=== PATIENT | female | born 1980 | race Two or more races ===

== ENCOUNTER → 2020-06-01 | Outpatient (CLI) | payer OTHER | END | disposition home or self-care (01) | LOC: LAB 14:12 | PROVIDERS: ATTEND Preventive Medicine Preventive Medicine/Occupational Environmental Medicine | DX: Z02.1 Encounter for pre-employment examination (principal) | CPT/HCPCS: 36415; 86706; 86735; 86762; 86765; 86787 ==

== ENCOUNTER 2021-02-14 09:16 | Emergency (ER) | payer MEDICAID, OTHER ==
[~2021-02-14] VITALS: Ht 157.5 cm; Wt 80.7 kg
[2021-02-14 10:06] LABS: Urine Bacteria NONE SEEN /hpf (None Seen); Urine Blood TRACE /uL (Negative); Urine Specific Gravity 1.013 (1.001-1.035); Urine WBC 12 /hpf (0 - 5)
[2021-02-14 11:22] LABS: Basophils # (auto) 0 10 ^3/uL (0-0.2); Basophils % (auto) 0.3 % (0.0-2.0); Eosinophils # (auto) 0.1 10 ^3/uL (0-0.8); Eosinophils % (auto) 1.5 % (0.0-7.0); Hematocrit 38.2 % (36.0-46.0); Lymphocytes # (auto) 1.8 10 ^3/uL (0.4-5.4); Lymphocytes % (auto) 25.1 % (10.0-50.0); Mean Corpuscular Hemoglobin 30.8 pg (28.0-32.0); Mean Corpuscular Hgb Conc. 34.1 g/dL (32.0-36.0); Mean Corpuscular Volume 90.3 fL (80.0-100.0); Monocytes # (auto) 0.3 10 ^3/uL (0-1.3); Monocytes % (auto) 4.9 % (0.0-12.0); Neutrophils # (auto) 4.8 10 ^3/uL (1.6-8.6); Neutrophils % (auto) 68.2 % (37.0-80.0); Nucleated Red Blood Cells % 0.1 %; Platelet Count (auto) 284 10^3/uL (140-450); Red Blood Cells 4.23 10^6/uL (4.0-5.20); Red Cell Distribution Width 13.6 % (11.8-14.3); White Blood Cell 7.1 10^3/uL (4.4-10.8)
[2021-02-14 11:39] LABS: Albumin 3.8 g/dL (3.4-5.0); Calcium 9.3 mg/dL (8.5-10.1)
[2021-02-14 11:44] LABS: BUN/Creatinine Ratio 15.4; Bilirubin, Total 0.6 mg/dL (0.2-1.0)
[2021-02-14 12:06] VITALS: BP 100/70
== END 2021-02-14 12:58 | disposition home or self-care (01) ==
LOC: ER 09:16
DX: N39.0 Urinary tract infection, site not specified (principal)
CPT/HCPCS: 36415; 74176; 80053; 81001; 85025

== ENCOUNTER 2021-08-29 13:58 | Emergency (ER) | payer MEDICAID ==
[~2021-08-29] VITALS: Ht 157.5 cm; Wt 81.6 kg
[2021-08-29 16:13] LABS: Basophils # (auto) 0 10 ^3/uL (0-0.2); Basophils % (auto) 0.3 % (0.0-2.0); Eosinophils # (auto) 0.1 10 ^3/uL (0-0.8); Eosinophils % (auto) 1.3 % (0.0-7.0); Hematocrit 35.1 % (36.0-46.0); Hemoglobin 11.9 g/dL (12.2-16.2); Lymphocytes # (auto) 2.4 10 ^3/uL (0.4-5.4); Lymphocytes % (auto) 25.5 % (10.0-50.0); Mean Corpuscular Hemoglobin 30.4 pg (28.0-32.0); Mean Corpuscular Volume 89.4 fL (80.0-100.0); Monocytes # (auto) 0.4 10 ^3/uL (0-1.3); Monocytes % (auto) 4.5 % (0.0-12.0); Neutrophils # (auto) 6.4 10 ^3/uL (1.6-8.6); Neutrophils % (auto) 68.4 % (37.0-80.0); Red Blood Cells 3.93 10^6/uL (4.0-5.20); Red Cell Distribution Width 13.2 % (11.8-14.3); White Blood Cell 9.4 10^3/uL (4.4-10.8)
[2021-08-29 16:24] LABS: Albumin 3.8 g/dL (3.4-5.0); Potassium 3.7 mmol/L (3.5-5.1)
[2021-08-29 16:27] LABS: Bilirubin, Total 0.3 mg/dL (0.2-1.0); Total Protein 7.7 g/dL (6.4-8.2)
[2021-08-29 17:23] VITALS: BP 113/75
== END 2021-08-29 17:27 | disposition home or self-care (01) ==
LOC: ER 13:58
DX: R51.9 Headache, unspecified (principal); R42 Dizziness and giddiness; R20.2 Paresthesia of skin
CPT/HCPCS: 36415; 70450; 80053; 85025

== ENCOUNTER → 2021-10-05 | Outpatient (CLI) | payer MEDICAID | END | disposition home or self-care (01) | LOC: Rad HDHVI 13:49 | PROVIDERS: ATTEND Internal Medicine Cardiovascular Disease | DX: R00.2 Palpitations (principal); I10 Essential (primary) hypertension | CPT/HCPCS: 93306 ==

== ENCOUNTER → 2021-10-25 | Outpatient (CLI) | payer MEDICAID ==
[~2021-10-25] VITALS: Ht 157.5 cm; Wt 77.1 kg
== END | disposition home or self-care (01) ==
LOC: Rad HDHVI 08:04
PROVIDERS: ATTEND Internal Medicine Cardiovascular Disease
DX: Z13.0 Encounter for screening for diseases of the blood and blood-forming organs and certain disorders involving the immune mechanism (principal); I10 Essential (primary) hypertension; R07.9 Chest pain, unspecified; R00.0 Tachycardia, unspecified; I49.9 Cardiac arrhythmia, unspecified; R00.2 Palpitations; R06.02 Shortness of breath
CPT/HCPCS: 78452; 93017; 96374; A9500

== ENCOUNTER 2023-09-27 15:43 | Inpatient (IN) | payer MEDICAID ==
[~2023-09-27] VITALS: Ht 157.5 cm; Wt 76.9 kg
[2023-09-27] MEDS ORDERED: LIDOCAINE VISCOUS 2% 15ML UD PO ONE (16:15)
[2023-09-27] MEDS ORDERED: fentaNYL CITRATE 100 MCG/2 ML VL IV ONE (16:15)
[2023-09-27] MEDS ORDERED: SODIUM CHLORIDE 0.9% 1,000 ML IV ONE (16:15)
[2023-09-27 17:57] LABS: Basophils # (auto) 0 10 ^3/uL (0-0.2); Basophils % (auto) 0.1 % (0.0-2.0); Eosinophils # (auto) 0.1 10 ^3/uL (0-0.8); Eosinophils % (auto) 0.5 % (0.0-7.0); Hematocrit 35.7 % (36.0-46.0); Hemoglobin 11.5 g/dL (12.2-16.2); Lymphocytes # (auto) 1.1 10 ^3/uL (0.4-5.4); Lymphocytes % (auto) 8.3 % (10.0-50.0); Mean Corpuscular Hemoglobin 28.4 pg (28.0-32.0); Mean Corpuscular Hgb Conc. 32.3 g/dL (32.0-36.0); Mean Corpuscular Volume 87.9 fL (80.0-100.0); Monocytes # (auto) 0.5 10 ^3/uL (0-1.3); Monocytes % (auto) 3.8 % (0.0-12.0); Neutrophils # (auto) 12.1 10 ^3/uL (1.6-8.6); Neutrophils % (auto) 87.3 % (37.0-80.0); Red Blood Cells 4.06 10^6/uL (4.0-5.20); Red Cell Distribution Width 14.3 % (11.8-14.3); White Blood Cell 13.9 10^3/uL (4.4-10.8)
[2023-09-27 17:58] LABS: Alanine Aminotransferase 34 U/L (7-40); Albumin 4.4 g/dL (3.2-4.8); Alkaline Phosphatase 125 U/L (46-116); Anion Gap 6 (5-15); Aspartate Aminotransferase 67 U/L (13-40); BUN/Creatinine Ratio 16.4 (10.0-20.0); Blood Urea Nitrogen 9 mg/dL (9-23); Calcium 9.4 mg/dL (8.5-10.1); Carbon Dioxide 28 mmol/L (20-30); Chloride 105 mmol/L (98-107); Glucose 115 mg/dL (74-106); Potassium 3.8 mmol/L (3.5-5.1); Sodium 139 mmol/L (136-145)
[2023-09-27 17:59] LABS: Bilirubin, Total 0.5 mg/dL (0.2-1.0); Total Protein 7.5 g/dL (5.7-8.2)
[2023-09-27 18:28] LABS: Lipase 3485 U/L (12-53)
[2023-09-27] MEDS ORDERED: KETOROLAC TROMETH 30 MG/ML 1ML VIAL IV ONE (18:45)
[2023-09-27 18:55] LABS: Urine Bacteria NONE SEEN /hpf (None Seen); Urine Blood 2+ /uL (Negative); Urine Clarity Clear (Clear); Urine Color Yellow (Yellow); Urine Epithelial Cast None Seen /hpf (<5); Urine Mucus FEW (None Seen); Urine Protein, UAD Negative (Negative); Urine Specific Gravity 1.014 (1.001-1.035); Urine Urobilinogen Normal (Negative); Urine WBC 2 /hpf (0 - 5)
[2023-09-27] MEDS ORDERED: cefTRIAXone 1GM/50ML D5W 50 ML IV SCH (22:00)
[2023-09-27] MEDS ORDERED: ONDANSETRON HCL 4 MG/2 ML VIAL IV PRN (22:00)
[2023-09-27] MEDS ORDERED: SODIUM CHLOR 0.9% PF (SALINE LOCK) 10ML VIAL/SYR IV SCH (22:00)
[2023-09-27] MEDS ORDERED: HYDROcodone-ACET 5/325MG TAB PO PRN (22:00)
[2023-09-27] MEDS ORDERED: MORPHINE SULFATE INJ 2 MG/ml SYRG IV PRN (22:00)
[2023-09-27] MEDS ORDERED: MAGNESIUM SULFATE 1GM/100ML 100 ML IV SCH (22:00)
[2023-09-27] MEDS ORDERED: ACETAMINOPHEN 325 MG TAB PO PRN (22:00)
[2023-09-27] MEDS ORDERED: metroNIDAZOLE 500MG/100ML 100 ML IV SCH (22:00)
[2023-09-27] MEDS ORDERED: DOCUSATE SOD 100 MG CAP PO PRN (22:00)
[2023-09-27] MEDS ORDERED: LACTATED RINGER'S 1,000 ML IV ONE (22:00)
[2023-09-27] MEDS ORDERED: hydrALAZINE HCL 20 MG/ML VL IV PRN (22:15)
[2023-09-28 05:26] VITALS: PULSE 88; RESP 18; O2SAT 98
[2023-09-28] MEDS ORDERED: ENOXAPARIN SOD 40 MG/0.4 ML SYRINGE SC SCH (10:00)
[2023-09-28] MEDS: METOPROLOL TARTRATE 25 MG TAB PO SCH ×2 (10:30→21:37)
[2023-09-28] MEDS ORDERED: MORPHINE SULFATE INJ 2 MG/ml SYRG IV PRN (14:00)
[2023-09-28] MEDS ORDERED: PANTOPRAZOLE 40 MG/10 ML VIAL INJ IV ONE (14:00)
[2023-09-28] MEDS ORDERED: cefTRIAXone 1GM/50ML D5W 50 ML IV ONE (14:00)
[2023-09-28] MEDS: D5W/SOD CHLO 0.9% 1,000 ML IV SCH (15:16)
[2023-09-28] MEDS: metroNIDAZOLE 500MG/100ML 100 ML IV SCH ×2 (16:25→21:13)
[2023-09-28 18:20] VITALS: BP 110/60; PULSE 78; RESP 16; TEMP 98.8; O2SAT 96
[2023-09-28] MEDS ORDERED: MET50T PO (18:28)
[2023-09-28 20:00] VITALS: RESP 18
[2023-09-28 22:00] VITALS: BP 101/79; PULSE 77; RESP 18; TEMP 98.4; O2SAT 95
[2023-09-29 05:00] VITALS: BP 95/60; PULSE 68; RESP 17; TEMP 98.5; O2SAT 97
[2023-09-29] MEDS: metroNIDAZOLE 500MG/100ML 100 ML IV SCH ×3 (05:28→21:31)
[2023-09-29] MEDS: D5W/SOD CHLO 0.9% 1,000 ML IV SCH ×2 (05:28→16:43)
[2023-09-29 05:34] LABS: Basophils # (auto) 0 10 ^3/uL (0-0.2); Basophils % (auto) 0.3 % (0.0-2.0); Eosinophils # (auto) 0.1 10 ^3/uL (0-0.8); Hematocrit 32.4 % (36.0-46.0); Hemoglobin 10.6 g/dL (12.2-16.2); Lymphocytes # (auto) 1.6 10 ^3/uL (0.4-5.4); Lymphocytes % (auto) 25.9 % (10.0-50.0); Mean Corpuscular Hgb Conc. 32.7 g/dL (32.0-36.0); Mean Corpuscular Volume 88.9 fL (80.0-100.0); Monocytes # (auto) 0.5 10 ^3/uL (0-1.3); Monocytes % (auto) 8.4 % (0.0-12.0); Neutrophils # (auto) 3.9 10 ^3/uL (1.6-8.6); Neutrophils % (auto) 63.4 % (37.0-80.0); Red Blood Cells 3.65 10^6/uL (4.0-5.20); Red Cell Distribution Width 14.3 % (11.8-14.3); White Blood Cell 6.1 10^3/uL (4.4-10.8)
[2023-09-29] MEDS: ACETAMINOPHEN 325 MG TAB PO PRN ×2 (05:43→16:33)
[2023-09-29 05:52] LABS: INR 1.04 (0.9-1.15); Partial Thromboplastin Time 28.5 SEC (24.5-34.5); Prothrombin Time 10.9 sec (9.3-11.8)
[2023-09-29 05:53] LABS: Alanine Aminotransferase 36 U/L (7-40); Albumin 3.8 g/dL (3.2-4.8); Alkaline Phosphatase 104 U/L (46-116); Anion Gap 6 (5-15); Aspartate Aminotransferase 28 U/L (13-40); BUN/Creatinine Ratio 11.1 (10.0-20.0); Blood Urea Nitrogen 6 mg/dL (9-23); Calcium 8.9 mg/dL (8.5-10.1); Carbon Dioxide 27 mmol/L (20-30); Chloride 108 mmol/L (98-107); Cholesterol 107 mg/dL (< 200); Glucose 96 mg/dL (74-106); HDL Cholesterol 37 mg/dL (40-59); LDL Cholesterol 58 mg/dL (< 100); Potassium 3.8 mmol/L (3.5-5.1); Sodium 141 mmol/L (136-145); Triglycerides 88 mg/dL (< 150)
[2023-09-29 05:54] LABS: Bilirubin, Total 0.9 mg/dL (0.2-1.0); Total Protein 6.5 g/dL (5.7-8.2)
[2023-09-29 07:09] LABS: Lipase 38 U/L (12-53)
[2023-09-29 08:39] VITALS: BP 86/64; PULSE 97; RESP 14; TEMP 98; O2SAT 98
[2023-09-29] MEDS: PANTOPRAZOLE 40 MG/10 ML VIAL INJ IV SCH (09:46)
[2023-09-29] MEDS: cefTRIAXone 1GM/50ML D5W 50 ML IV SCH (09:46)
[2023-09-29] MEDS: METOPROLOL TARTRATE 25 MG TAB PO SCH ×2 (09:50→21:31)
[2023-09-29 12:43] VITALS: BP 102/65; PULSE 83; RESP 14; TEMP 97.9; O2SAT 100
[2023-09-29 16:37] VITALS: BP 107/66; PULSE 64; RESP 14; TEMP 97.9; O2SAT 97
[2023-09-29 22:00] VITALS: BP 103/68; PULSE 58; RESP 19; TEMP 98.7; O2SAT 96
[2023-09-30] VITALS (7 sets, daily range): BP systolic 97–128; BP diastolic 55–76; PULSE 63–91; RESP 15–18; TEMP 97.8–98.3; O2SAT 96–100
[2023-09-30] MEDS: D5W/SOD CHL 0.45%/KCL 20MEQ 1,000 ML IV SCH ×3 (00:38→23:46)
[2023-09-30] MEDS: metroNIDAZOLE 500MG/100ML 100 ML IV SCH ×3 (05:36→21:32)
[2023-09-30 06:32] LABS: Basophils # (auto) 0 10 ^3/uL (0-0.2); Basophils % (auto) 0.5 % (0.0-2.0); Eosinophils # (auto) 0.1 10 ^3/uL (0-0.8); Eosinophils % (auto) 2.8 % (0.0-7.0); Hematocrit 35.2 % (36.0-46.0); Hemoglobin 11.2 g/dL (12.2-16.2); Lymphocytes # (auto) 1.4 10 ^3/uL (0.4-5.4); Lymphocytes % (auto) 29.5 % (10.0-50.0); Mean Corpuscular Hemoglobin 28.5 pg (28.0-32.0); Mean Corpuscular Hgb Conc. 31.8 g/dL (32.0-36.0); Mean Corpuscular Volume 89.5 fL (80.0-100.0); Monocytes # (auto) 0.4 10 ^3/uL (0-1.3); Monocytes % (auto) 8.4 % (0.0-12.0); Neutrophils # (auto) 2.9 10 ^3/uL (1.6-8.6); Neutrophils % (auto) 58.8 % (37.0-80.0); Red Blood Cells 3.93 10^6/uL (4.0-5.20); Red Cell Distribution Width 14.3 % (11.8-14.3); White Blood Cell 4.9 10^3/uL (4.4-10.8)
[2023-09-30 06:57] LABS: Alanine Aminotransferase 27 U/L (7-40); Albumin 3.9 g/dL (3.2-4.8); Alkaline Phosphatase 96 U/L (46-116); Anion Gap 7 (5-15); Aspartate Aminotransferase 17 U/L (13-40); Calcium 8.6 mg/dL (8.7-10.4); Carbon Dioxide 25 mmol/L (20-30); Chloride 108 mmol/L (98-107); Glucose 92 mg/dL (74-106); Potassium 3.4 mmol/L (3.5-5.1); Sodium 140 mmol/L (136-145)
[2023-09-30 06:58] LABS: BUN/Creatinine Ratio 10.2 (10.0-20.0); Bilirubin, Total 0.6 mg/dL (0.2-1.0); Blood Urea Nitrogen < 5 mg/dL (9-23); Total Protein 6.9 g/dL (5.7-8.2)
[2023-09-30] MEDS ORDERED: LIDOCAINE W/ EPINEPHRINE 2% INJ 20ML VIAL ONE (07:54)
[2023-09-30] MEDS ORDERED: MEPERIDINE HCL (25 MG/ML) 1ML VIAL ONE ×2 (08:24→08:25)
[2023-09-30] MEDS ORDERED: PROPOFOL 10 MG/ML 20 ML IV ONE (08:24)
[2023-09-30] MEDS ORDERED: MIDAZOLAM HCL 2MG/2ML 2ml VIAL (1mg/ml) ONE (08:24)
[2023-09-30] MEDS ORDERED: DexAMETHasone SOD PHOS 10MG/1ML VIAL INJ ONE (08:24)
[2023-09-30] MEDS ORDERED: fentaNYL CITRATE 100 MCG/2 ML VL ONE (08:30)
[2023-09-30] MEDS ORDERED: LIDOCAINE 2% JELLY 11ml (GLYDO) ONE (08:32)
[2023-09-30] MEDS ORDERED: ROCURONIUM 10MG/ML 10ML VIAL IV ONE (08:41)
[2023-09-30] MEDS ORDERED: SUGAMMADEX 200mg/2ml Vial (100MG/ML) IV ONE (09:21)
[2023-09-30] MEDS ORDERED: MORPHINE SULFATE INJ 2 MG/ml SYRG IV PRN (09:30)
[2023-09-30] MEDS ORDERED: MORPHINE SULFATE 4 MG/ML SYR/VIAL IV PRN (09:30)
[2023-09-30] MEDS ORDERED: KETOROLAC TROMETH 30 MG/ML 1ML VIAL IV ONE (09:30)
[2023-09-30] MEDS ORDERED: ONDANSETRON HCL 4 MG/2 ML VIAL IV PRN (09:30)
[2023-09-30] MEDS ORDERED: ePHEDrine SULFATE 50 MG/ML AMP IV PRN (09:30)
[2023-09-30] MEDS ORDERED: MIDAZOLAM HCL 2MG/2ML 2ml VIAL (1mg/ml) IV PRN (09:30)
[2023-09-30] MEDS ORDERED: LABETALOL HCL 5 MG/ML 4ML SYRINGE IV PRN (09:30)
[2023-09-30] MEDS: HYDROmorphone HCL 2 MG/ML VL/or syr IV PRN ×7 (09:43→21:33)
[2023-09-30] MEDS: METOPROLOL TARTRATE 25 MG TAB PO SCH ×2 (10:00→21:32)
[2023-09-30] MEDS: HYDROcodone-ACET 5/325MG TAB PO PRN ×2 (10:08→19:51)
[2023-09-30] MEDS: cefTRIAXone 1GM/50ML D5W 50 ML IV SCH (11:12)
[2023-09-30] MEDS: PANTOPRAZOLE 40 MG/10 ML VIAL INJ IV SCH (12:10)
[2023-09-30] MEDS: ONDANSETRON HCL 4 MG/2 ML VIAL IV PRN ×2 (12:11→21:07)
[2023-09-30] MEDS ORDERED: HYDROcodone-ACET 5/325MG TAB PO ONE (21:30)
[2023-10-01] VITALS (8 sets, daily range): BP systolic 92–118; BP diastolic 50–95; PULSE 67–103; RESP 16–19; TEMP 98.3–99.2; O2SAT 90–100
[2023-10-01] MEDS: HYDROmorphone HCL 2 MG/ML VL/or syr IV PRN ×3 (02:05→13:18)
[2023-10-01] MEDS: HYDROcodone-ACET 5/325MG TAB PO PRN ×2 (03:03→10:01)
[2023-10-01] MEDS: metroNIDAZOLE 500MG/100ML 100 ML IV SCH ×3 (06:22→21:32)
[2023-10-01 06:33] LABS: Basophils # (auto) 0 10 ^3/uL (0-0.2); Basophils % (auto) 0.1 % (0.0-2.0); Eosinophils # (auto) 0 10 ^3/uL (0-0.8); Hematocrit 32.1 % (36.0-46.0); Hemoglobin 10.5 g/dL (12.2-16.2); Lymphocytes # (auto) 1.2 10 ^3/uL (0.4-5.4); Lymphocytes % (auto) 10.6 % (10.0-50.0); Mean Corpuscular Hemoglobin 29.1 pg (28.0-32.0); Mean Corpuscular Hgb Conc. 32.8 g/dL (32.0-36.0); Mean Corpuscular Volume 88.8 fL (80.0-100.0); Monocytes # (auto) 0.9 10 ^3/uL (0-1.3); Monocytes % (auto) 7.9 % (0.0-12.0); Neutrophils # (auto) 8.9 10 ^3/uL (1.6-8.6); Neutrophils % (auto) 81.4 % (37.0-80.0); Red Blood Cells 3.62 10^6/uL (4.0-5.20); Red Cell Distribution Width 14.3 % (11.8-14.3); White Blood Cell 10.9 10^3/uL (4.4-10.8)
[2023-10-01 06:42] LABS: Alanine Aminotransferase 28 U/L (7-40); Alkaline Phosphatase 89 U/L (46-116); Anion Gap 6 (5-15); Calcium 8.9 mg/dL (8.5-10.1); Carbon Dioxide 25 mmol/L (20-30); Chloride 106 mmol/L (98-107); Glucose 112 mg/dL (74-106); Potassium 3.5 mmol/L (3.5-5.1); Sodium 137 mmol/L (136-145)
[2023-10-01 06:44] LABS: Albumin 3.8 g/dL (3.2-4.8); Aspartate Aminotransferase 28 U/L (13-40); BUN/Creatinine Ratio 10.9 (10.0-20.0); Bilirubin, Total 0.6 mg/dL (0.2-1.0); Blood Urea Nitrogen < 5 mg/dL (9-23)
[2023-10-01 06:45] LABS: Total Protein 6.6 g/dL (5.7-8.2)
[2023-10-01 09:06] LABS: Hepatitis B Surface Antigen Negative (Negative)
[2023-10-01 09:28] LABS: Hepatitis C Antibody Negative (Negative)
[2023-10-01] MEDS: METOPROLOL TARTRATE 25 MG TAB PO SCH ×2 (10:00→20:58)
[2023-10-01] MEDS: PANTOPRAZOLE 40 MG/10 ML VIAL INJ IV SCH (10:02)
[2023-10-01] MEDS: cefTRIAXone 1GM/50ML D5W 50 ML IV SCH (10:02)
[2023-10-01] MEDS ORDERED: KETOROLAC TROMETH 30 MG/ML 1ML VIAL IV ONE (11:00)
[2023-10-01] MEDS ORDERED: BACLOFEN 10 MG TAB PO PRN (15:00)
[2023-10-01] MEDS: KETOROLAC TROMETH 30 MG/ML 1ML VIAL IV PRN (15:42)
[2023-10-01] MEDS: D5W/SOD CHL 0.45%/KCL 20MEQ 1,000 ML IV SCH (15:45)
[2023-10-01] MEDS ORDERED: HYDROmorphone HCL 2 MG/ML VL/or syr IV ONE (18:30)
[2023-10-01] MEDS ORDERED: DICYCLOMINE HCL (10MG/ML) 2 ML AMPULE IM ONE (18:30)
[2023-10-02] VITALS (8 sets, daily range): BP systolic 94–110; BP diastolic 47–68; PULSE 72–89; RESP 17–21; TEMP 97.4–99.1; O2SAT 93–99
[2023-10-02] MEDS: KETOROLAC TROMETH 30 MG/ML 1ML VIAL IV PRN ×3 (01:38→21:51)
[2023-10-02] MEDS: D5W/SOD CHL 0.45%/KCL 20MEQ 1,000 ML IV SCH ×2 (05:20→09:31)
[2023-10-02] MEDS: metroNIDAZOLE 500MG/100ML 100 ML IV SCH ×3 (05:58→21:50)
[2023-10-02 06:46] LABS: Basophils # (auto) 0 10 ^3/uL (0-0.2); Basophils % (auto) 0.3 % (0.0-2.0); Eosinophils # (auto) 0 10 ^3/uL (0-0.8); Eosinophils % (auto) 0.3 % (0.0-7.0); Hematocrit 30.6 % (36.0-46.0); Lymphocytes # (auto) 1.1 10 ^3/uL (0.4-5.4); Lymphocytes % (auto) 12.7 % (10.0-50.0); Mean Corpuscular Hemoglobin 28.9 pg (28.0-32.0); Mean Corpuscular Hgb Conc. 32.6 g/dL (32.0-36.0); Mean Corpuscular Volume 88.9 fL (80.0-100.0); Monocytes # (auto) 0.7 10 ^3/uL (0-1.3); Monocytes % (auto) 7.6 % (0.0-12.0); Neutrophils # (auto) 6.8 10 ^3/uL (1.6-8.6); Neutrophils % (auto) 79.1 % (37.0-80.0); Red Blood Cells 3.44 10^6/uL (4.0-5.20); Red Cell Distribution Width 14.5 % (11.8-14.3); White Blood Cell 8.6 10^3/uL (4.4-10.8)
[2023-10-02 07:35] LABS: Alanine Aminotransferase 30 U/L (7-40); Albumin 3.4 g/dL (3.2-4.8); Alkaline Phosphatase 88 U/L (46-116); Anion Gap 4 (5-15); Aspartate Aminotransferase 33 U/L (13-40); BUN/Creatinine Ratio 12.2 (10.0-20.0); Bilirubin, Total 0.9 mg/dL (0.2-1.0); Blood Urea Nitrogen 5 mg/dL (9-23); Calcium 8.1 mg/dL (8.7-10.4); Carbon Dioxide 26 mmol/L (20-30); Chloride 108 mmol/L (98-107); Glucose 101 mg/dL (74-106); Lipase 37 U/L (12-53); Potassium 3.3 mmol/L (3.5-5.1); Sodium 138 mmol/L (136-145); Total Protein 6.1 g/dL (5.7-8.2)
[2023-10-02] MEDS: cefTRIAXone 1GM/50ML D5W 50 ML IV SCH (09:30)
[2023-10-02] MEDS: PANTOPRAZOLE 40 MG/10 ML VIAL INJ IV SCH (09:30)
[2023-10-02] MEDS: METOPROLOL TARTRATE 25 MG TAB PO SCH (09:30)
[2023-10-02] MEDS ORDERED: POTASSIUM CHLORIDE 20 MEQ, LIDOCAINE 1% (LOCAL ANESTH.) 2 ML in SODIUM CHL 0.9% 100 ML IV ONE (10:30)
[2023-10-02] MEDS ORDERED: PIPERACILLIN-TAZOB 3.375GM 100 ML IV ONE (10:30)
[2023-10-02] MEDS: LACTATED RINGER'S 1,000 ML IV SCH (10:30)
[2023-10-02] MEDS: ACETAMINOPHEN 325 MG TAB PO PRN (10:41)
[2023-10-02] MEDS ORDERED: MEPERIDINE HCL (25 MG/ML) 1ML VIAL IV ONE (10:45)
[2023-10-02] MEDS ORDERED: LORazepam 2MG/ML-1ML VIAL IV ONE (10:45)
[2023-10-02] MEDS: ONDANSETRON HCL 4 MG/2 ML VIAL IV PRN (11:08)
[2023-10-02] MEDS: PIPERACILLIN-TAZOB 3.375GM 100 ML IV SCH (19:58)
[2023-10-03] VITALS (7 sets, daily range): BP systolic 96–112; BP diastolic 58–67; PULSE 63–83; RESP 18–20; TEMP 98–98.2; O2SAT 96–98
[2023-10-03] MEDS: PIPERACILLIN-TAZOB 3.375GM 100 ML IV SCH ×3 (02:39→18:38)
[2023-10-03] MEDS: LACTATED RINGER'S 1,000 ML IV SCH ×2 (02:40→09:54)
[2023-10-03 05:48] LABS: Basophils # (auto) 0 10 ^3/uL (0-0.2); Basophils % (auto) 0.4 % (0.0-2.0); Eosinophils # (auto) 0.1 10 ^3/uL (0-0.8); Eosinophils % (auto) 2.9 % (0.0-7.0); Hematocrit 28.7 % (36.0-46.0); Hemoglobin 9.3 g/dL (12.2-16.2); Lymphocytes # (auto) 0.8 10 ^3/uL (0.4-5.4); Lymphocytes % (auto) 15.5 % (10.0-50.0); Mean Corpuscular Hemoglobin 28.5 pg (28.0-32.0); Mean Corpuscular Hgb Conc. 32.4 g/dL (32.0-36.0); Mean Corpuscular Volume 88.1 fL (80.0-100.0); Monocytes # (auto) 0.5 10 ^3/uL (0-1.3); Monocytes % (auto) 9.1 % (0.0-12.0); Neutrophils # (auto) 3.7 10 ^3/uL (1.6-8.6); Neutrophils % (auto) 72.1 % (37.0-80.0); Red Blood Cells 3.26 10^6/uL (4.0-5.20); Red Cell Distribution Width 14.8 % (11.8-14.3); White Blood Cell 5.2 10^3/uL (4.4-10.8)
[2023-10-03 05:57] LABS: Alanine Aminotransferase 25 U/L (7-40); Albumin 3.1 g/dL (3.2-4.8); Alkaline Phosphatase 84 U/L (46-116); Anion Gap 6 (5-15); Aspartate Aminotransferase 28 U/L (13-40); BUN/Creatinine Ratio 18.6 (10.0-20.0); Blood Urea Nitrogen 8 mg/dL (9-23); Carbon Dioxide 24 mmol/L (20-30); Chloride 109 mmol/L (98-107); Glucose 79 mg/dL (74-106); Potassium 3.5 mmol/L (3.5-5.1); Sodium 139 mmol/L (136-145)
[2023-10-03 05:58] LABS: Bilirubin, Total 0.8 mg/dL (0.2-1.0); Total Protein 5.7 g/dL (5.7-8.2)
[2023-10-03] MEDS: metroNIDAZOLE 500MG/100ML 100 ML IV SCH (06:08)
[2023-10-03] MEDS: PANTOPRAZOLE 40 MG/10 ML VIAL INJ IV SCH (09:57)
[2023-10-03] MEDS: KETOROLAC TROMETH 30 MG/ML 1ML VIAL IV PRN ×2 (13:50→21:34)
[2023-10-04] VITALS (7 sets, daily range): BP systolic 99–115; BP diastolic 59–73; PULSE 65–76; RESP 16–19; TEMP 97.9–99.2; O2SAT 94–99
[2023-10-04] MEDS: PIPERACILLIN-TAZOB 3.375GM 100 ML IV SCH ×3 (03:58→19:10)
[2023-10-04] MEDS: LACTATED RINGER'S 1,000 ML IV SCH ×3 (04:06→21:57)
[2023-10-04 06:04] LABS: Basophils # (auto) 0 10 ^3/uL (0-0.2); Basophils % (auto) 0.3 % (0.0-2.0); Eosinophils # (auto) 0.2 10 ^3/uL (0-0.8); Eosinophils % (auto) 3.5 % (0.0-7.0); Lymphocytes # (auto) 1.3 10 ^3/uL (0.4-5.4); Lymphocytes % (auto) 24.2 % (10.0-50.0); Mean Corpuscular Hemoglobin 29.7 pg (28.0-32.0); Mean Corpuscular Hgb Conc. 33.3 g/dL (32.0-36.0); Mean Corpuscular Volume 89.1 fL (80.0-100.0); Monocytes # (auto) 0.5 10 ^3/uL (0-1.3); Monocytes % (auto) 9.2 % (0.0-12.0); Neutrophils # (auto) 3.3 10 ^3/uL (1.6-8.6); Neutrophils % (auto) 62.8 % (37.0-80.0); Red Blood Cells 3.03 10^6/uL (4.0-5.20); Red Cell Distribution Width 14.5 % (11.8-14.3); White Blood Cell 5.3 10^3/uL (4.4-10.8)
[2023-10-04 06:24] LABS: Alanine Aminotransferase 19 U/L (7-40); Albumin 3.1 g/dL (3.2-4.8); Alkaline Phosphatase 76 U/L (46-116); Anion Gap 6 (5-15); Aspartate Aminotransferase 17 U/L (13-40); Carbon Dioxide 24 mmol/L (20-30); Chloride 110 mmol/L (98-107); Glucose 82 mg/dL (74-106); Potassium 3.4 mmol/L (3.5-5.1); Sodium 140 mmol/L (136-145)
[2023-10-04 06:25] LABS: Bilirubin, Total 0.6 mg/dL (0.2-1.0); Total Protein 5.6 g/dL (5.7-8.2)
[2023-10-04 06:29] LABS: BUN/Creatinine Ratio 13.5 (10.0-20.0); Blood Urea Nitrogen < 5 mg/dL (9-23)
[2023-10-04] MEDS: PANTOPRAZOLE 40 MG/10 ML VIAL INJ IV SCH (09:30)
[2023-10-04] MEDS ORDERED: POTASSIUM EFFERVESENT TAB 25 MEQ PO ONE (10:45)
[2023-10-04] MEDS: FLORASTOR (S. BOULARDII) 250 MG CAP PO SCH (13:05)
[2023-10-04] MEDS: METOPROLOL TARTRATE 25 MG TAB PO SCH (21:57)
[2023-10-04] MEDS ORDERED: HEPARIN SODIUM (PORCINE) 5000 UNITS/ML 1ML VIAL SC ONE (22:15)
[2023-10-05] MEDS: PIPERACILLIN-TAZOB 3.375GM 100 ML IV SCH (03:47)
[2023-10-05 06:58] LABS: Basophils # (auto) 0 10 ^3/uL (0-0.2); Basophils % (auto) 0.6 % (0.0-2.0); Eosinophils # (auto) 0.2 10 ^3/uL (0-0.8); Eosinophils % (auto) 3.7 % (0.0-7.0); Hematocrit 29.9 % (36.0-46.0); Hemoglobin 9.7 g/dL (12.2-16.2); Lymphocytes # (auto) 1.7 10 ^3/uL (0.4-5.4); Lymphocytes % (auto) 31.8 % (10.0-50.0); Mean Corpuscular Hemoglobin 28.3 pg (28.0-32.0); Mean Corpuscular Hgb Conc. 32.5 g/dL (32.0-36.0); Mean Corpuscular Volume 87.3 fL (80.0-100.0); Monocytes # (auto) 0.5 10 ^3/uL (0-1.3); Neutrophils # (auto) 2.8 10 ^3/uL (1.6-8.6); Neutrophils % (auto) 53.9 % (37.0-80.0); Nucleated Red Blood Cells % 0.1 %; Red Blood Cells 3.43 10^6/uL (4.0-5.20); Red Cell Distribution Width 14.5 % (11.8-14.3); White Blood Cell 5.2 10^3/uL (4.4-10.8)
[2023-10-05 07:09] LABS: Calcium 8.8 mg/dL (8.5-10.1); Chloride 107 mmol/L (98-107); Potassium 3.3 mmol/L (3.5-5.1); Sodium 139 mmol/L (136-145)
[2023-10-05 07:10] LABS: Anion Gap 7 (5-15); Carbon Dioxide 25 mmol/L (20-30)
[2023-10-05 07:15] LABS: Glucose 81 mg/dL (74-106)
[2023-10-05 07:21] LABS: BUN/Creatinine Ratio 11.9 (10.0-20.0); Blood Urea Nitrogen < 5 mg/dL (9-23)
[2023-10-05] MEDS ORDERED: POTASSIUM EFFERVESENT TAB 25 MEQ PO ONE (08:00)
[2023-10-05 08:15] VITALS: PULSE 74
[2023-10-05 09:00] VITALS: BP 125/72; PULSE 65; RESP 17; TEMP 98.2; O2SAT 98
[2023-10-05] MEDS: METOPROLOL TARTRATE 25 MG TAB PO SCH ×2 (09:45→22:37)
[2023-10-05] MEDS: FLORASTOR (S. BOULARDII) 250 MG CAP PO SCH (09:45)
[2023-10-05] MEDS: PANTOPRAZOLE 40 MG/10 ML VIAL INJ IV SCH (09:46)
[2023-10-05] MEDS ORDERED: HEPARIN SODIUM (PORCINE) 5000 UNITS/ML 1ML VIAL SC SCH (10:00)
[2023-10-05 13:00] VITALS: BP 130/72; PULSE 72; RESP 16; TEMP 98; O2SAT 98
[2023-10-05] MEDS: APIXABAN 5 MG TAB PO SCH ×2 (13:05→22:37)
[2023-10-05 17:00] VITALS: BP 135/69; PULSE 74; RESP 17; TEMP 98.8; O2SAT 99
[2023-10-05 20:00] VITALS: PULSE 80
[2023-10-05 22:00] VITALS: BP 108/65; PULSE 80; RESP 20; TEMP 98.6; O2SAT 97
[2023-10-06 05:00] VITALS: BP 100/67; PULSE 90; RESP 20; TEMP 79.9; O2SAT 94
[2023-10-06 08:00] VITALS: PULSE 88
[2023-10-06] MEDS: APIXABAN 5 MG TAB PO SCH (09:17)
[2023-10-06] MEDS: FLORASTOR (S. BOULARDII) 250 MG CAP PO SCH (09:17)
[2023-10-06 09:18] VITALS: BP 106/59; PULSE 63; RESP 14; TEMP 98.4; O2SAT 95
[2023-10-06] MEDS: METOPROLOL TARTRATE 25 MG TAB PO SCH (09:20)
[2023-10-06] MEDS ORDERED: PANTOPRAZOLE 40 MG TAB PO SCH (10:00)
[2023-10-06] MEDS ORDERED: APIX5TAB PO (13:05)
[2023-10-06 13:09] VITALS: BP 111/62; PULSE 85
[2023-10-06 13:20] VITALS: BP 106/66; PULSE 69; RESP 16; TEMP 98.1; O2SAT 96
[2023-10-12] MEDS ORDERED: APIXABAN 5 MG TAB PO SCH (10:00)
== END 2023-10-06 14:04 | disposition home or self-care (01) | DRG 263 ==
LOC: EDBD 15:43 → EDUNIT# 15:43 → ER 15:43 → OVERFLOW 22:00 → UNDODISIN 23:15 → EAST 09-28 18:23 → TELE-EAST 10-02 20:51
PROVIDERS: ADMIT Internal Medicine; ATTEND Nurse Practitioner Acute Care
PROC: 0FT44ZZ Resection of Gallbladder, Percutaneous Endoscopic Approach (ICD-10-PCS; principal; 2023-09-30 08:23)
DX: K80.12 Calculus of gallbladder with acute and chronic cholecystitis without obstruction (principal); K85.90 Acute pancreatitis without necrosis or infection, unspecified; K76.0 Fatty (change of) liver, not elsewhere classified; I47.10 Supraventricular tachycardia, unspecified; Z86.73 Personal history of transient ischemic attack (TIA), and cerebral infarction without residual deficits; Z83.3 Family history of diabetes mellitus; Z82.49 Family history of ischemic heart disease and other diseases of the circulatory system; E66.9 Obesity, unspecified; Z68.31 Body mass index [BMI] 31.0-31.9, adult
CPT/HCPCS: 36415; 71045; 74176; 74181; 76700; 76705; 78226; 80048; 80053; 80061; 81001; 82962; 83605; 83690; 83735; 84484; 84702; 85025; 85610; 85730; 86803; 86850; 86900; 86901; 87040; 87340; 87493; 93005; 93306; 93971; 97110; 97116; 97163; 99291; C9113; G0378; J1100; J1885; J2001; J2250; J2405; J2543; J2704; J3490

== ENCOUNTER 2023-10-25 12:38 | Emergency (ER) | payer MEDICAID ==
[~2023-10-25] VITALS: Ht 157.5 cm; Wt 78.3 kg
[~2023-10-25 12:38] MED LIST: APIX5TAB PO; MET50T PO
[2023-10-25] MEDS ORDERED: HYDROmorphone HCL 2 MG/ML VL/or syr IV ONE (14:30)
[2023-10-25] MEDS ORDERED: ACE3T PO (16:11)
[2023-10-25 17:40] VITALS: BP 110/68; PULSE 67; RESP 17; TEMP 98.7; O2SAT 100
== END 2023-10-25 17:42 | disposition home or self-care (01) ==
LOC: ER 12:38
DX: I82.612 Acute embolism and thrombosis of superficial veins of left upper extremity (principal); Z90.49 Acquired absence of other specified parts of digestive tract; Z79.899 Other long term (current) drug therapy
CPT/HCPCS: 72040; 76881; 93886

== ENCOUNTER 2023-11-03 11:22 | Emergency (ER) | payer MEDICAID ==
[~2023-11-03] VITALS: Ht 157.5 cm; Wt 77.1 kg
[~2023-11-03 11:22] MED LIST changes: +ACE3T PO
[2023-11-03 12:23] LABS: Urine Bacteria FEW /hpf (None Seen); Urine Blood TRACE /uL (Negative); Urine Clarity Clear (Clear); Urine Color Colorless (Yellow); Urine Mucus FEW (None Seen); Urine Protein, UAD Negative (Negative); Urine Specific Gravity 1.006 (1.001-1.035); Urine Urobilinogen Normal (Negative); Urine WBC 3 /hpf (0 - 5); Urine pH 6.5 (5.0-8.0)
[2023-11-03 15:37] VITALS: BP 100/63; PULSE 66; RESP 19; TEMP 98.2; O2SAT 100
== END 2023-11-03 15:39 | disposition home or self-care (01) ==
LOC: ER 11:22
DX: M79.605 Pain in left leg (principal); Z90.49 Acquired absence of other specified parts of digestive tract; Z79.899 Other long term (current) drug therapy
CPT/HCPCS: 81001; 93005; 93971

== ENCOUNTER 2023-11-10 14:11 | Emergency (ER) | payer MEDICAID ==
[~2023-11-10] VITALS: Ht 157.5 cm; Wt 77.0 kg
[2023-11-10 14:56] LABS: Basophils # (auto) 0 10 ^3/uL (0-0.2); Basophils % (auto) 0.4 % (0.0-2.0); Eosinophils # (auto) 0.1 10 ^3/uL (0-0.8); Eosinophils % (auto) 1.1 % (0.0-7.0); Hematocrit 36.7 % (36.0-46.0); Hemoglobin 11.9 g/dL (12.2-16.2); Lymphocytes # (auto) 1.8 10 ^3/uL (0.4-5.4); Lymphocytes % (auto) 21.4 % (10.0-50.0); Mean Corpuscular Hemoglobin 28.7 pg (28.0-32.0); Mean Corpuscular Hgb Conc. 32.3 g/dL (32.0-36.0); Mean Corpuscular Volume 88.8 fL (80.0-100.0); Monocytes # (auto) 0.4 10 ^3/uL (0-1.3); Neutrophils % (auto) 72.1 % (37.0-80.0); Red Blood Cells 4.13 10^6/uL (4.0-5.20); Red Cell Distribution Width 14.9 % (11.8-14.3); White Blood Cell 8.4 10^3/uL (4.4-10.8)
[2023-11-10 15:06] LABS: Chloride 104 mmol/L (98-107); Potassium 3.7 mmol/L (3.5-5.1); Sodium 138 mmol/L (136-145)
[2023-11-10 15:07] LABS: Anion Gap 5 (5-15); Calcium 9.7 mg/dL (8.5-10.1); Carbon Dioxide 29 mmol/L (20-30)
[2023-11-10 15:12] LABS: BUN/Creatinine Ratio 10.9 (10.0-20.0); Blood Urea Nitrogen 6 mg/dL (9-23); Glucose 105 mg/dL (74-106)
[2023-11-10 17:24] VITALS: BP 118/61; PULSE 72; RESP 16; TEMP 98.8; O2SAT 98
== END 2023-11-10 17:25 | disposition home or self-care (01) ==
LOC: ER 14:11
DX: R06.02 Shortness of breath (principal); R07.9 Chest pain, unspecified; Z90.49 Acquired absence of other specified parts of digestive tract
CPT/HCPCS: 36415; 71046; 80048; 84484; 85025; 85379

== ENCOUNTER 2023-11-15 16:36 | Emergency (ER) | payer MEDICAID ==
[~2023-11-15] VITALS: Ht 157.5 cm; Wt 75.8 kg
[2023-11-15] MEDS ORDERED: ACE3T PO (18:27)
[2023-11-15] MEDS: KETOROLAC TROMETH 60MG/2ML VIAL IM ONE (20:40)
[2023-11-15 20:46] VITALS: BP 107/61; PULSE 68; RESP 18; TEMP 98.1; O2SAT 100
== END 2023-11-15 20:48 | disposition home or self-care (01) ==
LOC: ER 16:36
DX: R51.9 Headache, unspecified (principal); Z90.49 Acquired absence of other specified parts of digestive tract
CPT/HCPCS: 70450; 93005; 96372; 99285; J1885

== ENCOUNTER 2023-12-17 23:49 | Emergency (ER) | payer MEDICAID ==
[~2023-12-17] VITALS: Ht 157.5 cm; Wt 77.2 kg
[2023-12-18 04:29] VITALS: BP 101/61; PULSE 72; RESP 16; O2SAT 100
== END 2023-12-18 04:28 | disposition home or self-care (01) ==
LOC: ER 23:49
DX: S76.811A Strain of other specified muscles, fascia and tendons at thigh level, right thigh, initial encounter (principal); R06.02 Shortness of breath; F41.9 Anxiety disorder, unspecified; Z98.890 Other specified postprocedural states; Z79.899 Other long term (current) drug therapy; X58.XXXA Exposure to other specified factors, initial encounter; Y93.89 Activity, other specified; Y92.89 Other specified places as the place of occurrence of the external cause; Y99.8 Other external cause status
CPT/HCPCS: 71045; 93005; 93971

== ENCOUNTER 2023-12-24 19:44 | Emergency (ER) | payer MEDICAID ==
[~2023-12-24] VITALS: Ht 157.5 cm; Wt 76.3 kg
[2023-12-24 22:25] VITALS: BP 104/77; PULSE 72; RESP 18; TEMP 98.3; O2SAT 100
[2023-12-24] MEDS ORDERED: CLIN1CAP70 PO (23:54)
== END 2023-12-25 00:27 | disposition home or self-care (01) ==
LOC: ER 19:44
DX: M54.2 Cervicalgia (principal); R59.1 Generalized enlarged lymph nodes; I82.622 Acute embolism and thrombosis of deep veins of left upper extremity; R00.2 Palpitations; Z90.49 Acquired absence of other specified parts of digestive tract
CPT/HCPCS: 70490

== ENCOUNTER 2024-01-09 20:58 | Emergency (ER) | payer MEDICAID ==
[~2024-01-09] VITALS: Ht 157.5 cm; Wt 79.1 kg
[~2024-01-09 20:58] MED LIST changes: +CLIN1CAP70 PO
[2024-01-10] MEDS ORDERED: ACET500T58 PO (02:29)
[2024-01-10 03:00] VITALS: BP 106/41; PULSE 62; RESP 17; TEMP 98.1; O2SAT 99
== END 2024-01-10 03:06 | disposition home or self-care (01) ==
LOC: ER 20:58
DX: S09.8XXA Other specified injuries of head, initial encounter (principal); M79.622 Pain in left upper arm; Z90.49 Acquired absence of other specified parts of digestive tract; W01.0XXA Fall on same level from slipping, tripping and stumbling without subsequent striking against object, initial encounter; Y93.89 Activity, other specified; Y92.89 Other specified places as the place of occurrence of the external cause; Y99.8 Other external cause status
CPT/HCPCS: 70450; 93971

== ENCOUNTER 2024-01-18 18:37 | Emergency (ER) | payer MEDICAID ==
[~2024-01-18] VITALS: Ht 157.5 cm; Wt 66.3 kg
[~2024-01-18 18:37] MED LIST changes: +ACET500T58 PO
[2024-01-18 19:18] LABS: Basophils # (auto) 0 10 ^3/uL (0-0.2); Basophils % (auto) 0.4 % (0.0-2.0); Eosinophils # (auto) 0 10 ^3/uL (0-0.8); Eosinophils % (auto) 0.5 % (0.0-7.0); Hematocrit 31.6 % (36.0-46.0); Hemoglobin 10.2 g/dL (12.2-16.2); Lymphocytes # (auto) 1.8 10 ^3/uL (0.4-5.4); Lymphocytes % (auto) 17.7 % (10.0-50.0); Mean Corpuscular Hemoglobin 27.4 pg (28.0-32.0); Mean Corpuscular Hgb Conc. 32.2 g/dL (32.0-36.0); Monocytes # (auto) 0.5 10 ^3/uL (0-1.3); Monocytes % (auto) 4.9 % (0.0-12.0); Neutrophils # (auto) 7.9 10 ^3/uL (1.6-8.6); Neutrophils % (auto) 76.5 % (37.0-80.0); Red Blood Cells 3.72 10^6/uL (4.0-5.20); White Blood Cell 10.4 10^3/uL (4.4-10.8)
[2024-01-18 19:30] LABS: Alanine Aminotransferase 15 U/L (7-40); Albumin 4.3 g/dL (3.2-4.8); Alkaline Phosphatase 92 U/L (46-116); Anion Gap 8 (5-15); Aspartate Aminotransferase 14 U/L (13-40); BUN/Creatinine Ratio 18.5 (10.0-20.0); Bilirubin, Total 0.4 mg/dL (0.2-1.0); Blood Urea Nitrogen 10 mg/dL (9-23); Calcium 9.4 mg/dL (8.7-10.4); Carbon Dioxide 27 mmol/L (20-30); Chloride 105 mmol/L (98-107); Glucose 105 mg/dL (74-106); Magnesium 1.8 mg/dL (1.6-2.6); Potassium 3.4 mmol/L (3.5-5.1); Sodium 140 mmol/L (136-145); Total Protein 7.4 g/dL (5.7-8.2)
[2024-01-18 19:33] LABS: INR 0.99 (0.9-1.15); Partial Thromboplastin Time 27.9 SEC (24.5-34.5); Prothrombin Time 10.5 sec (9.3-11.8)
[2024-01-18 19:39] LABS: Urine Bacteria FEW /hpf (None Seen); Urine Blood Negative /uL (Negative); Urine Clarity Clear (Clear); Urine Color Colorless (Yellow); Urine Protein, UAD Negative (Negative); Urine Specific Gravity 1.004 (1.001-1.035); Urine Urobilinogen Normal (Negative); Urine WBC <1 /hpf (0 - 5); Urine pH 6.5 (5.0-9.0)
[2024-01-18] MEDS: POTASSIUM EFFERVESENT TAB 25 MEQ PO ONE (20:23)
[2024-01-18 20:26] VITALS: BP 107/59; PULSE 67; RESP 18; O2SAT 97
[2024-01-18] MEDS ORDERED: POTA-228 PO (20:36)
== END 2024-01-18 21:12 | disposition home or self-care (01) ==
LOC: ER 18:37
DX: R00.2 Palpitations (principal); F45.8 Other somatoform disorders; E87.6 Hypokalemia; Z90.49 Acquired absence of other specified parts of digestive tract; Z79.2 Long term (current) use of antibiotics; Z79.899 Other long term (current) drug therapy
CPT/HCPCS: 36415; 71045; 80053; 81001; 81025; 83690; 83735; 83880; 84484; 85025; 85379; 85610; 85730; 93005; 93970

== ENCOUNTER 2024-02-05 18:37 | Emergency (ER) | payer MEDICAID ==
[~2024-02-05] VITALS: Ht 157.5 cm; Wt 79.6 kg
[~2024-02-05 18:37] MED LIST changes: +POTA-228 PO
[2024-02-05 18:38] VITALS: BP 107/49; PULSE 84; RESP 16; O2SAT 100
== END 2024-02-05 23:07 | disposition home or self-care (01) ==
LOC: ER 18:37
DX: M79.605 Pain in left leg (principal); F41.9 Anxiety disorder, unspecified; Z98.890 Other specified postprocedural states; Z79.899 Other long term (current) drug therapy
CPT/HCPCS: 93971

== ENCOUNTER 2024-03-26 19:12 | Emergency (ER) | payer MEDICAID ==
[~2024-03-26] VITALS: Ht 157.5 cm; Wt 79.5 kg
[2024-03-26 20:17] LABS: Basophils # (auto) 0 10 ^3/uL (0-0.2); Basophils % (auto) 0.4 % (0.0-2.0); Eosinophils # (auto) 0.2 10 ^3/uL (0-0.8); Monocytes # (auto) 0.5 10 ^3/uL (0-1.3); Monocytes % (auto) 6.4 % (0.0-12.0)
[2024-03-26 20:18] LABS: Hemoglobin 9.9 g/dL (12.2-16.2); Lymphocytes # (auto) 2.2 10 ^3/uL (0.4-5.4); Lymphocytes % (auto) 25.5 % (10.0-50.0); Mean Corpuscular Hemoglobin 26.4 pg (28.0-32.0); Mean Corpuscular Hgb Conc. 31.8 g/dL (32.0-36.0); Mean Corpuscular Volume 83.1 fL (80.0-100.0); Neutrophils # (auto) 5.6 10 ^3/uL (1.6-8.6); Neutrophils % (auto) 65.7 % (37.0-80.0); Red Blood Cells 3.73 10^6/uL (4.0-5.20); Red Cell Distribution Width 15.9 % (11.8-14.3); White Blood Cell 8.5 10^3/uL (4.4-10.8)
[2024-03-26 20:33] LABS: INR 0.97 (0.9-1.15); Partial Thromboplastin Time 27.4 SEC (24.5-34.5); Prothrombin Time 10.3 sec (9.3-11.8)
[2024-03-26 20:37] LABS: Alanine Aminotransferase 21 U/L (7-40); Albumin 4.2 g/dL (3.2-4.8); Alkaline Phosphatase 103 U/L (46-116); Anion Gap 3 (5-15); Aspartate Aminotransferase 14 U/L (13-40); Bilirubin, Total 0.3 mg/dL (0.2-1.0); Blood Urea Nitrogen 9 mg/dL (9-23); Calcium 9.1 mg/dL (8.7-10.4); Carbon Dioxide 28 mmol/L (20-30); Chloride 106 mmol/L (98-107); Glucose 114 mg/dL (74-106); Potassium 3.8 mmol/L (3.5-5.1); Sodium 137 mmol/L (136-145); Total Protein 7.3 g/dL (5.7-8.2)
[2024-03-27] MEDS ORDERED: HYDR-4902 PO (00:55)
[2024-03-27 01:00] VITALS: BP 110/50; PULSE 76; RESP 16; TEMP 98.5; O2SAT 98
[2024-03-27] MEDS ORDERED: IOHEXOL 350 MG/ML 100ML IJ ONE (05:13)
== END 2024-03-27 01:12 | disposition home or self-care (01) ==
LOC: ER 19:12
DX: R07.89 Other chest pain (principal); M79.662 Pain in left lower leg; F41.9 Anxiety disorder, unspecified; Z00.8 Encounter for other general examination; Z98.890 Other specified postprocedural states; Z79.899 Other long term (current) drug therapy
CPT/HCPCS: 36415; 71045; 71275; 80053; 83880; 84484; 85025; 85379; 85610; 85730; 93005; 93971; 99285; Q9967

== ENCOUNTER 2024-04-10 07:47 | Emergency (ER) | payer MEDICAID ==
[~2024-04-10] VITALS: Ht 157.5 cm; Wt 82.2 kg
[~2024-04-10 07:47] MED LIST changes: +HYDR-4902 PO
[2024-04-10 09:16] VITALS: BP 101/58; PULSE 69; RESP 18; TEMP 98.6; O2SAT 100
== END 2024-04-10 09:22 | disposition home or self-care (01) ==
LOC: ER 07:47
DX: S86.812A Strain of other muscle(s) and tendon(s) at lower leg level, left leg, initial encounter (principal); F41.9 Anxiety disorder, unspecified; Z98.890 Other specified postprocedural states; Z79.899 Other long term (current) drug therapy; X58.XXXA Exposure to other specified factors, initial encounter; Y93.89 Activity, other specified; Y92.89 Other specified places as the place of occurrence of the external cause; Y99.8 Other external cause status
CPT/HCPCS: 93971

== ENCOUNTER 2024-04-25 18:54 | Emergency (ER) | payer MEDICAID ==
[~2024-04-25] VITALS: Ht 157.5 cm; Wt 83.3 kg
[2024-04-25 20:12] LABS: Basophils # (auto) 0 10 ^3/uL (0-0.2); Eosinophils # (auto) 0.1 10 ^3/uL (0-0.8); Eosinophils % (auto) 1.8 % (0.0-7.0); Hematocrit 31.1 % (36.0-46.0); Lymphocytes # (auto) 2.1 10 ^3/uL (0.4-5.4); Monocytes # (auto) 0.5 10 ^3/uL (0-1.3)
[2024-04-25 20:13] LABS: Basophils % (auto) 0.4 % (0.0-2.0); Hemoglobin 10.1 g/dL (12.2-16.2); Lymphocytes % (auto) 26.6 % (10.0-50.0); Mean Corpuscular Hemoglobin 26.5 pg (28.0-32.0); Mean Corpuscular Hgb Conc. 32.3 g/dL (32.0-36.0); Monocytes % (auto) 6.3 % (0.0-12.0); Neutrophils % (auto) 64.9 % (37.0-80.0); Nucleated Red Blood Cells % 0.1 %; Platelet Count (auto) 345 10^3/uL (140-450); Red Cell Distribution Width 15.8 % (11.8-14.3); White Blood Cell 7.7 10^3/uL (4.4-10.8)
[2024-04-25 20:27] LABS: Alanine Aminotransferase 10 U/L (7-40); Albumin 4.4 g/dL (3.2-4.8); Alkaline Phosphatase 109 U/L (46-116); Anion Gap 0 (5-15); Aspartate Aminotransferase 11 U/L (13-40); BUN/Creatinine Ratio 17.5 (10.0-20.0); Bilirubin, Total 0.3 mg/dL (0.2-1.0); Blood Urea Nitrogen 11 mg/dL (9-23); Calcium 9.7 mg/dL (8.7-10.4); Carbon Dioxide 32 mmol/L (20-30); Chloride 105 mmol/L (98-107); Glucose 104 mg/dL (74-106); INR 1.01 (0.9-1.15); Partial Thromboplastin Time 26.5 SEC (24.5-34.5); Potassium 3.5 mmol/L (3.5-5.1); Prothrombin Time 10.7 sec (9.3-11.8); Sodium 137 mmol/L (136-145); Total Protein 7.6 g/dL (5.7-8.2)
[2024-04-25] MEDS ORDERED: MECL12.586 PO (20:58)
[2024-04-25 21:28] LABS: Urine Bacteria None Seen /hpf (None Seen)
[2024-04-25] MEDS: SODIUM CHLORIDE 0.9% 1,000 ML IV ONE (21:38)
[2024-04-25 21:46] LABS: Urine Blood 3+ /uL (Negative); Urine Clarity Clear (Clear); Urine Color Yellow (Yellow); Urine Mucus FEW (None Seen); Urine Protein, UAD TRACE (Negative); Urine Urobilinogen Normal (Negative); Urine WBC 4 /hpf (0 - 5)
[2024-04-25 22:24] VITALS: BP 112/70; PULSE 67; RESP 16; TEMP 97.8; O2SAT 99
== END 2024-04-25 22:25 | disposition home or self-care (01) ==
LOC: ER 18:54
DX: R42 Dizziness and giddiness (principal); F41.9 Anxiety disorder, unspecified; R55 Syncope and collapse; Z90.49 Acquired absence of other specified parts of digestive tract
CPT/HCPCS: 36415; 70450; 71045; 74176; 80053; 81001; 84484; 85025; 85610; 85730; 93005; 96360; 99285; J7030

== ENCOUNTER 2024-04-27 16:31 | Emergency (ER) | payer MEDICAID ==
[~2024-04-27] VITALS: Ht 157.5 cm; Wt 81.2 kg
[2024-04-27 16:31] VITALS: BP 112/66; PULSE 77; RESP 18; O2SAT 96
[~2024-04-27 16:31] MED LIST changes: +MECL12.586 PO
[2024-04-27] MEDS: ACETAMINOPHEN 500 MG TAB PO ONE (19:25)
== END 2024-04-27 19:31 | disposition home or self-care (01) ==
LOC: ER 16:31
DX: M54.2 Cervicalgia (principal); R42 Dizziness and giddiness; F41.9 Anxiety disorder, unspecified; E66.01 Morbid (severe) obesity due to excess calories; Z68.32 Body mass index [BMI] 32.0-32.9, adult; Z86.2 Personal history of diseases of the blood and blood-forming organs and certain disorders involving the immune mechanism; Z98.890 Other specified postprocedural states; Z79.899 Other long term (current) drug therapy
CPT/HCPCS: 82962; 93886

== ENCOUNTER 2024-05-06 18:39 | Emergency (ER) | payer MEDICAID ==
[~2024-05-06] VITALS: Ht 157.5 cm; Wt 81.0 kg
[2024-05-06 19:31] LABS: Basophils # (auto) 0 10 ^3/uL (0-0.2); Eosinophils # (auto) 0.2 10 ^3/uL (0-0.8)
[2024-05-06 19:32] LABS: Basophils % (auto) 0.4 % (0.0-2.0); Eosinophils % (auto) 3.4 % (0.0-7.0); Hematocrit 30.1 % (36.0-46.0); Hemoglobin 9.9 g/dL (12.2-16.2); Lymphocytes # (auto) 2.1 10 ^3/uL (0.4-5.4); Lymphocytes % (auto) 30.1 % (10.0-50.0); Mean Corpuscular Hgb Conc. 32.7 g/dL (32.0-36.0); Mean Corpuscular Volume 82.3 fL (80.0-100.0); Monocytes # (auto) 0.5 10 ^3/uL (0-1.3); Monocytes % (auto) 6.9 % (0.0-12.0); Neutrophils # (auto) 4.1 10 ^3/uL (1.6-8.6); Neutrophils % (auto) 59.2 % (37.0-80.0); Nucleated Red Blood Cells % 0.1 %; Platelet Count (auto) 372 10^3/uL (140-450); Red Blood Cells 3.66 10^6/uL (4.0-5.20); Red Cell Distribution Width 15.9 % (11.8-14.3)
[2024-05-06 20:09] LABS: Alanine Aminotransferase 12 U/L (7-40); Albumin 4.2 g/dL (3.2-4.8); Alkaline Phosphatase 86 U/L (46-116); Anion Gap 5 (5-15); Aspartate Aminotransferase 15 U/L (13-40); BUN/Creatinine Ratio 11.9 (10.0-20.0); Bilirubin, Total 0.3 mg/dL (0.2-1.0); Blood Urea Nitrogen 8 mg/dL (9-23); Calcium 9.5 mg/dL (8.7-10.4); Carbon Dioxide 27 mmol/L (20-30); Chloride 105 mmol/L (98-107); Glucose 94 mg/dL (74-106); Magnesium 1.9 mg/dL (1.6-2.6); Potassium 3.6 mmol/L (3.5-5.1); Sodium 137 mmol/L (136-145); Total Protein 7.4 g/dL (5.7-8.2)
[2024-05-06 21:41] LABS: Amphetamine Screen, Urine Neg (NEGATIVE); Barbiturate Scree,Urine Neg (NEGATIVE); Benzodiazephine Screen, Urine Neg (NEGATIVE); Cannabinoid Screen, Urine Neg (NEGATIVE); Cocaine Screen, Urine Neg (NEGATIVE); Opiate Scree,Urine Neg (NEGATIVE); Phencyclidine Screen, Urine Neg (NEGATIVE)
[2024-05-06 23:44] VITALS: BP 109/68; PULSE 71; RESP 18; TEMP 98.3; O2SAT 97
[2024-05-06] MEDS: NITROGLYCERIN 0.4 MG SL TAB SL ONE (23:45)
== END 2024-05-06 23:44 | disposition home or self-care (01) ==
LOC: ER 18:39
DX: R07.9 Chest pain, unspecified (principal); R06.02 Shortness of breath; R10.2 Pelvic and perineal pain; R00.2 Palpitations; F41.9 Anxiety disorder, unspecified; Z90.49 Acquired absence of other specified parts of digestive tract; Z98.890 Other specified postprocedural states; Z79.899 Other long term (current) drug therapy
CPT/HCPCS: 36415; 71045; 80053; 80307; 83735; 83880; 84484; 84702; 85025; 85379; 93005

== ENCOUNTER 2024-05-16 17:56 | Emergency (ER) | payer MEDICAID ==
[~2024-05-16] VITALS: Ht 157.5 cm; Wt 86.3 kg
[2024-05-16 18:10] VITALS: BP 108/75; PULSE 75; RESP 18; TEMP 99.3; O2SAT 100
[2024-05-16] MEDS: ACETAMINOPHEN 500 MG TAB PO ONE (21:28)
== END 2024-05-16 21:35 | disposition home or self-care (01) ==
LOC: ER 17:56
DX: G43.909 Migraine, unspecified, not intractable, without status migrainosus (principal); Z90.49 Acquired absence of other specified parts of digestive tract; Z98.890 Other specified postprocedural states
CPT/HCPCS: 70450

== ENCOUNTER 2024-05-22 17:36 | Emergency (ER) | payer MEDICAID ==
[~2024-05-22] VITALS: Ht 157.5 cm; Wt 82.6 kg
[2024-05-22 17:45] VITALS: BP 127/46; PULSE 70; RESP 16; O2SAT 100
== END 2024-05-22 20:11 | disposition home or self-care (01) ==
LOC: ER 17:36
DX: M79.605 Pain in left leg (principal); F41.9 Anxiety disorder, unspecified; Z86.2 Personal history of diseases of the blood and blood-forming organs and certain disorders involving the immune mechanism; Z98.890 Other specified postprocedural states; Z79.899 Other long term (current) drug therapy
CPT/HCPCS: 93971

== ENCOUNTER 2024-06-08 11:31 | Emergency (ER) | payer MEDICAID ==
[~2024-06-08] VITALS: Ht 157.5 cm; Wt 87.3 kg
[2024-06-08 14:37] LABS: Basophils # (auto) 0 10 ^3/uL (0-0.2); Basophils % (auto) 0.5 % (0.0-2.0); Eosinophils # (auto) 0.3 10 ^3/uL (0-0.8); Eosinophils % (auto) 3.6 % (0.0-7.0); Hematocrit 33.6 % (36.0-46.0); Hemoglobin 10.9 g/dL (12.2-16.2); Lymphocytes # (auto) 2.1 10 ^3/uL (0.4-5.4); Lymphocytes % (auto) 23.1 % (10.0-50.0); Mean Corpuscular Hemoglobin 26.3 pg (28.0-32.0); Mean Corpuscular Hgb Conc. 32.5 g/dL (32.0-36.0); Mean Corpuscular Volume 80.9 fL (80.0-100.0); Monocytes # (auto) 0.6 10 ^3/uL (0-1.3); Monocytes % (auto) 6.5 % (0.0-12.0); Neutrophils % (auto) 66.3 % (37.0-80.0); Platelet Count (auto) 363 10^3/uL (140-450); Red Blood Cells 4.15 10^6/uL (4.0-5.20); Red Cell Distribution Width 16.1 % (11.8-14.3)
[2024-06-08 14:44] LABS: Anion Gap 7 (5-15); Carbon Dioxide 26 mmol/L (20-31); Chloride 104 mmol/L (98-107); Potassium 3.7 mmol/L (3.5-5.1); Sodium 137 mmol/L (136-145)
[2024-06-08 14:45] LABS: Calcium 9.4 mg/dL (8.7-10.4)
[2024-06-08 14:50] LABS: BUN/Creatinine Ratio 13.6 (10.0-20.0); Blood Urea Nitrogen 8 mg/dL (9-23); Glucose 93 mg/dL (74-106)
[2024-06-08] MEDS ORDERED: NITR-87 PO (15:32)
[2024-06-08 16:05] VITALS: BP 101/65; PULSE 68; RESP 16; TEMP 99.1; O2SAT 100
[2024-06-08] MEDS: ASPirin 325 MG TAB PO ONE (16:07)
== END 2024-06-08 16:07 | disposition home or self-care (01) ==
LOC: ER 11:31
DX: S86.912A Strain of unspecified muscle(s) and tendon(s) at lower leg level, left leg, initial encounter (principal); N39.0 Urinary tract infection, site not specified; Z79.01 Long term (current) use of anticoagulants; Z79.899 Other long term (current) drug therapy; Z86.718 Personal history of other venous thrombosis and embolism; Z90.49 Acquired absence of other specified parts of digestive tract; X58.XXXA Exposure to other specified factors, initial encounter; Y93.89 Activity, other specified; Y92.89 Other specified places as the place of occurrence of the external cause; Y99.8 Other external cause status
CPT/HCPCS: 36415; 80048; 83880; 85025; 93971

== ENCOUNTER 2024-06-11 18:27 | Emergency (ER) | payer MEDICAID ==
[~2024-06-11] VITALS: Ht 157.5 cm; Wt 81.9 kg
[~2024-06-11 18:27] MED LIST changes: +NITR-87 PO
[2024-06-11 19:55] LABS: Basophils # (auto) 0 10 ^3/uL (0-0.2); Basophils % (auto) 0.4 % (0.0-2.0); Eosinophils # (auto) 0.2 10 ^3/uL (0-0.8); Eosinophils % (auto) 2.6 % (0.0-7.0); Hematocrit 32.4 % (36.0-46.0); Hemoglobin 10.7 g/dL (12.2-16.2); Lymphocytes # (auto) 2.3 10 ^3/uL (0.4-5.4); Lymphocytes % (auto) 24.4 % (10.0-50.0); Mean Corpuscular Hemoglobin 26.8 pg (28.0-32.0); Mean Corpuscular Hgb Conc. 33.1 g/dL (32.0-36.0); Monocytes # (auto) 0.6 10 ^3/uL (0-1.3); Monocytes % (auto) 6.6 % (0.0-12.0); Neutrophils # (auto) 6.3 10 ^3/uL (1.6-8.6); Nucleated Red Blood Cells % 0.1 %; Platelet Count (auto) 349 10^3/uL (140-450); Red Cell Distribution Width 16.2 % (11.8-14.3); White Blood Cell 9.6 10^3/uL (4.4-10.8)
[2024-06-11 20:07] LABS: Alanine Aminotransferase 19 U/L (7-40); Albumin 4.5 g/dL (3.2-4.8); Alkaline Phosphatase 111 U/L (46-116); Anion Gap 8 (5-15); Aspartate Aminotransferase 11 U/L (13-40); BUN/Creatinine Ratio 16.9 (10.0-20.0); Bilirubin, Total 0.4 mg/dL (0.2-1.0); Blood Urea Nitrogen 11 mg/dL (9-23); Calcium 9.7 mg/dL (8.7-10.4); Carbon Dioxide 26 mmol/L (20-31); Chloride 103 mmol/L (98-107); Glucose 104 mg/dL (74-106); Potassium 3.8 mmol/L (3.5-5.1); Sodium 137 mmol/L (136-145)
[2024-06-11 20:08] LABS: Total Protein 7.6 g/dL (5.7-8.2)
[2024-06-11 21:15] LABS: Urine Bacteria FEW /hpf (None Seen); Urine Blood TRACE /uL (Negative); Urine Clarity Clear (Clear); Urine Color Colorless (Yellow); Urine Protein, UAD Negative (Negative); Urine Specific Gravity 1.008 (1.001-1.035); Urine Urobilinogen Normal (Negative); Urine WBC <1 /hpf (0 - 5); Urine pH 5.5 (5.0-9.0)
[2024-06-12] MEDS ORDERED: NAP500T GT (00:49)
[2024-06-12] MEDS ORDERED: ZOFR4T PO (00:49)
[2024-06-12] MEDS: ONDANSETRON ODT 4 MG TAB PO ONE (01:12)
[2024-06-12] MEDS: KETOROLAC TROMETH 60MG/2ML VIAL IM ONE (01:12)
[2024-06-12 01:13] VITALS: BP 97/62; PULSE 72; RESP 16; TEMP 97.9; O2SAT 100
== END 2024-06-12 01:18 | disposition home or self-care (01) ==
LOC: ER 18:34
DX: R51.9 Headache, unspecified (principal); F41.9 Anxiety disorder, unspecified; I10 Essential (primary) hypertension; E66.9 Obesity, unspecified; Z68.33 Body mass index [BMI] 33.0-33.9, adult; Z86.2 Personal history of diseases of the blood and blood-forming organs and certain disorders involving the immune mechanism; Z79.899 Other long term (current) drug therapy; Z98.890 Other specified postprocedural states
CPT/HCPCS: 36415; 70450; 80053; 81001; 84484; 85025; 96372; 99285; J1885; 93005

== ENCOUNTER 2024-07-10 19:20 | Emergency (ER) | payer MEDICAID ==
[~2024-07-10] VITALS: Ht 160 cm; Wt 87.5 kg
[~2024-07-10 19:20] MED LIST changes: +NAP500T GT; +ZOFR4T PO
[2024-07-10] MEDS: SODIUM CHLORIDE 0.9% 1,000 ML IV ONE (21:21)
[2024-07-10] MEDS: ACETAMINOPHEN 325 MG TAB PO ONE (21:27)
[2024-07-10] MEDS: KETOROLAC TROMETH 30 MG/ML 1ML VIAL IV ONE (22:12)
[2024-07-10] MEDS: DexAMETHasone SOD PHOS 10MG/1ML VIAL INJ IV ONE (22:12)
[2024-07-10] MEDS: MAGNESIUM SULFATE 1GM/100ML 100 ML IV SCH (22:12)
[2024-07-10 23:09] VITALS: BP 112/65; PULSE 74; RESP 19; TEMP 98.2; O2SAT 100
== END 2024-07-10 23:10 | disposition home or self-care (01) ==
LOC: ER 19:20
DX: G43.119 Migraine with aura, intractable, without status migrainosus (principal); F41.9 Anxiety disorder, unspecified; Z86.718 Personal history of other venous thrombosis and embolism; Z90.49 Acquired absence of other specified parts of digestive tract
CPT/HCPCS: 96361; 96374; 96375; 99284; J1100; J1885; J3475; J7030

== ENCOUNTER 2024-07-12 07:54 | Emergency (ER) | payer MEDICAID ==
[~2024-07-12] VITALS: Ht 167.6 cm; Wt 87.1 kg
--- NOTE | 2024-07-12 08:50 | ED.PDOC ---
HPI (NEURO) HPI Comments 43y F who presents to the ED for chief complaint of headache. Pt states she has been having frontal headache for the past 5 days. Pt states the pain is 5/10, constant, dull in nature, constant, non-radiating with no noted exacerbating or relieving factors. Pt has associated blurred vision, but otherwise denies any other symptoms. Pt states she has history of occipital migraines and is currently on medications from neurologist 3 weeks prior. Pt states this AM, after waking up this AM, pt had blurred vision and states she had memory lapses and came to the ED for further evaluation. Pt in the ED is BEFAST- and is alert and oriented x 4 and albe to answer all questions. Pt has no noted changes in vision, speech or gait are noted. Pt in the ED, denies nausea, vomiting, blurred vision, dizziness, chest pain or shortness of breath. Pt otherwise has stable vitals in the ED. Pt denies any other symptoms at this time. Chief Complaint: Headache Time Seen by MD: 08:47 Primary Care Provider: SHELBY Mary Notes: Allergies Information Source: Patient Mode of Arrival: Ambulatory Brought in by: self Past Medical History PAST MEDICAL HISTORY: Anemia, Anxiety, TIA Surgical History: Cholecystectomy, REHABILITATION LIAISON History: No Pertinent REHABILITATION LIAISON History Family History Family History: Reviewed,noncontributory to illness, Family hx of DM, Family hx of HTN Social History Smoker: Non-Smoker Alcohol: Denies ETOH Use Drugs: Denies Drug Use Lives In: Home Constitutional: denies: chills, diaphoresis, fatigue, fever, malaise, sweats, weakness, others EENTM: denies: blurred vision, double vision, ear bleeding, ear discharge, ear drainage, ear pain, ear ringing, eye pain, eye redness, hearing loss, mouth pa in, mouth swelling, nasal discharge, nose bleeding, nose congestion, nose pain, photophobia, tearing, throat pain, throat swelling, voice changes, others Respiratory: denies: cough, hemoptysis, orthopnea, SOB at rest, shortness of breath, SOB with excertion, stridor, wheezing, others Cardiovascular: denies: chest pain, dizzy spells, diaphoresis, Dyspnea on exertion, edema, irregular heart beat, left arm pain, lightheadedness, palpitations, PND, syncope, others Gastrointestinal: denies: abdomen distended, abdominal pain, blood streaked bowels, constipated, diarrhea, dysphagia, difficulty swallowing, hematemesis, melena, nausea, poor appetite, poor fluid intake, rectal bleeding, rectal pain, vomiting, others Genitourinary: denies: abnormal vagina bleeding, burning, dyspareunia, dysuria, flank pain, frequency, hematuria, incontinence, pain, , vagina discharge, urgency, others Neurological: reports: headache; denies: dizziness, fainting, left sided numbness, left sided weakness, numbness, paresthesia, pre-existing deficit, right sided numbness, right sided weakness, seizure, speech problems, tingling, tremors, weakness, others Musculoskeletal: denies: back pain, gout, joint pain, joint swelling, muscle pain, muscle stiffness, neck pain, others Integumetry: denies: bruises, change in color, change in hair/nails, dryness, laceration, lesions, lumps, rash, wounds, others Allergic/Immunocompromised: denies: Difficulty Healing, Frequent Infections, Hives, Itching, others Hematologic/Lymphatic: denies: anemia, blood clots, easy bleeding, easy bruisi ng, swollen glands, others Endocrine: denies: excessive hunger, excessive sweating, excessive thirst, exce ssive urination, flushing, intolerance to cold, intolerance to heat, unexplained weight gain, unexplained weight loss, others Psychiatric: denies: anxiety, bipolar disorder, depression, hopeless, panic disorder, schizophrenia, sleepless, suicidal, others All Other Systems: Reviewed and Negative Physical Exam General Appearance: No Apparent Distress, Normal HEENT: Head, Normal ENT Inspection, PERRL/EOMI, Other (Right-sided occipital parietal frontal and orbital headache) Neck: Full Range of Motion, Non-Tender Respiratory: Chest Non-Tender, Lungs Clear, No Accessory Muscle Use, No Respiratory Distress, Normal Breath Sounds Cardiovascular: No Edema, No JVD, No Murmur, No Gallop, Normal Peripheral Pulses, Regular Rate/Rhythm Breast Exam: Deferred Gastrointestinal: No Organomegaly, Non Tender, No Pulsatile Mass, Normal Bowel Sounds, Soft Genitalia: Deferred Pelvic: Deferred Rectal: Deferred Extremities: No calf tenderness, Normal capillary refill, Normal inspection, Normal range of motion, Non-tender, No pedal edema Neurologic: Alert, answerer II-XII nml as Tested, No Motor Deficits, Normal Affect, Normal Mood, No Sensory Deficits Cerebellar Function: Normal Reflexes: Normal Skin: Bruises Peripheral Pulses: 1+ carotid (R), 1+ carotid (L) Lymphatic: No Adenopathy Was a procedure done? Was a procedure done?: No Differential Diagnosis (SZ) Headache: Cluster, Migraine, Closed Head Injury, Sinusitis, Trigeminal N euralgia X-Ray, Labs, Meds, VS Vital Signs Date Time Temp Pulse Resp B/P (MAP) Pulse Ox O2 Delivery O2 Flow Rate FiO2 07/12/24 09:24 84 16 96 Room Air* 0 21 07/12/24 08:12 98.7 80 18 115/59 (77) 97 Lab Test 07/12/24 09:11 07/12/24 09:00 Range/Units White Blood Count 9.0 4.4-10.8 10^3/uL Red Blood Count 3.90 L 4.0-5.20 10^6/uL Hemoglobin 10.1 L 12.2-16.2 g/dL Hematocrit 31.8 L 36.0-46.0 % Mean Corpuscular Volume 81.5 80.0-100.0 fL Mean Corpuscular Hemoglobin 25.9 L 28.0-32.0 pg Mean Corpuscular Hemoglobin Concent 31.8 L 32.0-36.0 g/dL Red Cell Distribution Width 16.6 H 11.8-14.3 % Platelet Count 383 140-450 10^3/uL Mean Platelet Volume 7.0 6.9-10.8 fL Neutrophils (%) (Auto) 64.6 37.0-80.0 % Lymphocytes (%) (Auto) 28.1 10.0-50.0 % Monocytes (%) (Auto) 6.6 0.0-12.0 % Eosinophils (%) (Auto) 0.3 0.0-7.0 % Basophils (%) (Auto) 0.4 0.0-2.0 % Neutrophils # (Auto) 5.8 1.6-8.6 10 ^3/uL Lymphocytes # (Auto) 2.5 0.4-5.4 10 ^3/uL Monocytes # (Auto) 0.6 0-1.3 10 ^3/uL Eosinophils # (Auto) 0 0-0.8 10 ^3/uL Basophils # (Auto) 0 0-0.2 10 ^3/uL Nucleated Red Blood Cells 0.1 % Sodium Level 142 136-145 mmol/L Potassium Level 3.7 3.5-5.1 mmol/L Chloride Level 112 H 98-107 mmol/L Carbon Dioxide Level 23 20-31 mmol/L Anion Gap 7 5-15 Blood Urea Nitrogen 14 9-23 mg/dL Creatinine 0.60 0.550-1.02 mg/dL Glomerular Filtration Rate Calc 116 >90 mL/min BUN/Creatinine Ratio 23.3 H 10.0-20.0 Serum Glucose 107 H 74-106 mg/dL Calcium Level 8.8 8.7-10.4 mg/dL Magnesium Level 1.9 1.6-2.6 mg/dL Total Bilirubin 0.3 0.2-1.0 mg/dL Aspartate Amino Transferase (AST) 8 L 13-40 U/L Alanine Aminotransferase (ALT) 13 7-40 U/L Alkaline Phosphatase 93 46-116 U/L Total Protein 7.2 5.7-8.2 g/dL Albumin 3.9 3.2-4.8 g/dL Beta HCG, Quantitative 0.0 L 1.5-4.2 mIU/mL Urine Color Light-orange Yellow Urine Clarity Turbid H Clear Urine pH 6.0 5.0-9.0 Urine Specific [place] 1.033 1.001-1.035 Urine Protein 1+ H Negative Urine Ketones Negative Negative Urine Blood 3+ H Negative /uL Urine Nitrite Negative Negative Urine Bilirubin Negative Negative Urine Urobilinogen Normal Negative mg/dL Urine Leukocyte Esterase 2+ Negative /uL Urine RBC 686 0 - 4 /hpf Urine WBC 19 0 - 5 /hpf Urine Squamous Epithelial Cells Mod <5 /hpf Urine Bacteria Few H None Seen /hpf Urine Mucus Few None Seen Urine Glucose Normal Normal mg/dL Current Medications Medications (Trade) Dose Ordered Sig/Ryanne Route Start Time Stop Time Status Last Admin Ketorolac Tromethamine (Toradol Injection) 30 mg ONCE ONCE IM 07/12/24 09:00 07/12/24 09:13 DC 07/12/24 09:[address] [address] Ph: [phone] DIAGNOSTIC IMAGING Diagnostic Imaging Report : [id number] Signed PATIENT: TIMA SPENCER ACCT: [id number] UNIT: [id number] : 1980 LOC: ER ROOM / BED: / AGE / SEX: 43 / F ADM STATUS: REG ER SERVICE ORDERING PHYSICIAN: GAYE ALVAREZ MD PROCEDURE(s): CXR2 - CHEST TWO VIEWS ROUTINE REASON: Persistent headache ORDER NUMBER(s): [id number], ACCESSION NUMBER(s): [id number] Procedure: XY CHEST TWO VIEWS ROUTINE 07/12/2024 09:48 AM Indication: Persistent headache. Comparison: XY CHEST TWO VIEWS ROUTINE on DOS: 11/10/23 TECHNIQUE: XY CHEST TWO VIEWS ROUTINE FINDINGS: Medical devices: None. Cardiomediastinal: The heart is normal in size. Pulmonary vasculature is within normal limits. Lungs: No focal pulmonary opacity is seen. The costophrenic angles are clear. No pneumothorax. Bones/soft tissues: No acute abnormality is noted. IMPRESSION: 1. No acute cardiopulmonary disease. ATED BY: CHE WRIGHT MD DICTATED DATE/TIME: 07/12/24 1010 SIGNED BY: CHE WRIGHT MD SIGNED DATE/TIME: 07/12/24 1010 CC: [place] [id number] Ph: [phone] DIAGNOSTIC IMAGING Diagnostic Imaging Report : [id number] Signed PATIENT: TIMA SPENCER ACCT: [id number] UNIT: [id number] : 1980 LOC: ER ROOM / BED: / AGE / SEX: 43 / F ADM STATUS: REG ER SERVICE 7 ORDERING PHYSICIAN: GAYE ALVAREZ MD PROCEDURE(s): HWOCT - HEAD WITHOUT CONTRAST REASON: Persistent right temporal parietal headache and periorbital ORDER NUMBER(s): [id number], ACCESSION NUMBER(s): [id number] EXAM: CT HEAD WITHOUT CONTRAST INDICATION: Persistent right temporal parietal headache and periorbital TECHNIQUE: CT of the head without intravenous contrast. Radiation Dose : 1. Head: CT Dose: CTDI volume is 57.75 mGy. Dose-length product is 1041.24 mGy*cm The dose indicators for CT are the volume Computed Tomography (CT) Dose Index (CTDIvol) and the Dose Length Product (DLP), and are measured in units of mGy and mGy-cm, respectively. These indicators are not patient dose, but values generated from the CT scanner acquisition factors. The report includes radiation exposure data for exposures received during this examination. COMPARISON: CT HEAD WITHOUT CONTRAST on DOS: 06/11/24, CT HEAD WITHOUT CONTRAST on DOS: 05/16/24, CT HEAD WITHOUT CONTRAST on DOS: 04/25/24 FINDINGS: There is no evidence of acute intracranial hemorrhage, extra-axial collection, mass effect, midline shift, herniation or hydrocephalus. The ventricles, sulci and cisterns are age appropriate. The garcia-white differentiation is intact. The visualized paranasal sinuses and mastoid air cells are clear. The surrounding soft tissues and osseous structures are unremarkable. IMPRESSION: No acute intracranial abnormality. Radiation optimization: All CT scans at this facility use at least one of these dose optimization techniques: automated exposure control mA and/or kV adjustment per patient size (includes targeted exams where dose is matched to clinical indication) or iterative reconstruction. ATED BY: DAVID CASAS MD DICTATED DATE/TIME: 07/12/24 1016 SIGNED BY: DAVID CASAS MD SIGNED DATE/TIME: 07/12/24 1016 CC: X-Ray, Labs, Meds, VS Comment Course in the emergency department eventful patient came in complaining of headache persistent patient has chronic pain hypertension DVT in left upper extremities CBC 9000 with 64.6% neutrophils H&H 10 and 32 with microcytosis Urine shows 1+ protein 3+ blood 2+ leukocyte esterase and bacteria anemia negative Magnesium 0.9 Chest x-ray is normal CT head is normal Patient will be discharged home to follow up with PCP Time of 1ST Reevaluation: 09:20 Reevaluation 1ST: Unchanged Patient Education/Counseling: Diagnosis, Treatment Family Education/Counseling: No Family Present Departure 1 Departure Time of Disposition: 11:07 Impression: Primary Impression: Ophthalmic migraine Additional Impressions: Superficial venous thrombosis of left upper extremity Urinary tract infection Qualified Codes: N30.01 - Acute cystitis with hematuria Microcytic anemia Disposition: 01 HOME / SELF CARE / HOMELESS Condition: Fair Additional Instructions: Need to follow up with your PCP continue Eliquis Take your medication as directed e-Prescriptions Ascorbic Acid (VITAMIN C TABLET) 500 Mg Tb 1 TAB PO BID for 30 Days, #60 TAB 3 Refills Prov: GAYE ALVAREZ MD 07/12/24 Ferrous Sulfate (Iron Supplement) 220 Mg/5 Ml Elx 220 MG PO BID for 30 Days, #60 ELX Prov: GAYE ALVAREZ MD 07/12/24 Hydrocodone-Acetaminophen (Hydrocodone Bitartrate/AC 5-325 mg) 1 Tab Tab 1 TAB PO BID for 5 Days, #10 TAB Prov: GAYE ALVAREZ MD 07/12/24 Cyclobenzaprine Hcl (Cyclobenzaprine Hcl) 10 Mg Tab 10 MG PO TIDBM for 5 Days, #15 TAB Prov: GAYE ALVAREZ MD 07/12/24 Diclofenac Potassium (Diclofenac Potassium) 50 Mg Tab 1 TAB PO TIDP for 5 Days, #15 TAB Prov: GYAE ALVAREZ MD 07/12/24 Nitrofurantoin Monohydrate Mac (Macrobid) 100 Mg Cap 100 MG PO BID for 10 Days, #20 CAP Prov: GAYE ALVAREZ MD 07/12/24 Discharged With: Self Critical Care Note Critical Care Time?: No Stability Stability form required: No Heart Score Heart Score: Heart Score Response (Comments) Value History N/A 0 EKG N/A 0 Age <45 0 Risk Factors No known risk factors 0 Troponin N/A 0 Total 0 I personally scribed for GAYE ALVAREZ MD ([email or web address]) on 07/12/24 at 08:50. Electronically submitted by Joshua Bedoya ([email or web address]). I personally scribed for GAYE ALVAREZ MD ([email or web address]) on 07/12/24 at 10:28. Electronically submitted by Joshua Bedoya ([email or web address]). GAYE ALVAREZ MD Jul 12, 2024 08:50
[2024-07-12] MEDS: ONDANSETRON HCL 4 MG/2 ML VIAL IV ONE (08:54)
[2024-07-12] MEDS: MORPHINE SULFATE INJ 2 MG/ml SYRG IV ONE (08:54)
[2024-07-12 09:09] LABS: Urine Bacteria FEW /hpf (None Seen); Urine Blood 3+ /uL (Negative); Urine Clarity Turbid (Clear); Urine Color Light-Orange (Yellow); Urine Mucus FEW (None Seen); Urine Protein, UAD 1+ (Negative); Urine Specific Gravity 1.033 (1.001-1.035); Urine Urobilinogen Normal (Negative); Urine WBC 19 /hpf (0 - 5)
[2024-07-12 09:20] LABS: Basophils # (auto) 0 10 ^3/uL (0-0.2); Eosinophils # (auto) 0 10 ^3/uL (0-0.8); Hematocrit 31.8 % (36.0-46.0); Hemoglobin 10.1 g/dL (12.2-16.2); Mean Corpuscular Hgb Conc. 31.8 g/dL (32.0-36.0); Neutrophils % (auto) 64.6 % (37.0-80.0)
[2024-07-12 09:21] LABS: Basophils % (auto) 0.4 % (0.0-2.0); Eosinophils % (auto) 0.3 % (0.0-7.0); Lymphocytes # (auto) 2.5 10 ^3/uL (0.4-5.4); Lymphocytes % (auto) 28.1 % (10.0-50.0); Mean Corpuscular Hemoglobin 25.9 pg (28.0-32.0); Mean Corpuscular Volume 81.5 fL (80.0-100.0); Monocytes # (auto) 0.6 10 ^3/uL (0-1.3); Monocytes % (auto) 6.6 % (0.0-12.0); Neutrophils # (auto) 5.8 10 ^3/uL (1.6-8.6); Nucleated Red Blood Cells % 0.1 %; Platelet Count (auto) 383 10^3/uL (140-450); Red Cell Distribution Width 16.6 % (11.8-14.3)
[2024-07-12] MEDS: SODIUM CHLORIDE 0.9% 1,000 ML IV ONE (09:23)
[2024-07-12] MEDS: KETOROLAC TROMETH 30 MG/ML 1ML VIAL IM ONE (09:23)
[2024-07-12 09:24] VITALS: PULSE 84; RESP 16; O2SAT 96
[2024-07-12 09:39] LABS: Alanine Aminotransferase 13 U/L (7-40); Albumin 3.9 g/dL (3.2-4.8); Alkaline Phosphatase 93 U/L (46-116); Anion Gap 7 (5-15); Aspartate Aminotransferase 8 U/L (13-40); BUN/Creatinine Ratio 23.3 (10.0-20.0); Bilirubin, Total 0.3 mg/dL (0.2-1.0); Blood Urea Nitrogen 14 mg/dL (9-23); Calcium 8.8 mg/dL (8.7-10.4); Carbon Dioxide 23 mmol/L (20-31); Chloride 112 mmol/L (98-107); Glucose 107 mg/dL (74-106); Magnesium 1.9 mg/dL (1.6-2.6); Potassium 3.7 mmol/L (3.5-5.1); Sodium 142 mmol/L (136-145); Total Protein 7.2 g/dL (5.7-8.2)
--- NOTE | 2024-07-12 10:12 | DVH ---
Procedure: XY CHEST TWO VIEWS ROUTINE 07/12/2024 09:48 AM Indication: Persistent headache. Comparison: XY CHEST TWO VIEWS ROUTINE on DOS: 11/10/23 TECHNIQUE: XY CHEST TWO VIEWS ROUTINE FINDINGS: Medical devices: None. Cardiomediastinal: The heart is normal in size. Pulmonary vasculature is within normal limits. Lungs: No focal pulmonary opacity is seen. The costophrenic angles are clear. No pneumothorax. Bones/soft tissues: No acute abnormality is noted. IMPRESSION: 1. No acute cardiopulmonary disease.
--- NOTE | 2024-07-12 10:20 | DVH ---
EXAM: CT HEAD WITHOUT CONTRAST INDICATION: Persistent right temporal parietal headache and periorbital TECHNIQUE: CT of the head without intravenous contrast. Radiation Dose : 1. Head: CT Dose: CTDI volume is 57.75 mGy. Dose-length product is 1041.24 mGy*cm The dose indicators for CT are the volume Computed Tomography (CT) Dose Index (CTDIvol) and the Dose Length Product (DLP), and are measured in units of mGy and mGy-cm, respectively. These indicators are not patient dose, but values generated from the CT scanner acquisition factors. The report includes radiation exposure data for exposures received during this examination. COMPARISON: CT HEAD WITHOUT CONTRAST on DOS: 06/11/24, CT HEAD WITHOUT CONTRAST on DOS: 05/16/24, CT HEA D WITHOUT CONTRAST on DOS: 04/25/24 FINDINGS: There is no evidence of acute intracranial hemorrhage, extra-axial collection, mass effect, midline s hift, herniation or hydrocephalus. The ventricles, sulci and cisterns are age appropriate. The garcia-white differentiation is intact. The visualized paranasal sinuses and mastoid air cells are clear. The surrounding soft tissues and osseous structures are unremarkable. IMPRESSION: No acute intracranial abnormality. Radiation optimization: All CT scans at this facility use at least one of these dose optimization hayden hniques: automated exposure control mA and/or kV adjustment per patient size (includes targeted exam s where dose is matched to clinical indication) or iterative reconstruction.
[2024-07-12] MEDS ORDERED: DICL50TA2 PO (11:14)
[2024-07-12] MEDS ORDERED: CYCL-839 PO (11:14)
[2024-07-12] MEDS ORDERED: HYDR-4902 PO (11:14)
[2024-07-12] MEDS ORDERED: NITR-87 PO (11:14)
[2024-07-12] MEDS ORDERED: [UNRECOGNIZED DRUG - CODE] PO (11:21)
[2024-07-12] MEDS ORDERED: ASCO500T11 PO (11:21)
[2024-07-12 11:43] VITALS: BP 132/63; PULSE 74; RESP 19; O2SAT 99
== END 2024-07-12 11:49 | disposition home or self-care (01) ==
LOC: ER 07:54
DX: G43.109 Migraine with aura, not intractable, without status migrainosus (principal); R10.2 Pelvic and perineal pain; I82.612 Acute embolism and thrombosis of superficial veins of left upper extremity; N39.0 Urinary tract infection, site not specified; D50.9 Iron deficiency anemia, unspecified; I10 Essential (primary) hypertension; Z86.73 Personal history of transient ischemic attack (TIA), and cerebral infarction without residual deficits; Z90.49 Acquired absence of other specified parts of digestive tract
CPT/HCPCS: 36415; 70450; 71046; 80053; 81001; 83735; 84702; 85025; 96372; 99285; J1885

== ENCOUNTER 2024-07-15 19:53 | Emergency (ER) | payer MEDICAID ==
[~2024-07-15] VITALS: Ht 157.5 cm; Wt 86.8 kg
[~2024-07-15 19:53] MED LIST changes: +ASCO500T11 PO; +CYCL-839 PO; +DICL50TA2 PO; +[UNRECOGNIZED DRUG - CODE] PO
[2024-07-15 20:20] VITALS: BP 115/75; PULSE 86; RESP 18; TEMP 98.5; O2SAT 99
[2024-07-15] MEDS ORDERED: IBUP-1456 PO (21:36)
--- NOTE | 2024-07-15 21:36 | ED.PDOC ---
Musculoskeletal HPI Comments 43 year old female presents to ER with complaints of bilateral leg pain x6 days. Patient reports she has been experiencing cramping/tender 5/10 pain to bilateral calves x6 days. Denies any trauma/injury. Reports he has been taking Tylenol and ibuprofen for her pain with slight relief. Patient brought labs results with her of cbc/cmp that she had done yesterday that showed no significant abnormalities and presents to ER ambulatory, with steady gait, in no distress. Denies fever, shortness of breath, chest pain, numbness/tingling or any further symptoms/complaints Chief Complaint: Lower Extremity Time Seen by MD: 20:44 Primary Care Provider: Cem Reviewed Notes: Nurses Notes, Medications, Allergies Allergies: Coded Allergies: Morphine (Verified Allergy, Severe, 07/12/24) Ondansetron (Verified Allergy, Severe, 07/12/24) Metoclopramide (Verified Allergy, Unknown, 07/10/24) Home Meds Active Scripts Ibuprofen (Ibuprofen) 800 Mg Tab, 1 TAB PO TID PRN, #30 TAB 0 Refills Prov:JOHN CANCHOLA 07/15/24 Ascorbic Acid (VITAMIN C TABLET) 500 Mg Tb, 1 TAB PO BID for 30 Days, #60 TAB 3 Refills Prov:GAYE ALVAREZ MD 07/12/24 Ferrous Sulfate (Iron Supplement) 220 Mg/5 Ml Elx, 220 MG PO BID for 30 Days, #60 ELX Prov:GAYE ALVAREZ MD 07/12/24 Hydrocodone-Acetaminophen (Hydrocodone Bitartrate/AC 5-325 mg) 1 Tab Tab, 1 TAB PO BID for 5 Days, #10 TAB Prov:GAYE ALVAREZ MD 07/12/24 Cyclobenzaprine Hcl (Cyclobenzaprine Hcl) 10 Mg Tab, 10 MG PO TIDBM for 5 Days, #15 TAB Prov:GAYE ALVAREZ MD 07/12/24 Diclofenac Potassium (Diclofenac Potassium) 50 Mg Tab, 1 TAB PO TIDP for 5 Days, #15 TAB Prov:GAYE ALVAREZ MD 07/12/24 Nitrofurantoin Monohydrate Mac (Macrobid) 100 Mg Cap, 100 MG PO BID for 10 Days, #20 CAP Prov:GAYE ALVAREZ MD 07/12/24 Naproxen (NAPROSYN TABLET) 500 Mg Tb, 500 MG GT BID for 10 Days, #20 TAB Prov:MAYNOR HOYT MD 06/12/24 Ondansetron Odt 4MG Tab (ZOFRAN PO) 4 Mg Tb, 4 MG PO TID for 10 Days, #30 TAB ODT TAB-DISSOLVE IN MOUTH, THEN SWALLOW Prov:MAYNOR HOYT MD 06/12/24 Nitrofurantoin Monohydrate Mac (Macrobid) 100 Mg Cap, 100 MG PO BID for 7 Days, #14 CAP Prov:RUTHIE TROTTER MD 06/08/24 Meclizine Hcl (Meclizine Hcl) 12.5 Mg Tab, 25 MG PO TID for 7 Days, #42 TAB Prov:MAYNOR HOYT MD 04/25/24 Hydrocodone-Acetaminophen (Hydrocodone Bitartrate/AC 5-325 mg) 1 Tab Tab, 1 TAB PO QIDPRN, #20 TAB Prov:MARKO BARBER MD 03/27/24 Potassium Chloride (Potassium Chloride ER) 10 Meq Tab, 10 MEQ PO DAILY for 7 Days, #7 TAB Prov:ANDREY BLOCK MD 01/18/24 Acetaminophen (Acetaminophen) 500 Mg Tab, 500 MG PO QIDPRN for 10 Days, #40 TAB Prov:JOSE VANEGAS DO 01/10/24 Clindamycin Hcl (Clindamycin Hcl) 300 Mg Cap, 1 CAP PO QID for 10 Days, #40 CAP Prov:LUPE GIL Q GLASS TUBE BENDER 12/24/23 Acetaminophen W/ Codeine (Tylenol W/Cod #3) 1 Tab Tb, 1 TAB PO Q6HP PRN, #10 TAB Prov:HARSHA OSHEA PAC 11/15/23 Acetaminophen W/ Codeine (Tylenol W/Cod #3) 1 Tab Tb, 1 TAB PO Q8HP PRN, #15 TAB Prov:HARSHA OSHEA PAC 10/25/23 Apixaban Base (ELIQUIS) 5 Mg Tab, 5 MG PO BID for 30 Days, #60 TAB 2 Refills Prov:TANIYA LUNA DO 10/06/23 Apixaban Base (ELIQUIS) 5 Mg Tab, 10 MG PO BID for 10 Days, #40 TAB 0 Refills Prov:TANIYA LUNA DO 10/06/23 Reported Medications Metoprolol Tartrate (LOPRESSOR TABLET) 50 Mg Tb, 0.5 TAB PO BID 09/28/23 Mode of Arrival: Ambulatory Past Medical History PAST MEDICAL HISTORY: Anemia, Anxiety, TIA Past Medical History (Other): DVT left arm Surgical History: Cholecystectomy, CERTIFIED DIABETES EDUCATOR History: No Pertinent CERTIFIED DIABETES EDUCATOR History Family History Family History: Family hx of HTN Social History Smoker: Non-Smoker Alcohol: Denies ETOH Use Drugs: Denies Drug Use Lives In: Home Constitutional: denies: chills, diaphoresis, fatigue, fever, malaise, sweats, weakness, others EENTM: denies: blurred vision, double vision, ear bleeding, ear discharge, ear drainage, ear pain, ear ringing, eye pain, eye redness, hearing loss, mouth pain, mouth swelling, nasal discharge, nose bleeding, nose congestion, nose pain, photophobia, tearing, throat pain, throat swelling, voice changes, others Respiratory: denies: cough, hemoptysis, orthopnea, SOB at rest, shortness of breath, SOB with excertion, stridor, wheezing, others Cardiovascular: denies: chest pain, dizzy spells, diaphoresis, Dyspnea on exert ion, edema, irregular heart beat, left arm pain, lightheadedness, palpitations, PND, syncope, others Gastrointestinal: denies: abdomen distended, abdominal pain, blood streaked bowels, constipated, diarrhea, dysphagia, difficulty swallowing, hematemesis, melena, nausea, poor appetite, poor fluid intake, rectal bleeding, rectal pain, vomiting, others Genitourinary: denies: abnormal vagina bleeding, burning, dyspareunia, dysuria, flank pain, frequency, hematuria, incontinence, pain, , vagina discharge, urgency, others Neurological: denies: dizziness, fainting, headache, left sided numbness, left sided weakness, numbness, paresthesia, pre-existing deficit, right sided numbness, right sided weakness, seizure, speech problems, tingling, tremors, weakness, others Musculoskeletal: reports: others (As stated in HPI) Integumetry: denies: bruises, change in color, change in hair/nails, dryness, laceration, lesions, lumps, rash, wounds, others Allergic/Immunocompromised: denies: Difficulty Healing, Frequent Infections, Hives, Itching, others Hematologic/Lymphatic: denies: anemia, blood clots, easy bleeding, easy bruising, swollen glands, others Endocrine: denies: excessive hunger, excessive sweating, excessive thirst, excessive urination, flushing, intolerance to cold, intolerance to heat, unexplained weight gain, unexplained weight loss, others Psychiatric: denies: anxiety, bipolar disorder, depression, hopeless, panic disorder, schizophrenia, sleepless, suicidal, others Physical Exam General Appearance: No Apparent Distress, Obese HEENT: PERRL/EOMI Neck: Full Range of Motion, Non-Tender, Normal Respiratory: Chest Non-Tender, Lungs Clear, No Accessory Muscle Use, No Respiratory Distress, Normal Breath Sounds Cardiovascular: No Murmur, No Gallop, Regular Rate/Rhythm Breast Exam: Deferred Gastrointestinal: NOT DONE Genitalia: Deferred Pelvic: Deferred Rectal: Deferred Extremities: Calf tenderness (Slight TTP centralized to bilateral posterior calves noted. Mild varicose veins also noted bilateral lower legs. No erythema/further skin changes noted. Pulses intact. Gait intact without abnormality), Normal capillary refill, Normal range of motion, No pedal edema Neurologic: Alert, No Motor Deficits, Normal Affect, Normal Mood, No Sensory Deficits Cerebellar Function: Normal Reflexes: Normal Skin: Dry, Warm Peripheral Pulses: 2+ dorsalis pedis (R), 2+ dorsalis pedis (L) Lymphatic: No Adenopathy Was a procedure done? Was a procedure done?: No Sedation Sedation?: No Differential Diagnosis EXT Differential Diagnosis: Deep Vein Thrombosis, Fracture, Dislocation, Neurovascular injury X-Ray, Labs, Meds, VS Vital Signs Date Time Temp Pulse Resp B/P (MAP) Pulse Ox O2 Delivery O2 Flow Rate FiO2 07/15/24 20:20 98.5 86 18 115/75 (88) 99 PATIENT: BETTE SPENCERCT: [id number]: [id number] : 1980 LOC: ER ROOM / BED: / AGE / SEX: 43 / F ADM STATUS: REG ER SERVICE 20 ORDERING PHYSICIAN: JOHN CANCHOLA PROCEDURE(s): BLDVT - BiLat Lower DVT REASON: Bilateral calf pain ORDER NUMBER(s): [id number], ACCESSION NUMBER(s): [id number] BILATERAL LOWER EXTREMITY VENOUS DOPPLER ULTRASOUND CLINICAL HISTORY: Bilateral calf pain TECHNIQUE: Grayscale ultrasound with compression, color Doppler flow imaging with pulsed duplex sonography of the bilateral lower extremity deep venous system from the common femoral veins through the popliteal veins is performed. COMPARISON: US BILAT LOWER DVT on DOS: 01/18/24 FINDINGS: Right common femoral vein: Negative. Right greater saphenous vein: Negative. Right deep femoral vein: Negative. Right femoral vein: Negative. Right popliteal vein: Negative. Left common femoral vein: Negative. Left greater saphenous vein: Negative. Left deep femoral vein: Negative. Left femoral vein: Negative. Left popliteal vein: Negative. Other: Bilateral popliteal trifurcation and posterior tibial veins demonstrate color flow. IMPRESSION: No sonographic evidence of deep venous thrombosis in either lower extremity at this time. ATED BY: DIMITRI NICOLE MD DICTATED DATE/TIME: 07/15/242204 SIGNED BY: DIMITRI NICOLE MD SIGNED DATE/TIME: 07/15/242204 CC: Bilateral lower extremity DVT ultrasound reviewed Patient neurovascularly intact Compression stockings discussed and advised Advised to drink plenty of fluids Advised to follow up with PCP and vascular surgeon in 1-2 days Patient verbalized understanding and agreeable with current plan of care Advised to return to ER immediately if symptoms worsen Images Reviewed?: Images reviewed and evaluated by me Time of 1ST Reevaluation: 21:12 Reevaluation 1ST: N/A Patient Education/Counseling: Diagnosis, Treatment, Prognosis, Need For Follow Up Family Education/Counseling: No Family Present Departure 1 Departure Time of Disposition: 21:32 Impression: Primary Impression: Varicose veins of bilateral lower extremities with pain Disposition: 01 HOME / SELF CARE / HOMELESS Condition: Stable e-Prescriptions Ibuprofen (Ibuprofen) 800 Mg Tab 1 TAB PO TID PRN, #30 TAB 0 Refills Prov: JOHN CANCHOLA 07/15/24 Discharged With: Self Critical Care Note Critical Care Time?: No Stability Stability form required: No Heart Score Heart Score: Heart Score Response (Comments) Value History N/A 0 EKG N/A 0 Age N/A 0 Risk Factors N/A 0 Troponin N/A 0 Total 0 JOHN CANCHOLA Jul 15, 2024 21:36
--- NOTE | 2024-07-15 22:08 | DVH ---
BILATERAL LOWER EXTREMITY VENOUS DOPPLER ULTRASOUND CLINICAL HISTORY: Bilateral calf pain TECHNIQUE: Grayscale ultrasound with compression, color Doppler flow imaging with pulsed duplex sonog froy of the bilateral lower extremity deep venous system from the common femoral veins through the p opliteal veins is performed. COMPARISON: US BILAT LOWER DVT on DOS: 01/18/24 FINDINGS: Right common femoral vein: Negative. Right greater saphenous vein: Negative. Right deep femoral vein: Negative. Right femoral vein: Negative. Right popliteal vein: Negative. Left common femoral vein: Negative. Left greater saphenous vein: Negative. Left deep femoral vein: Negative. Left femoral vein: Negative. Left popliteal vein: Negative. Other: Bilateral popliteal trifurcation and posterior tibial veins demonstrate color flow. IMPRESSION: No sonographic evidence of deep venous thrombosis in either lower extremity at this time.
== END 2024-07-15 22:41 | disposition home or self-care (01) ==
LOC: ER 19:53
DX: I86.8 Varicose veins of other specified sites (principal); F41.9 Anxiety disorder, unspecified; Z88.8 Allergy status to other drugs, medicaments and biological substances; Z88.6 Allergy status to analgesic agent; Z79.899 Other long term (current) drug therapy; Z86.73 Personal history of transient ischemic attack (TIA), and cerebral infarction without residual deficits; Z90.49 Acquired absence of other specified parts of digestive tract; Z98.890 Other specified postprocedural states
CPT/HCPCS: 93970

== ENCOUNTER 2024-08-18 16:36 | Inpatient (IN) | payer MEDICAID ==
[~2024-08-18] VITALS: Ht 157.5 cm; Wt 86.8 kg
[~2024-08-18 16:36] MED LIST changes: +IBUP-1456 PO
--- NOTE | 2024-08-18 16:43 | ECG ---
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
--- NOTE | 2024-08-18 17:08 | ED.PDOC ---
HPI Comments HPI: Poor Historian. 43-year-old female presents to the emergency department for evaluation of four day history of midsternal chest pain pressure-like sensation that is intermittent in nature nonradiating. Associated sometimes with some shortness of breath. Patient said having a cardiac stress test five years ago that was normal. Patient denies any family history of coronary artery disease that she is aware of. Past Medcial History: Remote tobacco abuse quit five years ago. POTS, ASTHMA Past Surgical History: Cholecystectomy, REVIEW OF SYSTEMS: CONSTITUTIONAL: Denies acute: fever, diaphoresis, chills, generalized weakness. HEAD: Denies acute: headache, photophobia Eyes: Denies acute: Double vision, vision loss, eye pain, eye discharge. EARS: Denies acute: tinnitus, hearing loss, ear discharge, ear pain, THROAT: Denies acute: sore throat, swelling, difficulty swallowing , pain with swallowing, change in voice. NECK: Denies acute: neck pain, neck swelling, stiff neck. HEART: Denies acute : palpitations, LUNGS: Denies acute: SOB, wheezing, cough, hemoptysis ABDOMEN: Denies acute: abdominal pain, Nausea, Vomiting, diarrhea, melena , hematemesis, hematochezia SKIN: Denies acute: rash, redness, lesions, itchiness. EXTREMITIES: Denies acute: calf pain, numbness, tingling, weakness, denies pain in extremity. Denies acute: Low back pain. Neuro: Denies acute: focal neurological deficit, motor or sensory focal neurological deficit, tremors, seizure like activity, confusion, dizziness, change in mental status, loss of bowel or bladder function, cauda equina like symptoms. : Denies acute: dysuria, hematuria, flank pain, increase in urinary frequency. PSYCH: Denies acute: hallucination, suicidal ideation, homicidal ideation. FEMALE: Denies acute: abnormal vaginal bleeding, foul odor, unusual discharge. PHYSICAL EXAM: General: no acute distress, awake and alert. Head: normocephalic, atraumatic. Neck: supple, trachea is midline, no swelling. Throat: Normal phonation. Eyes:, no erythema, no purulent discharge, no proptosis, no icterus. Heart: regular rate, regular rhythm, no significant murmur appreciated. Lungs: no apparent respiratory distress, Able to speak in full sentences. No wheezing, no rhonchi, no crackles. No stridors Clear to auscultation bilaterally. Abdomen: non tender to palpation, non distended, soft, no guarding, no rebound, + bowel sounds. Neuro: Awake, Alert, oriented to name, self, situation, follows commands GCS=15. Speech is normal. Skin: no petechia, no purpura, no cyanosis, non-pale, not jaundice. Lower extremities: --no - Pitting edema no deformity, no focal swelling, no calf TTP. Makes eye contact. moves all four extremities. Face: no apparent facial droop. Ambulating in the ED independently. Chief Complaint: Chest Pain Time Seen by MD: 16:44 Primary Care Provider: Cem Reviewed Notes: Nurses Notes, Medications, Allergies Allergies: Coded Allergies: Morphine (Verified Allergy, Severe, 07/12/24) Ondansetron (Verified Allergy, Severe, 07/12/24) Metoclopramide (Verified Allergy, Unknown, 07/10/24) Home Meds Active Scripts Ibuprofen (Ibuprofen) 800 Mg Tab, 1 TAB PO TID PRN, #30 TAB 0 Refills Prov:JOHN CANCHOLA 07/15/24 Ascorbic Acid (VITAMIN C TABLET) 500 Mg Tb, 1 TAB PO BID for 30 Days, #60 TAB 3 Refills Prov:GAYE ALVAREZ MD 07/12/24 Ferrous Sulfate (Iron Supplement) 220 Mg/5 Ml Elx, 220 MG PO BID for 30 Days, #60 ELX Prov:GAYE ALVAREZ MD 07/12/24 Hydrocodone-Acetaminophen (Hydrocodone Bitartrate/AC 5-325 mg) 1 Tab Tab, 1 TAB PO BID for 5 Days, #10 TAB Prov:GAYE ALVAREZ MD 07/12/24 Cyclobenzaprine Hcl (Cyclobenzaprine Hcl) 10 Mg Tab, 10 MG PO TIDBM for 5 Days, #15 TAB Prov:GAYE ALVAREZ MD 07/12/24 Diclofenac Potassium (Diclofenac Potassium) 50 Mg Tab, 1 TAB PO TIDP for 5 Days, #15 TAB Prov:GAYE ALVAREZ MD 07/12/24 Nitrofurantoin Monohydrate Mac (Macrobid) 100 Mg Cap, 100 MG PO BID for 10 Days, #20 CAP Prov:GAYE ALVAREZ MD 07/12/24 Naproxen (NAPROSYN TABLET) 500 Mg Tb, 500 MG GT BID for 10 Days, #20 TAB Prov:MAYNOR HOYT MD 06/12/24 Ondansetron Odt 4MG Tab (ZOFRAN PO) 4 Mg Tb, 4 MG PO TID for 10 Days, #30 TAB ODT TAB-DISSOLVE IN MOUTH, THEN SWALLOW Prov:MAYNOR HOYT MD 06/12/24 Nitrofurantoin Monohydrate Mac (Macrobid) 100 Mg Cap, 100 MG PO BID for 7 Days, #14 CAP Prov:RUTHIE TROTTER MD 06/08/24 Meclizine Hcl (Meclizine Hcl) 12.5 Mg Tab, 25 MG PO TID for 7 Days, #42 TAB Prov:MAYNOR HOYT MD 04/25/24 Hydrocodone-Acetaminophen (Hydrocodone Bitartrate/AC 5-325 mg) 1 Tab Tab, 1 TAB PO QIDPRN, #20 TAB Prov:MARKO BARBER MD 03/27/24 Potassium Chloride (Potassium Chloride ER) 10 Meq Tab, 10 MEQ PO DAILY for 7 Days, #7 TAB Prov:ANDREY BLOCK MD 01/18/24 Acetaminophen (Acetaminophen) 500 Mg Tab, 500 MG PO QIDPRN for 10 Days, #40 TAB Prov:JOSE VANEGAS DO 01/10/24 Clindamycin Hcl (Clindamycin Hcl) 300 Mg Cap, 1 CAP PO QID for 10 Days, #40 CAP Prov:LUPE GIL E D TECH 12/24/23 Acetaminophen W/ Codeine (Tylenol W/Cod #3) 1 Tab Tb, 1 TAB PO Q6HP PRN, #10 TAB Prov:HARSHA OSHEA PAC 11/15/23 Acetaminophen W/ Codeine (Tylenol W/Cod #3) 1 Tab Tb, 1 TAB PO Q8HP PRN, #15 TAB Prov:HARSHA OSHEA PAC 10/25/23 Apixaban Base (ELIQUIS) 5 Mg Tab, 5 MG PO BID for 30 Days, #60 TAB 2 Refills Prov:TANIYA LUNA DO 10/06/23 Apixaban Base (ELIQUIS) 5 Mg Tab, 10 MG PO BID for 10 Days, #40 TAB 0 Refills Prov:TANIYA LUNA DO 10/06/23 Reported Medications Metoprolol Tartrate (LOPRESSOR TABLET) 50 Mg Tb, 0.5 TAB PO BID 09/28/23 Past Medical History PAST MEDICAL HISTORY: Anemia, Anxiety, TIA Surgical History: Cholecystectomy, PANTOGRAPH SETTER History: No Pertinent PANTOGRAPH SETTER History Family History Family History: Family hx of HTN Social History Smoker: Non-Smoker Alcohol: Denies ETOH Use Drugs: Denies Drug Use Lives In: Home X-Ray, Labs, Meds, VS Vital Signs Date Time Temp Pulse Resp B/P (MAP) Pulse Ox O2 Delivery O2 Flow Rate FiO2 08/18/24 17:01 98.8 78 17 102/66 (78) 98 Lab Test 08/18/24 16:45 Range/Units White Blood Count Pending Red Blood Count Pending Hemoglobin Pending Hematocrit Pending Mean Corpuscular Volume Pending Mean Corpuscular Hemoglobin Pending Mean Corpuscular Hemoglobin Concent Pending Red Cell Distribution Width Pending Platelet Count Pending Mean Platelet Volume Pending Neutrophils (%) (Auto) Pending Lymphocytes (%) (Auto) Pending Monocytes (%) (Auto) Pending Basophils (%) (Auto) Pending Neutrophils # (Auto) Pending Lymphocytes # (Auto) Pending Monocytes # (Auto) Pending Prothrombin Time Pending Prothrombin Time INR Pending Activated Partial Thromboplast Time Pending Sodium Level Pending Potassium Level Pending Chloride Level Pending Carbon Dioxide Level Pending Anion Gap Pending Blood Urea Nitrogen Pending Creatinine Pending Glomerular Filtration Rate Calc Pending BUN/Creatinine Ratio Pending Serum Glucose Pending Calcium Level Pending Magnesium Level Pending Total Bilirubin Pending Aspartate Amino Transferase (AST) Pending Alanine Aminotransferase (ALT) Pending Alkaline Phosphatase Pending Troponin I High Sensitivity Pending B-Type Natriuretic Peptide Pending Total Protein Pending Albumin Pending Departure Time of Disposition: 17:10 Disposition: 09 ADMITTED INPATIENT Diagnosis: CHEST PAIN, ABNORMAL EKG, T-WAVE INVERSION. Condition: Guarded MITA MCGILL Aug 18, 2024 17:08
[2024-08-18 17:20] LABS: Basophils # (auto) 0 10 ^3/uL (0-0.2); Basophils % (auto) 0.4 % (0.0-2.0); Eosinophils # (auto) 0.4 10 ^3/uL (0-0.8); Lymphocytes # (auto) 2.3 10 ^3/uL (0.4-5.4); Monocytes # (auto) 0.5 10 ^3/uL (0-1.3); Neutrophils # (auto) 5.3 10 ^3/uL (1.6-8.6); Neutrophils % (auto) 62.3 % (37.0-80.0)
[2024-08-18 17:22] LABS: Eosinophils % (auto) 4.6 % (0.0-7.0); Hematocrit 34.1 % (36.0-46.0); Lymphocytes % (auto) 27.1 % (10.0-50.0); Mean Corpuscular Hemoglobin 26.3 pg (28.0-32.0); Mean Corpuscular Hgb Conc. 32.4 g/dL (32.0-36.0); Mean Corpuscular Volume 81.1 fL (80.0-100.0); Monocytes % (auto) 5.6 % (0.0-12.0); Nucleated Red Blood Cells % 0.2 %; Platelet Count (auto) 406 10^3/uL (140-450); Red Cell Distribution Width 16.8 % (11.8-14.3); White Blood Cell 8.5 10^3/uL (4.4-10.8)
--- NOTE | 2024-08-18 17:30 | DVH ---
CHEST RADIOGRAPH Indication: CP Technique: Single frontal view of the chest was obtained Comparison: XY CHEST PORTABLE on DOS: 05/06/24, XY CHEST PORTABLE on DOS: 04/25/24, XY CHEST PORTABLE o n DOS: 03/26/24 FINDINGS: Lines and Tubes: None Lungs: Clear Pleura: No effusion. No pneumothorax. Cardiomediastinal contours: Unremarkable Bones: Unremarkable IMPRESSION: 1. Clear lungs.
[2024-08-18 17:36] LABS: Partial Thromboplastin Time 26.2 SEC (24.5-34.5); Prothrombin Time 10.6 sec (9.3-11.8)
[2024-08-18 17:48] LABS: Alanine Aminotransferase 12 U/L (7-40); Albumin 4.5 g/dL (3.2-4.8); Alkaline Phosphatase 113 U/L (46-116); Anion Gap 5 (5-15); Aspartate Aminotransferase 14 U/L (13-40); BUN/Creatinine Ratio 16.2 (10.0-20.0); Blood Urea Nitrogen 11 mg/dL (9-23); Calcium 10.1 mg/dL (8.7-10.4); Carbon Dioxide 30 mmol/L (20-31); Chloride 102 mmol/L (98-107); Magnesium 1.8 mg/dL (1.6-2.6); Sodium 137 mmol/L (136-145)
[2024-08-18 17:49] LABS: Bilirubin, Total 0.5 mg/dL (0.2-1.0); Glucose 107 mg/dL (74-106); Potassium 3.4 mmol/L (3.5-5.1); Total Protein 8.1 g/dL (5.7-8.2)
[2024-08-18] MEDS ORDERED: ACETAMINOPHEN 325 MG TAB PO PRN (19:30)
[2024-08-18] MEDS ORDERED: ONDANSETRON HCL 4 MG/2 ML VIAL IV PRN (19:30)
[2024-08-18] MEDS ORDERED: HYDROcodone-ACET 5/325MG TAB PO PRN (19:30)
[2024-08-18] MEDS ORDERED: DOCUSATE SOD 100 MG CAP PO PRN (19:30)
[2024-08-18] MEDS ORDERED: NITROGLYCERIN 0.4 MG SL TAB SL PRN (20:00)
--- NOTE | 2024-08-18 20:00 | DVHHP2 ---
History of Present Illness Reason for Visit: Acute chest pain History of Present Illness The patient is a 43-year-old female with past medical history of pots, asthma, anemia, anxiety, and TIA who presented to [facility] ED with complaint of acute chest pain for the past 4 days. Patient reports symptoms progressively get worse with midsternal chest pain, pressure-like sensation, intermittent nonradiating rating 7/10 numeric scale, getting worse today that prompted this visit. Patient was seen and evaluated in the ED, laboratory data shows WBC 8.5, hemoglobin 11.0, hematocrit 34.1, platelets 406, sodium 137, potassium 3.4, BUN 11, creatinine 0.68, glucose 107, troponin 3, BNP 4.50, blood pressure 102/66, heart rate 78, temperature 98.8 F, O2 saturation 98% on room air. Chest x-ray show no evidence of acute cardiopulmonary disease. Please see medication orders section in the computer. On my assessment, patient denies chest pain at this moment, no headache, no dizziness, no diaphoresis, no palpitations, no shortness a breath, no nausea, no vomiting, no fever, no chills. Patient was admitted for further evaluation and medical management. Past Medical History POTS, ASTHMA, Anemia, Anxiety, TIA Past Surgical History Cholecystectomy, Family History Reviewed, noncontributory to the management of this case. Past Social History Patient lives at home, remote tobacco abuse quit five years ago, denies alcohol or illicit drugs abuse. Review of Systems Constitutional: No: Fever, Chills, Sweats, Weakness, Malaise, Other Eyes: No: Pain, Vision change, Conjunctivae inflammation, Eyelid inflammation, Other, Redness ENT: No: Ear pain, Ear discharge, Nose pain, Nose discharge, Nose congestion, Mouth pain, Mouth swelling, Throat pain, Throat swelling, Other Respiratory: No: Cough, Dry, Shortness of breath, SOB with excertion, Wheezing, Hemoptysis, Pleuritic Pain, Sputum, Wheezing, Other Cardiovascular: Chest Pain; No: Palpitations, Orthopnea, Paroxysmal Noc. Dy spnea, Edema, Lt Headedness, Other Gastrointestinal: No: Nausea, Vomiting, Abdominal Pain, Diarrhea, Constipation, Melena, Hematochezia, Other Genitourinary: No Dysuria, No Frequency, No Incontinence, No Hematuria, No Retention, No Other Musculoskeletal: No: other, neck pain, shoulder pain, arm pain, back pain, hand pain, leg pain, foot pain Skin: No: Rash, Lesions, Jaundice, Bruising, Other Neurological: No: Weakness, Numbness, Incoordination, Change in speech, Confusion, Seizures, Other Allergies: Coded Allergies: Morphine (Verified Allergy, Severe, 07/12/24) Ondansetron (Verified Allergy, Severe, 07/12/24) Metoclopramide (Verified Allergy, Unknown, 07/10/24) Medications Current Medications Medications Dose Ordered Sig/Ryanne Route Start Time Stop Time Status Last Admin Dose Admin Aspirin 81 mg DAILY PO 08/19/24 10:00 UNV Apixaban 5 mg BID PO 08/18/24 22:00 UNV Sodium Chloride 1,000 ml @ 60 mls/hr [id number] IV 08/18/24 19:30 UNV Acetaminophen/ Hydrocodone Bitart 1 tab Q4HP PRN PO 08/18/24 19:30 UNV Ondansetron HCl 4 mg Q4HP PRN IV 08/18/24 19:30 UNV Docusate Sodium 100 mg BIDPRN PRN PO 08/18/24 19:30 UNV Acetaminophen 650 mg Q6HP PRN PO 08/18/24 19:30 UNV Exam Vital Signs Vital Signs Date Time Temp Pulse Resp B/P (MAP) Pulse Ox O2 Delivery O2 Flow Rate FiO2 08/18/24 17:43 69 08/18/24 17:01 98.8 17 102/66 (78) 98 General Appearance: Alert, Oriented X3, Cooperative, No acute distress HEENT: Atraumatic, PERRLA, EOMI, Mucous membr. moist/pink Respiratory: Clear to auscultation, Normal air movement Cardiovascular: Regular rate, Normal S1, Normal S2, No murmurs Abdominal: Normal bowel sounds, Soft, No tenderness, No hepatospenomegaly, No masses Extremities: No clubbing, No cyanosis, No edema, Normal pulses, No tenderness/swelling Skin: No rashes, No breakdown, No significant lesion Neuro: Normal gait, Normal speech, Strength at 5/5 X4 ext, Normal tone, Sensat ion intact, Cranial nerves 3-12 NL, Reflexes 2+ Psych/Mental Status: Mental status NL, Mood NL Labs/Xrays Labs Test 08/18/24 19:53 12/9/24 18:00 08/18/24 16:45 Range/Units White Blood Count 8.5 4.4-10.8 10^3/uL Red Blood Count 4.20 4.0-5.20 10^6/uL Hemoglobin 11.0 L 12.2-16.2 g/dL Hematocrit 34.1 L 36.0-46.0 % Mean Corpuscular Volume 81.1 80.0-100.0 fL Mean Corpuscular Hemoglobin 26.3 L 28.0-32.0 pg Mean Corpuscular Hemoglobin Concent 32.4 32.0-36.0 g/dL Red Cell Distribution Width 16.8 H 11.8-14.3 % Platelet Count 406 140-450 10^3/uL Mean Platelet Volume 7.2 6.9-10.8 fL Neutrophils (%) (Auto) 62.3 37.0-80.0 % Lymphocytes (%) (Auto) 27.1 10.0-50.0 % Monocytes (%) (Auto) 5.6 0.0-12.0 % Eosinophils (%) (Auto) 4.6 0.0-7.0 % Basophils (%) (Auto) 0.4 0.0-2.0 % Neutrophils # (Auto) 5.3 1.6-8.6 10 ^3/uL Lymphocytes # (Auto) 2.3 0.4-5.4 10 ^3/uL Monocytes # (Auto) 0.5 0-1.3 10 ^3/uL Eosinophils # (Auto) 0.4 0-0.8 10 ^3/uL Basophils # (Auto) 0 0-0.2 10 ^3/uL Nucleated Red Blood Cells 0.2 % Prothrombin Time 10.6 9.3-11.8 sec Prothrombin Time INR 1.00 0.9-1.15 Activated Partial Thromboplast Time 26.2 24.5-34.5 SEC D-Dimer, Quantitative 0.47 0.0-0.49 mg/L FEU Sodium Level 137 136-145 mmol/L Potassium Level 3.4 L 3.5-5.1 mmol/L Chloride Level 102 98-107 mmol/L Carbon Dioxide Level 30 20-31 mmol/L Anion Gap 5 5-15 Blood Urea Nitrogen 11 9-23 mg/dL Creatinine 0.68 0.550-1.02 mg/dL Glomerular Filtration Rate Calc 112 >90 mL/min BUN/Creatinine Ratio 16.2 10.0-20.0 Serum Glucose 107 H 74-106 mg/dL Calcium Level 10.1 8.7-10.4 mg/dL Magnesium Level 1.8 1.6-2.6 mg/dL Total Bilirubin 0.5 0.2-1.0 mg/dL Aspartate Amino Transferase (AST) 14 13-40 U/L Alanine Aminotransferase (ALT) 12 7-40 U/L Alkaline Phosphatase 113 46-116 U/L B-Type Natriuretic Peptide 4.50 0-100 pg/mL Total Protein 8.1 5.7-8.2 g/dL Albumin 4.5 3.2-4.8 g/dL PATIENT: TIMA SPENCER ACCT: [id number] UNIT: [id number] : 1980 LOC: ER ROOM / BED: / AGE / SEX: 43 / F ADM STATUS: REG ER SERVICE 38 ORDERING PHYSICIAN: MITA MCGILL DO PROCEDURE(s): CXRP - CHEST PORTABLE REASON: CP ORDER NUMBER(s): [id number], ACCESSION NUMBER(s): [id number] CHEST RADIOGRAPH Indication: CP Technique: Single frontal view of the chest was obtained Comparison: XY CHEST PORTABLE on DOS: 05/06/24, XY CHEST PORTABLE on DOS: , XY CHEST PORTABLE on DOS: 03/26/24 FINDINGS: Lines and Tubes: None Lungs: Clear Pleura: No effusion. No pneumothorax. Cardiomediastinal contours: Unremarkable Bones: Unremarkable IMPRESSION: 1. Clear lungs. Assessment/Plan Assessment/Plan Acute chest pain Hypokalemia Plan 1. Admit to telemetry unit 2. Breathing treatment 3. Pain control management 4. Management of fluids and electrolytes 5. Consultation for hospitalist 6. Diagnostic tests chest x-ray 7. DVT prophylaxis-on aspirin 8. Repeat labs CBC, CMP in a.m. 9. Continue with current medical management 10. Treatment plan discussed with patient and RN. Patient verbalized understanding. Plan discussed with: Patient, Other (RN) My Orders Orders - ANGELIQUE BLAND DNP Procedure Category Date Status Time Potassium Er Tablet PHA 08/18/24 Logged (Klor-Con Tablet) 19:30 Aspirin Tablet PHA 08/19/24 Logged 10:00 Apixaban (Eliquis) PHA 08/18/24 Logged 22:00 Allergies [facility] 08/18/24 In Process 19:28 Code Status CODE 08/18/24 Transmitted 19:28 Sodium Chloride 0.9% PHA 08/18/24 Logged 19:30 Oxygen Per Hour RT 08/18/24 Transmitted 19:28 Hydrocodone-Acet PHA 08/18/24 Logged 5/325mg Tab ([place] 19:30 Ondansetron Hcl PHA 08/18/24 Logged (Zofran) 19:30 Docusate Sodium PHA 08/18/24 Logged Capsule (Colace 19:30 Complete Blood Count LAB 08/19/24 Verified 04:00 Comprehensive LAB 08/19/24 Verified Metabolic Panel 04:00 Cardiac DIET 08/19/24 Transmitted Diet-2gna,Lofat,Lochol Breakfast Condition: Serious YOLI 08/18/24 In Process 19:28 Acetaminophen Tablet [facility] 08/18/24 Logged (Tylenol Tablet) 19:30 Bedrest With Bathroom YOLI 08/18/24 In Process Privileg 19:28 Sequential YOLI 08/18/24 In Process Compression Device Problem List: (1) Acute chest pain (2) Hypokalemia Date of Service: Aug 18, 2024 Billing Provider: ANGELIQUE BLAND DNP Common Visit Codes: 12271-[id number] INP/OBS CARE (HIGH) ANGELIQUE BLAND DNP Aug 18, 2024 20:00
[2024-08-18 20:11] LABS: Urine Bacteria FEW /hpf (None Seen); Urine Blood 1+ /uL (Negative); Urine Clarity Turbid (Clear); Urine Color Yellow (Yellow); Urine Mucus FEW (None Seen); Urine Protein, UAD TRACE (Negative); Urine Specific Gravity 1.032 (1.001-1.035); Urine Urobilinogen Normal (Negative); Urine WBC 1 /hpf (0 - 5); Urine pH 5.5 (5.0-9.0)
[2024-08-18 22:11] VITALS: BP 106/61; TEMP 98.1
[2024-08-18] MEDS: ASPirin 325 MG TAB PO ONE (22:32)
[2024-08-18] MEDS: NITROGLYCERIN 0.4 MG SL TAB SL ONE (22:32)
[2024-08-18] MEDS: APIXABAN 5 MG TAB PO SCH (22:34)
[2024-08-18] MEDS: SODIUM CHLORIDE 0.9% 1,000 ML IV SCH (22:34)
[2024-08-18] MEDS: POTASSIUM CHL 20 Meq TABLET PO ONE (22:37)
[2024-08-18 22:39] VITALS: PULSE 77; RESP 18; O2SAT 98
[2024-08-19 05:46] LABS: Basophils # (auto) 0 10 ^3/uL (0-0.2); Basophils % (auto) 0.5 % (0.0-2.0); Eosinophils # (auto) 0.3 10 ^3/uL (0-0.8); Eosinophils % (auto) 4.1 % (0.0-7.0); Hematocrit 33.7 % (36.0-46.0); Lymphocytes # (auto) 2.4 10 ^3/uL (0.4-5.4); Lymphocytes % (auto) 30.5 % (10.0-50.0); Mean Corpuscular Hemoglobin 26.5 pg (28.0-32.0); Mean Corpuscular Hgb Conc. 32.6 g/dL (32.0-36.0); Mean Corpuscular Volume 81.2 fL (80.0-100.0); Monocytes # (auto) 0.4 10 ^3/uL (0-1.3); Monocytes % (auto) 5.6 % (0.0-12.0); Neutrophils # (auto) 4.7 10 ^3/uL (1.6-8.6); Neutrophils % (auto) 59.3 % (37.0-80.0); Nucleated Red Blood Cells % 0.1 %; Platelet Count (auto) 365 10^3/uL (140-450); Red Blood Cells 4.15 10^6/uL (4.0-5.20); Red Cell Distribution Width 16.8 % (11.8-14.3)
[2024-08-19 06:08] LABS: Alanine Aminotransferase 16 U/L (7-40); Albumin 4.5 g/dL (3.2-4.8); Alkaline Phosphatase 111 U/L (46-116); Anion Gap 9 (5-15); Aspartate Aminotransferase 15 U/L (13-40); BUN/Creatinine Ratio 13.8 (10.0-20.0); Bilirubin, Total 0.6 mg/dL (0.2-1.0); Calcium 10.1 mg/dL (8.7-10.4); Carbon Dioxide 27 mmol/L (20-31); Chloride 102 mmol/L (98-107); Glucose 91 mg/dL (74-106); Potassium 3.9 mmol/L (3.5-5.1); Sodium 138 mmol/L (136-145); Total Protein 7.9 g/dL (5.7-8.2)
[2024-08-19 06:17] LABS: Blood Urea Nitrogen 8 mg/dL (9-23)
--- NOTE | 2024-08-19 07:00 | ECG ---
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
--- NOTE | 2024-08-19 08:46 | ECG ---
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
[2024-08-19] MEDS ORDERED: ASPirin 81 mg TAB PO SCH (10:00)
== END 2024-08-19 06:18 | disposition left against medical advice (07) | DRG 203 ==
LOC: ER 16:36 → OVERFLOW 19:58
PROVIDERS: ADMIT Nurse Practitioner Family; ATTEND Nurse Practitioner Acute Care
DX: M94.0 Chondrocostal junction syndrome [Tietze] (principal); G90.A Postural orthostatic tachycardia syndrome [POTS]; E87.6 Hypokalemia; J45.909 Unspecified asthma, uncomplicated; F41.9 Anxiety disorder, unspecified; Z53.29 Procedure and treatment not carried out because of patient's decision for other reasons; Z90.49 Acquired absence of other specified parts of digestive tract; Z87.891 Personal history of nicotine dependence; Z88.5 Allergy status to narcotic agent; Z86.73 Personal history of transient ischemic attack (TIA), and cerebral infarction without residual deficits; Z82.49 Family history of ischemic heart disease and other diseases of the circulatory system
CPT/HCPCS: 36415; 71045; 80053; 81001; 83735; 83880; 84484; 85025; 85379; 85610; 85730; 93005; G0378

== ENCOUNTER 2024-08-26 19:21 | Emergency (ER) | payer MEDICAID ==
[~2024-08-26] VITALS: Ht 157.5 cm; Wt 84.0 kg
[2024-08-26 20:24] VITALS: BP 103/66; PULSE 81; RESP 16; O2SAT 97
--- NOTE | 2024-08-26 20:32 | ED.PDOC ---
History of Present Illness HPI Comments 43-year-old female presents with a chief complaint of bilateral calf pain x 3 days. Patient reports that she has a history of DVT's and took Eliquis in the past. Patient is now reporting that the calves on both her legs are painful and also have had some edema. Patient is ambulatory with steady gait and able to apply pressure to her legs, but states that it is painful to do so. No other symptoms or modifying factors present at this time. Chief Complaint: Lower Extremity Time Seen by MD: 20:21 Primary Care Provider: Cem Reviewed Notes: Medications, Allergies Allergies: Coded Allergies: Morphine (Verified Allergy, Severe, 07/12/24) Ondansetron (Verified Allergy, Severe, 07/12/24) Metoclopramide (Verified Allergy, Unknown, 07/10/24) Home Meds Active Scripts Ibuprofen (Ibuprofen) 800 Mg Tab, 1 TAB PO TID PRN, #30 TAB 0 Refills Prov:JOHN CANCHOLA 07/15/24 Ascorbic Acid (VITAMIN C TABLET) 500 Mg Tb, 1 TAB PO BID for 30 Days, #60 TAB 3 Refills Prov:GAYE ALVAREZ MD 07/12/24 Ferrous Sulfate (Iron Supplement) 220 Mg/5 Ml Elx, 220 MG PO BID for 30 Days, #60 ELX Prov:GAYE ALVAREZ MD 07/12/24 Hydrocodone-Acetaminophen (Hydrocodone Bitartrate/AC 5-325 mg) 1 Tab Tab, 1 TAB PO BID for 5 Days, #10 TAB Prov:GAYE ALVAREZ MD 07/12/24 Cyclobenzaprine Hcl (Cyclobenzaprine Hcl) 10 Mg Tab, 10 MG PO TIDBM for 5 Days, #15 TAB Prov:GAYE ALVAREZ MD 07/12/24 Diclofenac Potassium (Diclofenac Potassium) 50 Mg Tab, 1 TAB PO TIDP for 5 Days, #15 TAB Prov:GAYE ALVAREZ MD 07/12/24 Nitrofurantoin Monohydrate Mac (Macrobid) 100 Mg Cap, 100 MG PO BID for 10 Days, #20 CAP Prov:GAYE ALVAREZ MD 07/12/24 Naproxen (NAPROSYN TABLET) 500 Mg Tb, 500 MG GT BID for 10 Days, #20 TAB Prov:MAYNOR HOYT MD 06/12/24 Ondansetron Odt 4MG Tab (ZOFRAN PO) 4 Mg Tb, 4 MG PO TID for 10 Days, #30 TAB ODT TAB-DISSOLVE IN MOUTH, THEN SWALLOW Prov:MAYNOR HOYT MD 06/12/24 Nitrofurantoin Monohydrate Mac (Macrobid) 100 Mg Cap, 100 MG PO BID for 7 Days, #14 CAP Prov:RUTHIE TROTTER MD 06/08/24 Meclizine Hcl (Meclizine Hcl) 12.5 Mg Tab, 25 MG PO TID for 7 Days, #42 TAB Prov:MAYNOR HOYT MD 04/25/24 Hydrocodone-Acetaminophen (Hydrocodone Bitartrate/AC 5-325 mg) 1 Tab Tab, 1 TAB PO QIDPRN, #20 TAB Prov:MARKO BARBER MD 03/27/24 Potassium Chloride (Potassium Chloride ER) 10 Meq Tab, 10 MEQ PO DAILY for 7 Day s, #7 TAB Prov:ANDREY BLOCK MD 01/18/24 Acetaminophen (Acetaminophen) 500 Mg Tab, 500 MG PO QIDPRN for 10 Days, #40 TAB Prov:JOSE VANEGAS DO 01/10/24 Clindamycin Hcl (Clindamycin Hcl) 300 Mg Cap, 1 CAP PO QID for 10 Days, #40 CAP Prov:LUPE GIL ORAL AND MAXILLOFACIAL PATHOLOGIST 12/24/23 Acetaminophen W/ Codeine (Tylenol W/Cod #3) 1 Tab Tb, 1 TAB PO Q6HP PRN, #10 TAB Prov:HARSHA OSHEA PAC 11/15/23 Acetaminophen W/ Codeine (Tylenol W/Cod #3) 1 Tab Tb, 1 TAB PO Q8HP PRN, #15 TAB Prov:HARSHA OSHEA PAC 10/25/23 Apixaban Base (ELIQUIS) 5 Mg Tab, 5 MG PO BID for 30 Days, #60 TAB 2 Refills Prov:TANIYA LUNA DO 10/06/23 Apixaban Base (ELIQUIS) 5 Mg Tab, 10 MG PO BID for 10 Days, #40 TAB 0 Refills Prov:TANIYA LUNA DO 10/06/23 Reported Medications Metoprolol Tartrate (LOPRESSOR TABLET) 50 Mg Tb, 0.5 TAB PO BID 09/28/23 Information Source: Patient Mode of Arrival: Ambulatory Severity: Moderate Timing: Days Duration: Since onset Prehospital treatment: None Past Medical History PAST MEDICAL HISTORY: Anemia, Anxiety, TIA Surgical History: Cholecystectomy, 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: No Pertinent 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 Family History Family History: Family hx of HTN Social History Smoker: Non-Smoker Alcohol: Denies ETOH Use Drugs: Denies Drug Use Lives In: Home Constitutional: denies: chills, diaphoresis, fatigue, fever, malaise, sweats, weakness, others EENTM: denies: blurred vision, double vision, ear bleeding, ear discharge, ear drainage, ear pain, ear ringing, eye pain, eye redness, hearing loss, mouth pain, mouth swelling, nasal discharge, nose bleeding, nose congestion, nose pain, photophobia, tearing, throat pain, throat swelling, voice changes, others Respiratory: denies: cough, hemoptysis, orthopnea, SOB at rest, shortness of breath, SOB with excertion, stridor, wheezing, others Cardiovascular: denies: chest pain, dizzy spells, diaphoresis, Dyspnea on exertion, edema, irregular heart beat, left arm pain, lightheadedness, palpitations, PND, syncope, others Gastrointestinal: denies: abdomen distended, abdominal pain, blood streaked bowels, constipated, diarrhea, dysphagia, difficulty swallowing, hematemesis, melena, nausea, poor appetite, poor fluid intake, rectal bleeding, rectal pain, vomiting, others Genitourinary: denies: abnormal vagina bleeding, burning, dyspareunia, dysuria, flank pain, frequency, hematuria, incontinence, pain, , vagina discharge, urgency, others Neurological: denies: dizziness, fainting, headache, left sided numbness, left sided weakness, numbness, paresthesia, pre-existing deficit, right sided numbness, right sided weakness, seizure, speech problems, tingling, tremors, weakness, others Musculoskeletal: reports: muscle pain (BILATERAL CALVES); denies: back pain, gout, joint pain, joint swelling, muscle stiffness, neck pain, others Integumetry: denies: bruises, change in color, change in hair/nails, dryness, laceration, lesions, lumps, rash, wounds, others Allergic/Immunocompromised: denies: Difficulty Healing, Frequent Infections, Hives, Itching, others Hematologic/Lymphatic: denies: anemia, blood clots, easy bleeding, easy br uising, swollen glands, others Endocrine: denies: excessive hunger, excessive sweating, excessive thirst, excessive urination, flushing, intolerance to cold, intolerance to heat, unexplained weight gain, unexplained weight loss, others Psychiatric: denies: anxiety, bipolar disorder, depression, hopeless, panic disorder, schizophrenia, sleepless, suicidal, others All Other Systems: Reviewed and Negative Physical Exam General Appearance: No Apparent Distress, Normal HEENT: Normal ENT Inspection, Pharynx Normal, TMs Normal Neck: Full Range of Motion, Non-Tender, Normal, Normal Inspection Respiratory: Chest Non-Tender, Lungs Clear, No Accessory Muscle Use, No Respiratory Distress, Normal Breath Sounds Cardiovascular: No Edema, No JVD, No Murmur, No Gallop, Normal Peripheral Pulses, Regular Rate/Rhythm Breast Exam: Deferred Gastrointestinal: No Organomegaly, Non Tender, No Pulsatile Mass, Normal Bowel Sounds, Soft Genitalia: Deferred Pelvic: Deferred Rectal: Deferred Extremities: No calf tenderness, Normal capillary refill, Normal inspection, Normal range of motion, Non-tender, No pedal edema Musculoskeletal : Apperance: Normal Neurologic: Alert, student outreach coordinator II-XII nml as Tested, No Motor Deficits, Normal Affect, Normal Mood, No Sensory Deficits Cerebellar Function: Normal Reflexes: Normal Skin: Dry, Normal Color, Warm Lymphatic: No Adenopathy Was a procedure done? Was a procedure done?: No Differential Dx Considerations may include: Electrolyte imbalance DVT cellulitis X-Ray, Labs, Meds, VS Vital Signs Date Time Temp Pulse Resp B/P (MAP) Pulse Ox O2 Delivery O2 Flow Rate FiO2 08/26/24 20:24 99.0 81 16 103/66 (78) 97 Lab Test 08/26/24 21:07 Range/Units White Blood Count 9.4 4.4-10.8 10^3/uL Red Blood Count 4.13 4.0-5.20 10^6/uL Hemoglobin 11.0 L 12.2-16.2 g/dL Hematocrit 33.6 L 36.0-46.0 % Mean Corpuscular Volume 81.3 80.0-100.0 fL Mean Corpuscular Hemoglobin 26.6 L 28.0-32.0 pg Mean Corpuscular Hemoglobin Concent 32.7 32.0-36.0 g/dL Red Cell Distribution Width 17.4 H 11.8-14.3 % Platelet Count 366 140-450 10^3/uL Mean Platelet Volume 7.1 6.9-10.8 fL Neutrophils (%) (Auto) 66.5 37.0-80.0 % Lymphocytes (%) (Auto) 24.6 10.0-50.0 % Monocytes (%) (Auto) 6.3 0.0-12.0 % Eosinophils (%) (Auto) 2.3 0.0-7.0 % Basophils (%) (Auto) 0.3 0.0-2.0 % Neutrophils # (Auto) 6.2 1.6-8.6 10 ^3/uL Lymphocytes # (Auto) 2.3 0.4-5.4 10 ^3/uL Monocytes # (Auto) 0.6 0-1.3 10 ^3/uL Eosinophils # (Auto) 0.2 0-0.8 10 ^3/uL Basophils # (Auto) 0 0-0.2 10 ^3/uL Nucleated Red Blood Cells 0.0 % Prothrombin Time 10.4 9.3-11.8 sec Prothrombin Time INR 0.98 0.9-1.15 Activated Partial Thromboplast Time 26.7 24.5-34.5 SEC D-Dimer, Quantitative 0.90 H 0.0-0.49 mg/L FEU Sodium Level 138 136-145 mmol/L Potassium Level 3.7 3.5-5.1 mmol/L Chloride Level 104 98-107 mmol/L Carbon Dioxide Level 29 20-31 mmol/L Anion Gap 5 5-15 Blood Urea Nitrogen 13 9-23 mg/dL Creatinine 0.65 0.550-1.02 mg/dL Glomerular Filtration Rate Calc 113 >90 mL/min BUN/Creatinine Ratio 20.0 10.0-20.0 Serum Glucose 84 74-106 mg/dL Calcium Level 10.0 8.7-10.4 mg/dL Total Bilirubin 0.3 0.2-1.0 mg/dL Aspartate Amino Transferase (AST) 11 L 13-40 U/L Alanine Aminotransferase (ALT) < 9 7-40 U/L Alkaline Phosphatase 98 46-116 U/L Troponin I High Sensitivity < 3 L </=34 ng/L Total Protein 7.6 5.7-8.2 g/dL Albumin 4.5 3.2-4.8 g/dL Beta HCG, Quantitative 1.4 L 1.5-4.2 mIU/mL PATIENT: BETTE SPENCERCT: [id number]: [id number] : 1980 LOC: ER ROOM / BED: / AGE / SEX: 43 / F ADM STATUS: REG ER SERVICE 25 ORDERING PHYSICIAN: MARKO BARBER MD PROCEDURE(s): BLDVT - BiLat Lower DVT REASON: calf pain ORDER NUMBER(s): [id number], ACCESSION NUMBER(s): [id number] Bilateral lower extremity venous duplex Clinical History: calf pain Comparison: US BILAT LOWER DVT on DOS: 07/15/24, US LT LOWER DVT on DOS: 06/08/24, US LT LOWER DVT on DOS: 05/22/24 Technique: Duplex Doppler evaluation of the deep venous systems of both lower extremities from the common femoral veins to the popliteal veins including color Doppler and spectral/pulsed waveform analysis was performed. Findings: RIGHT SIDE: The common femoral vein demonstrates appropriate compressibility and waveform variability. There is compressibility/patency of the great saphenous vein at the proximal thigh. The femoral vein demonstrates appropriate compressibility and waveform variability. The deep femoral vein demonstrates appropriate compressibility and waveform variability. The popliteal vein demonstrates appropriate compressibility and waveform variability. There is color flow at the tibioperoneal trunk and in the posterior tibial vein. LEFT SIDE: The common femoral vein demonstrates appropriate compressibility and waveform variability. There is compressibility/patency of the great saphenous vein at the proximal thigh. The femoral vein demonstrates appropriate compressibility and waveform variability. The deep femoral vein demonstrates appropriate compressibility and waveform variability. The popliteal vein demonstrates appropriate compressibility and waveform variability. There is color flow at the tibioperoneal trunk and in the posterior tibial vein. Impression: 1. No right or left femoropopliteal venous thrombosis. ATED BY: CHE WRIGHT MD DICTATED DATE/TIME: 08/26/242125 SIGNED BY: CHE WRIGHT MD SIGNED DATE/TIME: 08/26/242125 Hemoglobin 11. D-dimer is 0.9. CMP is normal. Ultrasound demonstrated no venous thrombosis which was reviewed by me and interpreted by me. Time of 1ST Reevaluation: 20:51 Reevaluation 1ST: Unchanged Patient Education/Counseling: Diagnosis, Treatment, Prognosis Family Education/Counseling: No Family Present Departure 1 Departure Time of Disposition: 00:30 Impression: Primary Impression: Left leg pain Disposition: 07 LEFT AWOL/ELOPED Condition: Guarded Comments The patient wants to sign out against medical advice. Patient was screened with an assessment of cognitive status and the testing revealed no signs of cognitive impairment. The patient is alert and oriented to person, place, and time. Patient gives appropriate answers and speaks coherently. The Glascow Coma Score is 15. A repeat gross neurologic exam shows no abnormalities. The patient was not in pain or distracted during our discussion. The patient exhibited no signs of depression, psychosis or tangential / delusional thinking. Normal thought process. Patient has no auditory or visual hallucinations. Patient has no suicidal or homicidal ideations. Patient is competent to make own decisions. Had in-depth discussion with patient about possible diagnosis. All clinical information and issues discussed with patient. The patient understands the medical condition. We discussed our proposed treatment, alternatives, and risks and benefits of both. Patient aware of recommendations. Had extensive discussion with patient regarding the risks of refusing our recommended treatment and disposition plans which includes but not exclusive to , brain damage, neurologic dysfunction, permanent mental impairment, worsening of symptoms, loss of limb, loss of ability to function, loss of sexual function and loss of current lifestyle and worsening of condition. Despite repeating my recommendations and patient expressing understanding of these risks, patient still wanted to leave. Patient signed out AMA and accepted all risks. Patient offered appropriate clinic follow-ups and prescriptions. Patient instructed to return to our ED or the closest ED if ANY exacerbation of symptoms. Critical Care Note Critical Care Time?: No Stability Stability form required: No I personally scribed for MARKO BARBER MD ([email or web address]) on 08/26/24 at 20:32. Electronically submitted by Ty Anaya ([email or web address]). I personally scribed for MARKO BARBER MD ([email or web address]) on 08/26/24 at 22:15. Electronically submitted by Ty Anaya ([email or web address]). MARKO BARBER MD Aug 26, 2024 20:32
[2024-08-26 21:26] LABS: Basophils # (auto) 0 10 ^3/uL (0-0.2); Mean Corpuscular Hemoglobin 26.6 pg (28.0-32.0); Monocytes # (auto) 0.6 10 ^3/uL (0-1.3); Red Blood Cells 4.13 10^6/uL (4.0-5.20); Red Cell Distribution Width 17.4 % (11.8-14.3)
[2024-08-26 21:27] LABS: Basophils % (auto) 0.3 % (0.0-2.0); Eosinophils # (auto) 0.2 10 ^3/uL (0-0.8); Eosinophils % (auto) 2.3 % (0.0-7.0); Hematocrit 33.6 % (36.0-46.0); Lymphocytes # (auto) 2.3 10 ^3/uL (0.4-5.4); Lymphocytes % (auto) 24.6 % (10.0-50.0); Mean Corpuscular Hgb Conc. 32.7 g/dL (32.0-36.0); Mean Corpuscular Volume 81.3 fL (80.0-100.0); Monocytes % (auto) 6.3 % (0.0-12.0); Neutrophils # (auto) 6.2 10 ^3/uL (1.6-8.6); Neutrophils % (auto) 66.5 % (37.0-80.0); Platelet Count (auto) 366 10^3/uL (140-450); White Blood Cell 9.4 10^3/uL (4.4-10.8)
--- NOTE | 2024-08-26 21:29 | DVH ---
Bilateral lower extremity venous duplex Clinical History: calf pain Comparison: US BILAT LOWER DVT on DOS: 07/15/24, US LT LOWER DVT on DOS: 06/08/24, US LT LOWER DVT on D OS: 05/22/24 Technique: Duplex Doppler evaluation of the deep venous systems of both lower extremities from the common femora l veins to the popliteal veins including color Doppler and spectral/pulsed waveform analysis was perf ormed. Findings: RIGHT SIDE: The common femoral vein demonstrates appropriate compressibility and waveform variability. There is compressibility/patency of the great saphenous vein at the proximal thigh. The femoral vein demonstrates appropriate compressibility and waveform variability. The deep femoral vein demonstrates appropriate compressibility and waveform variability. The popliteal vein demonstrates appropriate compressibility and waveform variability. There is color flow at the tibioperoneal trunk and in the posterior tibial vein. LEFT SIDE: The common femoral vein demonstrates appropriate compressibility and waveform variability. There is compressibility/patency of the great saphenous vein at the proximal thigh. The femoral vein demonstrates appropriate compressibility and waveform variability. The deep femoral vein demonstrates appropriate compressibility and waveform variability. The popliteal vein demonstrates appropriate compressibility and waveform variability. There is color flow at the tibioperoneal trunk and in the posterior tibial vein. Impression: 1. No right or left femoropopliteal venous thrombosis.
[2024-08-26 21:37] LABS: Albumin 4.5 g/dL (3.2-4.8); Alkaline Phosphatase 98 U/L (46-116); Anion Gap 5 (5-15); Bilirubin, Total 0.3 mg/dL (0.2-1.0); Blood Urea Nitrogen 13 mg/dL (9-23); Carbon Dioxide 29 mmol/L (20-31); Chloride 104 mmol/L (98-107); Glucose 84 mg/dL (74-106); Potassium 3.7 mmol/L (3.5-5.1); Sodium 138 mmol/L (136-145); Total Protein 7.6 g/dL (5.7-8.2)
[2024-08-26 21:42] LABS: Alanine Aminotransferase < 9 U/L (7-40); Aspartate Aminotransferase 11 U/L (13-40)
[2024-08-26 21:44] LABS: INR 0.98 (0.9-1.15); Partial Thromboplastin Time 26.7 SEC (24.5-34.5); Prothrombin Time 10.4 sec (9.3-11.8)
== END 2024-08-27 00:01 | disposition left against medical advice (07) ==
LOC: ER 19:21
DX: M79.661 Pain in right lower leg (principal); M79.662 Pain in left lower leg; F41.9 Anxiety disorder, unspecified; D64.9 Anemia, unspecified; Z79.899 Other long term (current) drug therapy; Z86.73 Personal history of transient ischemic attack (TIA), and cerebral infarction without residual deficits; Z90.49 Acquired absence of other specified parts of digestive tract; Z98.890 Other specified postprocedural states; Z88.5 Allergy status to narcotic agent; Z88.8 Allergy status to other drugs, medicaments and biological substances
CPT/HCPCS: 36415; 80053; 84484; 84702; 85025; 85379; 85610; 85730; 93970

== ENCOUNTER 2024-10-03 16:09 | Emergency (ER) | payer MEDICAID ==
[~2024-10-03] VITALS: Ht 157.5 cm; Wt 87.4 kg
--- NOTE | 2024-10-03 16:22 | ECG ---
[facility] Test Date: 2024-10-03 Test Time: 16:18:33 Pat Name: TIMA SPENCER Department: ER Room: Gender: F Cardiothoracic Anesthesia Technician: JUNI : 1980 Requested By: ABRAHAN LUU Order Number: [id number] Reading MD: Sherwin Patterson Measurements Intervals [place] Rate: 77 P: 33 DC: 173 QRS: -14 QRSD: 92 T: -5 QT: 368 QTc: 417 Interpretive Statements Sinus rhythm Probable anterior infarct, age indeterminate Electronically Signed On 10-03-2024 17:26:49 PST by Sherwin Patterson Please click the below link to view image of tracing.
--- NOTE | 2024-10-03 16:35 | ED.PDOC ---
History of Present Illness HPI Comments 44F presents to the ER w/ prior Hx of DVT on the right arm for 2 weeks, which may be associated to the c/c of CP. Pt reports that he has been having CP and SOB for the past 4 days w/ the CP being pressure like and whenever there is chest pressure the pt feels very N/. Pt states on feeling "pins and needles" on her chest and radiate to the back. Pt notes on her HR increasing as well. PMHx of Occipital Neuralgia, POTS Jose and Pre-DM. SHx of x3 and Cholecystectomy. Family Hx of HTN. Denies chills, fever, /V/D or other associated symptom's, modifiers, or recent injuries or sick contact at this time. Chief Complaint: Shortness of Breath Time Seen by MD: 16:20 Primary Care Provider: Cem Reviewed Notes: Nurses Notes, Medications, Allergies (No allergies to medications) Allergies: Coded Allergies: Morphine (Verified Allergy, Severe, 07/12/24) Ondansetron (Verified Allergy, Severe, 07/12/24) Metoclopramide (Verified Allergy, Unknown, 07/10/24) Home Meds Active Scripts Ibuprofen (Ibuprofen) 800 Mg Tab, 1 TAB PO TID PRN, #30 TAB 0 Refills Prov:JOHN CANCHOLA 07/15/24 Ascorbic Acid (VITAMIN C TABLET) 500 Mg Tb, 1 TAB PO BID for 30 Days, #60 TAB 3 Refills Prov:GAYE ALVAREZ MD 07/12/24 Ferrous Sulfate (Iron Supplement) 220 Mg/5 Ml Elx, 220 MG PO BID for 30 Days, #60 ELX Prov:GAYE ALVAREZ MD 07/12/24 Hydrocodone-Acetaminophen (Hydrocodone Bitartrate/AC 5-325 mg) 1 Tab Tab, 1 TAB PO BID for 5 Days, #10 TAB Prov:GAYE ALVAREZ MD 07/12/24 Cyclobenzaprine Hcl (Cyclobenzaprine Hcl) 10 Mg Tab, 10 MG PO TIDBM for 5 Days, #15 TAB Prov:GAYE ALVAREZ MD 07/12/24 Diclofenac Potassium (Diclofenac Potassium) 50 Mg Tab, 1 TAB PO TIDP for 5 Days, #15 TAB Prov:GAYE ALVAREZ MD 07/12/24 Nitrofurantoin Monohydrate Mac (Macrobid) 100 Mg Cap, 100 MG PO BID for 10 Days, #20 CAP Prov:GAYE ALVAREZ MD 07/12/24 Naproxen (NAPROSYN TABLET) 500 Mg Tb, 500 MG GT BID for 10 Days, #20 TAB Prov:MAYNOR HOYT MD 06/12/24 Ondansetron Odt 4MG Tab (ZOFRAN PO) 4 Mg Tb, 4 MG PO TID for 10 Days, #30 TAB ODT TAB-DISSOLVE IN MOUTH, THEN SWALLOW Prov:MAYNOR HOYT MD 06/12/24 Nitrofurantoin Monohydrate Mac (Macrobid) 100 Mg Cap, 100 MG PO BID for 7 Days, #14 CAP Prov:RUTHIE TROTTER MD 06/08/24 Meclizine Hcl (Meclizine Hcl) 12.5 Mg Tab, 25 MG PO TID for 7 Days, #42 TAB Prov:MAYNOR HOYT MD 04/25/24 Hydrocodone-Acetaminophen (Hydrocodone Bitartrate/AC 5-325 mg) 1 Tab Tab, 1 TAB PO QIDPRN, #20 TAB Prov:MARKO BARBER MD 03/27/24 Potassium Chloride (Potassium Chloride ER) 10 Meq Tab, 10 MEQ PO DAILY for 7 Days, #7 TAB Prov:ANDREY BLOCK MD 01/18/24 Acetaminophen (Acetaminophen) 500 Mg Tab, 500 MG PO QIDPRN for 10 Days, #40 TAB Prov:JOSE VANEGAS DO 01/10/24 Clindamycin Hcl (Clindamycin Hcl) 300 Mg Cap, 1 CAP PO QID for 10 Days, #40 CAP Prov:LUPE GIL Q FOOD PORTER 12/24/23 Acetaminophen W/ Codeine (Tylenol W/Cod #3) 1 Tab Tb, 1 TAB PO Q6HP PRN, #10 TAB Prov:HARSHA OSHEA PAC 11/15/23 Acetaminophen W/ Codeine (Tylenol W/Cod #3) 1 Tab Tb, 1 TAB PO Q8HP PRN, #15 TAB Prov:HARSHA OSHEA PAC 10/25/23 Apixaban Base (ELIQUIS) 5 Mg Tab, 5 MG PO BID for 30 Days, #60 TAB 2 Refills Prov:TANIYA LUNA DO 10/06/23 Apixaban Base (ELIQUIS) 5 Mg Tab, 10 MG PO BID for 10 Days, #40 TAB 0 Refills Prov:TANIYA LUNA DO 10/06/23 Reported Medications Metoprolol Tartrate (LOPRESSOR TABLET) 50 Mg Tb, 0.5 TAB PO BID 09/28/23 Information Source: Patient Mode of Arrival: Ambulatory Severity: Mild Timing: Days Duration: Since onset, Days Prehospital treatment: None Past Medical History PAST MEDICAL HISTORY: Anemia, Anxiety, TIA Past Medical History (Other): Pots [place], Pre-DM, DVT on right arm for 2 weeks and Occipital Neuralgia Surgical History: Cholecystectomy, GERIATRIC SOCIAL WORKER History: No Pertinent GERIATRIC SOCIAL WORKER History Family History Family History: Reviewed,noncontributory to illness, Family hx of HTN Social History Smoker: Non-Smoker Alcohol: Denies ETOH Use Drugs: Denies Drug Use Lives In: Home Constitutional: denies: chills, diaphoresis, fatigue, fever, malaise, sweats, weakness, others EENTM: denies: blurred vision, double vision, ear bleeding, ear discharge, ear drainage, ear pain, ear ringing, eye pain, eye redness, hearing loss, mouth pain, mouth swelling, nasal discharge, nose bleeding, nose congestion, nose pain, photophobia, tearing, throat pain, throat swelling, voice changes, others Respiratory: reports: shortness of breath; denies: cough, hemoptysis, orthop cm, SOB at rest, SOB with excertion, stridor, wheezing, others Cardiovascular: reports: chest pain; denies: dizzy spells, diaphoresis, Dyspnea on exertion, edema, irregular heart beat, left arm pain, lightheadedness, palpitations, PND, syncope, others Gastrointestinal: reports: nausea; denies: abdomen distended, abdominal pain, blood streaked bowels, constipated, diarrhea, dysphagia, difficulty swallowing, hematemesis, melena, poor appetite, poor fluid intake, rectal bleeding, rectal pain, vomiting, others Genitourinary: denies: abnormal vagina bleeding, burning, dyspareunia, dysuria, flank pain, frequency, hematuria, incontinence, pain, , vagina discharge, urgency, others Neurological: denies: dizziness, fainting, headache, left sided numbness, left sided weakness, numbness, paresthesia, pre-existing deficit, right sided numbness, right sided weakness, seizure, speech problems, tingling, tremors, weakness, others Musculoskeletal: reports: back pain; denies: gout, joint pain, joint swelling, muscle pain, muscle stiffness, neck pain, others Integumetry: denies: bruises, change in color, change in hair/nails, dryness, laceration, lesions, lumps, rash, wounds, others Allergic/Immunocompromised: denies: Difficulty Healing, Frequent Infections, Hives, Itching, others Hematologic/Lymphatic: denies: anemia, blood clots, easy bleeding, easy bruising, swollen glands, others Endocrine: denies: excessive hunger, excessive sweating, excessive thirst, excessive urination, flushing, intolerance to cold, intolerance to heat, unexplained weight gain, unexplained weight loss, others Psychiatric: denies: anxiety, bipolar disorder, depression, hopeless, panic disorder, schizophrenia, sleepless, suicidal, others All Other Systems: Reviewed and Negative Physical Exam General Appearance: No Apparent Distress HEENT: Normal ENT Inspection, Pharynx Normal, TMs Normal Neck: Full Range of Motion, Non-Tender, Normal, Normal Inspection Respiratory: Chest Non-Tender, Lungs Clear, No Accessory Muscle Use, No Respi ratory Distress, Normal Breath Sounds Cardiovascular: No Edema, No JVD, No Murmur, No Gallop, Normal Peripheral Pulses, Regular Rate/Rhythm Breast Exam: Deferred Gastrointestinal: No Organomegaly, Non Tender, No Pulsatile Mass, Normal Bowel Sounds, Soft Genitalia: Deferred Pelvic: Deferred Rectal: Deferred Extremities: No calf tenderness, Normal capillary refill, Normal inspection, Normal range of motion, Non-tender, No pedal edema Musculoskeletal : Apperance: Normal Neurologic: Alert, head banquet waitress II-XII nml as Tested, No Motor Deficits, Normal Affect, Normal Mood, No Sensory Deficits Cerebellar Function: Normal Reflexes: Normal Skin: Dry, Normal Color, Warm Lymphatic: No Adenopathy Was a procedure done? Was a procedure done?: No EKG EKG : Pulse Rate (adult): 77 [place]: Normal Cardiac Rhythm: NSR Block: None Hypertrophy: None ST: Normal Differential Dx Considerations may include: Pneumonia, bronchitis, ACS, SD X-Ray, Labs, Meds, VS Vital Signs Date Time Temp Pulse Resp B/P (MAP) Pulse Ox O2 Delivery O2 Flow Rate FiO2 10/03/24 16:35 77 10/03/24 16:19 98.0 85 20 120/72 (88) 98 10/03/24 16:18 77 Lab Test 10/03/24 17:51 10/03/24 16:58 10/03/24 16:53 Range/Units Troponin I High Sensitivity < 3 L Pending White Blood Count 8.2 4.4-10.8 10^3/uL Red Blood Count 4.10 4.0-5.20 10^6/uL Hemoglobin 10.9 L 12.2-16.2 g/dL Hematocrit 33.5 L 36.0-46.0 % Mean Corpuscular Volume 81.8 80.0-100.0 fL Mean Corpuscular Hemoglobin 26.5 L 28.0-32.0 pg Mean Corpuscular Hemoglobin Concent 32.4 32.0-36.0 g/dL Red Cell Distribution Width 16.7 H 11.8-14.3 % Platelet Count 383 140-450 10^3/uL Mean Platelet Volume 7.1 6.9-10.8 fL Neutrophils (%) (Auto) 66.4 37.0-80.0 % Lymphocytes (%) (Auto) 25.6 10.0-50.0 % Monocytes (%) (Auto) 4.8 0.0-12.0 % Eosinophils (%) (Auto) 2.7 0.0-7.0 % Basophils (%) (Auto) 0.5 0.0-2.0 % Neutrophils # (Auto) 5.4 1.6-8.6 10 ^3/uL Lymphocytes # (Auto) 2.1 0.4-5.4 10 ^3/uL Monocytes # (Auto) 0.4 0-1.3 10 ^3/uL Eosinophils # (Auto) 0.2 0-0.8 10 ^3/uL Basophils # (Auto) 0 0-0.2 10 ^3/uL Nucleated Red Blood Cells 0.1 % D-Dimer, Quantitative 0.46 0.0-0.49 mg/L FEU Sodium Level 137 136-145 mmol/L Potassium Level 3.8 3.5-5.1 mmol/L Chloride Level 104 98-107 mmol/L Carbon Dioxide Level 28 20-31 mmol/L Anion Gap 5 5-15 Blood Urea Nitrogen 7 L 9-23 mg/dL Creatinine 0.67 0.550-1.02 mg/dL Glomerular Filtration Rate Calc 112 >90 mL/min BUN/Creatinine Ratio 10.4 10.0-20.0 Serum Glucose 108 H 74-106 mg/dL Calcium Level 9.9 8.7-10.4 mg/dL The patient's CBC is within normal limits The chemistry panel is within normal limits The D-dimer is negative The troponin level is negative At this time, the patient was discharged The chest x-ray is negative The patient will return to the emergency department's condition worsens Images Reviewed?: Images reviewed and evaluated by me Time of 1ST Reevaluation: 16:50 Reevaluation 1ST: Unchanged Time of 2ND Reevaluation: 18:54 Reevaluation 2ND: Improved Patient Education/Counseling: Diagnosis, Treatment, Prognosis, Need For Follow Up Family Education/Counseling: No Family Present Departure 1 Departure Time of Disposition: 18:55 Impression: Primary Impression: Atypical chest pain Disposition: 01 HOME / SELF CARE / HOMELESS Condition: Fair Discharged With: Self Critical Care Note Critical Care Time?: No Stability Stability form required: No Heart Score Heart Score: Heart Score Response (Comments) Value History N/A 0 EKG N/A 0 Age N/A 0 Risk Factors N/A 0 Troponin N/A 0 Total 0 I personally scribed for ABRAHAN LUU MD ([email or web address]) on 10/03/24 at 16:35. Electronically submitted by Hugo López ([email or web address]). ABRAHAN LUU MD Oct 03, 2024 16:35
--- NOTE | 2024-10-03 16:42 | DVH ---
XY CHEST TWO VIEWS ROUTINE CLINICAL HISTORY: cp COMPARISON: XY CHEST TWO VIEWS ROUTINE on DOS: 07/12/24, XY CHEST TWO VIEWS ROUTINE on DOS: 11/10/23 TECHNIQUE: Frontal and lateral view of the chest was obtained FINDINGS: Lines and Tubes: None Lungs: No focal consolidation. Mild elevation of the right hemidiaphragm. Pleura: No effusion. No pneumothorax. Cardiomediastinal contours: Unremarkable Bones: No acute osseous abnormality. IMPRESSION: No acute cardiopulmonary disease.
[2024-10-03 17:25] LABS: Basophils # (auto) 0 10 ^3/uL (0-0.2); Basophils % (auto) 0.5 % (0.0-2.0); Eosinophils # (auto) 0.2 10 ^3/uL (0-0.8); Eosinophils % (auto) 2.7 % (0.0-7.0); Hematocrit 33.5 % (36.0-46.0); Hemoglobin 10.9 g/dL (12.2-16.2); Lymphocytes # (auto) 2.1 10 ^3/uL (0.4-5.4); Lymphocytes % (auto) 25.6 % (10.0-50.0); Mean Corpuscular Hemoglobin 26.5 pg (28.0-32.0); Mean Corpuscular Hgb Conc. 32.4 g/dL (32.0-36.0); Mean Corpuscular Volume 81.8 fL (80.0-100.0); Monocytes # (auto) 0.4 10 ^3/uL (0-1.3); Monocytes % (auto) 4.8 % (0.0-12.0); Neutrophils # (auto) 5.4 10 ^3/uL (1.6-8.6); Neutrophils % (auto) 66.4 % (37.0-80.0); Nucleated Red Blood Cells % 0.1 %; Platelet Count (auto) 383 10^3/uL (140-450); Red Cell Distribution Width 16.7 % (11.8-14.3); White Blood Cell 8.2 10^3/uL (4.4-10.8)
[2024-10-03 17:30] LABS: Chloride 104 mmol/L (98-107); Potassium 3.8 mmol/L (3.5-5.1); Sodium 137 mmol/L (136-145)
[2024-10-03 17:31] LABS: Anion Gap 5 (5-15); Calcium 9.9 mg/dL (8.7-10.4); Carbon Dioxide 28 mmol/L (20-31)
[2024-10-03 17:36] LABS: BUN/Creatinine Ratio 10.4 (10.0-20.0)
[2024-10-03 18:22] LABS: Blood Urea Nitrogen 7 mg/dL (9-23); Glucose 108 mg/dL (74-106)
[2024-10-03 19:31] VITALS: BP 110/75; PULSE 75; RESP 20; TEMP 97.9; O2SAT 97
== END 2024-10-03 19:30 | disposition home or self-care (01) ==
LOC: ER 16:09
DX: R07.89 Other chest pain (principal); F41.9 Anxiety disorder, unspecified; R06.02 Shortness of breath; Z86.73 Personal history of transient ischemic attack (TIA), and cerebral infarction without residual deficits; Z86.718 Personal history of other venous thrombosis and embolism; Z90.49 Acquired absence of other specified parts of digestive tract; Z98.890 Other specified postprocedural states; Z79.891 Long term (current) use of opiate analgesic; Z88.8 Allergy status to other drugs, medicaments and biological substances
CPT/HCPCS: 36415; 71046; 80048; 84484; 85025; 85379; 93005

== ENCOUNTER 2024-10-17 17:02 | Emergency (ER) | payer MEDICAID ==
[~2024-10-17] VITALS: Ht 157.5 cm; Wt 82.8 kg
[2024-10-17 17:20] VITALS: BP 102/73; PULSE 90; RESP 18; O2SAT 98
--- NOTE | 2024-10-17 17:48 | ED.PDOC ---
Musculoskeletal HPI Comments 44-year-old female with PMHx Left Upper Extremity DVT presents with a chief complaint of Right Upper Extremity DVT. Patient states that she is currently on Eliquis for a diagnosed DVT in her left upper arm, and was at [facility] and diagnosed with a right upper arm DVT. Patient mentions that she came to the ER because the symptoms felt stronger today and patient relays that she could not full flex her right arm completely without noting swelling in the biceps which concerned her. Patient mentions that she has followed up with a plywood layup line core feeder and is trying to determine why she is getting blood clots. Patient denies any fever nausea or vomiting. Patient states she is compliant with her Eliquis. Chief Complaint: Upper Extremity Time Seen by MD: 17:40 Primary Care Provider: Cem Reviewed Notes: Nurses Notes, Medications, Allergies Allergies: Coded Allergies: Morphine (Verified Allergy, Severe, 07/12/24) Ondansetron (Verified Allergy, Severe, 07/12/24) Metoclopramide (Verified Allergy, Unknown, 07/10/24) Home Meds Active Scripts Ibuprofen (Ibuprofen) 800 Mg Tab, 1 TAB PO TID PRN, #30 TAB 0 Refills Prov:JOHN CANCHOLA 07/15/24 Ascorbic Acid (VITAMIN C TABLET) 500 Mg Tb, 1 TAB PO BID for 30 Days, #60 TAB 3 Refills Prov:GAYE ALVAREZ MD 07/12/24 Ferrous Sulfate (Iron Supplement) 220 Mg/5 Ml Elx, 220 MG PO BID for 30 Days, #60 ELX Prov:GAYE ALVAREZ MD 07/12/24 Hydrocodone-Acetaminophen (Hydrocodone Bitartrate/AC 5-325 mg) 1 Tab Tab, 1 TAB PO BID for 5 Days, #10 TAB Prov:GAYE ALVAREZ MD 07/12/24 Cyclobenzaprine Hcl (Cyclobenzaprine Hcl) 10 Mg Tab, 10 MG PO TIDBM for 5 Days, #15 TAB Prov:GAYE ALVAREZ MD 07/12/24 Diclofenac Potassium (Diclofenac Potassium) 50 Mg Tab, 1 TAB PO TIDP for 5 Days, #15 TAB Prov:GAYE ALVAREZ MD 07/12/24 Nitrofurantoin Monohydrate Mac (Macrobid) 100 Mg Cap, 100 MG PO BID for 10 Days, #20 CAP Prov:GAYE ALVAREZ MD 07/12/24 Naproxen (NAPROSYN TABLET) 500 Mg Tb, 500 MG GT BID for 10 Days, #20 TAB Prov:MAYNOR HOYT MD 06/12/24 Ondansetron Odt 4MG Tab (ZOFRAN PO) 4 Mg Tb, 4 MG PO TID for 10 Days, #30 TAB ODT TAB-DISSOLVE IN MOUTH, THEN SWALLOW Prov:MAYNOR HOYT MD 06/12/24 Nitrofurantoin Monohydrate Mac (Macrobid) 100 Mg Cap, 100 MG PO BID for 7 Days, #14 CAP Prov:RUTHIE TROTTER MD 06/08/24 Meclizine Hcl (Meclizine Hcl) 12.5 Mg Tab, 25 MG PO TID for 7 Days, #42 TAB Prov:MAYNOR HOYT MD 04/25/24 Hydrocodone-Acetaminophen (Hydrocodone Bitartrate/AC 5-325 mg) 1 Tab Tab, 1 TAB PO QIDPRN, #20 TAB Prov:MARKO BARBER MD 03/27/24 Potassium Chloride (Potassium Chloride ER) 10 Meq Tab, 10 MEQ PO DAILY for 7 Days, #7 TAB Prov:ANDREY BLOCK MD 01/18/24 Acetaminophen (Acetaminophen) 500 Mg Tab, 500 MG PO QIDPRN for 10 Days, #40 TAB Prov:JOSE VANEGAS S DO 01/10/24 Clindamycin Hcl (Clindamycin Hcl) 300 Mg Cap, 1 CAP PO QID for 10 Days, #40 CAP Prov:LUPE GIL AIR/OCEAN EXPORT CLERK 12/24/23 Acetaminophen W/ Codeine (Tylenol W/Cod #3) 1 Tab Tb, 1 TAB PO Q6HP PRN, #10 TAB Prov:HARSHA OSHEA PAC 11/15/23 Acetaminophen W/ Codeine (Tylenol W/Cod #3) 1 Tab Tb, 1 TAB PO Q8HP PRN, #15 TAB Prov:HARSHA OSHEA PAC 10/25/23 Apixaban Base (ELIQUIS) 5 Mg Tab, 5 MG PO BID for 30 Days, #60 TAB 2 Refills Prov:TANIYA LUNA DO 10/06/23 Apixaban Base (ELIQUIS) 5 Mg Tab, 10 MG PO BID for 10 Days, #40 TAB 0 Refills Prov:TANIYA LUNA DO 10/06/23 Reported Medications Metoprolol Tartrate (LOPRESSOR TABLET) 50 Mg Tb, 0.5 TAB PO BID 09/28/23 Information Source: Patient Mode of Arrival: Ambulatory Location: Right Extremity Location: Arm Timing: Days Prehospital treatment: None Severity: Moderate Able to Move Extremity: Yes Bear Weight: Fully Pain: Moderate Hand Dominance: Right Mechanism: Spontaneous Circumstances: Spontaneous Onset of Symptoms: Spontaneous Symptoms: Pain DVT Risk Factors: DVT Past Medical History PAST MEDICAL HISTORY: Anemia, Anxiety, TIA Past Medical History (Other): History of DVTs and currently on Eliquis Surgical History: Cholecystectomy, JUMPBASTING FACING BASTER History: No Pertinent JUMPBASTING FACING BASTER History Family History Family History: Reviewed,noncontributory to illness, Family hx of HTN Social History Smoker: Non-Smoker Alcohol: Denies ETOH Use Drugs: Denies Drug Use Lives In: Home Constitutional: denies: chills, diaphoresis, fatigue, fever, malaise, sweats, weakness, others EENTM: denies: blurred vision, double vision, ear bleeding, ear discharge, ear drainage, ear pain, ear ringing, eye pain, eye redness, hearing loss, mouth pain, mouth swelling, nasal discharge, nose bleeding, nose congestion, nose pain, photophobia, tearing, throat pain, throat swelling, voice changes, others Respiratory: denies: cough, hemoptysis, orthopnea, SOB at rest, shortness of breath, SOB with excertion, stridor, wheezing, others Cardiovascular: denies: chest pain, dizzy spells, diaphoresis, Dyspnea on exertion, edema, irregular heart beat, left arm pain, lightheadedness, palpitations, PND, syncope, others Gastrointestinal: denies: abdomen distended, abdominal pain, blood streaked bowels, constipated, diarrhea, dysphagia, difficulty swallowing, hematemesis, melena, nausea, poor appetite, poor fluid intake, rectal bleeding, rectal pain, vomiting, others Genitourinary: denies: abnormal vagina bleeding, burning, dyspareunia, dysuria, flank pain, frequency, hematuria, incontinence, pain, , vagina discharge, urgency, others Neurological: denies: dizziness, fainting, headache, left sided numbness, left sided weakness, numbness, paresthesia, pre-existing deficit, right sided numbness, right sided weakness, seizure, speech problems, tingling, tremors, weakness, others Musculoskeletal: reports: muscle pain; denies: back pain, gout, joint pain, joint swelling, muscle stiffness, neck pain, others Integumetry: denies: bruises, change in color, change in hair/nails, dryness, laceration, lesions, lumps, rash, wounds, others Allergic/Immunocompromised: denies: Difficulty Healing, Frequent Infections, Hives, Itching, others Hematologic/Lymphatic: denies: anemia, blood clots, easy bleeding, easy bruising, swollen glands, others Endocrine: denies: excessive hunger, excessive sweating, excessive thirst, excessive urination, flushing, intolerance to cold, intolerance to heat, un explained weight gain, unexplained weight loss, others Psychiatric: denies: anxiety, bipolar disorder, depression, hopeless, panic disorder, schizophrenia, sleepless, suicidal, others All Other Systems: Reviewed and Negative Physical Exam General Appearance: Moderate Distress ([id number] distress due to right upper arm concerns. Patient declined any pain medication while at the facility.), Obese HEENT: Normal ENT Inspection, Pharynx Normal, TMs Normal Neck: Full Range of Motion, Non-Tender, Normal, Normal Inspection Respiratory: Chest Non-Tender, Lungs Clear, No Accessory Muscle Use, No Respiratory Distress, Normal Breath Sounds Cardiovascular: No Edema, No JVD, No Murmur, No Gallop, Normal Peripheral Pulses, Regular Rate/Rhythm Breast Exam: Deferred Gastrointestinal: No Organomegaly, Non Tender, No Pulsatile Mass, Normal Bowel Sounds, Soft Genitalia: Deferred Pelvic: Deferred Rectal: Deferred Extremities: Other (Diffuse right biceps tenderness noted. Some mild edema without erythema noted. No significant reduced range of motion. No signs of compartment or infection.) Musculoskeletal : Apperance: Normal Neurologic: Alert, No Motor Deficits, Normal Affect, Normal Mood, No Sensory Deficits Cerebellar Function: Normal Reflexes: Normal Skin: Dry, Normal Color, Warm Lymphatic: No Adenopathy Was a procedure done? Was a procedure done?: No Differential Diagnosis EXT Differential Diagnosis: Other (DVT) X-Ray, Labs, Meds, VS Vital Signs Date Time Temp Pulse Resp B/P (MAP) Pulse Ox O2 Delivery O2 Flow Rate FiO2 10/17/24 17:20 98.9 90 18 102/73 (83) 98 X-Ray, Labs, Meds, VS Comment Spent extensive time discussing the patient's concerns with her. Advised that she is currently on Eliquis which is the treatment of choice for her right arm DVT concerns. Advised her that her complaints were not significant enough to require any additional investigation. Patient does have gabapentin at home and advised attempted to utilize at four pain relief as needed. Advised continue follow up with primary care provider and plywood layup line core feeder as scheduled. Time of 1ST Reevaluation: 18:16 Reevaluation 1ST: Unchanged Consultation: PCP, Other (Hematology) Patient Education/Counseling: Diagnosis, Treatment, Prognosis Family Education/Counseling: Diagnosis, Treatment, Prognosis Departure 1 Departure Time of Disposition: 18:17 Impression: Primary Impression: Right arm pain Additional Impression: History of DVT (deep vein thrombosis) Disposition: 01 HOME / SELF CARE / HOMELESS Condition: Stable Additional Instructions: Advised patient utilize home medications including gabapentin as needed for symptomatic pain relief. Patient should follow up with primary care provider and plywood layup line core feeder as scheduled. Discharged With: Self, Friend Critical Care Note Critical Care Time?: No Stability Stability form required: No I personally scribed for HARSHA OSHEA PAC ([email or web address]) on 10/17/24 at 17:48. Electronically submitted by Ty Anaya ([email or web address]). HARSHA OSHEA PAC Oct 17, 2024 17:48
== END 2024-10-18 00:41 | disposition home or self-care (01) ==
LOC: ER 17:09
DX: M79.601 Pain in right arm (principal); F41.9 Anxiety disorder, unspecified; Z86.718 Personal history of other venous thrombosis and embolism; Z86.2 Personal history of diseases of the blood and blood-forming organs and certain disorders involving the immune mechanism; Z86.73 Personal history of transient ischemic attack (TIA), and cerebral infarction without residual deficits; Z90.49 Acquired absence of other specified parts of digestive tract; Z98.890 Other specified postprocedural states; Z88.5 Allergy status to narcotic agent; Z88.8 Allergy status to other drugs, medicaments and biological substances; Z79.01 Long term (current) use of anticoagulants; Z79.1 Long term (current) use of non-steroidal anti-inflammatories (NSAID); Z79.899 Other long term (current) drug therapy

== ENCOUNTER 2024-10-23 08:41 | Emergency (ER) | payer MEDICAID ==
[~2024-10-23] VITALS: Ht 157.5 cm; Wt 89.3 kg
--- NOTE | 2024-10-23 11:23 | ED.PDOC ---
History of Present Illness HPI Comments 44-year-old female with PMHx Left Upper Extremity DVT presents with a chief complaint of Right Upper Extremity DVT. Patient states that she is currently on Eliquis for a diagnosed DVT in her left upper arm, and was at [facility] and diagnosed with a right upper arm DVT in August 11. Patient mentions that she came to the ER because the symptoms felt stronger today and patient relays that she could not full flex her right arm completely without noting swelling in the biceps which concerned her. Patient mentions that she has followed up with a wallpaper hanger and is trying to determine why she is getting blood clots. Patient denies any fever nausea or vomiting. Patient states she is compliant with her Eliquis. Chief Complaint: Upper Extremity Time Seen by MD: 10:50 Primary Care Provider: AMY Reviewed Notes: Nurses Notes, Medications, Allergies Allergies: Coded Allergies: Morphine (Verified Allergy, Severe, 07/12/24) Ondansetron (Verified Allergy, Severe, 07/12/24) Metoclopramide (Verified Allergy, Unknown, 07/10/24) Home Meds Active Scripts Ibuprofen (Ibuprofen) 800 Mg Tab, 1 TAB PO TID PRN, #30 TAB 0 Refills Prov:JOHN CANCHOLA 07/15/24 Ascorbic Acid (VITAMIN C TABLET) 500 Mg Tb, 1 TAB PO BID for 30 Days, #60 TAB 3 Refills Prov:GAYE ALVAREZ MD 07/12/24 Ferrous Sulfate (Iron Supplement) 220 Mg/5 Ml Elx, 220 MG PO BID for 30 Days, #60 ELX Prov:GAYE ALVAREZ MD 07/12/24 Hydrocodone-Acetaminophen (Hydrocodone Bitartrate/AC 5-325 mg) 1 Tab Tab, 1 TAB PO BID for 5 Days, #10 TAB Prov:GAYE ALVAREZ MD 07/12/24 Cyclobenzaprine Hcl (Cyclobenzaprine Hcl) 10 Mg Tab, 10 MG PO TIDBM for 5 Days, #15 TAB Prov:GAYE ALVAREZ MD 07/12/24 Diclofenac Potassium (Diclofenac Potassium) 50 Mg Tab, 1 TAB PO TIDP for 5 Days, #15 TAB Prov:GAYE ALVAREZ MD 07/12/24 Nitrofurantoin Monohydrate Mac (Macrobid) 100 Mg Cap, 100 MG PO BID for 10 Days, #20 CAP Prov:GAYE ALVAREZ MD 07/12/24 Naproxen (NAPROSYN TABLET) 500 Mg Tb, 500 MG GT BID for 10 Days, #20 TAB Prov:MAYNOR HOYT MD 06/12/24 Ondansetron Odt 4MG Tab (ZOFRAN PO) 4 Mg Tb, 4 MG PO TID for 10 Days, #30 TAB ODT TAB-DISSOLVE IN MOUTH, THEN SWALLOW Prov:MAYNOR HOYT MD 06/12/24 Nitrofurantoin Monohydrate Mac (Macrobid) 100 Mg Cap, 100 MG PO BID for 7 Days, #14 CAP Prov:RUTHIE TROTTER MD 06/08/24 Meclizine Hcl (Meclizine Hcl) 12.5 Mg Tab, 25 MG PO TID for 7 Days, #42 TAB Prov:MAYNOR HOYT MD 04/25/24 Hydrocodone-Acetaminophen (Hydrocodone Bitartrate/AC 5-325 mg) 1 Tab Tab, 1 TAB PO QIDPRN, #20 TAB Prov:MARKO BARBER MD 03/27/24 Potassium Chloride (Potassium Chloride ER) 10 Meq Tab, 10 MEQ PO DAILY for 7 Days, #7 TAB Prov:ANDREY ARELLANO MD 01/18/24 Acetaminophen (Acetaminophen) 500 Mg Tab, 500 MG PO QIDPRN for 10 Days, #40 TAB Prov:JOSE VANEGAS S DO 01/10/24 Clindamycin Hcl (Clindamycin Hcl) 300 Mg Cap, 1 CAP PO QID for 10 Days, #40 CAP Prov:LUPE GIL [employer]ANCE AND [employer]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 12/24/23 Acetaminophen W/ Codeine (Tylenol W/Cod #3) 1 Tab Tb, 1 TAB PO Q6HP PRN, #10 TAB Prov:HARSHA OSHEA PAC 11/15/23 Acetaminophen W/ Codeine (Tylenol W/Cod #3) 1 Tab Tb, 1 TAB PO Q8HP PRN, #15 TAB Prov:HARSHA OSHEA PAC 10/25/23 Apixaban Base (ELIQUIS) 5 Mg Tab, 5 MG PO BID for 30 Days, #60 TAB 2 Refills Prov:TANIYA LUNA DO 10/06/23 Apixaban Base (ELIQUIS) 5 Mg Tab, 10 MG PO BID for 10 Days, #40 TAB 0 Refills Prov:TANIYA LUNA DO 10/06/23 Reported Medications Metoprolol Tartrate (LOPRESSOR TABLET) 50 Mg Tb, 0.5 TAB PO BID 09/28/23 Information Source: Patient Mode of Arrival: Ambulatory Severity: Moderate Timing: Days Duration: Since onset Prehospital treatment: Other (see HPI) Past Medical History PAST MEDICAL HISTORY: Anemia, Anxiety, TIA Past Medical History (Other): History of DVT's, currently on Eliquis Surgical History: Cholecystectomy, 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 History: No Pertinent SMOKE 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 History Family History Family History: Reviewed,noncontributory to illness, Family hx of HTN Social History Smoker: Non-Smoker Alcohol: Denies ETOH Use Drugs: Denies Drug Use Lives In: Home Musculoskeletal: reports: others (right-upper arm pain with swelling ) All Other Systems: Reviewed and Negative (negative unless otherwise stated above or in HPI) Physical Exam General Appearance: No Apparent Distress, Obese HEENT: Normal ENT Inspection, Pharynx Normal, TMs Normal Neck: Full Range of Motion, Non-Tender, Normal, Normal Inspection Respiratory: Chest Non-Tender, Lungs Clear, No Accessory Muscle Use, No Respiratory Distress, Normal Breath Sounds Cardiovascular: No Edema, No JVD, No Murmur, No Gallop, Normal Peripheral Pulses, Regular Rate/Rhythm Breast Exam: Deferred Gastrointestinal: No Organomegaly, Non Tender, No Pulsatile Mass, Normal Bowel Sounds, Soft Genitalia: Deferred Pelvic: Deferred Rectal: Deferred Extremities: No calf tenderness, Normal capillary refill, Normal inspection, Normal range of motion, Non-tender, No pedal edema Musculoskeletal : Apperance: Normal Neurologic: Alert, interchange agent II-XII nml as Tested, No Motor Deficits, Normal Affect, Normal Mood, No Sensory Deficits Cerebellar Function: Normal Reflexes: Normal Skin: Dry, Normal Color, Warm Lymphatic: No Adenopathy Was a procedure done? Was a procedure done?: No Differential Dx Considerations may include: DVT, musculoskeletal pain, muscle strain, ecchymosis, hematoma X-Ray, Labs, Meds, VS Vital Signs Date Time Temp Pulse Resp B/P (MAP) Pulse Ox O2 Delivery O2 Flow Rate FiO2 10/23/24 10:22 98.3 85 16 101/71 (81) 100 98.3 10/23/24 08:50 97.0 89 18 107/55 (72) 97 Lab Test 10/23/24 12:08 Range/Units White Blood Count 6.6 4.4-10.8 10^3/uL Red Blood Count 4.08 4.0-5.20 10^6/uL Hemoglobin 10.5 L 12.2-16.2 g/dL Hematocrit 33.2 L 36.0-46.0 % Mean Corpuscular Volume 81.5 80.0-100.0 fL Mean Corpuscular Hemoglobin 25.8 L 28.0-32.0 pg Mean Corpuscular Hemoglobin Concent 31.7 L 32.0-36.0 g/dL Red Cell Distribution Width 16.5 H 11.8-14.3 % Platelet Count 362 140-450 10^3/uL Mean Platelet Volume 7.3 6.9-10.8 fL Neutrophils (%) (Auto) 61.8 37.0-80.0 % Lymphocytes (%) (Auto) 28.0 10.0-50.0 % Monocytes (%) (Auto) 6.4 0.0-12.0 % Eosinophils (%) (Auto) 3.4 0.0-7.0 % Basophils (%) (Auto) 0.4 0.0-2.0 % Neutrophils # (Auto) 4.1 1.6-8.6 10 ^3/uL Lymphocytes # (Auto) 1.8 0.4-5.4 10 ^3/uL Monocytes # (Auto) 0.4 0-1.3 10 ^3/uL Eosinophils # (Auto) 0.2 0-0.8 10 ^3/uL Basophils # (Auto) 0 0-0.2 10 ^3/uL Nucleated Red Blood Cells 0.0 % Prothrombin Time 10.4 9.3-11.8 sec Prothrombin Time INR 0.98 0.9-1.15 Sodium Level 137 136-145 mmol/L Potassium Level 4.1 3.5-5.1 mmol/L Chloride Level 104 98-107 mmol/L Carbon Dioxide Level 27 20-31 mmol/L Anion Gap 6 5-15 Blood Urea Nitrogen 8 L 9-23 mg/dL Creatinine 0.57 0.550-1.02 mg/dL Glomerular Filtration Rate Calc 116 >90 mL/min BUN/Creatinine Ratio 14.0 10.0-20.0 Serum Glucose 96 74-106 mg/dL Calcium Level 9.8 8.7-10.4 mg/dL Total Bilirubin 0.2 0.2-1.0 mg/dL Aspartate Amino Transferase (AST) 17 13-40 U/L Alanine Aminotransferase (ALT) 17 7-40 U/L Alkaline Phosphatase 114 46-116 U/L Total Protein 7.7 5.7-8.2 g/dL Albumin 4.6 3.2-4.8 g/dL X-Ray, Labs, Meds, VS Comment This 44-year-old female presents to emergency room secondary to right pain. The patient was concern that it may be DVT as she was a previous history of DVT. She has no other complaints with numbness tingling to the extremity. She denies cold climbing straightened. There was no obvious edema physical exam. Ultrasound was negative. Labs were benign. As such, she was discharged home. She was consider rest, ice and elevation of the extremity. She will follow up with the PCP next 1 2 days return to the ER for new/worse/worsening symptoms. Time of 1ST Reevaluation: 11:20 Reevaluation 1ST: Unchanged Patient Education/Counseling: Diagnosis, Treatment Family Education/Counseling: No Family Present Departure 1 Departure Time of Disposition: 13:13 Impression: Primary Impression: Right arm pain Disposition: 01 HOME / SELF CARE / HOMELESS Condition: Good Discharged With: Self Critical Care Note Critical Care Time?: No Stability Stability form required: No Heart Score Heart Score: Heart Score Response (Comments) Value History N/A 0 EKG N/A 0 Age N/A 0 Risk Factors N/A 0 Troponin N/A 0 Total 0 I personally scribed for DEB ESQUIVEL MD ([email or web address]) on 10/23/24 at 11:23. Electronically submitted by Norris Arellano [email or web address]). DEB ESQUIVEL MD Oct 23, 2024 11:23
--- NOTE | 2024-10-23 11:30 | DVH ---
Upper Extremity Venous Duplex Clinical History: RUE edema hx of dvt RUE Comparison: US LT LOWER DVT on DOS: 06/08/24, US LT LOWER DVT on DOS: 05/22/24, US LT LOWER DVT on DOS: 04/10/24, US LT LOWER DVT on DOS: 03/26/24, US LT LOWER DVT on DOS: 02/05/24 Technique: Duplex Doppler evaluation of the venous system of the RIGHT lower neck and upper extremity including color Doppler and spectral/pulsed waveform analysis was performed. Findings: The internal jugular vein demonstrates appropriate compressibility and waveform variability. The subclavian vein is patent on color Doppler evaluation without intraluminal thrombus and demonstra iftikhar waveform variability. The visualized portion of the brachiocephalic vein is patent on color Doppler evaluation without intr aluminal thrombus and demonstrates waveform variability. The axillary vein demonstrates appropriate compressibility and waveform variability. The brachial veins demonstrate appropriate compressibility and patency on Doppler evaluation. The basilic vein demonstrates appropriate compressibility and patency on Doppler evaluation. The cephalic vein demonstrates appropriate compressibility and patency on Doppler evaluation. Impression: No venous thrombus identified in the RIGHT upper extremity vessels evaluated above. If clinical concern/symptoms persist or worsen, short-interval follow-up study is suggested.
[2024-10-23 12:23] LABS: Basophils # (auto) 0 10 ^3/uL (0-0.2); Basophils % (auto) 0.4 % (0.0-2.0); Eosinophils # (auto) 0.2 10 ^3/uL (0-0.8); Eosinophils % (auto) 3.4 % (0.0-7.0); Hematocrit 33.2 % (36.0-46.0); Hemoglobin 10.5 g/dL (12.2-16.2); Lymphocytes # (auto) 1.8 10 ^3/uL (0.4-5.4); Mean Corpuscular Hemoglobin 25.8 pg (28.0-32.0); Mean Corpuscular Hgb Conc. 31.7 g/dL (32.0-36.0); Mean Corpuscular Volume 81.5 fL (80.0-100.0); Monocytes # (auto) 0.4 10 ^3/uL (0-1.3); Monocytes % (auto) 6.4 % (0.0-12.0); Neutrophils # (auto) 4.1 10 ^3/uL (1.6-8.6); Neutrophils % (auto) 61.8 % (37.0-80.0); Platelet Count (auto) 362 10^3/uL (140-450); Red Blood Cells 4.08 10^6/uL (4.0-5.20); Red Cell Distribution Width 16.5 % (11.8-14.3); White Blood Cell 6.6 10^3/uL (4.4-10.8)
[2024-10-23 12:35] LABS: INR 0.98 (0.9-1.15); Prothrombin Time 10.4 sec (9.3-11.8)
[2024-10-23 12:42] LABS: Alanine Aminotransferase 17 U/L (7-40); Albumin 4.6 g/dL (3.2-4.8); Alkaline Phosphatase 114 U/L (46-116); Anion Gap 6 (5-15); Aspartate Aminotransferase 17 U/L (13-40); Calcium 9.8 mg/dL (8.7-10.4); Carbon Dioxide 27 mmol/L (20-31); Chloride 104 mmol/L (98-107); Glucose 96 mg/dL (74-106); Potassium 4.1 mmol/L (3.5-5.1); Sodium 137 mmol/L (136-145)
[2024-10-23 12:43] LABS: Total Protein 7.7 g/dL (5.7-8.2)
[2024-10-23 12:44] LABS: Bilirubin, Total 0.2 mg/dL (0.2-1.0); Blood Urea Nitrogen 8 mg/dL (9-23)
[2024-10-23 14:02] VITALS: BP 105/58; PULSE 82; RESP 16; TEMP 98.2; O2SAT 96
== END 2024-10-23 14:04 | disposition home or self-care (01) ==
LOC: ER 08:41
DX: M79.601 Pain in right arm (principal); Z86.2 Personal history of diseases of the blood and blood-forming organs and certain disorders involving the immune mechanism; Z90.49 Acquired absence of other specified parts of digestive tract; Z86.73 Personal history of transient ischemic attack (TIA), and cerebral infarction without residual deficits; Z86.718 Personal history of other venous thrombosis and embolism; Z79.01 Long term (current) use of anticoagulants; Z79.1 Long term (current) use of non-steroidal anti-inflammatories (NSAID); Z79.899 Other long term (current) drug therapy; Z88.5 Allergy status to narcotic agent; Z88.8 Allergy status to other drugs, medicaments and biological substances
CPT/HCPCS: 36415; 80053; 85025; 85610; 93971

== ENCOUNTER 2024-11-14 18:04 | Emergency (ER) | payer MEDICAID ==
[~2024-11-14] VITALS: Ht 157.5 cm; Wt 88.6 kg
[2024-11-14 18:10] VITALS: O2SAT 97
--- NOTE | 2024-11-14 19:31 | ED.PDOC ---
Musculoskeletal HPI Comments 44-year-old female who came to emergency room due to right arm pain. Patient diagnosed with superficial blood clots, cephalic vein, of the right arm, last August 2024. Patient has been placed Eliquis. Earlier today, patient started experiencing burning right arm pain, radiating to her right forearm and to her neck. Patient also started experiencing right calf pain as well. Denies any recent trauma. Chief Complaint: Upper Extremity Time Seen by MD: 19:29 Primary Care Provider: AMY Reviewed Notes: Nurses Notes Allergies: Coded Allergies: Morphine (Verified Allergy, Severe, 07/12/24) Ondansetron (Verified Allergy, Severe, 07/12/24) Metoclopramide (Verified Allergy, Unknown, 07/10/24) Home Meds Active Scripts Ibuprofen (Ibuprofen) 800 Mg Tab, 1 TAB PO TID PRN, #30 TAB 0 Refills Prov:JOHN CANCHOLA 07/15/24 Ascorbic Acid (VITAMIN C TABLET) 500 Mg Tb, 1 TAB PO BID for 30 Days, #60 TAB 3 Refills Prov:GAYE ALVAREZ MD 07/12/24 Ferrous Sulfate (Iron Supplement) 220 Mg/5 Ml Elx, 220 MG PO BID for 30 Days, #60 ELX Prov:GAYE ALVAREZ MD 07/12/24 Hydrocodone-Acetaminophen (Hydrocodone Bitartrate/AC 5-325 mg) 1 Tab Tab, 1 TAB PO BID for 5 Days, #10 TAB Prov:GAYE ALVAREZ MD 07/12/24 Cyclobenzaprine Hcl (Cyclobenzaprine Hcl) 10 Mg Tab, 10 MG PO TIDBM for 5 Days, #15 TAB Prov:GAYE ALVAREZ MD 07/12/24 Diclofenac Potassium (Diclofenac Potassium) 50 Mg Tab, 1 TAB PO TIDP for 5 Days, #15 TAB Prov:GAYE ALVAREZ MD 07/12/24 Nitrofurantoin Monohydrate Mac (Macrobid) 100 Mg Cap, 100 MG PO BID for 10 Days, #20 CAP Prov:GAYE ALVAREZ MD 07/12/24 Naproxen (NAPROSYN TABLET) 500 Mg Tb, 500 MG GT BID for 10 Days, #20 TAB Prov:MAYNOR HOYT MD 06/12/24 Ondansetron Odt 4MG Tab (ZOFRAN PO) 4 Mg Tb, 4 MG PO TID for 10 Days, #30 TAB ODT TAB-DISSOLVE IN MOUTH, THEN SWALLOW Prov:MAYNOR HOYT MD 06/12/24 Nitrofurantoin Monohydrate Mac (Macrobid) 100 Mg Cap, 100 MG PO BID for 7 Days, #14 CAP Prov:RUTHIE TROTTER MD 06/08/24 Meclizine Hcl (Meclizine Hcl) 12.5 Mg Tab, 25 MG PO TID for 7 Days, #42 TAB Prov:MAYNOR HOYT MD 04/25/24 Hydrocodone-Acetaminophen (Hydrocodone Bitartrate/AC 5-325 mg) 1 Tab Tab, 1 TAB PO QIDPRN, #20 TAB Prov:MARKO BARBER MD 03/27/24 Potassium Chloride (Potassium Chloride ER) 10 Meq Tab, 10 MEQ PO DAILY for 7 Days, #7 TAB Prov:ANDREY BLOCK MD 01/18/24 Acetaminophen (Acetaminophen) 500 Mg Tab, 500 MG PO QIDPRN for 10 Days, #40 TAB Prov:JOSE VANEGAS DO 01/10/24 Clindamycin Hcl (Clindamycin Hcl) 300 Mg Cap, 1 CAP PO QID for 10 Days, #40 CAP Prov:LUPE GIL CLOTHES DRIER REPAIRER 12/24/23 Acetaminophen W/ Codeine (Tylenol W/Cod #3) 1 Tab Tb, 1 TAB PO Q6HP PRN, #10 TAB Prov:HARSHA OSHEA PAC 11/15/23 Acetaminophen W/ Codeine (Tylenol W/Cod #3) 1 Tab Tb, 1 TAB PO Q8HP PRN, #15 TAB Prov:HARSHA OSHEA PAC 10/25/23 Apixaban Base (ELIQUIS) 5 Mg Tab, 5 MG PO BID for 30 Days, #60 TAB 2 Refills Prov:TANIYA LUNA DO 10/06/23 Apixaban Base (ELIQUIS) 5 Mg Tab, 10 MG PO BID for 10 Days, #40 TAB 0 Refills Prov:TANIYA LUNA DO 10/06/23 Reported Medications Metoprolol Tartrate (LOPRESSOR TABLET) 50 Mg Tb, 0.5 TAB PO BID 09/28/23 Information Source: Patient Mode of Arrival: Ambulatory Location: Right Extremity Location: Arm, Calf Timing: Hours Severity: Moderate Able to Move Extremity: Yes Bear Weight: Limited Pain: Moderate Hand Dominance: Right Mechanism: Spontaneous Circumstances: Spontaneous Onset of Symptoms: Spontaneous Symptoms: Pain Associated signs and symptoms: Arm pain (right) Review of Systems REVIEW OF SYSTEMS: No fever, no chills, or fatigue HEENT: No sore throat, no earache, no congestion, no neck pain. Cardiac: No chest pain. No palpitations. Lungs: No shortness of breath, no cough. GI: No nausea, no vomiting, no diarrhea, no constipation, no abdominal pain : No dysuria, frequency, or urgency. No hematuria. Musculoskeletal: No joint pain , no joint swelling, no extremity edema. (+) right arm pain, (+) right calf pain Skin: No rash, no itching. Neuro: No headache, no dizziness, no weakness Vital Signs Vital Signs Date Time Temp Pulse Resp B/P (MAP) Pulse Ox O2 Delivery O2 Flow Rate FiO2 11/14/24 18:10 98.4 88 18 145/64 (91) 97 Physical Exam General: Awake, alert and oriented. No acute distress. Skin: Skin in warm, dry and intact. Appropriate color for ethnicity. Nailbeds pink with no cyanosis. HEENT: The head is normocephalic and atraumatic. Conjunctivae are clear without exudates or hemorrhage. Sclera is non-icteric. EOM are intact. No signs of nystagmus. Eyelids are normal in appearance without swelling or lesions. Oral mucosa is pink and moist Neck: The neck is supple with normal range of motion. No JVD. Cardiac: Heart rate and rhythm are normal. No murmurs, gallops, or rubs are auscultated. Respiratory: No signs of respiratory distress. Lung sounds are clear in all lobes bilaterally without rales, ronchi, or wheezes. Abdominal: Abdomen is soft, non-tender without distention. Bowel sounds are present and normoactive in all four quadrants. Extremities: Upper and lower extremities are atraumatic in appearance without deformity or edema. Normal radial pulse. No tenderness to palpation Neurological: The patient is awake, alert and oriented to person, place, and angelina e with normal speech. Speech is clear. There is no facial asymmetry. Psychiatric: Appropriate mood and affect. Good judgement and insight. No visual or auditory hallucinations. Past Medical History PAST MEDICAL HISTORY: Anemia, Anxiety, TIA Past Medical History (Other): DVT Surgical History: Cholecystectomy, EAR SPECIALIST History: No Pertinent EAR SPECIALIST History Family History Family History: Reviewed,noncontributory to illness, Family hx of HTN Social History Smoker: Non-Smoker Alcohol: Denies ETOH Use Drugs: Denies Drug Use Lives In: Home Was a procedure done? Was a procedure done?: No Differential Diagnosis EXT Differential Diagnosis: Cellulitis, Deep Vein Thrombosis, Sprain, Strain X-Ray, Labs, Meds, VS Vital Signs Date Time Temp Pulse Resp B/P (MAP) Pulse Ox O2 Delivery O2 Flow Rate FiO2 11/14/24 18:10 98.4 88 18 145/64 (91) 97 Lab Test 11/14/24 18:35 Range/Units Urine Color Light-yellow Yellow Urine Clarity Clear Clear Urine pH 6.5 5.0-9.0 Urine Specific Dexter 1.015 1.001-1.035 Urine Protein Negative Negative Urine Ketones Negative Negative Urine Blood Negative Negative /uL Urine Nitrite Negative Negative Urine Bilirubin Negative Negative Urine Urobilinogen Normal Negative mg/dL Urine Leukocyte Esterase Negative Negative /uL Urine RBC 1 0 - 4 /hpf Urine Microscopic WBC 1 0-5 /HPF Urine Squamous Epithelial Cells Few <5 /hpf Urine Bacteria None seen None Seen /hpf Urine Glucose Normal Normal mg/dL RIGHT Upper Extremity Venous Duplex Clinical History: pain, swelling, hx of dvt Comparison: US RT UPPER DVT on DOS: 10/23/24, US LT LOWER DVT on DOS: 06/08/24, US LT LOWER DVT on DOS: 05/22/24 Technique: Duplex Doppler evaluation of the venous system of the RIGHT lower neck and upper extremity including color Doppler and spectral/pulsed waveform analysis was performed. Findings: The internal jugular vein demonstrates appropriate compressibility and waveform variability . The subclavian vein is patent on color Doppler evaluation without intraluminal thrombus and demonstrates waveform variability . The visualized portion of the brachiocephalic vein is patent on color Doppler evaluation without intraluminal thrombus and demonstrates waveform variability . The axillary vein demonstrates appropriate compressibility and waveform variability . The brachial veins demonstrate appropriate compressibility and patency on Doppler evaluation. The basilic vein demonstrates appropriate compressibility and patency on Doppler evaluation. The cephalic vein demonstrates appropriate compressibility and patency on Doppler evaluation. Impression: 1. No venous thrombus identified in the RIGHT upper extremity vessels evaluated above. 2. 3. If clinical concern/symptoms persist or worsen, short-interval follow-up study is suggested. RIGHT lower extremity venous duplex Clinical History: pain, swelling, hx of dvt Comparison: US RT UPPER DVT on DOS: 10/23/24, US BILAT LOWER DVT on DOS: 08/26/24, US BILAT LOWER DVT on DOS: 07/15/24 Technique: Duplex Doppler evaluation of the deep venous systems of right lower extremities from the common femoral veins to the popliteal veins including color Doppler and spectral/pulsed waveform analysis was performed. Findings: RIGHT SIDE: The common femoral vein demonstrates appropriate compressibility and waveform variability. There is compressibility/patency of the great saphenous vein at the proximal thigh. The femoral vein demonstrates appropriate compressibility and waveform variability. The deep femoral vein demonstrates appropriate compressibility and waveform variability. The popliteal vein demonstrates appropriate compressibility and waveform variability. There is normal compressibility at the tibioperoneal trunk. Impression: 1. No right femoropopliteal venous thrombosis. Time of 1ST Reevaluation: 19:25 Reevaluation 1ST: Unchanged Patient Education/Counseling: Diagnosis, Treatment Family Education/Counseling: No Family Present Departure 1 Departure Time of Disposition: 20:49 Impression: Primary Impression: Right upper limb pain Additional Impression: Right leg pain Disposition: 01 HOME / SELF CARE / HOMELESS Condition: Stable Additional Instructions: ED DISCHARGE INSTRUCTIONS Instructions: Please read all instructions provided in this packet carefully. Although you have been discharged from the Emergency Department, this does not mean that you have a "clean bill of health". No definitive diagnosis for your symptoms has been made today. It is possible that you are in the process of developing a serious illness. This is why you must return to the ED without fail if any new or worsening symptoms (especially if your symptoms include chest pain, trouble breathing, abdominal pain, fever, headache, confusion, trouble seeing, or trouble walking) It is also very important that you see a primary care doctor within the next 3-5 days to follow up. If you are unable to get an appointment, return to the ED for re-evaluation. A copy of your ultrasound results are included below please take these see your primary care provider/oncologist for further review: [address] [address] Ph: [phone] DIAGNOSTIC IMAGING Diagnostic Imaging Report : [id number] Signed PATIENT: TIMA SPENCER ACCT: [id number] UNIT: [id number] : 1980 LOC: ER ROOM / BED: / AGE / SEX: 44 / F ADM STATUS: REG ER SERVICE 41 ORDERING PHYSICIAN: PRESTON KAPLAN MD PROCEDURE(s): RLDVT - RT Lower DVT REASON: pain, swelling, hx of dvt ORDER NUMBER(s): [id number], ACCESSION NUMBER(s): [id number] RIGHT lower extremity venous duplex Clinical History: pain, swelling, hx of dvt Comparison: US RT UPPER DVT on DOS: 10/23/24, US BILAT LOWER DVT on DOS: 08/26/24, US BILAT LOWER DVT on DOS: 07/15/24 Technique: Duplex Doppler evaluation of the deep venous systems of right lower extremities from the common femoral veins to the popliteal veins including color Doppler and spectral/pulsed waveform analysis was performed. Findings: RIGHT SIDE: The common femoral vein demonstrates appropriate compressibility and waveform variability. There is compressibility/patency of the great saphenous vein at the proximal thigh. The femoral vein demonstrates appropriate compressibility and waveform variabil ity. The deep femoral vein demonstrates appropriate compressibility and waveform variability. The popliteal vein demonstrates appropriate compressibility and waveform variability. There is normal compressibility at the tibioperoneal trunk. Impression: 1. No right femoropopliteal venous thrombosis. ATED BY: HAILE WANG Jr., DO DICTATED DATE/TIME: 11/14/242015 SIGNED BY: HAILE WANG Jr., SIGNED DATE/TIME: 11/14/242015 CC: [place] [id number] Ph: [phone] DIAGNOSTIC IMAGING Diagnostic Imaging Report : [id number] Signed PATIENT: TIMA SPENCER ACCT: [id number] UNIT: [id number] : 1980 LOC: ER ROOM / BED: / AGE / SEX: 44 / F ADM STATUS: REG ER SERVICE 41 ORDERING PHYSICIAN: PRESTON KAPLAN MD PROCEDURE(s): RUDVT - Rt Upper DVT REASON: pain, swelling, hx of dvt ORDER NUMBER(s): [id number], ACCESSION NUMBER(s): [id number] RIGHT Upper Extremity Venous Duplex Clinical History: pain, swelling, hx of dvt Comparison: US RT UPPER DVT on DOS: 10/23/24, US LT LOWER DVT on DOS: 06/08/24, US LT LOWER DVT on DOS: 05/22/24 Technique: Duplex Doppler evaluation of the venous system of the RIGHT lower neck and upper extremity including color Doppler and spectral/pulsed waveform analysis was performed. Findings: The internal jugular vein demonstrates appropriate compressibility and waveform variability . The subclavian vein is patent on color Doppler evaluation without intraluminal thrombus and demonstrates waveform variability . The visualized portion of the brachiocephalic vein is patent on color Doppler evaluation without intraluminal thrombus and demonstrates waveform variability . The axillary vein demonstrates appropriate compressibility and waveform variability . The brachial veins demonstrate appropriate compressibility and patency on Doppler evaluation. The basilic vein demonstrates appropriate compressibility and patency on Doppler evaluation. The cephalic vein demonstrates appropriate compressibility and patency on Doppler evaluation. Impression: 1. No venous thrombus identified in the RIGHT upper extremity vessels evaluated above. 2. 3. If clinical concern/symptoms persist or worsen, short-interval follow-up study is suggested. ATED BY: HAILE WANG Jr., DO DICTATED DATE/TIME: 11/14/242012 SIGNED BY: HAILE WANG Jr., SIGNED DATE/TIME: 11/14/242012 CC: Comments 44-year-old female who presented with right upper and lower extremity pain with a history of superficial venous thrombosis, on Eliquis, referred to the emergency department by her primary care provider for further evaluation to rule out DVT. Ultrasound of the right upper and lower extremity negative for DVT. Extensive evaluation was performed in attempt to identify or rule out: (See differential diagnosis section) The following tests were ordered, and results were reviewed by me: (See diagnostic results section) The following test were independently interpreted by me: N/A I reviewed and agreed with the following test results read by other providers: N/A I reviewed the following notes from the pt's past medical encounters: (None marta weston at this time) Additional information was gathered from interviewing the following independent historians: N/A Discussion of management or test interpretation with external physician/other qualified health critical care unit nurse: N/A Decision regarding hospitalization or escalation of hospital level of care: Risks and benefits of admission for further treatment of patient's condition was considered however due to patient's stable condition patient will be discharged to follow up closely or return to care for worsening of condition or inability to follow up. Critical Care Note Critical Care Time?: No Stability Stability form required: No Heart Score Heart Score: Heart Score Response (Comments) Value History N/A 0 EKG N/A 0 Age N/A 0 Risk Factors N/A 0 Troponin N/A 0 Total 0 I personally scribed for PRESTON KAPLAN MD ([email or web address]) on 11/14/24 at 19:31. Electronically submitted by Dimas Mccracken ([facility]). I personally scribed for PRESTON KAPLAN MD ([email or web address]) on 11/14/24 at 20:46. Electronically submitted by Dimas Mccracken ([facility]). PRESTON KAPLAN MD Nov 14, 2024 19:31
[2024-11-14 20:11] LABS: Urine Bacteria None Seen /hpf (None Seen)
--- NOTE | 2024-11-14 20:15 | DVH ---
RIGHT Upper Extremity Venous Duplex Clinical History: pain, swelling, hx of dvt Comparison: US RT UPPER DVT on DOS: 10/23/24, US LT LOWER DVT on DOS: 06/08/24, US LT LOWER DVT on DOS: 05/22/24 Technique: Duplex Doppler evaluation of the venous system of the RIGHT lower neck and upper extremity including color Doppler and spectral/pulsed waveform analysis was performed. Findings: The internal jugular vein demonstrates appropriate compressibility and waveform variability . The subclavian vein is patent on color Doppler evaluation without intraluminal thrombus and demonstra iftikhar waveform variability . The visualized portion of the brachiocephalic vein is patent on color Doppler evaluation without intr aluminal thrombus and demonstrates waveform variability . The axillary vein demonstrates appropriate compressibility and waveform variability . The brachial veins demonstrate appropriate compressibility and patency on Doppler evaluation. The basilic vein demonstrates appropriate compressibility and patency on Doppler evaluation. The cephalic vein demonstrates appropriate compressibility and patency on Doppler evaluation. Impression: 1. No venous thrombus identified in the RIGHT upper extremity vessels evaluated above. 2. 3. If clinical concern/symptoms persist or worsen, short-interval follow-up study is suggested.
--- NOTE | 2024-11-14 20:19 | DVH ---
RIGHT lower extremity venous duplex Clinical History: pain, swelling, hx of dvt Comparison: US RT UPPER DVT on DOS: 10/23/24, US BILAT LOWER DVT on DOS: 08/26/24, US BILAT LOWER DVT on DOS: 07/15/24 Technique: Duplex Doppler evaluation of the deep venous systems of right lower extremities from the common femor al veins to the popliteal veins including color Doppler and spectral/pulsed waveform analysis was per formed. Findings: RIGHT SIDE: The common femoral vein demonstrates appropriate compressibility and waveform variability. There is compressibility/patency of the great saphenous vein at the proximal thigh. The femoral vein demonstrates appropriate compressibility and waveform variability. The deep femoral vein demonstrates appropriate compressibility and waveform variability. The popliteal vein demonstrates appropriate compressibility and waveform variability. There is normal compressibility at the tibioperoneal trunk. Impression: 1. No right femoropopliteal venous thrombosis.
[2024-11-14 20:34] LABS: Urine Blood Negative /uL (Negative); Urine Clarity Clear (Clear); Urine Color Light-Yellow (Yellow); Urine Protein, UAD Negative (Negative); Urine Specific Gravity 1.015 (1.001-1.035); Urine Squamous Epithelial Cell FEW /hpf (<5); Urine Urobilinogen Normal (Negative); Urine WBC 1 /HPF (0-5); Urine pH 6.5 (5.0-9.0)
[2024-11-14 21:25] VITALS: BP 114/69; PULSE 94; RESP 20; TEMP 98.3
== END 2024-11-14 21:28 | disposition home or self-care (01) ==
LOC: ER 18:12
DX: M79.601 Pain in right arm (principal); M79.661 Pain in right lower leg; F41.9 Anxiety disorder, unspecified; Z86.2 Personal history of diseases of the blood and blood-forming organs and certain disorders involving the immune mechanism; Z86.73 Personal history of transient ischemic attack (TIA), and cerebral infarction without residual deficits; Z86.718 Personal history of other venous thrombosis and embolism; Z90.49 Acquired absence of other specified parts of digestive tract; Z98.890 Other specified postprocedural states; Z88.5 Allergy status to narcotic agent; Z88.8 Allergy status to other drugs, medicaments and biological substances; Z79.01 Long term (current) use of anticoagulants; Z79.1 Long term (current) use of non-steroidal anti-inflammatories (NSAID); Z79.899 Other long term (current) drug therapy
CPT/HCPCS: 81001; 93971

== ENCOUNTER 2024-11-27 17:53 | Emergency (ER) | payer MEDICAID ==
[~2024-11-27] VITALS: Ht 157.5 cm; Wt 88.1 kg
--- NOTE | 2024-11-27 18:15 | ED.PDOC ---
Musculoskeletal HPI Comments 44 y/o F, with PMHX of DVT presents to the ED for CC of lower extremity swelling. Patient states, that she has been experiencing bilateral leg swelling and pain x5days. Patient comments on, pain being throbbing and dull in sensation. Patient endorses, being relayed to the ED for a further evaluation by vascular surgeon. Patient denies numbness, weakness, injury, abrasions, lacerations, or open wounds. No other symptoms or modifying factors at this time. Chief Complaint: Lower Extremity Time Seen by MD: 18:10 Primary Care Provider: AMY Reviewed Notes: Nurses Notes, Medications, Allergies Allergies: Coded Allergies: Morphine (Verified Allergy, Severe, 07/12/24) Ondansetron (Verified Allergy, Severe, 07/12/24) Metoclopramide (Verified Allergy, Unknown, 07/10/24) Home Meds Active Scripts Ibuprofen (Ibuprofen) 800 Mg Tab, 1 TAB PO TID PRN, #30 TAB 0 Refills Prov:JOHN CANCHOLA 07/15/24 Ascorbic Acid (VITAMIN C TABLET) 500 Mg Tb, 1 TAB PO BID for 30 Days, #60 TAB 3 Refills Prov:GAYE ALVAREZ MD 07/12/24 Ferrous Sulfate (Iron Supplement) 220 Mg/5 Ml Elx, 220 MG PO BID for 30 Days, #60 ELX Prov:GAYE ALVAREZ MD 07/12/24 Hydrocodone-Acetaminophen (Hydrocodone Bitartrate/AC 5-325 mg) 1 Tab Tab, 1 TAB PO BID for 5 Days, #10 TAB Prov:GAYE ALVAREZ MD 07/12/24 Cyclobenzaprine Hcl (Cyclobenzaprine Hcl) 10 Mg Tab, 10 MG PO TIDBM for 5 Days, #15 TAB Prov:GAYE ALVAREZ MD 07/12/24 Diclofenac Potassium (Diclofenac Potassium) 50 Mg Tab, 1 TAB PO TIDP for 5 Days, #15 TAB Prov:GAYE ALVAREZ MD 07/12/24 Nitrofurantoin Monohydrate Mac (Macrobid) 100 Mg Cap, 100 MG PO BID for 10 Days, #20 CAP Prov:GAYE ALVAREZ MD 07/12/24 Naproxen (NAPROSYN TABLET) 500 Mg Tb, 500 MG GT BID for 10 Days, #20 TAB Prov:MAYNOR HOYT MD 06/12/24 Ondansetron Odt 4MG Tab (ZOFRAN PO) 4 Mg Tb, 4 MG PO TID for 10 Days, #30 TAB ODT TAB-DISSOLVE IN MOUTH, THEN SWALLOW Prov:MAYNOR HOYT MD 06/12/24 Nitrofurantoin Monohydrate Mac (Macrobid) 100 Mg Cap, 100 MG PO BID for 7 Days, #14 CAP Prov:RUTHIE TROTTER MD 06/08/24 Meclizine Hcl (Meclizine Hcl) 12.5 Mg Tab, 25 MG PO TID for 7 Days, #42 TAB Prov:MAYNOR HOYT MD 04/25/24 Hydrocodone-Acetaminophen (Hydrocodone Bitartrate/AC 5-325 mg) 1 Tab Tab, 1 TAB PO QIDPRN, #20 TAB Prov:MARKO BARBER MD 03/27/24 Potassium Chloride (Potassium Chloride ER) 10 Meq Tab, 10 MEQ PO DAILY for 7 Days, #7 TAB Prov:ANDREY BLOCK MD 01/18/24 Acetaminophen (Acetaminophen) 500 Mg Tab, 500 MG PO QIDPRN for 10 Days, #40 TAB Prov:JOSE VANEGAS DO 01/10/24 Clindamycin Hcl (Clindamycin Hcl) 300 Mg Cap, 1 CAP PO QID for 10 Days, #40 CAP Prov:LUPE GIL Q SENIOR SHAREPOINT DEVELOPER 12/24/23 Acetaminophen W/ Codeine (Tylenol W/Cod #3) 1 Tab Tb, 1 TAB PO Q6HP PRN, #10 TAB Prov:HARSHA OSHEA PAC 11/15/23 Acetaminophen W/ Codeine (Tylenol W/Cod #3) 1 Tab Tb, 1 TAB PO Q8HP PRN, #15 TAB Prov:HARSHA OSHEA PAC 10/25/23 Apixaban Base (ELIQUIS) 5 Mg Tab, 5 MG PO BID for 30 Days, #60 TAB 2 Refills Prov:TANIYA LUNA DO 10/06/23 Apixaban Base (ELIQUIS) 5 Mg Tab, 10 MG PO BID for 10 Days, #40 TAB 0 Refills Prov:TANIYA LUNA DO 10/06/23 Reported Medications Metoprolol Tartrate (LOPRESSOR TABLET) 50 Mg Tb, 0.5 TAB PO BID 09/28/23 Information Source: Patient Mode of Arrival: Ambulatory Location: Bilateral Extremity Location: Leg Timing: Days Prehospital treatment: None Severity: Moderate Able to Move Extremity: Yes Bear Weight: Fully Pain: Moderate Circumstances: Spontaneous Onset of Symptoms: Spontaneous Symptoms: Swelling, Pain DVT Risk Factors: DVT Associated signs and symptoms: Swelling, Leg pain Past Medical History PAST MEDICAL HISTORY: Anemia, Anxiety, TIA Past Medical History (Other): History of DVT Surgical History: Cholecystectomy, MANAGER VALUATION History: No Pertinent MANAGER VALUATION History Family History Family History: Reviewed,noncontributory to illness, Family hx of HTN Social History Smoker: Non-Smoker Alcohol: Denies ETOH Use Drugs: Denies Drug Use Lives In: Home Constitutional: denies: chills, diaphoresis, fatigue, fever, malaise, sweats, weakness, others EENTM: denies: blurred vision, double vision, ear bleeding, ear discharge, ear drainage, ear pain, ear ringing, eye pain, eye redness, hearing loss, mouth pain, mouth swelling, nasal discharge, nose bleeding, nose congestion, nose pain, photophobia, tearing, throat pain, throat swelling, voice changes, others Respiratory: denies: cough, hemoptysis, orthopnea, SOB at rest, shortness of breath, SOB with excertion, stridor, wheezing, others Cardiovascular: denies: chest pain, dizzy spells, diaphoresis, Dyspnea on exertion, edema, irregular heart beat, left arm pain, lightheadedness, palpitations, PND, syncope, others Gastrointestinal: denies: abdomen distended, abdominal pain, blood streaked bowels, constipated, diarrhea, dysphagia, difficulty swallowing, hematemesis, melena, nausea, poor appetite, poor fluid intake, rectal bleeding, rectal pain, vomiting, others Genitourinary: denies: abnormal vagina bleeding, burning, dyspareunia, dysuria, flank pain, frequency, hematuria, incontinence, pain, , vagina discharge, urgency, others Neurological: denies: dizziness, fainting, headache, left sided numbness, left sided weakness, numbness, paresthesia, pre-existing deficit, right sided numbness, right sided weakness, seizure, speech problems, tingling, tremors, weakness, others Musculoskeletal: reports: others (bilateral leg swelling); denies: back pain, gout, joint pain, joint swelling, muscle pain, muscle stiffness, neck pain Integumetry: denies: bruises, change in color, change in hair/nails, dryness, laceration, lesions, lumps, rash, wounds, others Allergic/Immunocompromised: denies: Difficulty Healing, Frequent Infections, Hives, Itching, others Hematologic/Lymphatic: denies: anemia, blood clots, easy bleeding, easy bruising, swollen glands, others Endocrine: denies: excessive hunger, excessive sweating, excessive thirst, excessive urination, flushing, intolerance to cold, intolerance to heat, unexplained weight gain, unexplained weight loss, others Psychiatric: denies: anxiety, bipolar disorder, depression, hopeless, panic disorder, schizophrenia, sleepless, suicidal, others All Other Systems: Reviewed and Negative Physical Exam General Appearance: Moderate Distress ( [id number] distress due to bilateral leg pain concerns.), Obese HEENT: Normal ENT Inspection, Pharynx Normal, TMs Normal Neck: Full Range of Motion, Non-Tender, Normal, Normal Inspection Respiratory: Chest Non-Tender, Lungs Clear, No Accessory Muscle Use, No Respiratory Distress, Normal Breath Sounds Cardiovascular: No Edema, No JVD, No Murmur, No Gallop, Normal Peripheral Pulses, Regular Rate/Rhythm Breast Exam: Deferred Gastrointestinal: No Organomegaly, Non Tender, No Pulsatile Mass, Normal Bowel Sounds, Soft Genitalia: Deferred Pelvic: Deferred Rectal: Deferred Extremities: Other ( Some 1+ pitting edema noted to bilateral lower extremities. No erythema noted. Distal neurovascularly intact.) Neurologic: Alert, No Motor Deficits, Normal Affect, Normal Mood, No Sensory Deficits Cerebellar Function: Normal Reflexes: Normal Skin: Dry, Normal Color, Warm Lymphatic: No Adenopathy Was a procedure done? Was a procedure done?: No Differential Diagnosis EXT Differential Diagnosis: Deep Vein Thrombosis, Other ( Lower extremity leg pain. Peripheral vascular disease, peripheral edema) X-Ray, Labs, Meds, VS Vital Signs Date Time Temp Pulse Resp B/P (MAP) Pulse Ox O2 Delivery O2 Flow Rate FiO2 11/27/24 18:06 98.4 80 20 112/54 (73) 97 98.4 X-Ray, Labs, Meds, VS Comment All studies performed the ED were evaluated by me personally. Ultrasound of bilateral lower extremities was unremarkable for any DVT formation. Unknown as the definitive cause of the patient's leg pain concerns. Advised patient to continue follow up with her vascular specialist for continued evaluation of her chief complaints. Time of 1ST Reevaluation: 19:55 Reevaluation 1ST: Improved Consultation: PCP, Other ( vascular specialist) Patient Education/Counseling: Diagnosis, Treatment Family Education/Counseling: Diagnosis, Treatment, No Family Present Departure 1 Departure Time of Disposition: 19:55 Impression: Primary Impression: History of DVT (deep vein thrombosis) Additional Impressions: Right leg pain Left leg pain Disposition: HOME / SELF CARE / HOMELESS Condition: Stable Additional Instructions: Advised patient follow up with her vascular specialist for continued evaluation. Advise utilizing pain medication as needed. e-Prescriptions Gabapentin (Gabapentin) 300 Mg Cap 1 CAP PO Q6HP PRN, #30 CAP 0 Refills Prov: HARSHA OSHEA PAC 11/27/24 Discharged With: Self, Friend Critical Care Note Critical Care Time?: No Stability Stability form required: No Heart Score Heart Score: Heart Score Response (Comments) Value History N/A 0 EKG N/A 0 Age N/A 0 Risk Factors N/A 0 Troponin N/A 0 Total 0 I personally scribed for HARSHA OSHEA PAC ([email or web address]) on 11/27/24 at 18:15. Electronically submitted by Pily Dunham [email or web address]). I personally scribed for HARSHA OSHEA PAC ([email or web address]) on 11/27/24 at 18:21. Electronically submitted by Pily Dunham [email or web address]). HARSHA OSHEA PAC Nov 27, 2024 18:15
--- NOTE | 2024-11-27 19:38 | DVH ---
Bilateral lower extremity venous duplex Clinical History: Rule out DVT Comparison: US RT LOWER DVT on DOS: 11/14/24 Technique: Duplex Doppler evaluation of the deep venous systems of both lower extremities from the common femora l veins to the popliteal veins including color Doppler and spectral/pulsed waveform analysis was perf ormed. Findings: RIGHT SIDE: The common femoral vein demonstrates appropriate compressibility and waveform variability. There is compressibility/patency of the great saphenous vein at the proximal thigh. The femoral vein demonstrates appropriate compressibility and waveform variability. The deep femoral vein demonstrates appropriate compressibility and waveform variability. The popliteal vein demonstrates appropriate compressibility and waveform variability. There is normal compressibility at the tibioperoneal trunk. LEFT SIDE: The common femoral vein demonstrates appropriate compressibility and waveform variability. There is compressibility/patency of the great saphenous vein at the proximal thigh. The femoral vein demonstrates appropriate compressibility and waveform variability. The deep femoral vein demonstrates appropriate compressibility and waveform variability. The popliteal vein demonstrates appropriate compressibility and waveform variability. There is normal compressibility at the tibioperoneal trunk. Impression: No right or left femoropopliteal venous thrombosis.
[2024-11-27] MEDS ORDERED: GABA-1250 PO (19:57)
[2024-11-27 20:11] VITALS: BP 104/40; PULSE 75; TEMP 98.6
[2024-11-27 20:12] VITALS: RESP 18; O2SAT 99
== END 2024-11-27 20:34 | disposition home or self-care (01) ==
LOC: ER 17:53
DX: M79.605 Pain in left leg (principal); M79.604 Pain in right leg; Z86.718 Personal history of other venous thrombosis and embolism; Z86.2 Personal history of diseases of the blood and blood-forming organs and certain disorders involving the immune mechanism; Z86.73 Personal history of transient ischemic attack (TIA), and cerebral infarction without residual deficits; Z90.49 Acquired absence of other specified parts of digestive tract; Z79.01 Long term (current) use of anticoagulants; Z79.1 Long term (current) use of non-steroidal anti-inflammatories (NSAID); Z79.899 Other long term (current) drug therapy; Z88.5 Allergy status to narcotic agent
CPT/HCPCS: 93970

== ENCOUNTER 2024-12-04 20:24 | Emergency (ER) | payer MEDICAID ==
[~2024-12-04] VITALS: Ht 157.5 cm; Wt 84.7 kg
[~2024-12-04 20:24] MED LIST changes: +GABA-1250 PO
--- NOTE | 2024-12-04 22:55 | DVH ---
CT BRAIN WITHOUT CONTRAST HISTORY: Right side head pain/injury on Eliquis TECHNIQUE: Axial scans were obtained from the skull base through the vertex without contrast. Sagitta l and coronal reformats were generated. One or more of the following radiation dose reduction techniq ues were used for this examination: automated exposure control, adjustment of the mA and/or kV accord ing to patient size, use of iterative reconstruction technique. COMPARISON: CT HEAD WITHOUT CONTRAST on DOS: 07/12/24 FINDINGS: No acute intracranial hemorrhage or evidence of large vessel territorial infarction identified at thi s time. No midline shift. The basilar cisterns are patent. Garcia-white differentiation appears relat ively preserved. Mucosal thickening in the partially imaged ethmoidal and bilateral maxillary sinuses. The mastoid ai r cells are clear. No grossly displaced calvarial abnormalities identified. IMPRESSION: No acute intracranial findings. Ethmoidal and maxillary sinus mucosal thickening partially imaged. Correlate for sinusitis.
--- NOTE | 2024-12-04 23:06 | ED.PDOC ---
HPI (NEURO) HPI Comments PRESENTS TO ED FOR RIGHT SIDED HEADACHE X 1 WEEK. INTERMITTENT THROBBING AND SHARP TYPE OF PAIN THAT IS WORSE WHEN SHE IS BENDING. DENIES N/V. 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 NOTES CURRENTLY ON ELIQUIS. DENIES NUMBNESS, WEAKNESS, WORST HEADACHE OF HER LIFE, SLURRED SPEECH, OR DIZZINESS Chief Complaint: Headache Time Seen by MD: 20:40 Primary Care Provider: AMY Reviewed Notes: Nurses Notes, Medications, Allergies Mode of Arrival: Ambulatory Past Medical History PAST MEDICAL HISTORY: Anemia, Anxiety, TIA Surgical History: Cholecystectomy, BRASS PICKLER History: No Pertinent BRASS PICKLER History Family History Family History: Reviewed,noncontributory to illness, Family hx of HTN Social History Smoker: Non-Smoker Alcohol: Denies ETOH Use Drugs: Denies Drug Use Lives In: Home Constitutional: denies: chills, diaphoresis, fatigue, fever, malaise, sweats, weakness, others EENTM: denies: blurred vision, double vision, ear bleeding, ear discharge, ear drainage, ear pain, ear ringing, eye pain, eye redness, hearing loss, mouth pain, mouth swelling, nasal discharge, nose bleeding, nose congestion, nose pain, photophobia, tearing, throat pain, throat swelling, voice changes, others Respiratory: denies: cough, hemoptysis, orthopnea, SOB at rest, shortness of breath, SOB with excertion, stridor, wheezing, others Cardiovascular: denies: chest pain, dizzy spells, diaphoresis, Dyspnea on exertion, edema, irregular heart beat, left arm pain, lightheadedness, palpitations, PND, syncope, others Gastrointestinal: denies: abdomen distended, abdominal pain, blood streaked bowels, constipated, diarrhea, dysphagia, difficulty swallowing, hematemesis, melena, nausea, poor appetite, poor fluid intake, rectal bleeding, rectal pain, vomiting, others Genitourinary: denies: abnormal vagina bleeding, burning, dyspareunia, dysuria, flank pain, frequency, hematuria, incontinence, pain, , vagina discharge, urgency, others Neurological: reports: headache; denies: dizziness, fainting, left sided numbness, left sided weakness, numbness, paresthesia, pre-existing deficit, right sided numbness, right sided weakness, seizure, speech problems, tingling, tremors, weakness, others Musculoskeletal: denies: back pain, gout, joint pain, joint swelling, muscle pain, muscle stiffness, neck pain, others Integumetry: denies: bruises, change in color, change in hair/nails, dryness, laceration, lesions, lumps, rash, wounds, others Allergic/Immunocompromised: denies: Difficulty Healing, Frequent Infections, Hives, Itching, others Hematologic/Lymphatic: denies: anemia, blood clots, easy bleeding, easy bruising, swollen glands, others Endocrine: denies: excessive hunger, excessive sweating, excessive thirst, excessive urination, flushing, intolerance to cold, intolerance to heat, unexplained weight gain, unexplained weight loss, others Psychiatric: denies: anxiety, bipolar disorder, depression, hopeless, panic disorder, schizophrenia, sleepless, suicidal, others Physical Exam General Appearance: No Apparent Distress, Normal HEENT: Normal ENT Inspection, Pharynx Normal, TMs Normal Neck: Full Range of Motion, Non-Tender Respiratory: Chest Non-Tender, Lungs Clear, No Accessory Muscle Use, No Respiratory Distress, Normal Breath Sounds Cardiovascular: No Edema, No JVD, No Murmur, No Gallop, Normal Peripheral Pulses, Regular Rate/Rhythm Breast Exam: Deferred Gastrointestinal: No Organomegaly, Non Tender, No Pulsatile Mass, Normal Bowel Sounds, Soft Genitalia: Deferred Pelvic: Deferred Rectal: Deferred Extremities: Normal capillary refill, Normal inspection, Normal range of motion, Non-tender, No pedal edema Musculoskeletal : Apperance: Normal Neurologic: Alert, account assistant II-XII nml as Tested, No Motor Deficits, Normal Affect, Normal Mood, No Sensory Deficits Cerebellar Function: Normal Reflexes: Normal Skin: Dry, Normal Color, Warm Lymphatic: No Adenopathy Was a procedure done? Was a procedure done?: No Differential Diagnosis (SZ) Headache: Cluster, Migraine, Closed Head Injury, CVA, Epidural Hemorrhage, Intracerebral Hemorrhage, Subarachnoid Hemorrhage, Subdural Hemorrhage X-Ray, Labs, Meds, VS Vital Signs Date Time Temp Pulse Resp B/P (MAP) Pulse Ox O2 Delivery O2 Flow Rate FiO2 12/04/24 23:14 98.4 82 18 128/72 (90) 96 98.4 12/04/24 20:41 98.2 92 18 109/58 (75) 96 98.2 X-Ray, Labs, Meds, VS Comment HEAD CT NEGATIVE FOR ACUTE FINDINGS OR CHRONIC CONCERNS. ADVISED PATIENT TO REST INCREASE P.O. FLUIDS WITH ELECTROLYTES. FOLLOW UP WITH HER PCP IN 2-3 DAYS NECESSARY. ER RETURN PRECAUTIONS GIVEN PATIENT INDICATES UNDERSTANDING AND AGREES WITH DISCHARGE PLAN OF CARE. Time of 1ST Reevaluation: 23:05 Reevaluation 1ST: Improved Patient Education/Counseling: Diagnosis, Treatment, Prognosis, Need For Follow Up Family Education/Counseling: No Family Present Departure 1 Departure Time of Disposition: 23:05 Impression: Primary Impression: Headache Qualified Codes: G44.201 - Tension-type headache, unspecified, intractable Disposition: 01 HOME / SELF CARE / HOMELESS Condition: Stable Discharged With: Self Critical Care Note Critical Care Time?: No Stability Stability form required: DAVID Baird Dec 04, 2024 23:05
[2024-12-04 23:14] VITALS: BP 128/72; PULSE 82; RESP 18; TEMP 98.4; O2SAT 96
== END 2024-12-04 23:53 | disposition home or self-care (01) ==
LOC: ER 20:24
DX: R51.9 Headache, unspecified (principal); Z90.49 Acquired absence of other specified parts of digestive tract; Z98.890 Other specified postprocedural states; Z86.73 Personal history of transient ischemic attack (TIA), and cerebral infarction without residual deficits
CPT/HCPCS: 70450

== ENCOUNTER 2024-12-09 19:07 | Emergency (ER) | payer MEDICAID ==
[~2024-12-09] VITALS: Ht 157.5 cm; Wt 85.2 kg
--- NOTE | 2024-12-09 19:40 | ED.PDOC ---
History of Present Illness HPI Comments 44-year-old female came to ER for palpitations. Patient has history of POTS, states recently she has been having episodes of palpitations, associated with shortness of breath, chest pressure, and bilateral arm numbness. Patient been seen here multiple times similar complaints. Patient states she is scheduled to see her community representative tomorrow Chief Complaint: Palpitations Time Seen by MD: 19:40 Primary Care Provider: AMY Reviewed Notes: Nurses Notes Allergies: Coded Allergies: Morphine (Verified Allergy, Severe, 07/12/24) Ondansetron (Verified Allergy, Severe, 07/12/24) Metoclopramide (Verified Allergy, Unknown, 07/10/24) Home Meds Active Scripts Gabapentin (Gabapentin) 300 Mg Cap, 1 CAP PO Q6HP PRN, #30 CAP 0 Refills Prov:HARSHA OSHEA PAC 11/27/24 Ibuprofen (Ibuprofen) 800 Mg Tab, 1 TAB PO TID PRN, #30 TAB 0 Refills Prov:JOHN CANCHOLA 07/15/24 Ascorbic Acid (VITAMIN C TABLET) 500 Mg Tb, 1 TAB PO BID for 30 Days, #60 TAB 3 Refills Prov:GAYE ALVAREZ MD 07/12/24 Ferrous Sulfate (Iron Supplement) 220 Mg/5 Ml Elx, 220 MG PO BID for 30 Days, #60 ELX Prov:GAYE ALVAREZ MD 07/12/24 Hydrocodone-Acetaminophen (Hydrocodone Bitartrate/AC 5-325 mg) 1 Tab Tab, 1 TAB PO BID for 5 Days, #10 TAB Prov:GAYE ALVAREZ MD 07/12/24 Cyclobenzaprine Hcl (Cyclobenzaprine Hcl) 10 Mg Tab, 10 MG PO TIDBM for 5 Days, #15 TAB Prov:GAYE ALVAREZ MD 07/12/24 Diclofenac Potassium (Diclofenac Potassium) 50 Mg Tab, 1 TAB PO TIDP for 5 Days, #15 TAB Prov:GAYE ALVAREZ MD 07/12/24 Nitrofurantoin Monohydrate Mac (Macrobid) 100 Mg Cap, 100 MG PO BID for 10 Days, #20 CAP Prov:GAYE ALVAREZ MD 07/12/24 Naproxen (NAPROSYN TABLET) 500 Mg Tb, 500 MG GT BID for 10 Days, #20 TAB Prov:MAYNOR HOYT MD 06/12/24 Ondansetron Odt 4MG Tab (ZOFRAN PO) 4 Mg Tb, 4 MG PO TID for 10 Days, #30 TAB ODT TAB-DISSOLVE IN MOUTH, THEN SWALLOW Prov:MAYNOR HOYT MD 06/12/24 Nitrofurantoin Monohydrate Mac (Macrobid) 100 Mg Cap, 100 MG PO BID for 7 Days, #14 CAP Prov:RUTHIE TROTTER MD 06/08/24 Meclizine Hcl (Meclizine Hcl) 12.5 Mg Tab, 25 MG PO TID for 7 Days, #42 TAB Prov:MAYNOR HOYT MD 04/25/24 Hydrocodone-Acetaminophen (Hydrocodone Bitartrate/AC 5-325 mg) 1 Tab Tab, 1 TAB PO QIDPRN, #20 TAB Prov:MARKO BARBER MD 03/27/24 Potassium Chloride (Potassium Chloride ER) 10 Meq Tab, 10 MEQ PO DAILY for 7 Days, #7 TAB Prov:ANDREY BLOCK MD 01/18/24 Acetaminophen (Acetaminophen) 500 Mg Tab, 500 MG PO QIDPRN for 10 Days, #40 TAB Prov:JOSE VANEGAS DO 01/10/24 Clindamycin Hcl (Clindamycin Hcl) 300 Mg Cap, 1 CAP PO QID for 10 Days, #40 CAP Prov:LUPE GIL Q PROPOSAL COORDINATOR 12/24/23 Acetaminophen W/ Codeine (Tylenol W/Cod #3) 1 Tab Tb, 1 TAB PO Q6HP PRN, #10 TAB Prov:HARSHA OSHEA PAC 11/15/23 Acetaminophen W/ Codeine (Tylenol W/Cod #3) 1 Tab Tb, 1 TAB PO Q8HP PRN, #15 TAB Prov:HARSHA OSHEA PAC 10/25/23 Apixaban Base (ELIQUIS) 5 Mg Tab, 5 MG PO BID for 30 Days, #60 TAB 2 Refills Prov:TANIYA LUNA DO 10/06/23 Apixaban Base (ELIQUIS) 5 Mg Tab, 10 MG PO BID for 10 Days, #40 TAB 0 Refills Prov:TANIYA LUNA DO 10/06/23 Reported Medications Metoprolol Tartrate (LOPRESSOR TABLET) 50 Mg Tb, 0.5 TAB PO BID 09/28/23 Information Source: Patient Mode of Arrival: Ambulatory Severity: Moderate Timing: Hours Duration: Intermittent Past Medical History PAST MEDICAL HISTORY: Anemia, Anxiety, TIA Past Medical History (Other): POTS, DVTs Surgical History: Cholecystectomy, 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 History Family History Family History: Reviewed,noncontributory to illness, Family hx of HTN Social History Smoker: Non-Smoker Alcohol: Denies ETOH Use Drugs: Denies Drug Use Lives In: Home Constitutional: denies: chills, diaphoresis, fatigue, fever, malaise, sweats, weakness, others EENTM: denies: blurred vision, double vision, ear bleeding, ear discharge, ear drainage, ear pain, ear ringing, eye pain, eye redness, hearing loss, mouth pain, mouth swelling, nasal discharge, nose bleeding, nose congestion, nose pain, photophobia, tearing, throat pain, throat swelling, voice changes, others Respiratory: reports: SOB at rest, shortness of breath; denies: cough, hemoptysis, orthopnea, SOB with excertion, stridor, wheezing, others Cardiovascular: reports: chest pain, palpitations; denies: dizzy spells, diaphoresis, Dyspnea on exertion, edema, irregular heart beat, left arm pain, l ightheadedness, PND, syncope, others Gastrointestinal: denies: abdomen distended, abdominal pain, blood streaked bowels, constipated, diarrhea, dysphagia, difficulty swallowing, hematemesis, melena, nausea, poor appetite, poor fluid intake, rectal bleeding, rectal pain, vomiting, others Genitourinary: denies: abnormal vagina bleeding, burning, dyspareunia, dysuria, flank pain, frequency, hematuria, incontinence, pain, , vagina discharge, urgency, others Neurological: denies: dizziness, fainting, headache, left sided numbness, left sided weakness, numbness, paresthesia, pre-existing deficit, right sided numbness, right sided weakness, seizure, speech problems, tingling, tremors, weakness, others Musculoskeletal: denies: back pain, gout, joint pain, joint swelling, muscle pain, muscle stiffness, neck pain, others Integumetry: denies: bruises, change in color, change in hair/nails, dryness, laceration, lesions, lumps, rash, wounds, others Allergic/Immunocompromised: denies: Difficulty Healing, Frequent Infections, Hives, Itching, others Hematologic/Lymphatic: denies: anemia, blood clots, easy bleeding, easy bruising, swollen glands, others Endocrine: denies: excessive hunger, excessive sweating, excessive thirst, excessive urination, flushing, intolerance to cold, intolerance to heat, unexplained weight gain, unexplained weight loss, others Psychiatric: denies: anxiety, bipolar disorder, depression, hopeless, panic disorder, schizophrenia, sleepless, suicidal, others Physical Exam General Appearance: No Apparent Distress, Normal HEENT: Normal ENT Inspection, Pharynx Normal, TMs Normal Neck: Full Range of Motion, Non-Tender, Normal, Normal Inspection Respiratory: Chest Non-Tender, Lungs Clear, No Accessory Muscle Use, No Respiratory Distress, Normal Breath Sounds Cardiovascular: No Edema, No JVD, No Murmur, No Gallop, Normal Peripheral Pulses, Regular Rate/Rhythm Breast Exam: Deferred Gastrointestinal: No Organomegaly, Non Tender, No Pulsatile Mass, Normal Bowel Sounds, Soft Genitalia: Deferred Pelvic: Deferred Rectal: Deferred Extremities: No calf tenderness, Normal capillary refill, Normal inspection, Normal range of motion, Non-tender, No pedal edema Musculoskeletal : Apperance: Normal 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 Was a procedure done?: No EKG EKG : Pulse Rate (adult): 73 Cardiac Rhythm: NSR Differential Dx Considerations may include: Anemia, electrolyte imbalance, anxiety, postural orthostatic tachycardia syndrome X-Ray, Labs, Meds, VS Vital Signs Date Time Temp Pulse Resp B/P (MAP) Pulse Ox O2 Delivery O2 Flow Rate FiO2 12/09/24 19:51 74 12/09/24 19:40 73 12/09/24 19:18 98.0 77 16 114/54 (74) 98 98.0 12/09/24 19:12 73 Lab Test 12/09/24 20:20 12/09/24 19:28 Range/Units Troponin I High Sensitivity < 3 L < 3 L </=34 ng/L White Blood Count 6.9 4.4-10.8 10^3/uL Red Blood Count 4.20 4.0-5.20 10^6/uL Hemoglobin 10.9 L 12.2-16.2 g/dL Hematocrit 34.1 L 36.0-46.0 % Mean Corpuscular Volume 81.2 80.0-100.0 fL Mean Corpuscular Hemoglobin 26.0 L 28.0-32.0 pg Mean Corpuscular Hemoglobin Concent 32.1 32.0-36.0 g/dL Red Cell Distribution Width 17.6 H 11.8-14.3 % Platelet Count 371 140-450 10^3/uL Mean Platelet Volume 7.2 6.9-10.8 fL Neutrophils (%) (Auto) 62.6 37.0-80.0 % Lymphocytes (%) (Auto) 27.6 10.0-50.0 % Monocytes (%) (Auto) 7.4 0.0-12.0 % Eosinophils (%) (Auto) 1.8 0.0-7.0 % Basophils (%) (Auto) 0.6 0.0-2.0 % Neutrophils # (Auto) 4.3 1.6-8.6 10 ^3/uL Lymphocytes # (Auto) 1.9 0.4-5.4 10 ^3/uL Monocytes # (Auto) 0.5 0-1.3 10 ^3/uL Eosinophils # (Auto) 0.1 0-0.8 10 ^3/uL Basophils # (Auto) 0 0-0.2 10 ^3/uL Nucleated Red Blood Cells 0.0 % Sodium Level 137 136-145 mmol/L Potassium Level 3.6 3.5-5.1 mmol/L Chloride Level 103 98-107 mmol/L Carbon Dioxide Level 26 20-31 mmol/L Anion Gap 8 5-15 Blood Urea Nitrogen 13 9-23 mg/dL Creatinine 0.60 0.550-1.02 mg/dL Glomerular Filtration Rate Calc 115 >90 mL/min BUN/Creatinine Ratio 21.7 H 10.0-20.0 Serum Glucose 91 74-106 mg/dL Calcium Level 10.0 8.7-10.4 mg/dL Magnesium Level 2.0 1.6-2.6 mg/dL Total Bilirubin 0.5 0.2-1.0 mg/dL Aspartate Amino Transferase (AST) 15 13-40 U/L Alanine Aminotransferase (ALT) 15 7-40 U/L Alkaline Phosphatase 100 46-116 U/L Total Protein 8.3 H 5.7-8.2 g/dL Albumin 4.9 H 3.2-4.8 g/dL Time of 1ST Reevaluation: 19:36 Reevaluation 1ST: Unchanged Patient Education/Counseling: Diagnosis, Treatment Family Education/Counseling: No Family Present Departure 1 Departure Time of Disposition: 21:32 Impression: Primary Impression: Postural orthostatic tachycardia syndrome [POTS] Additional Impression: Palpitations Disposition: 01 HOME / SELF CARE / HOMELESS Condition: Stable Discharged With: Self Critical Care Note Critical Care Time?: No Stability Stability form required: No Heart Score Heart Score: Heart Score Response (Comments) Value History Slightly Suspicious 0 EKG Normal 0 Age <45 0 Risk Factors 1 or 2 risk factors 1 Troponin Normal limit 0 Total 1 I personally scribed for SHELDON LIEBERMAN MD ([email or web address]) on 12/09/24 at 19:40. Electronically submitted by Dimas Mccracken ([email or web address]). SHELDON LIEBERMAN MD Dec 09, 2024 19:40
[2024-12-09 19:45] LABS: Basophils # (auto) 0 10 ^3/uL (0-0.2); Basophils % (auto) 0.6 % (0.0-2.0); Eosinophils # (auto) 0.1 10 ^3/uL (0-0.8); Eosinophils % (auto) 1.8 % (0.0-7.0); Hematocrit 34.1 % (36.0-46.0); Hemoglobin 10.9 g/dL (12.2-16.2); Lymphocytes # (auto) 1.9 10 ^3/uL (0.4-5.4); Lymphocytes % (auto) 27.6 % (10.0-50.0); Mean Corpuscular Hgb Conc. 32.1 g/dL (32.0-36.0); Mean Corpuscular Volume 81.2 fL (80.0-100.0); Monocytes # (auto) 0.5 10 ^3/uL (0-1.3); Monocytes % (auto) 7.4 % (0.0-12.0); Neutrophils # (auto) 4.3 10 ^3/uL (1.6-8.6); Neutrophils % (auto) 62.6 % (37.0-80.0); Platelet Count (auto) 371 10^3/uL (140-450); Red Cell Distribution Width 17.6 % (11.8-14.3); White Blood Cell 6.9 10^3/uL (4.4-10.8)
[2024-12-09 20:07] LABS: Alanine Aminotransferase 15 U/L (7-40); Alkaline Phosphatase 100 U/L (46-116); Anion Gap 8 (5-15); Aspartate Aminotransferase 15 U/L (13-40); BUN/Creatinine Ratio 21.7 (10.0-20.0); Bilirubin, Total 0.5 mg/dL (0.2-1.0); Blood Urea Nitrogen 13 mg/dL (9-23); Carbon Dioxide 26 mmol/L (20-31); Chloride 103 mmol/L (98-107); Glucose 91 mg/dL (74-106); Potassium 3.6 mmol/L (3.5-5.1); Sodium 137 mmol/L (136-145)
[2024-12-09 20:09] LABS: Albumin 4.9 g/dL (3.2-4.8); Total Protein 8.3 g/dL (5.7-8.2)
--- NOTE | 2024-12-09 20:55 | ECG ---
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
[2024-12-09 22:16] VITALS: BP 110/77; TEMP 98.6
[2024-12-09 22:22] VITALS: PULSE 79; RESP 20; O2SAT 95
--- NOTE | 2024-12-11 09:25 | ECG ---
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
== END 2024-12-09 22:24 | disposition home or self-care (01) ==
LOC: ER 19:07
DX: G90.A Postural orthostatic tachycardia syndrome [POTS] (principal); R00.2 Palpitations; F41.9 Anxiety disorder, unspecified; Z86.73 Personal history of transient ischemic attack (TIA), and cerebral infarction without residual deficits; Z86.718 Personal history of other venous thrombosis and embolism; Z90.49 Acquired absence of other specified parts of digestive tract; Z79.899 Other long term (current) drug therapy; Z79.01 Long term (current) use of anticoagulants; Z79.1 Long term (current) use of non-steroidal anti-inflammatories (NSAID); Z88.5 Allergy status to narcotic agent; Z88.1 Allergy status to other antibiotic agents
CPT/HCPCS: 36415; 80053; 83735; 84484; 85025; 93005

== ENCOUNTER 2024-12-26 16:58 | Emergency (ER) | payer MEDICAID ==
[~2024-12-26] VITALS: Ht 157.5 cm; Wt 83.2 kg
--- NOTE | 2024-12-26 17:21 | ED.PDOC ---
SOB-HPI HPI Comments 44 year old female presents to the ED with chief complaint of flu-like illness. Patient reports that she has been experiencing a cough with associated SOB and chest congestion since Sunday. Patient relays that she hears crackling in her chest when she breathes laying down. Patient declines albuterol breathing treatment due to having history of POTS and not wanting her HR to be increased too much. Patient denies any chest pain, fever, chills, N/V, dizziness, or headache. Vital signs were stable on arrival. 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 History Family History Family History: Reviewed,noncontributory to illness, Family hx of HTN Social History Smoker: Non-Smoker Alcohol: Denies ETOH Use Drugs: Denies Drug Use Lives In: Home Constitutional: denies: chills, diaphoresis, fatigue, fever, malaise, sweats, weakness, others EENTM: denies: blurred vision, double vision, ear bleeding, ear discharge, ear drainage, ear pain, ear ringing, eye pain, eye redness, hearing loss, mouth pain, mouth swelling, nasal discharge, nose bleeding, nose congestion, nose pain, photophobia, tearing, throat pain, throat swelling, voice changes, others Respiratory: reports: cough, shortness of breath; denies: hemoptysis, orthopnea, SOB at rest, SOB with excertion, stridor, wheezing, others Cardiovascular: denies: chest pain, dizzy spells, diaphoresis, Dyspnea on exertion, edema, irregular heart beat, left arm pain, lightheadedness, palpitations, PND, syncope, others Gastrointestinal: denies: abdomen distended, abdominal pain, blood streaked bowels, constipated, diarrhea, dysphagia, difficulty swallowing, hematemesis, melena, nausea, poor appetite, poor fluid intake, rectal bleeding, rectal pain, vomiting, others Genitourinary: denies: abnormal vagina bleeding, burning, dyspareunia, dysuria, flank pain, frequency, hematuria, incontinence, pain, , vagina discharge, urgency, others Neurological: denies: dizziness, fainting, headache, left sided numbness, left sided weakness, numbness, paresthesia, pre-existing deficit, right sided numbness, right sided weakness, seizure, speech problems, tingling, tremors, weakness, others Musculoskeletal: denies: back pain, gout, joint pain, joint swelling, muscle pain, muscle stiffness, neck pain, others Integumetry: denies: bruises, change in color, change in hair/nails, dryness, laceration, lesions, lumps, rash, wounds, others Allergic/Immunocompromised: denies: Difficulty Healing, Frequent Infections, Hives, Itching, others Hematologic/Lymphatic: denies: anemia, blood clots, easy bleeding, easy bruising, swollen glands, others Endocrine: denies: excessive hunger, excessive sweating, excessive thirst, excessive urination, flushing, intolerance to cold, intolerance to heat, unexplained weight gain, unexplained weight loss, others Psychiatric: denies: anxiety, bipolar disorder, depression, hopeless, panic disorder, schizophrenia, sleepless, suicidal, others All Other Systems: Reviewed and Negative Physical Exam General Appearance: Mild Distress (Mild distress due to mild congestion concerns), Normal HEENT: Normal ENT Inspection, Pharynx Normal, TMs Normal Neck: Full Range of Motion, Non-Tender, Normal, Normal Inspection Respiratory: Chest Non-Tender, No Accessory Muscle Use, Other (Patient displays very mild wheeze and left upper lobe.) Cardiovascular: No Edema, No JVD, No Murmur, No Gallop, Normal Peripheral Pulses, Regular Rate/Rhythm Breast Exam: Deferred Gastrointestinal: No Organomegaly, Non Tender, No Pulsatile Mass, Normal Bowel Sounds, Soft Genitalia: Deferred Pelvic: Deferred Rectal: Deferred Extremities: No calf tenderness, Normal capillary refill, Normal inspection, Normal range of motion, Non-tender, No pedal edema Musculoskeletal : Apperance: Normal Neurologic: Alert, No Motor Deficits, Normal Affect, Normal Mood, No Sensory Deficits Cerebellar Function: Normal Reflexes: Normal Skin: Dry, Normal Color, Warm Lymphatic: No Adenopathy Was a procedure done? Was a procedure done?: No Differential Dx Differential Diagnosis: Bronchitis, Pneumonia, URI X-Ray, Labs, Meds, VS Vital Signs Date Time Temp Pulse Resp B/P (MAP) Pulse Ox O2 Delivery O2 Flow Rate FiO2 12/26/24 17:17 99.0 85 18 120/58 (78) 96 99.0 X-Ray, Labs, Meds, VS Comment All studies performed the ED were evaluated by me personally. Chest x-ray was unremarkable for any consolidation or intrapulmonary concerns. Patient appears to be suffering from viral upper respiratory illness. Advised patient utilize Tylenol and or Motrin as needed for fever reduction and utilize good hydration and healthy nutrition throughout. Patient will not go home with a albuterol inhaler as she states it causes her dizziness and blood pressure concerns due to her POTS diagnosis. Time of 1ST Reevaluation: 18:20 Reevaluation 1ST: Improved Consultation: PCP Patient Education/Counseling: Diagnosis, Treatment Family Education/Counseling: Diagnosis, Treatment, No Family Present Departure 1 Departure Time of Disposition: 18:20 Impression: Primary Impression: Viral upper respiratory illness Disposition: 01 HOME / SELF CARE / HOMELESS Condition: Stable Additional Instructions: Advised Tylenol and or Motrin use as needed for fever reduction. Good hydration and healthy nutrition throughout. Patient may benefit from a humidifier. Discharged With: Self, Friend Critical Care Note Critical Care Time?: No Stability Stability form required: No Heart Score Heart Score: Heart Score Response (Comments) Value History N/A 0 EKG N/A 0 Age N/A 0 Risk Factors N/A 0 Troponin N/A 0 Total 0 I personally scribed for HARSHA OSHEA PAC ([email or web address]) on 12/26/24 at 17:21. Electronically submitted by Alban Babb ([email or web address]). HARSHA OSHEA PAC Dec 26, 2024 17:21
--- NOTE | 2024-12-26 18:14 | DVH ---
EXAM: XY CHEST PORTABLE Indication: Shortness of breath Technique: Single frontal view of the chest was obtained Comparison: XY CHEST PORTABLE on DOS: 08/18/24, XY CHEST PORTABLE on DOS: 05/06/24, XY CHEST PORTABLE o n DOS: 04/25/24, XY CHEST PORTABLE on DOS: 03/26/24, XY CHEST PORTABLE on DOS: 01/18/24 FINDINGS: Lines and Tubes: None Lungs: No focal consolidation. Pleura: No effusion. No pneumothorax. Cardiomediastinal contours: Unremarkable Bones: No acute osseous abnormality. IMPRESSION: No acute cardiopulmonary disease.
[2024-12-26] MEDS: DexAMETHasone SOD PHOS 10MG/1ML VIAL INJ IM ONE (18:19)
[2024-12-26 18:33] VITALS: BP 103/52; PULSE 80; RESP 17; TEMP 98.7; O2SAT 100
== END 2024-12-26 18:39 | disposition home or self-care (01) ==
LOC: ER 17:01
DX: J06.9 Acute upper respiratory infection, unspecified (principal); B97.89 Other viral agents as the cause of diseases classified elsewhere; F41.9 Anxiety disorder, unspecified; Z86.73 Personal history of transient ischemic attack (TIA), and cerebral infarction without residual deficits; Z90.49 Acquired absence of other specified parts of digestive tract
CPT/HCPCS: 71045; 96372; 99283; J1100

== ENCOUNTER 2025-01-05 19:22 | Emergency (ER) | payer MEDICAID ==
[~2025-01-05] VITALS: Ht 157.5 cm; Wt 81.7 kg
[2025-01-05 20:08] VITALS: BP 106/62; PULSE 84; RESP 18; TEMP 98.4; O2SAT 98
--- NOTE | 2025-01-05 20:20 | ED.PDOC ---
Musculoskeletal HPI Comments 44 y.o female with PMHx of right arm DVT, presents to the ED for a chief complaint of right arm tenderness radiating to her axillary and neck region x 2 days alongside left lower leg/calf swelling and tenderness as well x 3 days. Patient reports pain is similar to previous DVT and is concerned. Patient is on Eliquis and is compliant with taking medication. She denies any numbness sensation, erythema, wounds, or recent trauma to pain sites. Chief Complaint: Body Pain Time Seen by MD: 20:00 Primary Care Provider: AMY Reviewed Notes: Nurses Notes, Medications, Allergies Allergies: Coded Allergies: Morphine (Verified Allergy, Severe, 07/12/24) Ondansetron (Verified Allergy, Severe, 07/12/24) Metoclopramide (Verified Allergy, Unknown, 07/10/24) Home Meds Active Scripts Gabapentin (Gabapentin) 300 Mg Cap, 1 CAP PO Q6HP PRN, #30 CAP 0 Refills Prov:HARSHA OSHEA PAC 11/27/24 Ibuprofen (Ibuprofen) 800 Mg Tab, 1 TAB PO TID PRN, #30 TAB 0 Refills Prov:JOHN CANCHOLA 07/15/24 Ascorbic Acid (VITAMIN C TABLET) 500 Mg Tb, 1 TAB PO BID for 30 Days, #60 TAB 3 Refills Prov:GAYE ALVAREZ MD 07/12/24 Ferrous Sulfate (Iron Supplement) 220 Mg/5 Ml Elx, 220 MG PO BID for 30 Days, #60 ELX Prov:GAYE ALVAREZ MD 07/12/24 Hydrocodone-Acetaminophen (Hydrocodone Bitartrate/AC 5-325 mg) 1 Tab Tab, 1 TAB PO BID for 5 Days, #10 TAB Prov:GAYE ALVAREZ MD 07/12/24 Cyclobenzaprine Hcl (Cyclobenzaprine Hcl) 10 Mg Tab, 10 MG PO TIDBM for 5 Days, #15 TAB Prov:GAYE ALVAREZ MD 07/12/24 Diclofenac Potassium (Diclofenac Potassium) 50 Mg Tab, 1 TAB PO TIDP for 5 Days, #15 TAB Prov:GAYE ALVAREZ MD 07/12/24 Nitrofurantoin Monohydrate Mac (Macrobid) 100 Mg Cap, 100 MG PO BID for 10 Days, #20 CAP Prov:GAYE ALVAREZ MD 07/12/24 Naproxen (NAPROSYN TABLET) 500 Mg Tb, 500 MG GT BID for 10 Days, #20 TAB Prov:MAYNOR HOYT MD 06/12/24 Ondansetron Odt 4MG Tab (ZOFRAN PO) 4 Mg Tb, 4 MG PO TID for 10 Days, #30 TAB ODT TAB-DISSOLVE IN MOUTH, THEN SWALLOW Prov:MAYNOR HOYT MD 06/12/24 Nitrofurantoin Monohydrate Mac (Macrobid) 100 Mg Cap, 100 MG PO BID for 7 Days, #14 CAP Prov:RUTHIE TROTTER MD 06/08/24 Meclizine Hcl (Meclizine Hcl) 12.5 Mg Tab, 25 MG PO TID for 7 Days, #42 TAB Prov:MAYNOR HOYT MD 04/25/24 Hydrocodone-Acetaminophen (Hydrocodone Bitartrate/AC 5-325 mg) 1 Tab Tab, 1 TAB PO QIDPRN, #20 TAB Prov:MARKO BARBER MD 03/27/24 Potassium Chloride (Potassium Chloride ER) 10 Meq Tab, 10 MEQ PO DAILY for 7 Days, #7 TAB Prov:ANDREY BLOCK MD 01/18/24 Acetaminophen (Acetaminophen) 500 Mg Tab, 500 MG PO QIDPRN for 10 Days, #40 TAB Prov:JOSE VANEGAS DO 01/10/24 Clindamycin Hcl (Clindamycin Hcl) 300 Mg Cap, 1 CAP PO QID for 10 Days, #40 CAP Prov:LUPE GIL [employer] SCHOOL 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 12/24/23 Acetaminophen W/ Codeine (Tylenol W/Cod #3) 1 Tab Tb, 1 TAB PO Q6HP PRN, #10 TAB Prov:HARSHA OSHEA PAC 11/15/23 Acetaminophen W/ Codeine (Tylenol W/Cod #3) 1 Tab Tb, 1 TAB PO Q8HP PRN, #15 TAB Prov:HARSHA OSHEA PAC 10/25/23 Apixaban Base (ELIQUIS) 5 Mg Tab, 5 MG PO BID for 30 Days, #60 TAB 2 Refills Prov:TANIYA LUNA DO 10/06/23 Apixaban Base (ELIQUIS) 5 Mg Tab, 10 MG PO BID for 10 Days, #40 TAB 0 Refills Prov:TANIYA LUNA DO 10/06/23 Reported Medications Metoprolol Tartrate (LOPRESSOR TABLET) 50 Mg Tb, 0.5 TAB PO BID 09/28/23 Information Source: Patient Mode of Arrival: Ambulatory Location: Left, Right Extremity Location: Arm (right ), Calf (left ), Leg (left ) Timing: Days (2) Severity: Moderate Able to Move Extremity: Yes Bear Weight: Limited Pain: Moderate Mechanism: None Onset of Symptoms: Spontaneous Symptoms: Swelling, Pain DVT Risk Factors: DVT Associated signs and symptoms: Arm pain, Leg pain Past Medical History PAST MEDICAL HISTORY: Anemia, Anxiety, TIA Past Medical History (Other): Right arm DVT Surgical History: Cholecystectomy, MUSIC LEADER History: No Pertinent MUSIC LEADER History Family History Family History: Reviewed,noncontributory to illness, Family hx of HTN Social History Smoker: Non-Smoker Alcohol: Denies ETOH Use Drugs: Denies Drug Use Lives In: Home Constitutional: denies: chills, diaphoresis, fatigue, fever, malaise, sweats, weakness, others EENTM: denies: blurred vision, double vision, ear bleeding, ear discharge, ear drainage, ear pain, ear ringing, eye pain, eye redness, hearing loss, mouth pain, mouth swelling, nasal discharge, nose bleeding, nose congestion, nose pain, photophobia, tearing, throat pain, throat swelling, voice changes, others Respiratory: denies: cough, hemoptysis, orthopnea, SOB at rest, shortness of breath, SOB with excertion, stridor, wheezing, others Cardiovascular: denies: chest pain, dizzy spells, diaphoresis, Dyspnea on exertion, edema, irregular heart beat, left arm pain, lightheadedness, pal pitations, PND, syncope, others Gastrointestinal: denies: abdomen distended, abdominal pain, blood streaked bowels, constipated, diarrhea, dysphagia, difficulty swallowing, hematemesis, melena, nausea, poor appetite, poor fluid intake, rectal bleeding, rectal pain, vomiting, others Genitourinary: denies: abnormal vagina bleeding, burning, dyspareunia, dysuria, flank pain, frequency, hematuria, incontinence, pain, , vagina discharge, urgency, others Neurological: denies: dizziness, fainting, headache, left sided numbness, left sided weakness, numbness, paresthesia, pre-existing deficit, right sided numbness, right sided weakness, seizure, speech problems, tingling, tremors, weakness, others Musculoskeletal: reports: others (right arm and left leg tenderness. LLE swelling ); denies: back pain, gout, joint pain, joint swelling, muscle pain, muscle stiffness, neck pain Integumetry: denies: bruises, change in color, change in hair/nails, dryness, laceration, lesions, lumps, rash, wounds, others Allergic/Immunocompromised: denies: Difficulty Healing, Frequent Infections, Hives, Itching, others Hematologic/Lymphatic: denies: anemia, blood clots, easy bleeding, easy bruising, swollen glands, others Endocrine: denies: excessive hunger, excessive sweating, excessive thirst, excessive urination, flushing, intolerance to cold, intolerance to heat, unexplained weight gain, unexplained weight loss, others Psychiatric: denies: anxiety, bipolar disorder, depression, hopeless, panic disorder, schizophrenia, sleepless, suicidal, others All Other Systems: Reviewed and Negative Physical Exam General Appearance: No Apparent Distress, Normal HEENT: Normal ENT Inspection, Pharynx Normal, TMs Normal Neck: Full Range of Motion, Non-Tender, Normal, Normal Inspection Respiratory: Chest Non-Tender, Lungs Clear, No Accessory Muscle Use, No Respiratory Distress, Normal Breath Sounds Cardiovascular: No Edema, No JVD, No Murmur, No Gallop, Normal Peripheral Pulses, Regular Rate/Rhythm Breast Exam: Deferred Gastrointestinal: No Organomegaly, Non Tender, No Pulsatile Mass, Normal Bowel Sounds, Soft Genitalia: Deferred Pelvic: Deferred Rectal: Deferred Extremities: Swelling (right arm ), Tender (right arm bicep radiating to axillary region. 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 Was a procedure done?: No Differential Diagnosis EXT Differential Diagnosis: Deep Vein Thrombosis, Sprain, Gout, Strain X-Ray, Labs, Meds, VS Vital Signs Date Time Temp Pulse Resp B/P (MAP) Pulse Ox O2 Delivery O2 Flow Rate FiO2 01/05/25 20:08 98.4 84 18 106/62 (36) 98 98.4 X-Ray, Labs, Meds, VS Comment Imaging: X-rays and CT scans were reviewed and interpreted by this provider, imaging shows no fractures and no pathological disease. Pending radiology review. Laboratory: Labs reviewed and interpreted by this provider. No significant abnormalities noted. Patient has prior medical visits reviewed. Med reconciliation performed Vital signs reviewed Time of 1ST Reevaluation: 20:13 Reevaluation 1ST: Unchanged Patient Education/Counseling: Diagnosis, Treatment, Prognosis, Need For Follow Up (Follow up in the emergency department in the next 24-48 hours if symptoms worsen. It was advised to follow up with your primary care doctor in the next 3-4 days for further evaluation.) Family Education/Counseling: No Family Present Departure 1 Departure Time of Disposition: 21:45 Impression: Primary Impression: Musculoskeletal pain of right lower extremity Additional Impression: Musculoskeletal pain of left lower extremity Disposition: 01 HOME / SELF CARE / HOMELESS Condition: Fair Discharged With: Self Critical Care Note Critical Care Time?: No Stability Stability form required: No I personally scribed for SKYL[facility] R[facility]AN [facility] on 01/05/25 at 20:20. Electronically submitted by Maru Montana ([facility]). SKYLER ROWAN Jan 05, 2025 20:20
--- NOTE | 2025-01-05 21:31 | DVH ---
Left lower extremity venous duplex Clinical History: leg pain Comparison: US BILAT LOWER DVT on DOS: 11/27/24, US RT UPPER DVT on DOS: 11/14/24, US RT LOWER DVT on DO S: 11/14/24, US RT UPPER DVT on DOS: 10/23/24, US BILAT LOWER DVT on DOS: 08/26/24 Technique: Duplex Doppler evaluation of the deep venous system of the left lower extremity from the common femor al vein to the popliteal vein including color Doppler and spectral/pulsed waveform analysis was perfo rmed. Findings: The common femoral vein demonstrates appropriate compressibility and waveform variability. There is compressibility/patency of the great saphenous vein at the proximal thigh. The femoral vein demonstrates appropriate compressibility and waveform variability. The deep femoral vein demonstrates appropriate compressibility and waveform variability. The popliteal vein demonstrates appropriate compressibility and waveform variability. There is normal compressibility at the tibioperoneal trunk. Impression: No evidence of left femoropopliteal venous thrombosis.
--- NOTE | 2025-01-05 21:34 | DVH ---
RIGHT Upper Extremity Venous Duplex Clinical History: rt arm pain Comparison: US RT UPPER DVT on DOS: 11/14/24, US RT LOWER DVT on DOS: 11/14/24, US RT UPPER DVT on DOS: Technique: Duplex Doppler evaluation of the venous system of the RIGHT lower neck and upper extremity including color Doppler and spectral/pulsed waveform analysis was performed. Findings: The internal jugular vein demonstrates appropriate compressibility and waveform variability. The subclavian vein is patent on color Doppler evaluation without intraluminal thrombus and demonstra iftikhar waveform variability. The visualized portion of the brachiocephalic vein is patent on color Doppler evaluation without intr aluminal thrombus and demonstrates waveform variability. The axillary vein demonstrates appropriate compressibility and waveform variability. The brachial veins demonstrate appropriate compressibility and patency on Doppler evaluation. The basilic vein demonstrates appropriate compressibility and patency on Doppler evaluation. The cephalic vein demonstrates appropriate compressibility and patency on Doppler evaluation. Impression: 1. No venous thrombus identified in the RIGHT upper extremity vessels evaluated above. 2. If clinical concern/symptoms persist or worsen, short-interval follow-up study is suggested.
== END 2025-01-06 01:22 | disposition home or self-care (01) ==
LOC: ER 19:22
DX: M79.604 Pain in right leg (principal); M79.605 Pain in left leg; M79.18 Myalgia, other site; M54.2 Cervicalgia; F41.9 Anxiety disorder, unspecified; D64.9 Anemia, unspecified; Z79.899 Other long term (current) drug therapy; Z86.718 Personal history of other venous thrombosis and embolism; Z86.73 Personal history of transient ischemic attack (TIA), and cerebral infarction without residual deficits; Z90.49 Acquired absence of other specified parts of digestive tract; Z88.5 Allergy status to narcotic agent
CPT/HCPCS: 93971

== ENCOUNTER 2025-01-19 15:43 | Emergency (ER) | payer MEDICAID ==
[~2025-01-19] VITALS: Ht 157.5 cm; Wt 80.0 kg
[2025-01-19 16:16] VITALS: BP 100/48; RESP 14; TEMP 98; O2SAT 95
[2025-01-19 17:38] VITALS: PULSE 61
--- NOTE | 2025-01-19 17:38 | ED.PDOC ---
HPI Comments 44 y/o F, with PMHx of RIVERO, TIA, anxiety, and anemia presents to the ED for CC of palpitations. Patient states, she has been experiencing palpitations with associated symptoms of shortness of breath onset, today (01/19/25). Patient reports, that she checked her heart rate and it read at 138 bpm. Patient denies fever, chills, or calf swelling or pain. No other symptoms or modifying factors present at this time. Chief Complaint: Palpitations Time Seen by MD: 16:45 Primary Care Provider: AMY Reviewed Notes: Nurses Notes, Medications, Allergies Allergies: Coded Allergies: Morphine (Verified Allergy, Severe, 07/12/24) Ondansetron (Verified Allergy, Severe, 07/12/24) Metoclopramide (Verified Allergy, Unknown, 07/10/24) Home Meds Active Scripts Gabapentin (Gabapentin) 300 Mg Cap, 1 CAP PO Q6HP PRN, #30 CAP 0 Refills Prov:HARSHA OSHEA PAC 11/27/24 Ibuprofen (Ibuprofen) 800 Mg Tab, 1 TAB PO TID PRN, #30 TAB 0 Refills Prov:JOHN CANCHOLA 07/15/24 Ascorbic Acid (VITAMIN C TABLET) 500 Mg Tb, 1 TAB PO BID for 30 Days, #60 TAB 3 Refills Prov:GAYE ALVAREZ MD 07/12/24 Ferrous Sulfate (Iron Supplement) 220 Mg/5 Ml Elx, 220 MG PO BID for 30 Days, #60 ELX Prov:GAYE ALVAREZ MD 07/12/24 Hydrocodone-Acetaminophen (Hydrocodone Bitartrate/AC 5-325 mg) 1 Tab Tab, 1 TAB PO BID for 5 Days, #10 TAB Prov:GAYE ALVAREZ MD 07/12/24 Cyclobenzaprine Hcl (Cyclobenzaprine Hcl) 10 Mg Tab, 10 MG PO TIDBM for 5 Days, #15 TAB Prov:GAYE ALVAREZ MD 07/12/24 Diclofenac Potassium (Diclofenac Potassium) 50 Mg Tab, 1 TAB PO TIDP for 5 Days, #15 TAB Prov:GAYE ALVAREZ MD 07/12/24 Nitrofurantoin Monohydrate Mac (Macrobid) 100 Mg Cap, 100 MG PO BID for 10 Days, #20 CAP Prov:GAYE ALVAREZ MD 07/12/24 Naproxen (NAPROSYN TABLET) 500 Mg Tb, 500 MG GT BID for 10 Days, #20 TAB Prov:MAYNOR HOYT MD 06/12/24 Ondansetron Odt 4MG Tab (ZOFRAN PO) 4 Mg Tb, 4 MG PO TID for 10 Days, #30 TAB ODT TAB-DISSOLVE IN MOUTH, THEN SWALLOW Prov:MAYNOR HOYT MD 06/12/24 Nitrofurantoin Monohydrate Mac (Macrobid) 100 Mg Cap, 100 MG PO BID for 7 Days, #14 CAP Prov:RUTHIE TROTTER MD 06/08/24 Meclizine Hcl (Meclizine Hcl) 12.5 Mg Tab, 25 MG PO TID for 7 Days, #42 TAB Prov:MAYNOR HOYT MD 04/25/24 Hydrocodone-Acetaminophen (Hydrocodone Bitartrate/AC 5-325 mg) 1 Tab Tab, 1 TAB PO QIDPRN, #20 TAB Prov:MARKO BARBER MD 03/27/24 Potassium Chloride (Potassium Chloride ER) 10 Meq Tab, 10 MEQ PO DAILY for 7 Days, #7 TAB Prov:ANDREY BLOCK MD 01/18/24 Acetaminophen (Acetaminophen) 500 Mg Tab, 500 MG PO QIDPRN for 10 Days, #40 TAB Prov:JOSE VANEGAS DO 01/10/24 Clindamycin Hcl (Clindamycin Hcl) 300 Mg Cap, 1 CAP PO QID for 10 Days, #40 CAP Prov:LUPE GIL Q IRRIGATOR OVERHEAD 12/24/23 Acetaminophen W/ Codeine (Tylenol W/Cod #3) 1 Tab Tb, 1 TAB PO Q6HP PRN, #10 TAB Prov:HARSHA OSHEA PAC 11/15/23 Acetaminophen W/ Codeine (Tylenol W/Cod #3) 1 Tab Tb, 1 TAB PO Q8HP PRN, #15 TAB Prov:HARSHA OSHEA PAC 10/25/23 Apixaban Base (ELIQUIS) 5 Mg Tab, 5 MG PO BID for 30 Days, #60 TAB 2 Refills Prov:TANIYA LUNA DO 10/06/23 Apixaban Base (ELIQUIS) 5 Mg Tab, 10 MG PO BID for 10 Days, #40 TAB 0 Refills Prov:TANIYA LUNA DO 10/06/23 Reported Medications Metoprolol Tartrate (LOPRESSOR TABLET) 50 Mg Tb, 0.5 TAB PO BID 09/28/23 Information Source: Patient Mode of Arrival: Ambulatory Severity: Moderate Timing: Hours Duration: Since onset Quality: Pressure Onset: At Rest Cardiac Risk Factors: None PE Risk Factors: None History of: None Modifying Factors: Nothing Associated Signs and Symptoms: SOB, Palpitations Past Medical History PAST MEDICAL HISTORY: Anemia, Anxiety, TIA Past Medical History (Other): RIVERO Surgical History: Cholecystectomy, 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 MARSHMALLOW MAKER History Family History Family History: Reviewed,noncontributory to illness, Family hx of HTN Social History Smoker: Non-Smoker Alcohol: Denies ETOH Use Drugs: Denies Drug Use Lives In: Home Constitutional: denies: chills, diaphoresis, fatigue, fever, malaise, sweats, weakness, others EENTM: denies: blurred vision, double vision, ear bleeding, ear discharge, ear drainage, ear pain, ear ringing, eye pain, eye redness, hearing loss, mouth pain, mouth swelling, nasal discharge, nose bleeding, nose congestion, nose pain, photophobia, tearing, throat pain, throat swelling, voice changes, others Respiratory: reports: shortness of breath; denies: cough, hemoptysis, orthopnea, SOB at rest, SOB with excertion, stridor, wheezing, others Cardiovascular: reports: palpitations Gastrointestinal: denies: abdomen distended, abdominal pain, blood streaked bowels, constipated, diarrhea, dysphagia, difficulty swallowing, hematemesis, melena, nausea, poor appetite, poor fluid intake, rectal bleeding, rectal pain, vomiting, others Genitourinary: denies: abnormal vagina bleeding, burning, dyspareunia, dysuria, flank pain, frequency, hematuria, incontinence, pain, , vagina discharge, urgency, others Neurological: denies: dizziness, fainting, headache, left sided numbness, left sided weakness, numbness, paresthesia, pre-existing deficit, right sided numbness, right sided weakness, seizure, speech problems, tingling, tremors, we akness, others Musculoskeletal: denies: back pain, gout, joint pain, joint swelling, muscle pain, muscle stiffness, neck pain, others Integumetry: denies: bruises, change in color, change in hair/nails, dryness, laceration, lesions, lumps, rash, wounds, others Allergic/Immunocompromised: denies: Difficulty Healing, Frequent Infections, Hives, Itching, others Hematologic/Lymphatic: denies: anemia, blood clots, easy bleeding, easy bruising, swollen glands, others Endocrine: denies: excessive hunger, excessive sweating, excessive thirst, excessive urination, flushing, intolerance to cold, intolerance to heat, unexplained weight gain, unexplained weight loss, others Psychiatric: denies: anxiety, bipolar disorder, depression, hopeless, panic disorder, schizophrenia, sleepless, suicidal, others All Other Systems: Reviewed and Negative Physical Exam General Appearance: No Apparent Distress HEENT: Normal ENT Inspection, Pharynx Normal, TMs Normal Neck: Full Range of Motion, Non-Tender, Normal, Normal Inspection Respiratory: Chest Non-Tender, Lungs Clear, No Accessory Muscle Use, No Respiratory Distress, Normal Breath Sounds Cardiovascular: No Edema, No JVD, No Murmur, No Gallop, Normal Peripheral Pulses, Regular Rate/Rhythm Breast Exam: Deferred Gastrointestinal: No Organomegaly, Non Tender, No Pulsatile Mass, Normal Bowel Sounds, Soft Genitalia: Deferred Pelvic: Deferred Rectal: Deferred Extremities: No calf tenderness, Normal capillary refill, Normal inspection, Normal range of motion, Non-tender, No pedal edema Musculoskeletal : Apperance: Normal Neurologic: Alert, 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 Was a procedure done?: No CP Differential Dx Differential Diagnosis: Anxiety / Panic Attack Differential Diagnosis: Chest Wall Pain, Costochondritis X-Ray, Labs, Meds, VS Vital Signs Date Time Temp Pulse Resp B/P (MAP) Pulse Ox O2 Delivery O2 Flow Rate FiO2 01/19/25 17:38 61 01/19/25 16:16 98.0 60 14 100/48 (65) 95 98.0 01/19/25 16:16 Room Air 0 5/12/25 16:04 61 The patient's seems to have eloped from the department's We did order lab work as well as imaging studies but the patient's seems to have eloped Time of 1ST Reevaluation: 17:15 Reevaluation 1ST: Unchanged Patient Education/Counseling: Diagnosis, Treatment Family Education/Counseling: No Family Present Departure 1 Departure Time of Disposition: 18:58 Impression: Primary Impression: Palpitations Disposition: 07 LEFT AWOL/ELOPED Condition: Fair Critical Care Note Critical Care Time?: No Stability Stability form required: No Heart Score Heart Score: Heart Score Response (Comments) Value History N/A 0 EKG N/A 0 Age N/A 0 Risk Factors N/A 0 Troponin N/A 0 Total 0 I personally scribed for ABRAHAN LUU MD ([email or web address]) on 01/19/25 at 17:38. Electronically submitted by Pily Dunham ([email or web address]). ABRAHAN LUU MD January 19, 2025 17:38
--- NOTE | 2025-01-20 08:58 | ECG ---
[facility] Test Date: 2025-01-19 Test Time: 16:04:51 Pat Name: TIMA SPENCER Department: ER Room: Gender: F [employer] Officer: ERIKA : 1980 Requested By: ABRAHAN LUU Order Number: [id number] Reading MD: Sherwin Patterson Measurements Intervals [place] Rate: 61 P: -29 HI: 187 QRS: 28 QRSD: 100 T: -10 QT: 400 QTc: 403 Interpretive Statements Sinus rhythm Borderline T abnormalities, diffuse leads Electronically Signed On 01-21-2025 12:46:56 PDT by Sherwin Patterson Please click the below link to view image of tracing.
== END 2025-01-19 18:55 | disposition left against medical advice (07) ==
LOC: ER 15:44
DX: R00.2 Palpitations (principal); R06.02 Shortness of breath; F41.9 Anxiety disorder, unspecified; D46.9 Myelodysplastic syndrome, unspecified; Z79.899 Other long term (current) drug therapy; Z86.73 Personal history of transient ischemic attack (TIA), and cerebral infarction without residual deficits; Z90.49 Acquired absence of other specified parts of digestive tract; Z88.5 Allergy status to narcotic agent
CPT/HCPCS: 36415; 85025; 93005

== ENCOUNTER 2025-02-05 16:25 | Emergency (ER) | payer MEDICAID ==
[~2025-02-05] VITALS: Ht 157.5 cm; Wt 80.1 kg
--- NOTE | 2025-02-05 17:43 | ED.PDOC ---
Musculoskeletal HPI Comments Flanagan: 44-year-old male presents to emergency department for evaluation of left lower extremity pain and swelling after returned from a trip to [place]. Patient has a history of DVT in bilateral upper extremity. Recently on Eliquis. She was discontinued because the DVT has resolved. Past medical history POTS, DVT, occipital neuralgia Past surgical history cholecystectomy, three C sections, right lower extremity vein removal. HPI: Poor Historian. REVIEW OF SYSTEMS: CONSTITUTIONAL: Denies acute: fever, diaphoresis, chills, generalized weakness. HEAD: Denies acute: headache, photophobia Eyes: Denies acute: Double vision, vision loss, eye pain, eye discharge. EARS: Denies acute: tinnitus, hearing loss, ear discharge, ear pain, THROAT: Denies acute: sore throat, swelling, difficulty swallowing , pain with s wallowing, change in voice. NECK: Denies acute: neck pain, neck swelling, stiff neck. HEART: Denies acute : chest pain, palpitations, LUNGS: Denies acute: SOB, wheezing, cough, hemoptysis ABDOMEN: Denies acute: abdominal pain, Nausea, Vomiting, diarrhea, melena , hematemesis, hematochezia SKIN: Denies acute: rash, redness, lesions, itchiness. EXTREMITIES: Denies acute: calf pain, numbness, tingling, weakness, Denies acute: Low back pain. Neuro: Denies acute: focal neurological deficit, motor or sensory focal neurological deficit, tremors, seizure like activity, confusion, dizziness, change in mental status, loss of bowel or bladder function, cauda equina like symptoms. : Denies acute: dysuria, hematuria, flank pain, increase in urinary frequency. PSYCH: Denies acute: hallucination, suicidal ideation, homicidal ideation. FEMALE: Denies acute: abnormal vaginal bleeding, foul odor, unusual discharge. PHYSICAL EXAM: General: ----mild----acute distress, awake and alert. Head: normocephalic, atraumatic. Neck: supple, trachea is midline, no swelling. Throat: Normal phonation. Eyes:, no erythema, no purulent discharge, no proptosis, no icterus. Heart: regular rate, regular rhythm, no significant murmur appreciated. Lungs: no apparent respiratory distress, Able to speak in full sentences. No wheezing, no rhonchi, no crackles. No stridors Clear to auscultation bilaterally. Abdomen: non tender to palpation, non distended, soft, no guarding, no rebound, + bowel sounds. Neuro: Awake, Alert, oriented to name, self, situation, follows commands GCS=15. Speech is normal. Skin: no petechia, no purpura, no cyanosis, non-pale, not jaundice. Evaluation of the area of complaint: Left lower extremity [id number] mini mal swelling. No appreciated erythema. Patient is neurovascularly intact except extremity. Sensory and motor are present. Makes eye contact. moves all four extremities. Face: no apparent facial droop. Ambulating in the ED independently. Pedal pulses are palpable. ED COURSE: Chief Complaint: Lower Extremity Time Seen by MD: 16:40 Primary Care Provider: Dr. Randolph Reviewed Notes: Nurses Notes, Allergies Allergies: Coded Allergies: Morphine (Verified Allergy, Severe, 07/12/24) Ondansetron (Verified Allergy, Severe, 07/12/24) Metoclopramide (Verified Allergy, Unknown, 07/10/24) Home Meds Active Scripts Gabapentin (Gabapentin) 300 Mg Cap, 1 CAP PO Q6HP PRN, #30 CAP 0 Refills Prov:HARSHA OSHEA PAC 11/27/24 Ibuprofen (Ibuprofen) 800 Mg Tab, 1 TAB PO TID PRN, #30 TAB 0 Refills Prov:JOHN CANCHOLA 07/15/24 Ascorbic Acid (VITAMIN C TABLET) 500 Mg Tb, 1 TAB PO BID for 30 Days, #60 TAB 3 Refills Prov:GAYE ALVAREZ MD 07/12/24 Ferrous Sulfate (Iron Supplement) 220 Mg/5 Ml Elx, 220 MG PO BID for 30 Days, #60 ELX Prov:GAYE ALVAREZ MD 07/12/24 Hydrocodone-Acetaminophen (Hydrocodone Bitartrate/AC 5-325 mg) 1 Tab Tab, 1 TAB PO BID for 5 Days, #10 TAB Prov:GAYE ALVAREZ MD 07/12/24 Cyclobenzaprine Hcl (Cyclobenzaprine Hcl) 10 Mg Tab, 10 MG PO TIDBM for 5 Days, #15 TAB Prov:GAYE ALVAREZ MD 07/12/24 Diclofenac Potassium (Diclofenac Potassium) 50 Mg Tab, 1 TAB PO TIDP for 5 Days, #15 TAB Prov:GAYE ALVAREZ MD 07/12/24 Nitrofurantoin Monohydrate Mac (Macrobid) 100 Mg Cap, 100 MG PO BID for 10 Days, #20 CAP Prov:GAYE ALVAREZ MD 07/12/24 Naproxen (NAPROSYN TABLET) 500 Mg Tb, 500 MG GT BID for 10 Days, #20 TAB Prov:AMYNOR HOYT MD 06/12/24 Ondansetron Odt 4MG Tab (ZOFRAN PO) 4 Mg Tb, 4 MG PO TID for 10 Days, #30 TAB ODT TAB-DISSOLVE IN MOUTH, THEN SWALLOW Prov:MAYNOR HOYT MD 06/12/24 Nitrofurantoin Monohydrate Mac (Macrobid) 100 Mg Cap, 100 MG PO BID for 7 Days, #14 CAP Prov:RUTHIE TROTTER MD 06/08/24 Meclizine Hcl (Meclizine Hcl) 12.5 Mg Tab, 25 MG PO TID for 7 Days, #42 TAB Prov:MAYNOR HOYT MD 04/25/24 Hydrocodone-Acetaminophen (Hydrocodone Bitartrate/AC 5-325 mg) 1 Tab Tab, 1 TAB PO QIDPRN, #20 TAB Prov:MARKO BARBER MD 03/27/24 Potassium Chloride (Potassium Chloride ER) 10 Meq Tab, 10 MEQ PO DAILY for 7 Days, #7 TAB Prov:ANDREY BLOCK MD 01/18/24 Acetaminophen (Acetaminophen) 500 Mg Tab, 500 MG PO QIDPRN for 10 Days, #40 TAB Prov:JOSE VANEGAS DO 01/10/24 Clindamycin Hcl (Clindamycin Hcl) 300 Mg Cap, 1 CAP PO QID for 10 Days, #40 CAP Prov:LUPE GIL [employer]DER [employer]OR 12/24/23 Acetaminophen W/ Codeine (Tylenol W/Cod #3) 1 Tab Tb, 1 TAB PO Q6HP PRN, #10 TAB Prov:HARSHA OSHEA PAC 11/15/23 Acetaminophen W/ Codeine (Tylenol W/Cod #3) 1 Tab Tb, 1 TAB PO Q8HP PRN, #15 TAB Prov:HARSHA OSHEA PAC 10/25/23 Apixaban Base (ELIQUIS) 5 Mg Tab, 5 MG PO BID for 30 Days, #60 TAB 2 Refills Prov:TANIYA LUNA DO 10/06/23 Apixaban Base (ELIQUIS) 5 Mg Tab, 10 MG PO BID for 10 Days, #40 TAB 0 Refills Prov:TANIYA LUNA DO 10/06/23 Reported Medications Metoprolol Tartrate (LOPRESSOR TABLET) 50 Mg Tb, 0.5 TAB PO BID 09/28/23 Mode of Arrival: Ambulatory Physical Exam General Appearance: Other (a) HEENT: Other (a) Neck: Other (a) Respiratory: Other (a) Cardiovascular: Other (a) Breast Exam: Other (a) Gastrointestinal: Other (a) Genitalia: Other (a) Pelvic: Other (a) Rectal: Other (a) Extremities: Other (a) Neurologic: Other (a) Cerebellar Function: Other (a) Reflexes: Other (a) Skin: Other (a) Lymphatic: Other (a) Differential Diagnosis EXT Differential Diagnosis: Cellulitis, CHF, Deep Vein Thrombosis, Compartment Syndrome, Fracture, Sprain, Dislocation, Laceration, Gout, DJD, Myocardial Infarction, Contusion, Strain, Neurovascular injury, Arthritis, Bursitis X-Ray, Labs, Meds, VS Vital Signs Date Time Temp Pulse Resp B/P (MAP) Pulse Ox O2 Delivery O2 Flow Rate FiO2 02/05/25 21:10 Room Air* 0 21 02/05/25 21:10 98.1 74 19 105/52 (69) 98 98.1 02/05/25 19:07 99.0 75 18 109/66 (80) 98 99.0 02/05/25 19:07 75 18 98 Room Air 02/05/25 16:59 75 02/05/25 16:50 97.6 86 16 109/67 (81) 96 97.6 Lab Test 02/05/25 18:27 02/05/25 17:32 02/05/25 16:50 Range/Units Troponin I High Sensitivity < 3 L < 3 L </=34 ng/L White Blood Count 7.6 4.4-10.8 10^3/uL Red Blood Count 4.24 4.0-5.20 10^6/uL Hemoglobin 10.8 L 12.2-16.2 g/dL Hematocrit 33.8 L 36.0-46.0 % Mean Corpuscular Volume 79.5 L 80.0-100.0 fL Mean Corpuscular Hemoglobin 25.5 L 28.0-32.0 pg Mean Corpuscular Hemoglobin Concent 32.1 32.0-36.0 g/dL Red Cell Distribution Width 17.9 H 11.8-14.3 % Platelet Count 356 140-450 10^3/uL Mean Platelet Volume 7.4 6.9-10.8 fL Neutrophils (%) (Auto) 62.8 37.0-80.0 % Lymphocytes (%) (Auto) 27.1 10.0-50.0 % Monocytes (%) (Auto) 5.9 0.0-12.0 % Eosinophils (%) (Auto) 3.7 0.0-7.0 % Basophils (%) (Auto) 0.5 0.0-2.0 % Neutrophils # (Auto) 4.8 1.6-8.6 10 ^3/uL Lymphocytes # (Auto) 2.1 0.4-5.4 10 ^3/uL Monocytes # (Auto) 0.5 0-1.3 10 ^3/uL Eosinophils # (Auto) 0.3 0-0.8 10 ^3/uL Basophils # (Auto) 0 0-0.2 10 ^3/uL Nucleated Red Blood Cells 0.0 % Erythrocyte Sedimentation Rate 39 H 0-20 mm/hr D-Dimer, Quantitative 1.25 H 0.0-0.49 mg/L FEU Sodium Level 139 136-145 mmol/L Potassium Level 3.7 3.5-5.1 mmol/L Chloride Level 107 98-107 mmol/L Carbon Dioxide Level 25 20-31 mmol/L Anion Gap 7 5-15 Blood Urea Nitrogen 9 9-23 mg/dL Creatinine 0.63 0.550-1.02 mg/dL Glomerular Filtration Rate Calc 114 >90 mL/min BUN/Creatinine Ratio 14.3 10.0-20.0 Serum Glucose 103 74-106 mg/dL Calcium Level 9.9 8.7-10.4 mg/dL C-Reactive Protein High Sensitivity 2.21 H <1.0 mg/dL B-Type Natriuretic Peptide 1.92 0-100 pg/mL Urine Color Yellow Yellow Urine Clarity Clear Clear Urine pH 5.0 5.0-9.0 Urine Specific Mora 1.028 1.001-1.035 Urine Protein Negative Negative Urine Ketones Negative Negative Urine Blood 2+ H Negative /uL Urine Nitrite Negative Negative Urine Bilirubin Negative Negative Urine Urobilinogen Normal Negative mg/dL Urine Leukocyte Esterase Negative Negative /uL Urine RBC 6 0 - 4 /hpf Urine Microscopic WBC 1 0-5 /HPF Urine Squamous Epithelial Cells Few <5 /hpf Urine Bacteria Few H None Seen /hpf Urine Mucus Few None Seen Urine Glucose Normal Normal mg/dL [facility] [id number] [place] [id number] Ph: [phone] DIAGNOSTIC IMAGING Diagnostic Imaging Report : [id number] Signed PATIENT: TIMA FLANAGAN ACCT: [id number] UNIT: [id number] : 1980 LOC: ER ROOM / BED: / AGE / SEX: 44 / F ADM STATUS: REG ER SERVICE 1647 ORDERING PHYSICIAN: MITA MCGILL DO PROCEDURE(s): BLDVT - BiLat Lower DVT REASON: leg pain swelling, h/o DVT ORDER NUMBER(s): [id number], ACCESSION NUMBER(s): [id number] Bilateral lower extremity venous duplex Clinical History: leg pain swelling, h/o DVT Comparison: US LT LOWER DVT on DOS: 01/05/25, US BILAT LOWER DVT on DOS: 11/27/24, US RT LOWER DVT on DOS: 11/14/24 Technique: Duplex Doppler evaluation of the deep venous systems of both lower extremities from the common femoral veins to the popliteal veins including color Doppler and spectral/pulsed waveform analysis was performed. Findings: RIGHT SIDE: The common femoral vein demonstrates appropriate compressibility and waveform variability. There is compressibility/patency of the great saphenous vein at the proximal thigh. The femoral vein demonstrates appropriate compressibility and waveform variability. The deep femoral vein demonstrates appropriate compressibility and waveform variability. The popliteal vein demonstrates appropriate compressibility and waveform variability. There is normal compressibility at the tibioperoneal trunk. LEFT SIDE: The common femoral vein demonstrates appropriate compressibility and waveform variability. There is compressibility/patency of the great saphenous vein at the proximal thigh. The femoral vein demonstrates appropriate compressibility and waveform variability. The deep femoral vein demonstrates appropriate compressibility and waveform variability. The popliteal vein demonstrates appropriate compressibility and waveform variability. There is normal compressibility at the tibioperoneal trunk. Impression: 1. No right or left femoropopliteal venous thrombosis. ATED BY: HAILE WANG Jr., DO DICTATED DATE/TIME: 02/05/251841 SIGNED BY: HAILE WANG Jr., SIGNED DATE/TIME: 02/05/251841 CC: [place] [id number] Ph: [phone] DIAGNOSTIC IMAGING Diagnostic Imaging Report : [id number] Signed PATIENT: TIMA FLANAGAN ACCT: [id number] UNIT: [id number] : 1980 LOC: ER ROOM / BED: / AGE / SEX: 44 / F ADM STATUS: REG ER SERVICE 46 ORDERING PHYSICIAN: MITA MCGILL DO PROCEDURE(s): BLDVT - BiLat Lower DVT REASON: leg pain swelling, h/o DVT ORDER NUMBER(s): [id number], ACCESSION NUMBER(s): [id number] Bilateral lower extremity venous duplex Clinical History: leg pain swelling, h/o DVT Comparison: US LT LOWER DVT on DOS: 01/05/25, US BILAT LOWER DVT on DOS: 11/27/24, US RT LOWER DVT on DOS: 11/14/24 Technique: Duplex Doppler evaluation of the deep venous systems of both lower extremities from the common femoral veins to the popliteal veins including color Doppler and spectral/pulsed waveform analysis was performed. Findings: RIGHT SIDE: The common femoral vein demonstrates appropriate compressibility and waveform variability. There is compressibility/patency of the great saphenous vein at the proximal thigh. The femoral vein demonstrates appropriate compressibility and waveform variability. The deep femoral vein demonstrates appropriate compressibility and waveform variability. The popliteal vein demonstrates appropriate compressibility and waveform variability. There is normal compressibility at the tibioperoneal trunk. LEFT SIDE: The common femoral vein demonstrates appropriate compressibility and waveform variability. There is compressibility/patency of the great saphenous vein at the proximal thigh. The femoral vein demonstrates appropriate compressibility and waveform variability. The deep femoral vein demonstrates appropriate compressibility and waveform variability. The popliteal vein demonstrates appropriate compressibility and waveform variability. There is normal compressibility at the tibioperoneal trunk. Impression: 1. No right or left femoropopliteal venous thrombosis. ATED BY: HAILE WANG Jr., DO DICTATED DATE/TIME: 02/05/251841 SIGNED BY: HAILE WANG Jr., SIGNED DATE/TIME: 02/05/251841 CC: [place] [address] Ph: [phone] DIAGNOSTIC IMAGING Diagnostic Imaging Report : [id number] Signed PATIENT: TIMA FLANAGAN ACCT: [id number] UNIT: [id number] : 1980 LOC: ER ROOM / BED: / AGE / SEX: 44 / F ADM STATUS: REG ER SERVICE 25 ORDERING PHYSICIAN: MITA MCGILL DO PROCEDURE(s): CTACH - CT ANGIO CHEST CONTRAST REASON: h/o dvt ORDER NUMBER(s): [id number], ACCESSION NUMBER(s): [id number] CTA Chest with intravenous contrast INDICATION: h/o dvt COMPARISON: CT CT ANGIO CHEST CONTRAST on DOS: 03/26/24 TECHNIQUE: Multidetector spiral CTA of the chest was performed of the chest with intravenous contrast. PULMONARY ANGIOGRAPHY PROTOCOL was utilized using a bolus- tracking technique centered on the main pulmonary artery. Axial, coronal and sagittal multiplanar and MIP reformats were performed. Radiation Dose : 1. Chest: CTDI volume is mGy. Dose-length product is mGy*cm The dose indicators for CT are the volume Computed Tomography (CT) Dose Index (CTDIvol) and the Dose Length Product (DLP), and are measured in units of mGy and mGy-cm, respectively. These indicators are not patient dose, but values generated from the CT scanner acquisition factors. The report includes radiation exposure data for exposures received during this examination. Findings: Pulmonary artery: No evidence of pulmonary embolism. Lower neck: Unremarkable. Lungs: No focal consolidation. Pleura: No pleural effusion or pneumothorax. Heart/Vascular Structures: Normal heart size. No pericardial effusion. Normal thoracic aorta. Mediastinum / Lymph Nodes: No abnormality demonstrated. No lymphadenopathy. Musculoskeletal: No acute osseous abnormality. Soft tissues: Unremarkable. Visualized Upper abdomen: Unremarkable. IMPRESSION: No pulmonary embolism. No acute thoracic finding. ATED BY: KIRAN RODNEY MD DICTATED DATE/TIME: 02/05/252039 SIGNED BY: KIRAN RODNEY MD SIGNED DATE/TIME: 02/05/252039 CC: Time of 1ST Reevaluation: 20:59 Reevaluation 1ST: Unchanged Patient Education/Counseling: Diagnosis, Treatment Family Education/Counseling: No Family Present Comments Patient presented with the above HPI.--leg pain and swelling----workup was initiated. patient was found with the above mentioned diagnosis. the following medications were ordered: please refer to order lists of meds and tests obtained by myself Dr. Mcgill. Patient ED course and VS have been stabilized. Patient has been reassessed in the ED and remained in a stable condition. Pertinent incidental findings were discussed with the patient and/or family. Patient/family voices understanding and is agreeable with plan. Patient has been observed in the ED adequate length of time to insure improvement/stability. Escalation of care considered: Consideration of escalation to observation or admission DVT was ruled out. CTA angiogram of the chest was performed which was u nremarkable. Patient was DISCHARGED home in a stable condition. All the reports of any imaging studies that were ordered by myself were reviewed by myself. Departure 1 Departure Time of Disposition: 21:00 Impression: Primary Impression: Left leg pain Additional Impression: Anemia Disposition: HOME / SELF CARE / HOMELESS Condition: Stable Additional Instructions: Additional instructions: You MUST follow-up with your primary care/family doctor in 1 to 2 days. If you are unable to see your primary care/family doctor, please return to our emergency room for re-assessment and re-evaluation in 1 to 2 days. Return to the emergency room here in our facility or to the nearest ER [facility] if your symptoms change or worsen. CONSULTATIONS: you MUST Follow-up for consultation as soon as possible with: -hematology and vascular medicine in 1-2 days. Please call for appointment. You MUST call the consultants office yourself to make an appointment. You may need to arrange that through your insurance and/or your primary/family doctor. If you are unable to see the [facility] consultant in 1 to 2 days, you must return to our emergency room (or any other ER of your choice) for re-assessment and re- evaluation. Adequate fluid hydration. At least take a daily aspirin 325 mg Repeat extremity ultrasound in 4-5 days or sooner if symptoms change or worsen. Below is a copy of your radiological report for follow up: [place] [address] Ph: [phone] DIAGNOSTIC IMAGING Diagnostic Imaging Report : [id number] Signed PATIENT: TIMA FLANAGAN ACCT: [id number] UNIT: [id number] : 1980 LOC: ER ROOM / BED: / AGE / SEX: 44 / F ADM STATUS: REG ER SERVICE 1647 ORDERING PHYSICIAN: MITA MCGILL DO PROCEDURE(s): BLDVT - BiLat Lower DVT REASON: leg pain swelling, h/o DVT ORDER NUMBER(s): [id number], ACCESSION NUMBER(s): [id number] Bilateral lower extremity venous duplex Clinical History: leg pain swelling, h/o DVT Comparison: US LT LOWER DVT on DOS: 01/05/25, US BILAT LOWER DVT on DOS: 11/27/24, US RT LOWER DVT on DOS: 11/14/24 Technique: Duplex Doppler evaluation of the deep venous systems of both lower extremities from the common femoral veins to the popliteal veins including color Doppler and spectral/pulsed waveform analysis was performed. Findings: RIGHT SIDE: The common femoral vein demonstrates appropriate compressibility and waveform variability. There is compressibility/patency of the great saphenous vein at the proximal thigh. The femoral vein demonstrates appropriate compressibility and waveform variability. The deep femoral vein demonstrates appropriate compressibility and waveform variability. The popliteal vein demonstrates appropriate compressibility and waveform variability. There is normal compressibility at the tibioperoneal trunk. LEFT SIDE: The common femoral vein demonstrates appropriate compressibility and waveform variability. There is compressibility/patency of the great saphenous vein at the proximal thigh. The femoral vein demonstrates appropriate compressibility and waveform variability. The deep femoral vein demonstrates appropriate compressibility and waveform variability. The popliteal vein demonstrates appropriate compressibility and waveform variability. There is normal compressibility at the tibioperoneal trunk. Impression: 1. No right or left femoropopliteal venous thrombosis. ATED BY: HAILE WANG Jr., DO DICTATED DATE/TIME: 02/05/251841 SIGNED BY: HAILE WANG Jr., SIGNED DATE/TIME: 02/05/251841 CC: [place] [id number] Ph: [phone] DIAGNOSTIC IMAGING Diagnostic Imaging Report : [id number] Signed PATIENT: TIMA FLANAGAN ACCT: [id number] UNIT: [id number] : 1980 LOC: ER ROOM / BED: / AGE / SEX: 44 / F ADM STATUS: REG ER SERVICE 25 ORDERING PHYSICIAN: MITA MCGILL DO PROCEDURE(s): CTACH - CT ANGIO CHEST CONTRAST REASON: h/o dvt ORDER NUMBER(s): [id number], ACCESSION NUMBER(s): [id number] CTA Chest with intravenous contrast INDICATION: h/o dvt COMPARISON: CT CT ANGIO CHEST CONTRAST on DOS: 03/26/24 TECHNIQUE: Multidetector spiral CTA of the chest was performed of the chest with intravenous contrast. PULMONARY ANGIOGRAPHY PROTOCOL was utilized using a bolus- tracking technique centered on the main pulmonary artery. Axial, coronal and sagittal multiplanar and MIP reformats were performed. Radiation Dose : 1. Chest: CTDI volume is mGy. Dose-length product is mGy*cm The dose indicators for CT are the volume Computed Tomography (CT) Dose Index (CTDIvol) and the Dose Length Product (DLP), and are measured in units of mGy and mGy-cm, respectively. These indicators are not patient dose, but values generated from the CT scanner acquisition factors. The report includes radiation exposure data for exposures received during this examination. Findings: Pulmonary artery: No evidence of pulmonary embolism. Lower neck: Unremarkable. Lungs: No focal consolidation. Pleura: No pleural effusion or pneumothorax. Heart/Vascular Structures: Normal heart size. No pericardial effusion. Normal thoracic aorta. Mediastinum / Lymph Nodes: No abnormality demonstrated. No lymphadenopathy. Musculoskeletal: No acute osseous abnormality. Soft tissues: Unremarkable. Visualized Upper abdomen: Unremarkable. IMPRESSION: No pulmonary embolism. No acute thoracic finding. ATED BY: KIRAN RODNEY MD DICTATED DATE/TIME: 02/05/252039 SIGNED BY: KIRAN RODNEY MD SIGNED DATE/TIME: 02/05/252039 CC: Discharged With: Self I personally scribed for MITA MCGILL DO ([email or web address]) on 02/05/25 at 17:43. Electronically submitted by Pily Dunham ([email or web address]). MITA MCGILL DO February 05, 2025 17:43
[2025-02-05 17:52] LABS: Basophils # (auto) 0 10 ^3/uL (0-0.2); Basophils % (auto) 0.5 % (0.0-2.0); Eosinophils # (auto) 0.3 10 ^3/uL (0-0.8); Hematocrit 33.8 % (36.0-46.0); Hemoglobin 10.8 g/dL (12.2-16.2)
[2025-02-05 17:55] LABS: Eosinophils % (auto) 3.7 % (0.0-7.0); Lymphocytes # (auto) 2.1 10 ^3/uL (0.4-5.4); Lymphocytes % (auto) 27.1 % (10.0-50.0); Mean Corpuscular Hemoglobin 25.5 pg (28.0-32.0); Mean Corpuscular Hgb Conc. 32.1 g/dL (32.0-36.0); Mean Corpuscular Volume 79.5 fL (80.0-100.0); Monocytes # (auto) 0.5 10 ^3/uL (0-1.3); Monocytes % (auto) 5.9 % (0.0-12.0); Neutrophils # (auto) 4.8 10 ^3/uL (1.6-8.6); Neutrophils % (auto) 62.8 % (37.0-80.0); Platelet Count (auto) 356 10^3/uL (140-450); Red Blood Cells 4.24 10^6/uL (4.0-5.20); Red Cell Distribution Width 17.9 % (11.8-14.3); White Blood Cell 7.6 10^3/uL (4.4-10.8)
[2025-02-05 17:57] LABS: Potassium 3.7 mmol/L (3.5-5.1); Sodium 139 mmol/L (136-145)
[2025-02-05 17:58] LABS: Anion Gap 7 (5-15); Calcium 9.9 mg/dL (8.7-10.4); Carbon Dioxide 25 mmol/L (20-31)
[2025-02-05 18:03] LABS: BUN/Creatinine Ratio 14.3 (10.0-20.0); Glucose 103 mg/dL (74-106)
[2025-02-05 18:07] LABS: Blood Urea Nitrogen 9 mg/dL (9-23); Chloride 107 mmol/L (98-107)
[2025-02-05 18:15] LABS: CRP High Sensitivity 2.21 mg/dL (<1.0)
--- NOTE | 2025-02-05 18:44 | DVH ---
Bilateral lower extremity venous duplex Clinical History: leg pain swelling, h/o DVT Comparison: US LT LOWER DVT on DOS: 01/05/25, US BILAT LOWER DVT on DOS: 11/27/24, US RT LOWER DVT on D OS: 11/14/24 Technique: Duplex Doppler evaluation of the deep venous systems of both lower extremities from the common femora l veins to the popliteal veins including color Doppler and spectral/pulsed waveform analysis was perf ormed. Findings: RIGHT SIDE: The common femoral vein demonstrates appropriate compressibility and waveform variability. There is compressibility/patency of the great saphenous vein at the proximal thigh. The femoral vein demonstrates appropriate compressibility and waveform variability. The deep femoral vein demonstrates appropriate compressibility and waveform variability. The popliteal vein demonstrates appropriate compressibility and waveform variability. There is normal compressibility at the tibioperoneal trunk. LEFT SIDE: The common femoral vein demonstrates appropriate compressibility and waveform variability. There is compressibility/patency of the great saphenous vein at the proximal thigh. The femoral vein demonstrates appropriate compressibility and waveform variability. The deep femoral vein demonstrates appropriate compressibility and waveform variability. The popliteal vein demonstrates appropriate compressibility and waveform variability. There is normal compressibility at the tibioperoneal trunk. Impression: 1. No right or left femoropopliteal venous thrombosis.
[2025-02-05 18:51] LABS: Erythrocyte Sedimentation Rate 39 mm/hr (0-20)
[2025-02-05 19:03] LABS: Urine Bacteria FEW /hpf (None Seen); Urine Blood 2+ /uL (Negative); Urine Clarity Clear (Clear); Urine Color Yellow (Yellow); Urine Mucus FEW (None Seen); Urine Protein, UAD Negative (Negative); Urine Specific Gravity 1.028 (1.001-1.035); Urine Squamous Epithelial Cell FEW /hpf (<5); Urine Urobilinogen Normal (Negative); Urine WBC 1 /HPF (0-5)
--- NOTE | 2025-02-05 20:42 | DVH ---
CTA Chest with intravenous contrast INDICATION: h/o dvt COMPARISON: CT CT ANGIO CHEST CONTRAST on DOS: 03/26/24 TECHNIQUE: Multidetector spiral CTA of the chest was performed of the chest with intravenous contrast . PULMONARY ANGIOGRAPHY PROTOCOL was utilized using a bolus-tracking technique centered on the main p ulmonary artery. Axial, coronal and sagittal multiplanar and MIP reformats were performed. Radiation Dose : 1. Chest: CTDI volume is mGy. Dose-length product is mGy*cm The dose indicators for CT are the volume Computed Tomography (CT) Dose Index (CTDIvol) and the Dose Length Product (DLP), and are measured in units of mGy and mGy-cm, respectively. These indicators are not patient dose, but values generated from the CT scanner acquisition factors. The report includes radiation exposure data for exposures received during this examination. Findings: Pulmonary artery: No evidence of pulmonary embolism. Lower neck: Unremarkable. Lungs: No focal consolidation. Pleura: No pleural effusion or pneumothorax. Heart/Vascular Structures: Normal heart size. No pericardial effusion. Normal thoracic aorta. Mediastinum / Lymph Nodes: No abnormality demonstrated. No lymphadenopathy. Musculoskeletal: No acute osseous abnormality. Soft tissues: Unremarkable. Visualized Upper abdomen: Unremarkable. IMPRESSION: No pulmonary embolism. No acute thoracic finding.
[2025-02-05 21:10] VITALS: BP 105/52; PULSE 74; RESP 19; TEMP 98.1; O2SAT 98
--- NOTE | 2025-02-06 20:30 | ECG ---
[facility] Test Date: 2025-02-05 Test Time: 16:59:03 Pat Name: TIMA SPENCER Department: ER Room: Gender: F Contact Center Manager: ER : 1980 Requested By: MITA MCGILL Order Number: [id number] Reading MD: Sherwin Patterson Measurements Intervals Gilliam Rate: 75 P: 0 MS: 162 QRS: 28 QRSD: 80 T: 10 QT: 378 QTc: 423 Interpretive Statements Sinus rhythm Borderline T abnormalities, anterior leads Electronically Signed On 02-08-2025 22:13:30 PDT by Sherwin Patterson Please click the below link to view image of tracing.
== END 2025-02-05 21:15 | disposition home or self-care (01) ==
LOC: ER 16:25
DX: M79.605 Pain in left leg (principal); D64.9 Anemia, unspecified; M79.89 Other specified soft tissue disorders; R06.02 Shortness of breath; Z79.899 Other long term (current) drug therapy; Z90.49 Acquired absence of other specified parts of digestive tract; Z86.718 Personal history of other venous thrombosis and embolism; Z88.5 Allergy status to narcotic agent; Z88.8 Allergy status to other drugs, medicaments and biological substances
CPT/HCPCS: 36415; 71275; 80048; 81001; 83880; 84484; 85025; 85379; 85652; 86141; 93005; 93970; 99285; Q9967

== ENCOUNTER 2025-02-13 22:14 | Emergency (ER) | payer MEDICAID ==
[~2025-02-13] VITALS: Ht 157.5 cm; Wt 79.5 kg
[2025-02-13 23:01] VITALS: BP 104/57; PULSE 88; RESP 18; TEMP 98; O2SAT 97
[2025-02-13 23:31] LABS: Lymphocytes # (auto) 2.4 10 ^3/uL (0.4-5.4); Monocytes # (auto) 0.5 10 ^3/uL (0-1.3)
[2025-02-13 23:32] LABS: Basophils # (auto) 0 10 ^3/uL (0-0.2); Basophils % (auto) 0.3 % (0.0-2.0); Eosinophils # (auto) 0.3 10 ^3/uL (0-0.8); Eosinophils % (auto) 2.5 % (0.0-7.0); Hematocrit 34.9 % (36.0-46.0); Hemoglobin 11.3 g/dL (12.2-16.2); Lymphocytes % (auto) 21.1 % (10.0-50.0); Mean Corpuscular Hemoglobin 25.4 pg (28.0-32.0); Mean Corpuscular Hgb Conc. 32.2 g/dL (32.0-36.0); Mean Corpuscular Volume 78.7 fL (80.0-100.0); Monocytes % (auto) 4.8 % (0.0-12.0); Neutrophils # (auto) 8.2 10 ^3/uL (1.6-8.6); Neutrophils % (auto) 71.3 % (37.0-80.0); Platelet Count (auto) 405 10^3/uL (140-450); Red Blood Cells 4.44 10^6/uL (4.0-5.20); Red Cell Distribution Width 17.7 % (11.8-14.3); White Blood Cell 11.5 10^3/uL (4.4-10.8)
[2025-02-13 23:50] LABS: Alanine Aminotransferase 11 U/L (7-40); Albumin 4.8 g/dL (3.2-4.8); Alkaline Phosphatase 111 U/L (46-116); Anion Gap 9 (5-15); Aspartate Aminotransferase 16 U/L (13-40); BUN/Creatinine Ratio 18.5 (10.0-20.0); Bilirubin, Total 0.3 mg/dL (0.2-1.0); Blood Urea Nitrogen 12 mg/dL (9-23); Calcium 9.9 mg/dL (8.7-10.4); Carbon Dioxide 26 mmol/L (20-31); Chloride 103 mmol/L (98-107); Glucose 104 mg/dL (74-106); Potassium 3.6 mmol/L (3.5-5.1); Sodium 138 mmol/L (136-145)
[2025-02-13 23:51] LABS: Total Protein 8.4 g/dL (5.7-8.2)
[2025-02-13 23:55] LABS: INR 0.98 (0.9-1.15); Partial Thromboplastin Time 28.4 SEC (24.5-34.5); Prothrombin Time 10.4 sec (9.3-11.8)
--- NOTE | 2025-02-14 00:42 | DVH ---
RIGHT UPPER EXTREMITY VENOUS ULTRASOUND CLINICAL HISTORY: right upper mid bicep pain and edema COMPARISON: 01/05/2025 TECHNIQUE: Grayscale ultrasound with compression, color Doppler, and spectral Doppler of the deep andrew ous system of the right upper extremity from the base of the neck through the elbow performed. FINDINGS: Right internal jugular vein: Negative Right subclavian vein: Negative Right axillary vein: Negative Right brachial veins:Negative Right basilic vein: Negative Right cephalic vein: Negative IMPRESSION: No sonographic evidence of deep venous thrombosis in the right upper extremity at this time.
--- NOTE | 2025-02-14 02:17 | ED.PDOC ---
Musculoskeletal HPI Comments PT PRESENTED TO ED FOR RIGHT UPPER ARM SHARP PAIN AND SWELLING X1 DAY. PT DENIED TRAUMA/INJURY/FALLS. PT STATED SHE WAS RECENTLY SEEN HERE AND INFORMED ABOUT ELEVATED D-DIMER LEVEL. CAP REFILL <3, [id number], (-) NUMBNESS/TINGLING. 1+ SWELLING NOTED TO RIGHT ARM. GCS-15, ALL VSS. Chief Complaint: Upper Extremity Time Seen by MD: 22:32 Primary Care Provider: Dr. Randolph Reviewed Notes: Nurses Notes, Medications, Allergies Allergies: Coded Allergies: Morphine (Verified Allergy, Severe, 07/12/24) Ondansetron (Verified Allergy, Severe, 07/12/24) Metoclopramide (Verified Allergy, Unknown, 07/10/24) Home Meds Active Scripts Gabapentin (Gabapentin) 300 Mg Cap, 1 CAP PO Q6HP PRN, #30 CAP 0 Refills Prov:HARSHA OSHEA PAC 11/27/24 Ibuprofen (Ibuprofen) 800 Mg Tab, 1 TAB PO TID PRN, #30 TAB 0 Refills Prov:JOHN CANCHOLA 07/15/24 Ascorbic Acid (VITAMIN C TABLET) 500 Mg Tb, 1 TAB PO BID for 30 Days, #60 TAB 3 Refills Prov:GAYE ALVAREZ MD 07/12/24 Ferrous Sulfate (Iron Supplement) 220 Mg/5 Ml Elx, 220 MG PO BID for 30 Days, #60 ELX Prov:GAYE ALVAREZ MD 07/12/24 Hydrocodone-Acetaminophen (Hydrocodone Bitartrate/AC 5-325 mg) 1 Tab Tab, 1 TAB PO BID for 5 Days, #10 TAB Prov:GAYE ALVAREZ MD 07/12/24 Cyclobenzaprine Hcl (Cyclobenzaprine Hcl) 10 Mg Tab, 10 MG PO TIDBM for 5 Days, #15 TAB Prov:GAYE ALVAREZ MD 07/12/24 Diclofenac Potassium (Diclofenac Potassium) 50 Mg Tab, 1 TAB PO TIDP for 5 Days, #15 TAB Prov:GAYE ALVAREZ MD 07/12/24 Nitrofurantoin Monohydrate Mac (Macrobid) 100 Mg Cap, 100 MG PO BID for 10 Days, #20 CAP Prov:GAYE ALVAREZ MD 07/12/24 Naproxen (NAPROSYN TABLET) 500 Mg Tb, 500 MG GT BID for 10 Days, #20 TAB Prov:OBIEKWE,MAYNOR R MD 06/12/24 Ondansetron Odt 4MG Tab (ZOFRAN PO) 4 Mg Tb, 4 MG PO TID for 10 Days, #30 TAB ODT TAB-DISSOLVE IN MOUTH, THEN SWALLOW Prov:MAYNOR HOYT MD 06/12/24 Nitrofurantoin Monohydrate Mac (Macrobid) 100 Mg Cap, 100 MG PO BID for 7 Days, #14 CAP Prov:RUTHIE TROTTER MD 06/08/24 Meclizine Hcl (Meclizine Hcl) 12.5 Mg Tab, 25 MG PO TID for 7 Days, #42 TAB Prov:MAYNOR HOYT MD 04/25/24 Hydrocodone-Acetaminophen (Hydrocodone Bitartrate/AC 5-325 mg) 1 Tab Tab, 1 TAB PO QIDPRN, #20 TAB Prov:MARKO BARBER MD 03/27/24 Potassium Chloride (Potassium Chloride ER) 10 Meq Tab, 10 MEQ PO DAILY for 7 Days, #7 TAB Prov:ANDREY BLOCK MD 01/18/24 Acetaminophen (Acetaminophen) 500 Mg Tab, 500 MG PO QIDPRN for 10 Days, #40 TAB Prov:JOSE VANEGAS DO 01/10/24 Clindamycin Hcl (Clindamycin Hcl) 300 Mg Cap, 1 CAP PO QID for 10 Days, #40 CAP Prov:LUPE GIL Q GRADUATE RN 12/24/23 Acetaminophen W/ Codeine (Tylenol W/Cod #3) 1 Tab Tb, 1 TAB PO Q6HP PRN, #10 TAB Prov:HARSHA OSHEA PAC 11/15/23 Acetaminophen W/ Codeine (Tylenol W/Cod #3) 1 Tab Tb, 1 TAB PO Q8HP PRN, #15 TAB Prov:HARSHA OSHEA PAC 10/25/23 Apixaban Base (ELIQUIS) 5 Mg Tab, 5 MG PO BID for 30 Days, #60 TAB 2 Refills Prov:TANIYA LUNA DO 10/06/23 Apixaban Base (ELIQUIS) 5 Mg Tab, 10 MG PO BID for 10 Days, #40 TAB 0 Refills Prov:TANIYA LUNA DO 10/06/23 Reported Medications Metoprolol Tartrate (LOPRESSOR TABLET) 50 Mg Tb, 0.5 TAB PO BID 09/28/23 Mode of Arrival: Ambulatory Past Medical History PAST MEDICAL HISTORY: Anemia, Anxiety, TIA Surgical History: Cholecystectomy, [employer] History: No Pertinent [employer] History Family History Family History: Reviewed,noncontributory to illness, Family hx of HTN Social History Smoker: Non-Smoker Alcohol: Denies ETOH Use Drugs: Denies Drug Use Lives In: Home Constitutional: denies: chills, diaphoresis, fatigue, fever, malaise, sweats, weakness, others EENTM: denies: blurred vision, double vision, ear bleeding, ear discharge, ear drainage, ear pain, ear ringing, eye pain, eye redness, hearing loss, mouth pain, mouth swelling, nasal discharge, nose bleeding, nose congestion, nose pain, photophobia, tearing, throat pain, throat swelling, voice changes, others Respiratory: denies: cough, hemoptysis, orthopnea, SOB at rest, shortness of breath, SOB with excertion, stridor, wheezing, others Cardiovascular: denies: chest pain, dizzy spells, diaphoresis, Dyspnea on exertion, edema, irregular heart beat, left arm pain, lightheadedness, palpitations, PND, syncope, others Gastrointestinal: denies: abdomen distended, abdominal pain, blood streaked bowels, constipated, diarrhea, dysphagia, difficulty swallowing, hematemesis, melena, nausea, poor appetite, poor fluid intake, rectal bleeding, rectal pain, vomiting, others Genitourinary: denies: abnormal vagina bleeding, burning, dyspareunia, dysuria, flank pain, frequency, hematuria, incontinence, pain, , vagina discharge, urgency, others Neurological: denies: dizziness, fainting, headache, left sided numbness, left sided weakness, numbness, paresthesia, pre-existing deficit, right sided numbness, right sided weakness, seizure, speech problems, tingling, tremors, wea kness, others Musculoskeletal: reports: others (RIGHT UPPER ARM PAIN); denies: back pain, gout, joint pain, joint swelling, muscle pain, muscle stiffness, neck pain Integumetry: denies: bruises, change in color, change in hair/nails, dryness, laceration, lesions, lumps, rash, wounds, others Allergic/Immunocompromised: denies: Difficulty Healing, Frequent Infections, Hives, Itching, others Hematologic/Lymphatic: denies: anemia, blood clots, easy bleeding, easy bruising, swollen glands, others Endocrine: denies: excessive hunger, excessive sweating, excessive thirst, excessive urination, flushing, intolerance to cold, intolerance to heat, unexplained weight gain, unexplained weight loss, others Psychiatric: denies: anxiety, bipolar disorder, depression, hopeless, panic disorder, schizophrenia, sleepless, suicidal, others Physical Exam General Appearance: No Apparent Distress, Normal HEENT: Pharynx Normal Neck: Full Range of Motion, Non-Tender Respiratory: Lungs Clear, No Respiratory Distress, Normal Breath Sounds Cardiovascular: No Edema, No JVD, No Murmur, No Gallop, Normal Peripheral Pulses, Regular Rate/Rhythm Breast Exam: Deferred Gastrointestinal: No Organomegaly, Non Tender, No Pulsatile Mass, Normal Bowel Sounds, Soft Genitalia: Deferred Pelvic: Deferred Rectal: Deferred Extremities: No calf tenderness, Normal capillary refill, Normal inspection, Normal range of motion, Non-tender, No pedal edema Musculoskeletal : Location: Right Extremity Location: Arm (TENDERNESS PALPATED WITH TRACE EDEMA RIGHT DISTAL ANTERIOR BICEPS NO NOTED ERYTHEMA OR STREAKING POSITIVE BRACHIAL PULSE POSITIVE RADIAL PULSE STRENGTH SENSORY MOTION INTACT) Apperance: Normal Neurologic: Alert, No Motor Deficits, Normal Affect, Normal Mood, No Sensory Deficits Cerebellar Function: Normal Reflexes: Normal Skin: Dry, Normal Color, Warm Lymphatic: No Adenopathy Was a procedure done? Was a procedure done?: No Differential Diagnosis EXT Differential Diagnosis: Cellulitis, Deep Vein Thrombosis, Contusion, Strain, Neurovascular injury X-Ray, Labs, Meds, VS Vital Signs Date Time Temp Pulse Resp B/P (MAP) Pulse Ox O2 Delivery O2 Flow Rate FiO2 02/13/25 23:01 98.0 88 18 104/57 (73) 97 98.0 Lab Test 02/13/25 23:16 Range/Units White Blood Count 11.5 H 4.4-10.8 10^3/uL Red Blood Count 4.44 4.0-5.20 10^6/uL Hemoglobin 11.3 L 12.2-16.2 g/dL Hematocrit 34.9 L 36.0-46.0 % Mean Corpuscular Volume 78.7 L 80.0-100.0 fL Mean Corpuscular Hemoglobin 25.4 L 28.0-32.0 pg Mean Corpuscular Hemoglobin Concent 32.2 32.0-36.0 g/dL Red Cell Distribution Width 17.7 H 11.8-14.3 % Platelet Count 405 140-450 10^3/uL Mean Platelet Volume 7.1 6.9-10.8 fL Neutrophils (%) (Auto) 71.3 37.0-80.0 % Lymphocytes (%) (Auto) 21.1 10.0-50.0 % Monocytes (%) (Auto) 4.8 0.0-12.0 % Eosinophils (%) (Auto) 2.5 0.0-7.0 % Basophils (%) (Auto) 0.3 0.0-2.0 % Neutrophils # (Auto) 8.2 1.6-8.6 10 ^3/uL Lymphocytes # (Auto) 2.4 0.4-5.4 10 ^3/uL Monocytes # (Auto) 0.5 0-1.3 10 ^3/uL Eosinophils # (Auto) 0.3 0-0.8 10 ^3/uL Basophils # (Auto) 0 0-0.2 10 ^3/uL Nucleated Red Blood Cells 0.0 % Prothrombin Time 10.4 9.3-11.8 sec Prothrombin Time INR 0.98 0.9-1.15 Activated Partial Thromboplast Time 28.4 24.5-34.5 SEC D-Dimer, Quantitative 0.61 H 0.0-0.49 mg/L FEU Sodium Level 138 136-145 mmol/L Potassium Level 3.6 3.5-5.1 mmol/L Chloride Level 103 98-107 mmol/L Carbon Dioxide Level 26 20-31 mmol/L Anion Gap 9 5-15 Blood Urea Nitrogen 12 9-23 mg/dL Creatinine 0.65 0.550-1.02 mg/dL Glomerular Filtration Rate Calc 113 >90 mL/min BUN/Creatinine Ratio 18.5 10.0-20.0 Serum Glucose 104 74-106 mg/dL Calcium Level 9.9 8.7-10.4 mg/dL Total Bilirubin 0.3 0.2-1.0 mg/dL Aspartate Amino Transferase (AST) 16 13-40 U/L Alanine Aminotransferase (ALT) 11 7-40 U/L Alkaline Phosphatase 111 46-116 U/L Total Protein 8.4 H 5.7-8.2 g/dL Albumin 4.8 3.2-4.8 g/dL X-Ray, Labs, Meds, VS Comment RIGHT UPPER EXTREMITY VENOUS ULTRASOUND CLINICAL HISTORY: right upper mid bicep pain and edema COMPARISON: 01/05/2025 IMPRESSION: No sonographic evidence of deep venous thrombosis in the right upper extremity at this time. CBC, CMP WITHIN NORMAL LIMITS D-DIMER SLIGHT BUMP AT 0.65 TRENDING DOWNWARD COMPARED TO LAST D-DIMER PATIENT WAS SEEN HERE SEVERAL DAYS AGO. ADVISED PATIENT TO CONTINUE HER ELIQUIS PRESCRIBED. ADVISED ON THE IMPORTANCE OF FOLLOWING UP WITH HER PCP IN 2 DAYS. WE ALSO DISCUSSED ER RETURN PRECAUTIONS SUCH CHEST PAIN, DIFFICULTY BREATHING, SHORTNESS OF BREATH, OR ANY CONCERNING SYMPTOMS. PATIENT INDICATES UNDERSTANDING AND AGREES WITH DISCHARGE PLAN OF CARE. Time of 1ST Reevaluation: 00:00 Reevaluation 1ST: Unchanged Time of 2ND Reevaluation: 02:16 Reevaluation 2ND: Improved Patient Education/Counseling: Diagnosis, Treatment, Prognosis, Need For Follow Up Family Education/Counseling: No Family Present Departure 1 Departure Time of Disposition: 02:15 Impression: Primary Impression: Right upper limb pain Disposition: 01 HOME / SELF CARE / HOMELESS Condition: Stable Additional Instructions: You MUST follow-up with your primary care/family doctor in 1 to 2 days. If you are unable to see your primary care/family doctor, please return to our emergency room for re-assessment and re-evaluation in 1 to 2 days. Return to the emergency room here in our facility or to the nearest ER [facility] if your symptoms change or worsen. CONSULTATIONS: you MUST Follow-up for consultation as soon as possible with: -hematology and vascular medicine in 1-2 days. Please call for appointment. You MUST call the consultants office yourself to make an appointment. You may need to arrange that through your insurance and/or your primary/family doctor. If you are unable to see the php consultant in 1 to 2 days, you must return to our emergency room (or any other ER of your choice) for re-assessment and re- evaluation. Adequate fluid hydration. Continue your Eliquis Repeat extremity ultrasound in 4-5 days or sooner if symptoms change or worsen. Discharged With: Self Critical Care Note Critical Care Time?: No Stability Stability form required: No DAVID ALEMAN [employer] SALES CONSULTANT Feb 14, 2025 02:17
== END 2025-02-14 02:14 | disposition home or self-care (01) ==
LOC: ER 22:14
DX: M79.601 Pain in right arm (principal); F41.9 Anxiety disorder, unspecified; Z86.2 Personal history of diseases of the blood and blood-forming organs and certain disorders involving the immune mechanism; Z86.73 Personal history of transient ischemic attack (TIA), and cerebral infarction without residual deficits; Z90.49 Acquired absence of other specified parts of digestive tract; Z88.5 Allergy status to narcotic agent; Z79.1 Long term (current) use of non-steroidal anti-inflammatories (NSAID); Z79.01 Long term (current) use of anticoagulants; Z79.899 Other long term (current) drug therapy
CPT/HCPCS: 36415; 80053; 85025; 85379; 85610; 85730; 93971

== ENCOUNTER 2025-02-15 20:15 | Emergency (ER) | payer MEDICAID ==
[~2025-02-15] VITALS: Ht 5.1 cm; Wt 81.6 kg
[2025-02-15 20:21] VITALS: PULSE 73; RESP 16; O2SAT 98
[2025-02-15 21:02] LABS: Basophils # (auto) 0 10 ^3/uL (0-0.2); Basophils % (auto) 0.4 % (0.0-2.0); Eosinophils # (auto) 0.1 10 ^3/uL (0-0.8); Eosinophils % (auto) 1.9 % (0.0-7.0); Hematocrit 32.1 % (36.0-46.0); Hemoglobin 10.4 g/dL (12.2-16.2); Lymphocytes % (auto) 26.3 % (10.0-50.0); Mean Corpuscular Hemoglobin 25.6 pg (28.0-32.0); Mean Corpuscular Hgb Conc. 32.2 g/dL (32.0-36.0); Mean Corpuscular Volume 79.2 fL (80.0-100.0); Monocytes # (auto) 0.5 10 ^3/uL (0-1.3); Neutrophils # (auto) 4.9 10 ^3/uL (1.6-8.6); Neutrophils % (auto) 65.4 % (37.0-80.0); Platelet Count (auto) 364 10^3/uL (140-450); Red Blood Cells 4.05 10^6/uL (4.0-5.20); Red Cell Distribution Width 17.5 % (11.8-14.3); White Blood Cell 7.5 10^3/uL (4.4-10.8)
--- NOTE | 2025-02-15 21:03 | DVH ---
EXAM: XY CHEST XRAY 1 VIEW TECHNIQUE: Single frontal chest radiograph CLINICAL HISTORY: cp COMPARISON: XY CHEST PORTABLE on DOS: 12/26/24, XY CHEST PORTABLE on DOS: 08/18/24, XY CHEST PORTABLE o n DOS: 05/06/24 Findings/Impression: Frontal chest radiograph demonstrates no acute osseous or superficial soft tissue abnormalities. The trachea is midline. The cardiac silhouette and mediastinum are within normal limits. No pneumothorax, pleural effusions, or consolidations.
[2025-02-15 21:16] LABS: Alanine Aminotransferase 13 U/L (7-40); Albumin 4.5 g/dL (3.2-4.8); Alkaline Phosphatase 107 U/L (46-116); Anion Gap 9 (5-15); Aspartate Aminotransferase 14 U/L (13-40); Blood Urea Nitrogen 13 mg/dL (9-23); Calcium 9.8 mg/dL (8.7-10.4); Carbon Dioxide 27 mmol/L (20-31); Chloride 107 mmol/L (98-107); Magnesium 1.8 mg/dL (1.6-2.6); Potassium 3.8 mmol/L (3.5-5.1); Sodium 143 mmol/L (136-145); Total Protein 7.8 g/dL (5.7-8.2)
--- NOTE | 2025-02-15 21:25 | ED.PDOC ---
History of Present Illness HPI Comments 44 y/o F presents with 3x day history of intermittent, sternal chest pain, with associated shortness of breath and right shoulder pain. Patient reports onset of pain following previous [facility] ED visit on February 13, 2025. She states on pain being absent at the time of assessment but rates it a 5/10 in severity and sharp in quality when present .Patient has a history of frequent ED visits, anemia, anxiety, asthma, left upper extremity DVT on Eliquis, occipital neuralgia, pancreatitis, pots, sinus tachycardia posterior orthostatic tachycardia syndrome, and cholecystectomy. No recent travel, stressors, strenuous activities, or further relevant events endorsed. Patient denies having any associated nausea, vomiting, cough, congestion, fever, or further associated symptoms. Chief Complaint: Chest Pain Time Seen by MD: 20:25 Primary Care Provider: Dr. Randolph Reviewed Notes: Nurses Notes, Medications, Allergies Allergies: Coded Allergies: Morphine (Verified Allergy, Severe, 07/12/24) Ondansetron (Verified Allergy, Severe, 07/12/24) Metoclopramide (Verified Allergy, Unknown, 07/10/24) Home Meds Active Scripts Gabapentin (Gabapentin) 300 Mg Cap, 1 CAP PO Q6HP PRN, #30 CAP 0 Refills Prov:HARSHA OSHEA PAC 11/27/24 Ibuprofen (Ibuprofen) 800 Mg Tab, 1 TAB PO TID PRN, #30 TAB 0 Refills Prov:JOHN CANCHOLA 07/15/24 Ascorbic Acid (VITAMIN C TABLET) 500 Mg Tb, 1 TAB PO BID for 30 Days, #60 TAB 3 Refills Prov:GAYE ALVAREZ MD 07/12/24 Ferrous Sulfate (Iron Supplement) 220 Mg/5 Ml Elx, 220 MG PO BID for 30 Days, #60 ELX Prov:GAYE ALVAREZ MD 07/12/24 Hydrocodone-Acetaminophen (Hydrocodone Bitartrate/AC 5-325 mg) 1 Tab Tab, 1 TAB PO BID for 5 Days, #10 TAB Prov:GAYE ALVAREZ MD 07/12/24 Cyclobenzaprine Hcl (Cyclobenzaprine Hcl) 10 Mg Tab, 10 MG PO TIDBM for 5 Days, #15 TAB Prov:GAYE ALVAREZ MD 07/12/24 Diclofenac Potassium (Diclofenac Potassium) 50 Mg Tab, 1 TAB PO TIDP for 5 Days, #15 TAB Prov:GAYE ALVAREZ MD 07/12/24 Nitrofurantoin Monohydrate Mac (Macrobid) 100 Mg Cap, 100 MG PO BID for 10 Days, #20 CAP Prov:GAYE ALVAREZ MD 07/12/24 Naproxen (NAPROSYN TABLET) 500 Mg Tb, 500 MG GT BID for 10 Days, #20 TAB Prov:MAYNOR HOYT MD 06/12/24 Ondansetron Odt 4MG Tab (ZOFRAN PO) 4 Mg Tb, 4 MG PO TID for 10 Days, #30 TAB ODT TAB-DISSOLVE IN MOUTH, THEN SWALLOW Prov:MAYNOR HOYT MD 06/12/24 Nitrofurantoin Monohydrate Mac (Macrobid) 100 Mg Cap, 100 MG PO BID for 7 Days, #14 CAP Prov:RUTHIE TROTTER MD 06/08/24 Meclizine Hcl (Meclizine Hcl) 12.5 Mg Tab, 25 MG PO TID for 7 Days, #42 TAB Prov:MAYNOR HOYT MD 04/25/24 Hydrocodone-Acetaminophen (Hydrocodone Bitartrate/AC 5-325 mg) 1 Tab Tab, 1 TAB PO QIDPRN, #20 TAB Prov:MARKO BARBER MD 03/27/24 Potassium Chloride (Potassium Chloride ER) 10 Meq Tab, 10 MEQ PO DAILY for 7 Days, #7 TAB Prov:ANDREY ARELLANO MD 01/18/24 Acetaminophen (Acetaminophen) 500 Mg Tab, 500 MG PO QIDPRN for 10 Days, #40 TAB Prov:JOSE VANEGAS DO 01/10/24 Clindamycin Hcl (Clindamycin Hcl) 300 Mg Cap, 1 CAP PO QID for 10 Days, #40 CAP Prov:LUPE GIL Q WEB USER EXPERIENCE STRATEGIST 12/24/23 Acetaminophen W/ Codeine (Tylenol W/Cod #3) 1 Tab Tb, 1 TAB PO Q6HP PRN, #10 TAB Prov:HARSHA OSHEA PAC 11/15/23 Acetaminophen W/ Codeine (Tylenol W/Cod #3) 1 Tab Tb, 1 TAB PO Q8HP PRN, #15 TAB Prov:HARSHA OSHEA PAC 10/25/23 Apixaban Base (ELIQUIS) 5 Mg Tab, 5 MG PO BID for 30 Days, #60 TAB 2 Refills Prov:TANIYA LUNA DO 10/06/23 Apixaban Base (ELIQUIS) 5 Mg Tab, 10 MG PO BID for 10 Days, #40 TAB 0 Refills Prov:TANIYA LUNA DO 10/06/23 Reported Medications Metoprolol Tartrate (LOPRESSOR TABLET) 50 Mg Tb, 0.5 TAB PO BID 09/28/23 Information Source: Patient Mode of Arrival: Ambulatory Severity: Moderate Timing: Days Duration: Intermittent Prehospital treatment: None Review of Systems: REVIEW OF SYSTEMS: No fever, no chills, or fatigue HEENT: No sore throat, no earache, no congestion, no neck pain. Cardiac: Chest pain. No palpitations. Lungs: Shortness of breath, no cough. GI: No nausea, no vomiting, no diarrhea, no constipation, no abdominal pain : No dysuria, frequency, or urgency. No hematuria. Musculoskeletal: Right shoulder pain, no joint swelling, no extremity edema. Skin: No rash, no itching. Neuro: No headache, no dizziness, no weakness Vital Signs Vital Signs Date Time Temp Pulse Resp B/P (MAP) Pulse Ox O2 Delivery O2 Flow Rate FiO2 02/15/25 22:15 98.1 70 15 101/65 (77) 98 98.1 02/15/25 20:21 Room Air* 0 21 Physical Exam General: Awake, alert and oriented. No acute distress. Skin: Skin in warm, dry and intact. Appropriate color for ethnicity. HEENT: The head is normocephalic and atraumatic. Conjunctivae are clear without exudates or hemorrhage. Sclera is non-icteric. EOM are intact. No signs of nystagmus. Eyelids are normal in appearance without swelling or lesions. Oral mucosa is pink and moist Neck: The neck is supple with normal range of motion. No JVD. Cardiac: Heart rate and rhythm are normal. No murmurs, gallops, or rubs are auscultated. Respiratory: No signs of respiratory distress. Lung sounds are clear in all lobes bilaterally without rales, rhonchi, or wheezes. Abdominal: Abdomen is soft, non-tender without distention, guarding or rigidity. Bowel sounds are present and normoactive in all four quadrants. Extremities: Upper and lower extremities are atraumatic in appearance without deformity or edema. Neurological: The patient is awake, alert and oriented to person, place, and time with normal speech. Speech is clear. There is no facial asymmetry. Psychiatric: Appropriate mood and affect. Good judgement and insight. 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 Was a procedure done?: No EKG EKG : Pulse Rate (adult): 77 [place]: Normal Cardiac Rhythm: NSR Block: None Hypertrophy: None ST: Normal Comments No STEMI Differential Dx Considerations may include: Differential diagnoses considered include acute ischemic coronary syndrome, aortic dissection, cardiac tamponade, mediastinitis, pulmonary embolus, pneum othorax, tension pneumothorax, esophageal rupture, coronary artery vasospasm, myocarditis, pericarditis, pneumonia, pulmonary edema, esophageal tear, pancreatitis, aortic stenosis, dilated cardiomyopathy, hypertrophic cardiomyopathy, mitral valve prolapse, malignancy, pleuritis, pneumomediastinum, primary pulmonary hypertension, cholecystitis, esophageal spasm, esophagus, gastritis, GERD, peptic ulcer disease, costochondritis, fibromyalgia, rib fracture, herpes zoster, radicular syndromes, thoracic outlet syndrome, somatization. X-Ray, Labs, Meds, VS Vital Signs Date Time Temp Pulse Resp B/P (MAP) Pulse Ox O2 Delivery O2 Flow Rate FiO2 02/15/25 22:15 98.1 70 15 101/65 (77) 98 98.1 02/15/25 21:25 77 02/15/25 21:18 70 02/15/25 20:21 77 02/15/25 20:21 98.4 73 16 116/74 (88) 98 98.4 02/15/25 20:21 98.4 73 16 116/74 (88) 98 98.4 02/15/25 20:21 73 16 98 Room Air* 0 21 Lab Test 02/15/25 21:46 02/15/25 20:47 Range/Units Troponin I High Sensitivity < 3 L < 3 L </=34 ng/L White Blood Count 7.5 # 4.4-10.8 10^3/uL Red Blood Count 4.05 4.0-5.20 10^6/uL Hemoglobin 10.4 L 12.2-16.2 g/dL Hematocrit 32.1 L 36.0-46.0 % Mean Corpuscular Volume 79.2 L 80.0-100.0 fL Mean Corpuscular Hemoglobin 25.6 L 28.0-32.0 pg Mean Corpuscular Hemoglobin Concent 32.2 32.0-36.0 g/dL Red Cell Distribution Width 17.5 H 11.8-14.3 % Platelet Count 364 140-450 10^3/uL Mean Platelet Volume 7.2 6.9-10.8 fL Neutrophils (%) (Auto) 65.4 37.0-80.0 % Lymphocytes (%) (Auto) 26.3 10.0-50.0 % Monocytes (%) (Auto) 6.0 0.0-12.0 % Eosinophils (%) (Auto) 1.9 0.0-7.0 % Basophils (%) (Auto) 0.4 0.0-2.0 % Neutrophils # (Auto) 4.9 1.6-8.6 10 ^3/uL Lymphocytes # (Auto) 2.0 0.4-5.4 10 ^3/uL Monocytes # (Auto) 0.5 0-1.3 10 ^3/uL Eosinophils # (Auto) 0.1 0-0.8 10 ^3/uL Basophils # (Auto) 0 0-0.2 10 ^3/uL Nucleated Red Blood Cells 0.0 % Sodium Level 143 # 136-145 mmol/L Potassium Level 3.8 3.5-5.1 mmol/L Chloride Level 107 98-107 mmol/L Carbon Dioxide Level 27 20-31 mmol/L Anion Gap 9 5-15 Blood Urea Nitrogen 13 9-23 mg/dL Creatinine 0.62 0.550-1.02 mg/dL Glomerular Filtration Rate Calc 114 >90 mL/min BUN/Creatinine Ratio 21.0 H 10.0-20.0 Serum Glucose 108 H 74-106 mg/dL Calcium Level 9.8 8.7-10.4 mg/dL Magnesium Level 1.8 1.6-2.6 mg/dL Total Bilirubin 0.3 0.2-1.0 mg/dL Aspartate Amino Transferase (AST) 14 13-40 U/L Alanine Aminotransferase (ALT) 13 7-40 U/L Alkaline Phosphatase 107 46-116 U/L B-Type Natriuretic Peptide 4.11 0-100 pg/mL Total Protein 7.8 5.7-8.2 g/dL Albumin 4.5 3.2-4.8 g/dL [place] [address] Ph: [phone] DIAGNOSTIC IMAGING Diagnostic Imaging Report : [id number] Signed PATIENT: TIMA SPENCER ACCT: [id number] UNIT: [id number] : 1980 LOC: ER ROOM / BED: / AGE / SEX: 44 / F ADM STATUS: REG ER SERVICE 28 ORDERING PHYSICIAN: PRESTON KAPLAN MD PROCEDURE(s): CXR1 - CHEST XRAY 1 VIEW REASON: cp ORDER NUMBER(s): [id number], ACCESSION NUMBER(s): [id number] EXAM: XY CHEST XRAY 1 VIEW TECHNIQUE: Single frontal chest radiograph CLINICAL HISTORY: cp COMPARISON: XY CHEST PORTABLE on DOS: 12/26/24, XY CHEST PORTABLE on DOS: 08/18/24, XY CHEST PORTABLE on DOS: 05/06/24 Findings/Impression: Frontal chest radiograph demonstrates no acute osseous or superficial soft tissue abnormalities. The trachea is midline. The cardiac silhouette and mediastinum are within normal limits. No pneumothorax, pleural effusions, or consolidations. ATED BY: YOLIS HOGUE DO DICTATED DATE/TIME: 02/15/252100 SIGNED BY: YOLIS HOGUE DO SIGNED DATE/TIME: 02/15/252100 CC: Time of 1ST Reevaluation: 20:55 Reevaluation 1ST: Unchanged Patient Education/Counseling: Need For Follow Up Family Education/Counseling: No Family Present Departure 1 Departure Time of Disposition: 22:50 Impression: Primary Impression: Chest pain Additional Impression: Anemia Disposition: 01 HOME / SELF CARE / HOMELESS Condition: Stable Additional Instructions: ED DISCHARGE INSTRUCTIONS Instructions: Please read all instructions provided in this packet carefully. Although you have been discharged from the Emergency Department, this does not mean that you have a "clean bill of health". No definitive diagnosis for your symptoms has been made today. It is possible that you are in the process of developing a serious illness. This is why you must return to the ED without fail if any new or worsening symptoms (especially if your symptoms include chest pain, trouble breathing, abdominal pain, fever, headache, confusion, trouble seeing, or trouble walking) It is also very important that you see a primary care doctor within the next 3-5 days to follow up. If you are unable to get an appointment, return to the ED for re-evaluation. Your blood work showed that you were anemic today, follow up with the primary care provider for further evaluation. CHEST PAIN EDUCATION There are many things that can cause chest pain. Some are not serious and will get better on their own in a few days. But some kinds of chest pain need more testing and treatment. Your doctor may have recommended a follow-up visit in the next few days. If you are not getting better, you may need more tests or treatment. Even though your doctor has released you, you still need to watch for any problems. The doctor carefully checked you, but sometimes problems can develop later. If you have new symptoms or if your symptoms do not get better, get medical care right away. If you have worse or different chest pain or pressure that lasts more than 5 minutes or you passed out (lost consciousness), call 911 or seek other emergency help right away. A medical visit is only one step in your treatment. Even if you feel better, you still need to do what your doctor recommends, such as going to all suggested follow-up appointments and taking medicines exactly as directed. This will help you recover and help prevent future problems. How can you care for yourself at home? Rest until you feel better. Take your medicine exactly as prescribed. Call your doctor if you think you are having a problem with your medicine. Do not drive after taking a prescription pain medicine. When should you call for help? Call 911 if: You passed out (lost consciousness). You have severe difficulty breathing. You have symptoms of a heart attack. These may include: Chest pain or pressure, or a strange feeling in your chest. Sweating. Shortness of breath. Nausea or vomiting. Pain, pressure, or a strange feeling in your back, neck, jaw, or upper belly or in one or both shoulders or arms. Lightheadedness or sudden weakness. A fast or irregular heartbeat. After you call 911, the casting room operator may tell you to chew 1 adult-strength or 2 to 4 low-dose aspirin. Wait for an ambulance. Do not try to drive yourself. Call your doctor now or seek immediate medical care if: You have any trouble breathing. You have new or different chest pain. You are dizzy or lightheaded, or you feel like you may faint. Watch closely for changes in your health, and be sure to contact your doctor if you do not get better as expected. Current as of: April 09, 2024 Author: [employer] Staff? Comments 44-year-old female with intermittent chest pain. EKG negative for signs of ischemia. High sensitivity troponin negative. CXR shows no acute process. Patient is already on Eliquis, she is not tachycardic, tachypneic or hypoxic. Presentation not suggestive of acute coronary syndrome, pulmonary embolism or aortic dissection. Patient improved at time of discharge. No hypoxia, respiratory distress or dyspnea at discharge. Patient able to ambulate without difficulty. Patient advised to follow up with the primary care provider promptly for re-evaluation and return to the emergency department with any new, worsening or concerning symptoms. Extensive evaluation was performed in attempt to identify or rule out: (See differential diagnosis section) The following tests were ordered, and results were reviewed by me and discussed with patient: (See diagnostic results section) The following test were independently interpreted by me: EKG I reviewed and agreed with the following test results read by other providers: Chest x-ray I reviewed the following notes from the pt's past medical encounters: January 19, 2025 and February 05, 2025 and February 13, 2025 encounters for shortness of breath, left leg pain, and upper extremity, respectfully Additional information was gathered from interviewing the following independent historians: N/A Discussion of management or test interpretation with external physician/other qualified health critical care nurse practitioner: N/A Decision regarding hospitalization or escalation of hospital level of care: Risks and benefits of admission for further treatment of patient's condition was considered however due to patient's stable condition patient will be discharged to follow up closely or return to care for worsening of condition or inability to follow up. Critical Care Note Critical Care Time?: No Stability Stability form required: No Heart Score Heart Score: Heart Score Response (Comments) Value History Moderate Suspicious 1 EKG Normal 0 Age <45 0 Risk Factors >3 or Hx ASHD 2 Troponin Normal limit 0 Total 3 I personally scribed for PRESTON KAPLAN MD ([email or web address]) on 02/15/25 at 21:25. Electronically submitted by Norris Arellano ([email or web address]). I personally scribed for PRESTON KAPLAN MD ([email or web address]) on 02/15/25 at 21:28. Electronically submitted by Norris Arellano ([email or web address]). PRESTON KAPLAN MD Feb 15, 2025 21:25
[2025-02-15 21:50] LABS: Bilirubin, Total 0.3 mg/dL (0.2-1.0); Glucose 108 mg/dL (74-106)
[2025-02-15 22:15] VITALS: BP 101/65; PULSE 70; RESP 15; TEMP 98.1; O2SAT 98
--- NOTE | 2025-02-16 04:58 | ECG ---
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
--- NOTE | 2025-02-16 06:41 | ECG ---
[facility] Test Date: 2025-02-15 Test Time: 21:18:15 Pat Name: TIMA SPENCER Department: ED Room: Gender: F Hospital Scientist: : 1980 Requested By: PRESTON KAPLAN Order Number: [id number] Reading MD: Sherwin Patterson Measurements Intervals [place] Rate: 70 P: 5 [place]: 162 QRS: 14 QRSD: 93 T: 2 QT: 375 QTc: 405 Interpretive Statements Sinus rhythm Low voltage, precordial leads Borderline T abnormalities, anterior leads Electronically Signed On 02-18-2025 20:56:27 PDT by Sherwin Patterson Please click the below link to view image of tracing.
== END 2025-02-15 23:30 | disposition home or self-care (01) ==
LOC: ER 20:15
DX: R07.2 Precordial pain (principal); D64.9 Anemia, unspecified; F41.9 Anxiety disorder, unspecified; J45.909 Unspecified asthma, uncomplicated; Z86.73 Personal history of transient ischemic attack (TIA), and cerebral infarction without residual deficits; Z79.01 Long term (current) use of anticoagulants; Z79.1 Long term (current) use of non-steroidal anti-inflammatories (NSAID); Z79.899 Other long term (current) drug therapy; Z88.5 Allergy status to narcotic agent; Z86.718 Personal history of other venous thrombosis and embolism; Z90.49 Acquired absence of other specified parts of digestive tract; Z98.890 Other specified postprocedural states; Z87.898 Personal history of other specified conditions; Z88.1 Allergy status to other antibiotic agents
CPT/HCPCS: 36415; 71045; 80053; 83735; 83880; 84484; 85025; 93005

== ENCOUNTER 2025-02-24 18:47 | Emergency (ER) | payer MEDICAID ==
[~2025-02-24] VITALS: Ht 157.5 cm; Wt 81.0 kg
--- NOTE | 2025-02-24 19:51 | ED.PDOC ---
GI ASSESSMENT HPI Comments HPI: 44y F who presents to the ED for chief complaint of abdominal pain. - pt state she had gallbladder removed 1x years prior - pt states she has been having generalized aches and pains by the RUQ since - pt states over the past 2 days, she has been having increasing "burning " pains in the RUQ - pt states the pain occurs only when pt is sitting or lying down, intermittent, non-radiating, with no associated exacerbating or relieving factors - pt otherwise denies any associated nausea, vomiting or any associated symptoms - pt denies any other symptoms at this time Past Medical history: POTS, occipital neuralgia, anemia, anxiety, asthma Past Surgical history: cholecystomy, multiple c-sections Medications: nortriptyline, propranolol, Allergies: metoclopramide, morphine, Zofran Social History: denies ETOH, denies tobacco use, denies drug use SPENCER: HPI: Poor Historian. REVIEW OF SYSTEMS: CONSTITUTIONAL: Denies acute: fever, diaphoresis, chills, generalized weakness. HEAD: Denies acute: headache, photophobia Eyes: Denies acute: Double vision, vision loss, eye pain, eye discharge. EARS: Denies acute: tinnitus, hearing loss, ear discharge, ear pain, THROAT: Denies acute: sore throat, swelling, difficulty swallowing , pain with swallowing, change in voice. NECK: Denies acute: neck pain, neck swelling, stiff neck. HEART: Denies acute : chest pain, palpitations, LUNGS: Denies acute: SOB, wheezing, cough, hemoptysis ABDOMEN: Denies acute: Nausea, Vomiting, diarrhea, melena , hematemesis, hematochezia SKIN: Denies acute: rash, redness, lesions, itchiness. EXTREMITIES: Denies acute: calf pain, numbness, tingling, weakness, denies pain in extremity. Denies acute: Low back pain. Neuro: Denies acute: focal neurological deficit, motor or sensory focal neurological deficit, tremors, seizure like activity, confusion, dizziness, change in mental status, loss of bowel or bladder function, cauda equina like symptoms. : Denies acute: dysuria, hematuria, flank pain, increase in urinary frequency. PSYCH: Denies acute: hallucination, suicidal ideation, homicidal ideation. FEMALE: Denies acute: abnormal vaginal bleeding, foul odor, unusual discharge. PHYSICAL EXAM: General: ----no----acute distress, awake and alert. Head: normocephalic, atraumatic. Neck: supple, trachea is midline, no swelling. Throat: Normal phonation. Eyes:, no erythema, no purulent discharge, no proptosis, no icterus. Heart: regular rate, regular rhythm, no significant murmur appreciated. Lungs: no apparent respiratory distress, Able to speak in full sentences. No wheezing, no rhonchi, no crackles. No stridors Clear to auscultation bilaterally. Abdomen: non tender to palpation, non distended, soft, no guarding, no rebound, + bowel sounds. Neuro: Awake, Alert, oriented to name, self, situation, follows commands GCS=15. Speech is normal. Skin: no petechia, no purpura, no cyanosis, non-pale, not jaundice. Lower extremities: --no - Pitting edema no deformity, no focal swelling, no calf TTP. Makes eye contact. moves all four extremities. Face: no apparent facial droop. Ambulating in the ED independently. ED COURSE: DISCLAIMER: This medical document was created using an electronic medical record system with voice recognition software and computerized dictation system. Although this document has been carefully reviewed, there might still be some phonetic and typographical errors. Occasional wrong-word or "sound-alike" substitutions may have occurred due to the inherent limitations of voice recognition software. These areas are purely typographical due to imperfections of the software programs and do not reflect any compromise in the patient's medical care. Please read the chart carefully and recognize, using context, where these substitutions have occurred. Time Seen by MD: 19:50 Primary Care Provider: Dr. Randolph Reviewed Notes: Medications, Allergies Allergies: Coded Allergies: Morphine (Verified Allergy, Severe, 07/12/24) Ondansetron (Verified Allergy, Severe, 07/12/24) Metoclopramide (Verified Allergy, Unknown, 07/10/24) Home Meds Active Scripts Nitrofurantoin Monohydrate Mac (Macrobid) 100 Mg Cap, 100 MG PO BID for 7 Days, #14 CAP Prov:NANO,MITA J 02/24/25 Gabapentin (Gabapentin) 300 Mg Cap, 1 CAP PO Q6HP PRN, #30 CAP 0 Refills Prov:HARSHA OSHEA PAC 11/27/24 Ibuprofen (Ibuprofen) 800 Mg Tab, 1 TAB PO TID PRN, #30 TAB 0 Refills Prov:JOHN CANCHOLA 07/15/24 Ascorbic Acid (VITAMIN C TABLET) 500 Mg Tb, 1 TAB PO BID for 30 Days, #60 TAB 3 Refills Prov:GAYE ALVAREZ MD 07/12/24 Ferrous Sulfate (Iron Supplement) 220 Mg/5 Ml Elx, 220 MG PO BID for 30 Days, #60 ELX Prov:GAYE ALVAREZ MD 07/12/24 Hydrocodone-Acetaminophen (Hydrocodone Bitartrate/AC 5-325 mg) 1 Tab Tab, 1 TAB PO BID for 5 Days, #10 TAB Prov:GAYE ALVAREZ MD 07/12/24 Cyclobenzaprine Hcl (Cyclobenzaprine Hcl) 10 Mg Tab, 10 MG PO TIDBM for 5 Days, #15 TAB Prov:GAYE ALVAREZ MD 07/12/24 Diclofenac Potassium (Diclofenac Potassium) 50 Mg Tab, 1 TAB PO TIDP for 5 Days, #15 TAB Prov:GAYE ALVAREZ MD 07/12/24 Nitrofurantoin Monohydrate Mac (Macrobid) 100 Mg Cap, 100 MG PO BID for 10 Days, #20 CAP Prov:GAYE ALVAREZ MD 07/12/24 Naproxen (NAPROSYN TABLET) 500 Mg Tb, 500 MG GT BID for 10 Days, #20 TAB Prov:MAYNOR HOYT MD 06/12/24 Ondansetron Odt 4MG Tab (ZOFRAN PO) 4 Mg Tb, 4 MG PO TID for 10 Days, #30 TAB ODT TAB-DISSOLVE IN MOUTH, THEN SWALLOW Prov:MAYNOR HOYT MD 06/12/24 Nitrofurantoin Monohydrate Mac (Macrobid) 100 Mg Cap, 100 MG PO BID for 7 Days, #14 CAP Prov:RUTHIE TROTTER MD 06/08/24 Meclizine Hcl (Meclizine Hcl) 12.5 Mg Tab, 25 MG PO TID for 7 Days, #42 TAB Prov:MAYNOR HOYT MD 04/25/24 Hydrocodone-Acetaminophen (Hydrocodone Bitartrate/AC 5-325 mg) 1 Tab Tab, 1 TAB PO QIDPRN, #20 TAB Prov:MARKO BARBER MD 03/27/24 Potassium Chloride (Potassium Chloride ER) 10 Meq Tab, 10 MEQ PO DAILY for 7 Days, #7 TAB Prov:ANDREY BLOCK MD 01/18/24 Acetaminophen (Acetaminophen) 500 Mg Tab, 500 MG PO QIDPRN for 10 Days, #40 TAB Prov:JOSE VANEGAS DO 01/10/24 Clindamycin Hcl (Clindamycin Hcl) 300 Mg Cap, 1 CAP PO QID for 10 Days, #40 CAP Prov:LUPE GIL BLOCK BREAKER 12/24/23 Acetaminophen W/ Codeine (Tylenol W/Cod #3) 1 Tab Tb, 1 TAB PO Q6HP PRN, #10 TAB Prov:HARSHA OSHEA PAC 11/15/23 Acetaminophen W/ Codeine (Tylenol W/Cod #3) 1 Tab Tb, 1 TAB PO Q8HP PRN, #15 TAB Prov:HARSHA OSHEA PAC 10/25/23 Apixaban Base (ELIQUIS) 5 Mg Tab, 5 MG PO BID for 30 Days, #60 TAB 2 Refills Prov:TANIYA LUNA DO 10/06/23 Apixaban Base (ELIQUIS) 5 Mg Tab, 10 MG PO BID for 10 Days, #40 TAB 0 Refills Prov:TANIYA LUNA DO 10/06/23 Reported Medications Metoprolol Tartrate (LOPRESSOR TABLET) 50 Mg Tb, 0.5 TAB PO BID 09/28/23 Information Source: Patient Mode of Arrival: Ambulatory Brought in by: self Past Medical History PAST MEDICAL HISTORY: Anemia, Anxiety, Asthma, TIA Surgical History: Cholecystectomy, SHIFT COORDINATOR History: No Pertinent SHIFT COORDINATOR History Family History Family History: Reviewed,noncontributory to illness, Family hx of HTN Social History Smoker: Non-Smoker Alcohol: Denies ETOH Use Drugs: Denies Drug Use Lives In: Home Was a procedure done? Was a procedure done?: No X-Ray, Labs, Meds, VS Vital Signs Date Time Temp Pulse Resp B/P (MAP) Pulse Ox O2 Delivery O2 Flow Rate FiO2 6/17/25 21:32 97.8 73 16 112/46 (68) 99 97.8 02/24/25 21:30 73 16 99 Room Air* 0 21 02/24/25 19:40 97.7 80 18 107/71 (83) 96 97.7 Lab Test 02/24/25 19:48 02/24/25 19:42 Range/Units White Blood Count 10.5 4.4-10.8 10^3/uL Red Blood Count 4.41 4.0-5.20 10^6/uL Hemoglobin 11.1 L 12.2-16.2 g/dL Hematocrit 34.6 L 36.0-46.0 % Mean Corpuscular Volume 78.4 L 80.0-100.0 fL Mean Corpuscular Hemoglobin 25.2 L 28.0-32.0 pg Mean Corpuscular Hemoglobin Concent 32.1 32.0-36.0 g/dL Red Cell Distribution Width 17.7 H 11.8-14.3 % Platelet Count 379 140-450 10^3/uL Mean Platelet Volume 7.0 6.9-10.8 fL Neutrophils (%) (Auto) 69.8 37.0-80.0 % Lymphocytes (%) (Auto) 22.0 10.0-50.0 % Monocytes (%) (Auto) 5.9 0.0-12.0 % Eosinophils (%) (Auto) 2.1 0.0-7.0 % Basophils (%) (Auto) 0.2 0.0-2.0 % Neutrophils # (Auto) 7.3 1.6-8.6 10 ^3/uL Lymphocytes # (Auto) 2.3 0.4-5.4 10 ^3/uL Monocytes # (Auto) 0.6 0-1.3 10 ^3/uL Eosinophils # (Auto) 0.2 0-0.8 10 ^3/uL Basophils # (Auto) 0 0-0.2 10 ^3/uL Nucleated Red Blood Cells 0.1 % Sodium Level 138 136-145 mmol/L Potassium Level 4.1 3.5-5.1 mmol/L Chloride Level 103 98-107 mmol/L Carbon Dioxide Level 27 20-31 mmol/L Anion Gap 8 5-15 Blood Urea Nitrogen 12 9-23 mg/dL Creatinine 0.69 0.550-1.02 mg/dL Glomerular Filtration Rate Calc 111 >90 mL/min BUN/Creatinine Ratio 17.4 10.0-20.0 Serum Glucose 102 74-106 mg/dL Lactic Acid Level 1.1 0.4-2.0 mmol/L Calcium Level 9.2 8.7-10.4 mg/dL Total Bilirubin 0.3 0.2-1.0 mg/dL Aspartate Amino Transferase (AST) 16 <34 U/L Alanine Aminotransferase (ALT) 15 7-40 U/L Alkaline Phosphatase 114 46-116 U/L Troponin I High Sensitivity < 3 L </=34 ng/L Total Protein 7.8 5.7-8.2 g/dL Albumin 4.4 3.2-4.8 g/dL Lipase 42 12-53 U/L Urine Color Yellow Yellow Urine Clarity Turbid H Clear Urine pH 7.0 5.0-9.0 Urine Specific [place] 1.029 1.001-1.035 Urine Protein Trace H Negative Urine Ketones Negative Negative Urine Blood Negative Negative /uL Urine Nitrite Negative Negative Urine Bilirubin Negative Negative Urine Urobilinogen Normal Negative mg/dL Urine Leukocyte Esterase Negative Negative /uL Urine RBC 5 0 - 4 /hpf Urine Microscopic WBC 1 0-5 /HPF Urine Squamous Epithelial Cells Few <5 /hpf Urine Bacteria Few H None Seen /hpf Urine Mucus Few None Seen Urine Glucose Normal Normal mg/dL [place] [id number] Ph: [phone] DIAGNOSTIC IMAGING Diagnostic Imaging Report : [id number] Signed PATIENT: TIMA SPENCER ACCT: [id number] UNIT: [id number] : 1980 LOC: ER ROOM / BED: / AGE / SEX: 44 / F ADM STATUS: REG ER SERVICE 41 ORDERING PHYSICIAN: MITA MCGILL DO PROCEDURE(s): ABPL - CT AB PEL WO CON-NO ORAL OR IV REASON: RUQ PAIN ORDER NUMBER(s): [id number], ACCESSION NUMBER(s): [id number] Exam: CT CT AB PEL WO CON-NO ORAL OR IV History: RUQ PAIN Comparison Study: CT CT AB PEL WO CON-NO ORAL OR IV on DOS: 04/25/24, CT CT AB PEL WO CON-NO ORAL OR IV on DOS: 10/01/23, CT CT AB PEL WO CON-NO ORAL OR IV on DOS: 09/27/23, CT ABD PELVIS WO CONTRAST on DOS: 02/14/21 Technique: Multidetector spiral CT of the abdomen was performed from lung bases to pubic symphysis. Imaging was performed without IV contrast. Axial, coronal and sagittal multiplanar reformats were obtained from the axial data set by the technologist. Radiation Dose : 1. Abdomen/Pelvis: CTDIvol 9.4 mGy, DLP 512.4 mGy*cm. Findings: Evaluation of solid organs is limited due to lack of intravenous contrast use. Lung Bases: No acute or significant lung base finding. Normal heart size. No pleural or pericardial effusion. Liver: The liver is normal in size. No focal lesions. Gallbladder and Biliary Tree: Prior cholecystectomy. Spleen: Unremarkable Pancreas: The pancreas is grossly normal in appearance. Adrenal Glands: Unremarkable Kidneys: Kidneys are grossly normal without calculi or hydronephrosis. Bladder: Grossly unremarkable for degree of distention. Bowel: The stomach is grossly normal in appearance. Small bowel and colon are normal in caliber and distribution. The appendix is normal. Small fat containing umbilical hernia. Ascites: Absent Lymphadenopathy: No mesenteric, retroperitoneal or periportal lymphadenopathy. Abdominal Wall and Mesentery: Unremarkable. Vasculature: The visualized abdominal aorta is normal in size and caliber. Evaluation of abdominal and pelvic vessels is limited due to lack of intravenous contrast. Pelvic Organs: An intrauterine device is noted. Musculoskeletal: No aggressive focal bony lesions, acute fractures or dislocation. IMPRESSION: 1. No acute abdominal or pelvic findings. Radiation optimization: All CT scans at this facility use at least one of these dose optimization techniques: automated exposure control mA and/or kV adjustment per patient size (includes targeted exams where dose is matched to clinical indication) or iterative reconstruction. ATED BY: LILY FRANKLIN MD DICTATED DATE/TIME: 02/24/252048 SIGNED BY: LILY FRANKLIN MD SIGNED DATE/TIME: 02/24/252048 CC: Patient Education/Counseling: Diagnosis, Treatment Family Education/Counseling: No Family Present Departure 1 Departure Time of Disposition: 20:54 Impression: Primary Impression: Right upper quadrant pain Additional Impressions: Anemia UTI (urinary tract infection) Disposition: 01 HOME / SELF CARE / HOMELESS Condition: Stable Additional Instructions: Additional instructions: You MUST follow-up with your primary care/family doctor in 1 to 2 days. If you are unable to see your primary care/family doctor, please return to our emergency room for re-assessment and re-evaluation in 1 to 2 days. Return to the emergency room here in our facility or to the nearest ER [facility] if your symptoms change or worsen. CONSULTATIONS: you MUST Follow-up for consultation as soon as possible with: -gastroenterology in 1-2 days. Please call for appointment. You MUST call the consultants office yourself to make an appointment. You may need to arrange that through your insurance and/or your primary/family doctor. If you are unable to see the search engine optimization consultant in 1 to 2 days, you must return to our emergency room (or any other ER of your choice) for re-assessment and re- evaluation. Adequate fluid hydration. Avoid fatty greasy spicy food. Avoid caffeinated products. Avoid NSAIDs. Below is a copy of your radiological report for follow up: [place] [address] Ph: [phone] DIAGNOSTIC IMAGING Diagnostic Imaging Report : [id number] Signed PATIENT: TIMA SPENCER ACCT: [id number] UNIT: [id number] : 1980 LOC: ER ROOM / BED: / AGE / SEX: 44 / F ADM STATUS: REG ER SERVICE 41 ORDERING PHYSICIAN: MITA MCGILL DO PROCEDURE(s): ABPL - CT AB PEL WO CON-NO ORAL OR IV REASON: RUQ PAIN ORDER NUMBER(s): [id number], ACCESSION NUMBER(s): [id number] Exam: CT CT AB PEL WO CON-NO ORAL OR IV History: RUQ PAIN Comparison Study: CT CT AB PEL WO CON-NO ORAL OR IV on DOS: 04/25/24, CT CT AB PEL WO CON-NO ORAL OR IV on DOS: 10/01/23, CT CT AB PEL WO CON-NO ORAL OR IV on DOS: 09/27/23, CT ABD PELVIS WO CONTRAST on DOS: 02/14/21 Technique: Multidetector spiral CT of the abdomen was performed from lung bases to pubic symphysis. Imaging was performed without IV contrast. Axial, coronal and sagittal multiplanar reformats were obtained from the axial data set by the technologist. Radiation Dose : 1. Abdomen/Pelvis: CTDIvol 9.4 mGy, DLP 512.4 mGy*cm. Findings: Evaluation of solid organs is limited due to lack of intravenous contrast use. Lung Bases: No acute or significant lung base finding. Normal heart size. No pl eural or pericardial effusion. Liver: The liver is normal in size. No focal lesions. Gallbladder and Biliary Tree: Prior cholecystectomy. Spleen: Unremarkable Pancreas: The pancreas is grossly normal in appearance. Adrenal Glands: Unremarkable Kidneys: Kidneys are grossly normal without calculi or hydronephrosis. Bladder: Grossly unremarkable for degree of distention. Bowel: The stomach is grossly normal in appearance. Small bowel and colon are normal in caliber and distribution. The appendix is normal. Small fat containing umbilical hernia. Ascites: Absent Lymphadenopathy: No mesenteric, retroperitoneal or periportal lymphadenopathy. Abdominal Wall and Mesentery: Unremarkable. Vasculature: The visualized abdominal aorta is normal in size and caliber. Evaluation of abdominal and pelvic vessels is limited due to lack of intravenous contrast. Pelvic Organs: An intrauterine device is noted. Musculoskeletal: No aggressive focal bony lesions, acute fractures or dislocation. IMPRESSION: 1. No acute abdominal or pelvic findings. Radiation optimization: All CT scans at this facility use at least one of these dose optimization techniques: automated exposure control mA and/or kV adjustment per patient size (includes targeted exams where dose is matched to clinical indication) or iterative reconstruction. ATED BY: LILY FRANKLIN MD DICTATED DATE/TIME: 02/24/252048 SIGNED BY: LILY FRANKLIN MD SIGNED DATE/TIME: 02/24/252048 CC: e-Prescriptions Nitrofurantoin Monohydrate Mac (Macrobid) 100 Mg Cap 100 MG PO BID for 7 Days, #14 CAP Prov: MITA MCGILL DO 02/24/25 Discharged With: Self Critical Care Note Critical Care Time?: No I personally scribed for MITA MCGILL DO ([email or web address]) on 02/24/25 at 19:51. Electronically submitted by Joshua Bedoya ([facility] I personally scribed for MITA MCGILL DO ([facility]) on 02/24/25 at 21:50. Electronically submitted by Joshua Bedoya ([facility]). MITA MCGILL DO Feb 24, 2025 19:51
[2025-02-24 20:00] LABS: Basophils # (auto) 0 10 ^3/uL (0-0.2); Basophils % (auto) 0.2 % (0.0-2.0); Eosinophils # (auto) 0.2 10 ^3/uL (0-0.8); Eosinophils % (auto) 2.1 % (0.0-7.0); Hematocrit 34.6 % (36.0-46.0); Hemoglobin 11.1 g/dL (12.2-16.2); Lymphocytes # (auto) 2.3 10 ^3/uL (0.4-5.4); Mean Corpuscular Hemoglobin 25.2 pg (28.0-32.0); Mean Corpuscular Hgb Conc. 32.1 g/dL (32.0-36.0); Mean Corpuscular Volume 78.4 fL (80.0-100.0); Monocytes # (auto) 0.6 10 ^3/uL (0-1.3); Monocytes % (auto) 5.9 % (0.0-12.0); Neutrophils # (auto) 7.3 10 ^3/uL (1.6-8.6); Neutrophils % (auto) 69.8 % (37.0-80.0); Nucleated Red Blood Cells % 0.1 %; Platelet Count (auto) 379 10^3/uL (140-450); Red Blood Cells 4.41 10^6/uL (4.0-5.20); Red Cell Distribution Width 17.7 % (11.8-14.3); White Blood Cell 10.5 10^3/uL (4.4-10.8)
[2025-02-24 20:19] LABS: Alanine Aminotransferase 15 U/L (7-40); Albumin 4.4 g/dL (3.2-4.8); Alkaline Phosphatase 114 U/L (46-116); Anion Gap 8 (5-15); Aspartate Aminotransferase 16 U/L (<34); BUN/Creatinine Ratio 17.4 (10.0-20.0); Bilirubin, Total 0.3 mg/dL (0.2-1.0); Blood Urea Nitrogen 12 mg/dL (9-23); Calcium 9.2 mg/dL (8.7-10.4); Carbon Dioxide 27 mmol/L (20-31); Chloride 103 mmol/L (98-107); Glucose 102 mg/dL (74-106); Lipase 42 U/L (12-53); Potassium 4.1 mmol/L (3.5-5.1); Sodium 138 mmol/L (136-145); Total Protein 7.8 g/dL (5.7-8.2)
--- NOTE | 2025-02-24 20:52 | DVH ---
Exam: CT CT AB PEL WO CON-NO ORAL OR IV History: RUQ PAIN Comparison Study: CT CT AB PEL WO CON-NO ORAL OR IV on DOS: 04/25/24, CT CT AB PEL WO CON-NO ORAL OR I V on DOS: 10/01/23, CT CT AB PEL WO CON-NO ORAL OR IV on DOS: 09/27/23, CT ABD PELVIS WO CONTRAST on DO S: 02/14/21 Technique: Multidetector spiral CT of the abdomen was performed from lung bases to pubic symphysis. I maging was performed without IV contrast. Axial, coronal and sagittal multiplanar reformats were obta ined from the axial data set by the technologist. Radiation Dose : 1. Abdomen/Pelvis: CTDIvol 9.4 mGy, DLP 512.4 mGy*cm. Findings: Evaluation of solid organs is limited due to lack of intravenous contrast use. Lung Bases: No acute or significant lung base finding. Normal heart size. No pleural or pericardial effusion. Liver: The liver is normal in size. No focal lesions. Gallbladder and Biliary Tree: Prior cholecystectomy. Spleen: Unremarkable Pancreas: The pancreas is grossly normal in appearance. Adrenal Glands: Unremarkable Kidneys: Kidneys are grossly normal without calculi or hydronephrosis. Bladder: Grossly unremarkable for degree of distention. Bowel: The stomach is grossly normal in appearance. Small bowel and colon are normal in caliber and d istribution. The appendix is normal. Small fat containing umbilical hernia. Ascites: Absent Lymphadenopathy: No mesenteric, retroperitoneal or periportal lymphadenopathy. Abdominal Wall and Mesentery: Unremarkable. Vasculature: The visualized abdominal aorta is normal in size and caliber. Evaluation of abdominal a nd pelvic vessels is limited due to lack of intravenous contrast. Pelvic Organs: An intrauterine device is noted. Musculoskeletal: No aggressive focal bony lesions, acute fractures or dislocation. IMPRESSION: 1. No acute abdominal or pelvic findings. Radiation optimization: All CT scans at this facility use at least one of these dose optimization hayden hniques: automated exposure control mA and/or kV adjustment per patient size (includes targeted exam s where dose is matched to clinical indication) or iterative reconstruction.
[2025-02-24 20:53] LABS: Urine Bacteria FEW /hpf (None Seen); Urine Blood Negative /uL (Negative); Urine Clarity Turbid (Clear); Urine Color Yellow (Yellow); Urine Mucus FEW (None Seen); Urine Protein, UAD TRACE (Negative); Urine Specific Gravity 1.029 (1.001-1.035); Urine Squamous Epithelial Cell FEW /hpf (<5); Urine Urobilinogen Normal (Negative); Urine WBC 1 /HPF (0-5)
[2025-02-24] MEDS ORDERED: NITR-87 PO (20:57)
[2025-02-24 21:30] VITALS: PULSE 73; RESP 16; O2SAT 99
[2025-02-24 21:32] VITALS: BP 112/46; PULSE 73; RESP 16; TEMP 97.8; O2SAT 99
== END 2025-02-24 21:32 | disposition home or self-care (01) ==
LOC: ER 18:47
DX: N39.0 Urinary tract infection, site not specified (principal); R10.11 Right upper quadrant pain; D64.9 Anemia, unspecified; J45.909 Unspecified asthma, uncomplicated; F41.9 Anxiety disorder, unspecified; Z86.73 Personal history of transient ischemic attack (TIA), and cerebral infarction without residual deficits; Z90.49 Acquired absence of other specified parts of digestive tract; Z98.890 Other specified postprocedural states; Z88.8 Allergy status to other drugs, medicaments and biological substances; Z88.5 Allergy status to narcotic agent; Z79.899 Other long term (current) drug therapy; Z79.1 Long term (current) use of non-steroidal anti-inflammatories (NSAID); Z79.01 Long term (current) use of anticoagulants
CPT/HCPCS: 36415; 74176; 80053; 81001; 83605; 83690; 84484; 85025

== ENCOUNTER 2025-03-20 21:12 | Emergency (ER) | payer MEDICAID ==
[~2025-03-20] VITALS: Ht 157.5 cm; Wt 81.8 kg
[2025-03-20 21:32] VITALS: BP 122/59; PULSE 88; RESP 18; TEMP 98.5; O2SAT 98
--- NOTE | 2025-03-20 21:38 | ED.PDOC ---
Musculoskeletal HPI Comments PT PRESENTED TO ED FOR LLE PAIN X2 WEEKS AGO THAT WORSENED TODAY WITH PERIODICAL NUMBNESS, BURNING AND THROBBING. DENIES CHEST PAIN, SHORTNESS OF BREATH, OR DIFFICULTY BREATHING. HX: SUPERFICIAL CLOTS RIGHT UPPER AR Chief Complaint: Lower Extremity Time Seen by MD: 21:28 Primary Care Provider: Dr. Randolph Reviewed Notes: Nurses Notes, Medications, Allergies Allergies: Coded Allergies: Morphine (Verified Allergy, Severe, 07/12/24) Ondansetron (Verified Allergy, Severe, 07/12/24) Metoclopramide (Verified Allergy, Unknown, 07/10/24) Home Meds Active Scripts Nitrofurantoin Monohydrate Mac (Macrobid) 100 Mg Cap, 100 MG PO BID for 7 Days, #14 CAP Prov:MITA MCGILL DO 02/24/25 Gabapentin (Gabapentin) 300 Mg Cap, 1 CAP PO Q6HP PRN, #30 CAP 0 Refills Prov:HARSHA OSHEA PAC 11/27/24 Ibuprofen (Ibuprofen) 800 Mg Tab, 1 TAB PO TID PRN, #30 TAB 0 Refills Prov:JOHN CANCHOLA PA 07/15/24 Ascorbic Acid (VITAMIN C TABLET) 500 Mg Tb, 1 TAB PO BID for 30 Days, #60 TAB 3 Refills Prov:GAYE ALVAREZ MD 07/12/24 Ferrous Sulfate (Iron Supplement) 220 Mg/5 Ml Elx, 220 MG PO BID for 30 Days, #60 ELX Prov:GAYE ALVAREZ MD 07/12/24 Hydrocodone-Acetaminophen (Hydrocodone Bitartrate/AC 5-325 mg) 1 Tab Tab, 1 TAB PO BID for 5 Days, #10 TAB Prov:GAYE ALVAREZ MD 07/12/24 Cyclobenzaprine Hcl (Cyclobenzaprine Hcl) 10 Mg Tab, 10 MG PO TIDBM for 5 Days, #15 TAB Prov:GAYE ALVAREZ MD 07/12/24 Diclofenac Potassium (Diclofenac Potassium) 50 Mg Tab, 1 TAB PO TIDP for 5 Days, #15 TAB Prov:GAYE ALVAREZ MD 07/12/24 Nitrofurantoin Monohydrate Mac (Macrobid) 100 Mg Cap, 100 MG PO BID for 10 Days, #20 CAP Prov:GAYE ALVAREZ MD 07/12/24 Naproxen (NAPROSYN TABLET) 500 Mg Tb, 500 MG GT BID for 10 Days, #20 TAB Prov:MAYNOR HOYT MD 06/12/24 Ondansetron Odt 4MG Tab (ZOFRAN PO) 4 Mg Tb, 4 MG PO TID for 10 Days, #30 TAB ODT TAB-DISSOLVE IN MOUTH, THEN SWALLOW Prov:MAYNOR HOYT MD 06/12/24 Nitrofurantoin Monohydrate Mac (Macrobid) 100 Mg Cap, 100 MG PO BID for 7 Days, #14 CAP Prov:RUTHIE TROTTER MD 06/08/24 Meclizine Hcl (Meclizine Hcl) 12.5 Mg Tab, 25 MG PO TID for 7 Days, #42 TAB Prov:MAYNOR HOYT MD 04/25/24 Hydrocodone-Acetaminophen (Hydrocodone Bitartrate/AC 5-325 mg) 1 Tab Tab, 1 TAB PO QIDPRN, #20 TAB Prov:MARKO BAREBR MD 03/27/24 Potassium Chloride (Potassium Chloride ER) 10 Meq Tab, 10 MEQ PO DAILY for 7 Days, #7 TAB Prov:ANDREY BLOCK MD 01/18/24 Acetaminophen (Acetaminophen) 500 Mg Tab, 500 MG PO QIDPRN for 10 Days, #40 TAB Prov:JOSE VANEGAS DO 01/10/24 Clindamycin Hcl (Clindamycin Hcl) 300 Mg Cap, 1 CAP PO QID for 10 Days, #40 CAP Prov:LUPE GIL Q PHOTO STYLIST 12/24/23 Acetaminophen W/ Codeine (Tylenol W/Cod #3) 1 Tab Tb, 1 TAB PO Q6HP PRN, #10 TAB Prov:HARSHA OSHEA PAC 11/15/23 Acetaminophen W/ Codeine (Tylenol W/Cod #3) 1 Tab Tb, 1 TAB PO Q8HP PRN, #15 TAB Prov:HARSHA OSHEA PAC 10/25/23 Apixaban Base (ELIQUIS) 5 Mg Tab, 5 MG PO BID for 30 Days, #60 TAB 2 Refills Prov:TANIYA LUNA DO 10/06/23 Apixaban Base (ELIQUIS) 5 Mg Tab, 10 MG PO BID for 10 Days, #40 TAB 0 Refills Prov:TANIYA LUNA DO 10/06/23 Reported Medications Metoprolol Tartrate (LOPRESSOR TABLET) 50 Mg Tb, 0.5 TAB PO BID 09/28/23 Past Medical History PAST MEDICAL HISTORY: Anemia, Anxiety, Asthma, TIA Past Medical History (Other): BLOOD CLOTS Surgical History: Cholecystectomy, DIESEL INSPECTOR History: No Pertinent DIESEL INSPECTOR History Family History Family History: Reviewed,noncontributory to illness, Family hx of HTN Social History Smoker: Non-Smoker Alcohol: Denies ETOH Use Drugs: Denies Drug Use Lives In: Home Constitutional: denies: chills, diaphoresis, fatigue, fever, malaise, sweats, weakness, others EENTM: denies: blurred vision, double vision, ear bleeding, ear discharge, ear drainage, ear pain, ear ringing, eye pain, eye redness, hearing loss, mouth pain, mouth swelling, nasal discharge, nose bleeding, nose congestion, nose pain, photophobia, tearing, throat pain, throat swelling, voice changes, others Respiratory: denies: cough, hemoptysis, orthopnea, SOB at rest, shortness of breath, SOB with excertion, stridor, wheezing, others Cardiovascular: denies: chest pain, dizzy spells, diaphoresis, Dyspnea on exertion, edema, irregular heart beat, left arm pain, lightheadedness, palpitations, PND, syncope, others Gastrointestinal: denies: abdomen distended, abdominal pain, blood streaked bowels, constipated, diarrhea, dysphagia, difficulty swallowing, hematemesis, melena, nausea, poor appetite, poor fluid intake, rectal bleeding, rectal pain, vomiting, others Genitourinary: denies: abnormal vagina bleeding, burning, dyspareunia, dysuria, flank pain, frequency, hematuria, incontinence, pain, , vagina discharge, urgency, others Neurological: denies: dizziness, fainting, headache, left sided numbness, left sided weakness, numbness, paresthesia, pre-existing deficit, right sided numbness, right sided weakness, seizure, speech problems, tingling, tremors, weakness, others Musculoskeletal: denies: back pain, gout, joint pain, joint swelling, muscle pain, muscle stiffness, neck pain, others Integumetry: reports: others (left calf pain ); denies: bruises, change in color, change in hair/nails, dryness, laceration, lesions, lumps, rash, wounds Allergic/Immunocompromised: denies: Difficulty Healing, Frequent Infections, Hives, Itching, others Hematologic/Lymphatic: denies: anemia, blood clots, easy bleeding, easy bruising, swollen glands, others Endocrine: denies: excessive hunger, excessive sweating, excessive thirst, excessive urination, flushing, intolerance to cold, intolerance to heat, unexplained weight gain, unexplained weight loss, others Psychiatric: denies: anxiety, bipolar disorder, depression, hopeless, panic disorder, schizophrenia, sleepless, suicidal, others Physical Exam General Appearance: No Apparent Distress, Normal HEENT: Pharynx Normal Neck: Full Range of Motion, Non-Tender Respiratory: Lungs Clear, No Respiratory Distress, Normal Breath Sounds Cardiovascular: No Edema, No JVD, No Murmur, No Gallop, Normal Peripheral Pulses, Regular Rate/Rhythm Breast Exam: Deferred Gastrointestinal: No Organomegaly, Non Tender, No Pulsatile Mass, Normal Bowel Sounds, Soft Genitalia: Deferred Pelvic: Deferred Rectal: Deferred Extremities: Calf tenderness (RIGHT trace edema ), Normal capillary refill, Normal range of motion Musculoskeletal : Apperance: Normal Neurologic: Alert, jute bag sewer II-XII nml as Tested, No Motor Deficits, Normal Affect, Normal Mood, No Sensory Deficits Cerebellar Function: Normal Reflexes: Normal Skin: Dry, Normal Color, Warm Lymphatic: No Adenopathy Was a procedure done? Was a procedure done?: No Differential Diagnosis EXT Differential Diagnosis: Cellulitis, Deep Vein Thrombosis, Strain, Rheumatoid, Neurovascular injury X-Ray, Labs, Meds, VS Vital Signs Date Time Temp Pulse Resp B/P (MAP) Pulse Ox O2 Delivery O2 Flow Rate FiO2 03/20/25 21:32 98.5 88 18 122/59 (80) 98 98.5 Lab Test 03/20/25 22:26 03/20/25 21:40 Range/Units Urine Color Yellow Yellow Urine Clarity Turbid H Clear Urine pH 6.0 5.0-9.0 Urine Specific [place] 1.032 1.001-1.035 Urine Protein Trace H Negative Urine Ketones Trace Negative Urine Blood Negative Negative /uL Urine Nitrite Negative Negative Urine Bilirubin Negative Negative Urine Urobilinogen 2 H Negative mg/dL Urine Leukocyte Esterase Negative Negative /uL Urine RBC 4 0 - 4 /hpf Urine Microscopic WBC < 1 0-5 /HPF Urine Squamous Epithelial Cells Mod <5 /hpf Urine Bacteria Few H None Seen /hpf Urine Mucus Few None Seen Urine Glucose Normal Normal mg/dL White Blood Count 9.9 4.4-10.8 10^3/uL Red Blood Count 4.31 4.0-5.20 10^6/uL Hemoglobin 10.9 L 12.2-16.2 g/dL Hematocrit 34.2 L 36.0-46.0 % Mean Corpuscular Volume 79.3 L 80.0-100.0 fL Mean Corpuscular Hemoglobin 25.4 L 28.0-32.0 pg Mean Corpuscular Hemoglobin Concent 32.0 32.0-36.0 g/dL Red Cell Distribution Width 18.2 H 11.8-14.3 % Platelet Count 358 140-450 10^3/uL Mean Platelet Volume 7.3 6.9-10.8 fL Neutrophils (%) (Auto) 62.8 37.0-80.0 % Lymphocytes (%) (Auto) 28.3 10.0-50.0 % Monocytes (%) (Auto) 5.5 0.0-12.0 % Eosinophils (%) (Auto) 3.0 0.0-7.0 % Basophils (%) (Auto) 0.4 0.0-2.0 % Neutrophils # (Auto) 6.2 1.6-8.6 10 ^3/uL Lymphocytes # (Auto) 2.8 0.4-5.4 10 ^3/uL Monocytes # (Auto) 0.5 0-1.3 10 ^3/uL Eosinophils # (Auto) 0.3 0-0.8 10 ^3/uL Basophils # (Auto) 0 0-0.2 10 ^3/uL Nucleated Red Blood Cells 0.1 % Erythrocyte Sedimentation Rate 26 H 0-20 mm/hr Prothrombin Time 10.0 9.3-11.8 sec Prothrombin Time INR 0.94 0.9-1.15 Activated Partial Thromboplast Time 27.0 24.5-34.5 SEC D-Dimer, Quantitative 0.55 H 0.0-0.49 mg/L FEU Sodium Level 139 136-145 mmol/L Potassium Level 3.5 3.5-5.1 mmol/L Chloride Level 105 98-107 mmol/L Carbon Dioxide Level 24 20-31 mmol/L Anion Gap 10 5-15 Blood Urea Nitrogen 11 9-23 mg/dL Creatinine 0.67 0.550-1.02 mg/dL Glomerular Filtration Rate Calc 112 >90 mL/min BUN/Creatinine Ratio 16.4 10.0-20.0 Serum Glucose 117 H 74-106 mg/dL Calcium Level 9.9 8.7-10.4 mg/dL Total Bilirubin 0.3 0.2-1.0 mg/dL Aspartate Amino Transferase (AST) 21 13-40 U/L Alanine Aminotransferase (ALT) 23 7-40 U/L Alkaline Phosphatase 118 H 46-116 U/L C-Reactive Protein High Sensitivity 1.30 H <1.0 mg/dL Total Protein 7.8 5.7-8.2 g/dL Albumin 4.4 3.2-4.8 g/dL X-Ray, Labs, Meds, VS Comment CBC CMP within normal limits patient with chronic anemia no change from last CBC. D-dimer slightly elevated lower than patient's last visit. Ultrasound DVT left leg was negative. Elevated CRP and sed rate patient states has not appointment next week with rheumatology due to elevated markers. Patient req uesting discharge at this time. Advised to follow up with Rheumatology. Discussed ER return precautions for increasing pain, swelling, redness, chest pain, shortness of breath or any concerning symptoms. Patient indicated understanding and agrees with discharge plan of care Time of 1ST Reevaluation: 21:36 Reevaluation 1ST: Unchanged Time of 2ND Reevaluation: 00:12 Reevaluation 2ND: Improved Patient Education/Counseling: Diagnosis, Treatment, Prognosis, Need For Follow Up Family Education/Counseling: No Family Present Departure 1 Departure Time of Disposition: 00:10 Impression: Primary Impression: Strain of calf muscle Qualified Codes: S86.812A - Strain of other muscle(s) and tendon(s) at lower leg level, left leg, initial encounter Disposition: HOME / SELF CARE / HOMELESS Condition: Stable Discharged With: Self Critical Care Note Critical Care Time?: No Stability Stability form required: DAVID Baird Mar 20, 2025 21:38
[2025-03-20 22:15] LABS: Alanine Aminotransferase 23 U/L (7-40); Albumin 4.4 g/dL (3.2-4.8); Anion Gap 10 (5-15); BUN/Creatinine Ratio 16.4 (10.0-20.0); Bilirubin, Total 0.3 mg/dL (0.2-1.0); Blood Urea Nitrogen 11 mg/dL (9-23); Calcium 9.9 mg/dL (8.7-10.4); Carbon Dioxide 24 mmol/L (20-31); Chloride 105 mmol/L (98-107); Mean Corpuscular Volume 79.3 fL (80.0-100.0); Nucleated Red Blood Cells % 0.1 %; Sodium 139 mmol/L (136-145); Total Protein 7.8 g/dL (5.7-8.2)
[2025-03-20 22:17] LABS: Hematocrit 34.2 % (36.0-46.0); Hemoglobin 10.9 g/dL (12.2-16.2); Mean Corpuscular Hemoglobin 25.4 pg (28.0-32.0)
--- NOTE | 2025-03-20 22:24 | DVH ---
Left lower extremity venous duplex Clinical History: lower calf pain and swelling Comparison: US RT UPPER DVT on DOS: 02/13/25, US BILAT LOWER DVT on DOS: 02/05/25, US LT LOWER DVT on DO S: 01/05/25, US RT UPPER DVT on DOS: 01/05/25, US BILAT LOWER DVT on DOS: 11/27/24 Technique: Duplex Doppler evaluation of the deep venous system of the left lower extremity from the common femor al vein to the popliteal vein including color Doppler and spectral/pulsed waveform analysis was perfo rmed. Findings: No visible intraluminal venous thrombus. No evidence of incompressibility or abnormal color or spect ral Doppler flow. Impression: 1. No left femoropopliteal venous thrombosis.
[2025-03-20 22:25] LABS: Alkaline Phosphatase 118 U/L (46-116); Glucose 117 mg/dL (74-106); Potassium 3.5 mmol/L (3.5-5.1)
[2025-03-20 22:34] LABS: INR 0.94 (0.9-1.15); Partial Thromboplastin Time 27.0 SEC (24.5-34.5); Prothrombin Time 10.0 sec (9.3-11.8)
[2025-03-20 22:39] LABS: Urine Protein, UAD TRACE (Negative)
== END 2025-03-21 00:34 | disposition home or self-care (01) ==
LOC: ER 21:12
DX: S86.812A Strain of other muscle(s) and tendon(s) at lower leg level, left leg, initial encounter (principal); J45.909 Unspecified asthma, uncomplicated; F41.9 Anxiety disorder, unspecified; Z86.2 Personal history of diseases of the blood and blood-forming organs and certain disorders involving the immune mechanism; Z88.5 Allergy status to narcotic agent; Z79.899 Other long term (current) drug therapy; Z79.1 Long term (current) use of non-steroidal anti-inflammatories (NSAID); Z86.73 Personal history of transient ischemic attack (TIA), and cerebral infarction without residual deficits; Z90.49 Acquired absence of other specified parts of digestive tract; Z79.01 Long term (current) use of anticoagulants; X58.XXXA Exposure to other specified factors, initial encounter; Y93.89 Activity, other specified; Y92.89 Other specified places as the place of occurrence of the external cause; Y99.8 Other external cause status
CPT/HCPCS: 36415; 80053; 81001; 85025; 85379; 85610; 85652; 85730; 86141; 93971

== ENCOUNTER 2025-04-10 20:26 | Inpatient (IN) | payer MEDICAID ==
[~2025-04-10] VITALS: Ht 157.5 cm; Wt 83.7 kg
--- NOTE | 2025-04-10 21:01 | ED.PDOC ---
History of Present Illness HPI Comments 44 year old female with a Hx of Asthma, Occipital Neuralgia, POTS, TIA'S, prior Cholecystectomy and Superficial Thrombophlebitis presents to the ED for the c/c of a Headache w/ associated Posterior Neck pain that radiates to the Right parietal/temporal face and lower jaw area. Pt states that her symptoms started 3x days ago, after she received a nerve block for occipital neuralgia. Patient notes that the occipital pain radiating to the temporoparietal area is typical of her occipital neuralgia exacerbations, however pain radiating to the lower face and jaw has never occurred before. Pt notes that she did take Tylenol and Nurtec which alleviated the temporal/parietal pain, however the lower face and jaw pain persisted. Pt states Toradol has helped with her pain in the past. Pt reports taking 20mg of prescribed Propanolol. Pt denies any vomiting or dizziness. She does report transient visual disturbance characterized by slightly blurred peripheral vision, as well as transient bilateral lower extremity weakness. She denies any current visual disturbance or focal weakness. Chief Complaint: Headache Time Seen by MD: 20:54 Primary Care Provider: Dr. Randolph Reviewed Notes: Nurses Notes, Medications, Allergies Allergies: Coded Allergies: Morphine (Verified Allergy, Severe, 07/12/24) Ondansetron (Verified Allergy, Severe, 07/12/24) Metoclopramide (Verified Allergy, Unknown, 07/10/24) Home Meds Active Scripts Nitrofurantoin Monohydrate Mac (Macrobid) 100 Mg Cap, 100 MG PO BID for 7 Days, #14 CAP Prov:MITA MCGILL DO 02/24/25 Gabapentin (Gabapentin) 300 Mg Cap, 1 CAP PO Q6HP PRN, #30 CAP 0 Refills Prov:HARSHA OSHEA PAC 11/27/24 Ibuprofen (Ibuprofen) 800 Mg Tab, 1 TAB PO TID PRN, #30 TAB 0 Refills Prov:JOHN CANCHOLA 07/15/24 Ascorbic Acid (VITAMIN C TABLET) 500 Mg Tb, 1 TAB PO BID for 30 Days, #60 TAB 3 Refills Prov:GAYE ALVAREZ MD 07/12/24 Ferrous Sulfate (Iron Supplement) 220 Mg/5 Ml Elx, 220 MG PO BID for 30 Days, #60 ELX Prov:GAYE ALVAREZ MD 07/12/24 Hydrocodone-Acetaminophen (Hydrocodone Bitartrate/AC 5-325 mg) 1 Tab Tab, 1 TAB PO BID for 5 Days, #10 TAB Prov:GAYE ALVAREZ MD 07/12/24 Cyclobenzaprine Hcl (Cyclobenzaprine Hcl) 10 Mg Tab, 10 MG PO TIDBM for 5 Days, #15 TAB Prov:GAYE ALVAREZ MD 07/12/24 Diclofenac Potassium (Diclofenac Potassium) 50 Mg Tab, 1 TAB PO TIDP for 5 Days, #15 TAB Prov:GAYE ALVAREZ MD 07/12/24 Nitrofurantoin Monohydrate Mac (Macrobid) 100 Mg Cap, 100 MG PO BID for 10 Days, #20 CAP Prov:GAYE ALVAREZ MD 07/12/24 Naproxen (NAPROSYN TABLET) 500 Mg Tb, 500 MG GT BID for 10 Days, #20 TAB Prov:MAYNOR HOYT MD 06/12/24 Ondansetron Odt 4MG Tab (ZOFRAN PO) 4 Mg Tb, 4 MG PO TID for 10 Days, #30 TAB ODT TAB-DISSOLVE IN MOUTH, THEN SWALLOW Prov:MAYNOR HOYT MD 06/12/24 Nitrofurantoin Monohydrate Mac (Macrobid) 100 Mg Cap, 100 MG PO BID for 7 Days, #14 CAP Prov:RUTHIE TROTTER MD 06/08/24 Meclizine Hcl (Meclizine Hcl) 12.5 Mg Tab, 25 MG PO TID for 7 Days, #42 TAB Prov:MAYNOR HOYT MD 04/25/24 Hydrocodone-Acetaminophen (Hydrocodone Bitartrate/AC 5-325 mg) 1 Tab Tab, 1 TAB PO QIDPRN, #20 TAB Prov:MARKO BARBER MD 03/27/24 Potassium Chloride (Potassium Chloride ER) 10 Meq Tab, 10 MEQ PO DAILY for 7 Days, #7 TAB Prov:ANDREY BLOCK MD 01/18/24 Acetaminophen (Acetaminophen) 500 Mg Tab, 500 MG PO QIDPRN for 10 Days, #40 TAB Prov:JOSE VANEGAS DO 01/10/24 Clindamycin Hcl (Clindamycin Hcl) 300 Mg Cap, 1 CAP PO QID for 10 Days, #40 CAP Prov:LUPE GIL RECRUITER COORDINATOR 12/24/23 Acetaminophen W/ Codeine (Tylenol W/Cod #3) 1 Tab Tb, 1 TAB PO Q6HP PRN, #10 TAB Prov:HARSHA OSHEA PAC 11/15/23 Acetaminophen W/ Codeine (Tylenol W/Cod #3) 1 Tab Tb, 1 TAB PO Q8HP PRN, #15 TAB Prov:HARSHA OSHEA PAC 10/25/23 Apixaban Base (ELIQUIS) 5 Mg Tab, 5 MG PO BID for 30 Days, #60 TAB 2 Refills Prov:TANIYA LUNA DO 10/06/23 Apixaban Base (ELIQUIS) 5 Mg Tab, 10 MG PO BID for 10 Days, #40 TAB 0 Refills Prov:TANIYA LUNA DO 10/06/23 Reported Medications Metoprolol Tartrate (LOPRESSOR TABLET) 50 Mg Tb, 0.5 TAB PO BID 09/28/23 Information Source: Patient Mode of Arrival: Ambulatory Severity: Mild Timing: Days Duration: Intermittent, Days Prehospital treatment: None Past Medical History PAST MEDICAL HISTORY: Anemia, Anxiety, Asthma, TIA Past Medical History (Other): Occipital neuralgia Surgical History: Cholecystectomy, FOWL BLOOD TESTER History: No Pertinent FOWL BLOOD TESTER History Family History Family History: Reviewed,noncontributory to illness, Family hx of HTN Social History Smoker: Non-Smoker Alcohol: Denies ETOH Use Drugs: Denies Drug Use Lives In: Home Constitutional: denies: chills, diaphoresis, fatigue, fever, malaise, sweats, weakness, others EENTM: denies: blurred vision, double vision, ear bleeding, ear discharge, ear drainage, ear pain, ear ringing, eye pain, eye redness, hearing loss, mouth pain, mouth swelling, nasal discharge, nose bleeding, nose congestion, nose pain, photophobia, tearing, throat pain, throat swelling, voice changes, others Respiratory: denies: cough, hemoptysis, orthopnea, SOB at rest, shortness of breath, SOB with excertion, stridor, wheezing, others Cardiovascular: denies: chest pain, dizzy spells, diaphoresis, Dyspnea on exertion, edema, irregular heart beat, left arm pain, lightheadedness, palpitations, PND, syncope, others Gastrointestinal: denies: abdomen distended, abdominal pain, blood streaked bowels, constipated, diarrhea, dysphagia, difficulty swallowing, hematemesis, melena, nausea, poor appetite, poor fluid intake, rectal bleeding, rectal pain, vomiting, others Genitourinary: denies: abnormal vagina bleeding, burning, dyspareunia, dysuria, flank pain, frequency, hematuria, incontinence, pain, , vagina discharge, urgency, others Neurological: reports: headache; denies: dizziness, fainting, left sided numbness, left sided weakness, numbness, paresthesia, pre-existing deficit, right sided numbness, right sided weakness, seizure, speech problems, tingling, tremors, weakness, others Musculoskeletal: reports: back pain; denies: gout, joint pain, joint swelling, muscle pain, muscle stiffness, neck pain, others Integumetry: denies: bruises, change in color, change in hair/nails, dryness, laceration, lesions, lumps, rash, wounds, others Allergic/Immunocompromised: denies: Difficulty Healing, Frequent Infections, Hives, Itching, others Hematologic/Lymphatic: denies: anemia, blood clots, easy bleeding, easy bruising, swollen glands, others Endocrine: denies: excessive hunger, excessive sweating, excessive thirst, excessive urination, flushing, intolerance to cold, intolerance to heat, unexplained weight gain, unexplained weight loss, others Psychiatric: denies: anxiety, bipolar disorder, depression, hopeless, panic disorder, schizophrenia, sleepless, suicidal, others All Other Systems: Reviewed and Negative (Comprehensive systems review obtained and negative except for what is stated in the HPI.) Physical Exam General Appearance: No Apparent Distress HEENT: Other (Pupils and face symmetric. Moist mucous membranes.) Neck: Full Range of Motion, Normal Inspection, Supple Respiratory: Lungs Clear, No Accessory Muscle Use, No Respiratory Distress, Normal Breath Sounds Cardiovascular: No Edema, No JVD, Regular Rate/Rhythm Breast Exam: Deferred Gastrointestinal: Non Tender, Soft Genitalia: Deferred Pelvic: Deferred Rectal: Deferred Extremities: Normal inspection, Normal range of motion, Non-tender, No pedal edema Neurologic: Alert (Oriented x4), Normal Affect, Normal Mood, Other (Ambulatory.) Cerebellar Function: NOT DONE Reflexes: NOT DONE Skin: Dry, Normal Color, Warm Lymphatic: NOT DONE Was a procedure done? Was a procedure done?: No Differential Dx Considerations may include: 44-year-old female with a history of occipital neuralgia X-Ray, Labs, Meds, VS Vital Signs Date Time Temp Pulse Resp B/P (MAP) Pulse Ox O2 Delivery O2 Flow Rate FiO2 04/10/25 20:28 98.2 72 16 108/59 100 98.2 Lab Test 04/10/25 21:07 04/10/25 20:52 Range/Units White Blood Count 8.7 4.4-10.8 10^3/uL Red Blood Count 4.24 4.0-5.20 10^6/uL Hemoglobin 10.9 L 12.2-16.2 g/dL Hematocrit 33.8 L 36.0-46.0 % Mean Corpuscular Volume 79.7 L 80.0-100.0 fL Mean Corpuscular Hemoglobin 25.8 L 28.0-32.0 pg Mean Corpuscular Hemoglobin Concent 32.3 32.0-36.0 g/dL Red Cell Distribution Width 17.6 H 11.8-14.3 % Platelet Count 382 140-450 10^3/uL Mean Platelet Volume 6.9 6.9-10.8 fL Neutrophils (%) (Auto) 67.3 37.0-80.0 % Lymphocytes (%) (Auto) 24.5 10.0-50.0 % Monocytes (%) (Auto) 6.0 0.0-12.0 % Eosinophils (%) (Auto) 1.8 0.0-7.0 % Basophils (%) (Auto) 0.4 0.0-2.0 % Neutrophils # (Auto) 5.9 1.6-8.6 10 ^3/uL Lymphocytes # (Auto) 2.1 0.4-5.4 10 ^3/uL Monocytes # (Auto) 0.5 0-1.3 10 ^3/uL Eosinophils # (Auto) 0.2 0-0.8 10 ^3/uL Basophils # (Auto) 0 0-0.2 10 ^3/uL Nucleated Red Blood Cells 0.0 % Sodium Level 137 136-145 mmol/L Potassium Level 3.6 3.5-5.1 mmol/L Chloride Level 103 98-107 mmol/L Carbon Dioxide Level 28 20-31 mmol/L Anion Gap 6 5-15 Blood Urea Nitrogen 10 9-23 mg/dL Creatinine 0.57 0.550-1.02 mg/dL Glomerular Filtration Rate Calc 116 >90 mL/min BUN/Creatinine Ratio 17.5 10.0-20.0 Serum Glucose 98 74-106 mg/dL Calcium Level 9.1 8.7-10.4 mg/dL Urine Color Colorless Yellow Urine Clarity Clear Clear Urine pH 6.5 5.0-9.0 Urine Specific [place] 1.005 1.001-1.035 Urine Protein Negative Negative Urine Ketones Negative Negative Urine Blood Negative Negative /uL Urine Nitrite Negative Negative Urine Bilirubin Negative Negative Urine Urobilinogen Normal Negative mg/dL Urine Leukocyte Esterase Negative Negative /uL Urine RBC <1 0 - 4 /hpf Urine Microscopic WBC < 1 0-5 /HPF Urine Squamous Epithelial Cells Few <5 /hpf Urine Bacteria Few H None Seen /hpf Urine Glucose Normal Normal mg/dL Urine Test Negative Negative X-Ray, Labs, Meds, VS Comment 44-year-old female with a history of occipital neuralgia, anemia and asthma complaining of an occipital headache radiating to the right neck, lower face and lower jaw despite undergoing a nerve block for occipital neuralgia last week. Patient expresses concern that the nerve block may have caused the new symptoms of pain in the right lower face and jaw area Vitals remarkable for BP 108/59 Exam unremarkable Rhythm strip independently interpreted by me: Sinus rhythm, rate 72, no ectopy. Head CT unremarkable CBC, basic metabolic panel, UA and urine unremarkable Patient treated with the following in the ED: Toradol 30 mg IV with partial improvement of her pain Plan is to admit the patient for brain MRI and Neurology evaluation. Time of 1ST Reevaluation: 21:24 Reevaluation 1ST: Unchanged Patient Education/Counseling: Diagnosis, Treatment, Need For Follow Up Family Education/Counseling: No Family Present SEPSIS Sepsis Screen Date sepsis recognized/suspect: Apr 10, 2025 Time Sepsis recognized/suspect: 2030 Recent Procedure: No On Antibiotic Therapy: No Respiratory Rate >20: No Heart Rate >90: No Temp<36 C (96.8 F) or >38.3 C: No SBP <90 or MAP <65 mmHG: No New Acute Mental Status Change: No Is the patient on CPAP, BIPAP,: No Physician Orders Electrocardigram (04/10/25 20:53) Head Without Contrast (04/10/25 20:53) Vital Signs Date Time Temp Pulse Resp B/P (MAP) Pulse Ox O2 Delivery O2 Flow Rate FiO2 04/10/25 20:28 98.2 72 16 108/59 100 98.2 Laboratory Tests Test 04/10/25 21:07 White Blood Count 8.7 10^3/uL (4.4-10.8) Departure 1 Departure Time of Disposition: 00:00 Impression: Primary Impression: Intractable headache Qualified Codes: R51.9 - Headache, unspecified Disposition: ADMITTED INPATIENT Admit to: Tele Condition: Guarded Critical Care Note Critical Care Time?: No Stability Stability form required: No Heart Score Heart Score: Heart Score Response (Comments) Value History N/A 0 EKG N/A 0 Age N/A 0 Risk Factors N/A 0 Troponin N/A 0 Total 0 I personally scribed for SANJIV MCKINNON MD ([facility] on 04/10/25 at 21:01. Electronically submitted by Josr Way ([email or web address]). I personally scribed for SANJIV MCKINNON MD ([email or web address]) on 04/10/25 at 21:02. Electronically submitted by Josr Way ([email or web address]). SANJIV MCKINNON MD Apr 10, 2025 21:01
[2025-04-10 21:21] LABS: Hematocrit 33.8 % (36.0-46.0); Hemoglobin 10.9 g/dL (12.2-16.2)
[2025-04-10 21:23] LABS: Mean Corpuscular Hemoglobin 25.8 pg (28.0-32.0); Mean Corpuscular Volume 79.7 fL (80.0-100.0); Nucleated Red Blood Cells % 0.0 %
[2025-04-10 21:30] LABS: Chloride 103 mmol/L (98-107); Potassium 3.6 mmol/L (3.5-5.1); Sodium 137 mmol/L (136-145)
[2025-04-10 21:31] LABS: Anion Gap 6 (5-15); Calcium 9.1 mg/dL (8.7-10.4); Carbon Dioxide 28 mmol/L (20-31)
[2025-04-10 21:36] LABS: BUN/Creatinine Ratio 17.5 (10.0-20.0); Blood Urea Nitrogen 10 mg/dL (9-23); Glucose 98 mg/dL (74-106)
--- NOTE | 2025-04-10 22:57 | DVH ---
COMPUTERIZED TOMOGRAPHY OF THE HEAD WITHOUT CONTRAST REASON FOR STUDY: R sided headache COMPARISON: CT HEAD WITHOUT CONTRAST on DOS: 12/04/24, CT HEAD WITHOUT CONTRAST on DOS: 07/12/24, CT HE AD WITHOUT CONTRAST on DOS: 06/11/24, CT HEAD WITHOUT CONTRAST on DOS: 05/16/24, CT HEAD WITHOUT CONTRAS T on DOS: 04/25/24 TECHNIQUE: Helical tomographic scans were obtained through the brain. 2-D coronal and sagittal refor matted images are provided. Radiation optimization: All CT scans at this facility use at least one of these dose optimization techniques: Automated exposure control mA and/or kV adjustment per patient s ize (includes targeted exams where dose is matched to clinical indication) or iterative reconstructio n. RADIATION DOSE: CTDI: 61 mGy DLP: 1208 mGy-cm FINDINGS: No suspicious intracranial hyperdensity to suggest acute blood. There is no mass effect n or midline shift. There is no hydrocephalus. The suprasellar cistern is intact. The calvarium is inta ct. The visualized mastoid air cells and paranasal sinuses are clear. IMPRESSION: No acute intracranial abnormality.
[2025-04-11 00:07] LABS: Urine Protein, UAD Negative (Negative)
[2025-04-11] MEDS ORDERED: ONDANSETRON HCL 4 MG/2 ML VIAL IV PRN (03:30)
[2025-04-11] MEDS ORDERED: DOCUSATE SOD 100 MG CAP PO PRN (03:30)
[2025-04-11] MEDS ORDERED: HYDROcodone-ACET 5/325MG TAB PO PRN (03:30)
[2025-04-11] MEDS ORDERED: PROCHLORPERAZINE EDISYLATE 5 MG/ML 2ML VIAL IV PRN (03:45)
[2025-04-11] MEDS: KETOROLAC TROMETH 30 MG/ML 1ML VIAL IV ONE (04:43)
[2025-04-11 04:46] VITALS: PULSE 69; RESP 20; O2SAT 98
[2025-04-11] MEDS: SODIUM CHLORIDE 0.9% 1,000 ML IV SCH (05:30)
--- NOTE | 2025-04-11 05:33 | DVHHP2 ---
History of Present Illness Reason for Visit: Intractable headache History of Present Illness The patient is a 44-year-old female with past medical history of anxiety, anemia, asthma, TIA, and occipital neuralgia who presented to [facility] ED with complaint of headache for the past 3 days. Patient reports she has been experiencing headache associated with posterior neck pain, radiates to the right parietal, temporal, face, and lower jaw area. Patient reports this started after she received nerve block for occipital neuralgia. Patient notes that the occipital pain radiating to the temporoparietal area is typical of her occipital neuralgia exacerbations, however pain radiating to the lower face and jaw has never occurred before. Patient was seen and evaluated in the ED, laboratory data shows WBC 8.7, hemoglobin 10.9, hematocrit 33.8, platelets 382, sodium 137, potassium 3.6, BUN 10, creatinine 0.57, glucose 98, calcium 9.1, blood pressure 108/59, heart rate 72, temperature 98.2 F, O2 saturation 100% on room air. Head CT showed no acute intracranial abnormality. Please see medication orders section in the computer. On my assessment, patient denies chest pain, no headache at this moment, no dizziness, no diaphoresis, no shortness of breaths, no nausea, no vomiting, no fever, no chills. Patient was admitted for further and medical management. Past Medical History Anemia, Anxiety, Asthma, POTS, TIA, Occipital neuralgia Past Surgical History Cholecystectomy, Family History Reviewed, noncontributory to the management of this case. Past Social History The patient lives at home, denies smoking, alcohol or illicit drugs abuse. Review of Systems Constitutional: No: Fever, Chills, Sweats, Weakness, Malaise, Other Eyes: No: Pain, Vision change, Conjunctivae inflammation, Eyelid inflammation, Other, Redness ENT: No: Ear pain, Ear discharge, Nose pain, Nose discharge, Nose congestion, Mouth pain, Mouth swelling, Throat pain, Throat swelling, Other Respiratory: No: Cough, Dry, Shortness of breath, SOB with excertion, Wheezing, Hemoptysis, Pleuritic Pain, Sputum, Wheezing, Other Cardiovascular: No: Chest Pain, Palpitations, Orthopnea, Paroxysmal Noc. Dyspnea, Edema, Lt Headedness, Other Gastrointestinal: No: Nausea, Vomiting, Abdominal Pain, Diarrhea, Constipation, Melena, Hematochezia, Other Genitourinary: No Dysuria, No Frequency, No Incontinence, No Hematuria, No Retention, No Other Musculoskeletal: back pain; No: other, neck pain, shoulder pain, arm pain, hand pain, leg pain, foot pain Skin: No: Rash, Lesions, Jaundice, Bruising, Other Neurological: Other (Headache); No: Weakness, Numbness, Incoordination, Change in speech, Confusion, Seizures Allergies: Coded Allergies: Morphine (Verified Allergy, Severe, 07/12/24) Ondansetron (Verified Allergy, Severe, 07/12/24) Metoclopramide (Verified Allergy, Unknown, 07/10/24) Medications Current Medications Medications Dose Ordered Sig/Ryanne Route Start Time Stop Time Status Last Admin Dose Admin Sodium Chloride 1,000 ml @ 60 mls/hr [id number] IV 04/11/25 03:30 Acetaminophen/ Hydrocodone Bitart 1 tab Q4HP PRN PO 04/11/25 03:30 Docusate Sodium 100 mg BIDPRN PRN PO 04/11/25 03:30 Acetaminophen 650 mg Q6HP PRN PO 04/11/25 03:30 Apixaban 5 mg BID PO 04/11/25 10:00 Prochlorperazine Edisylate 10 mg Q4HPRN PRN IV 04/11/25 03:45 Exam Vital Signs Vital Signs Date Time Temp Pulse Resp B/P (MAP) Pulse Ox O2 Delivery O2 Flow Rate FiO2 04/11/25 04:46 69 20 98 Room Air* 0 21 04/11/25 04:43 98.3 107/68 (81) 98.3 General Appearance: Alert, Oriented X3, Cooperative, No acute distress HEENT: Atraumatic, PERRLA, EOMI, Mucous membr. moist/pink Respiratory: Clear to auscultation, Normal air movement Cardiovascular: Regular rate, Normal S1, Normal S2, No murmurs Abdominal: Normal bowel sounds, Soft, No tenderness, No hepatospenomegaly, No masses Extremities: No clubbing, No cyanosis, No edema, Normal pulses, No tenderness/swelling Skin: No rashes, No breakdown, No significant lesion Neuro: Normal gait, Normal speech, Strength at 5/5 X4 ext, Normal tone, Sensati on intact, Cranial nerves 3-12 NL Psych/Mental Status: Mental status NL, Mood NL Labs/Xrays Labs Test 04/10/25 21:07 04/10/25 20:52 Range/Units White Blood Count 8.7 4.4-10.8 10^3/uL Red Blood Count 4.24 4.0-5.20 10^6/uL Hemoglobin 10.9 L 12.2-16.2 g/dL Hematocrit 33.8 L 36.0-46.0 % Mean Corpuscular Volume 79.7 L 80.0-100.0 fL Mean Corpuscular Hemoglobin 25.8 L 28.0-32.0 pg Mean Corpuscular Hemoglobin Concent 32.3 32.0-36.0 g/dL Red Cell Distribution Width 17.6 H 11.8-14.3 % Platelet Count 382 140-450 10^3/uL Mean Platelet Volume 6.9 6.9-10.8 fL Neutrophils (%) (Auto) 67.3 37.0-80.0 % Lymphocytes (%) (Auto) 24.5 10.0-50.0 % Monocytes (%) (Auto) 6.0 0.0-12.0 % Eosinophils (%) (Auto) 1.8 0.0-7.0 % Basophils (%) (Auto) 0.4 0.0-2.0 % Neutrophils # (Auto) 5.9 1.6-8.6 10 ^3/uL Lymphocytes # (Auto) 2.1 0.4-5.4 10 ^3/uL Monocytes # (Auto) 0.5 0-1.3 10 ^3/uL Eosinophils # (Auto) 0.2 0-0.8 10 ^3/uL Basophils # (Auto) 0 0-0.2 10 ^3/uL Nucleated Red Blood Cells 0.0 % Sodium Level 137 136-145 mmol/L Potassium Level 3.6 3.5-5.1 mmol/L Chloride Level 103 98-107 mmol/L Carbon Dioxide Level 28 20-31 mmol/L Anion Gap 6 5-15 Blood Urea Nitrogen 10 9-23 mg/dL Creatinine 0.57 0.550-1.02 mg/dL Glomerular Filtration Rate Calc 116 >90 mL/min BUN/Creatinine Ratio 17.5 10.0-20.0 Serum Glucose 98 74-106 mg/dL Calcium Level 9.1 8.7-10.4 mg/dL Urine Color Colorless Yellow Urine Clarity Clear Clear Urine pH 6.5 5.0-9.0 Urine Specific [place] 1.005 1.001-1.035 Urine Protein Negative Negative Urine Ketones Negative Negative Urine Blood Negative Negative /uL Urine Nitrite Negative Negative Urine Bilirubin Negative Negative Urine Urobilinogen Normal Negative mg/dL Urine Leukocyte Esterase Negative Negative /uL Urine RBC <1 0 - 4 /hpf Urine Microscopic WBC < 1 0-5 /HPF Urine Squamous Epithelial Cells Few <5 /hpf Urine Bacteria Few H None Seen /hpf Urine Glucose Normal Normal mg/dL Urine Test Negative Negative PATIENT: TIMA SPENCER ACCT: [id number] UNIT: [id number] : 1980 LOC: ER ROOM / BED: / AGE / SEX: 44 / F ADM STATUS: REG ER SERVICE 52 ORDERING PHYSICIAN: SANJIV MCKINNON MD PROCEDURE(s): HWOCT - HEAD WITHOUT CONTRAST REASON: R sided headache ORDER NUMBER(s): [id number], ACCESSION NUMBER(s): [id number] COMPUTERIZED TOMOGRAPHY OF THE HEAD WITHOUT CONTRAST REASON FOR STUDY: R sided headache COMPARISON: CT HEAD WITHOUT CONTRAST on DOS: 12/04/24, CT HEAD WITHOUT CONTRAST on DOS: 07/12/24, CT HEAD WITHOUT CONTRAST on DOS: 06/11/24, CT HEAD WITHOUT CONTRAST on DOS: 05/16/24, CT HEAD WITHOUT CONTRAST on DOS: 04/25/24 TECHNIQUE: Helical tomographic scans were obtained through the brain. 2-D coronal and sagittal reformatted images are provided. Radiation optimization: All CT scans at this facility use at least one of these dose optimization techniques: Automated exposure control mA and/or kV adjustment per patient size (includes targeted exams where dose is matched to clinical indication) or iterative reconstruction. RADIATION DOSE: CTDI: 61 mGy DLP: 1208 mGy-cm FINDINGS: No suspicious intracranial hyperdensity to suggest acute blood. There is no mass effect nor midline shift. There is no hydrocephalus. The suprasellar cistern is intact. The calvarium is intact. The visualized mastoid air cells and paranasal sinuses are clear. IMPRESSION: No acute intracranial abnormality. SEPSIS Sepsis Screen Date sepsis recognized/suspect: Apr 11, 2025 Time Sepsis recognized/suspect: 0449 Recent Procedure: No On Antibiotic Therapy: No Respiratory Rate >20: No Heart Rate >90: No Temp<36 C (96.8 F) or >38.3 C: No SBP <90 or MAP <65 mmHG: No New Acute Mental Status Change: No Is the patient on CPAP, BIPAP,: No Physician Orders Allergies (04/11/25 03:22) Code Status (04/11/25 03:22) Sodium Chloride 0.9% (04/11/25 03:30) Oxygen Per Hour (04/11/25 03:22) Hydrocodone-Acet 5/325mg Tab ([place] 5/32 (04/11/25 03:30) Docusate Sodium Capsule (Colace Capsule) (04/11/25 03:30) Complete Blood Count (04/12/25 04:00) Comprehensive Metabolic Panel (04/12/25 04:00) Cardiac Diet-2gna,Lofat,Lochol (04/11/25 Breakfast) Condition: Serious (04/11/25 03:22) Acetaminophen Tablet (Tylenol Tablet) (04/11/25 03:30) Bedrest With Bathroom Privileg (04/11/25 03:22) Sequential Compression Device (04/11/25 ) Apixaban (Eliquis) (04/11/25 10:00) Prochlorperazine Inj (Compazine Inj) (04/11/25 03:45) Admit (04/11/25 05:31) Nitroglycerin Sublingual (Ntrostat Subli (04/11/25 05:45) Stat Ekg For Chest Pain (04/11/25 05:31) Notify Md Of Changes From Base (04/11/25 05:31) Steamer Blocker For 24 Hours (04/11/25 05:31) Emergency Dysrhythmia Protocol (04/11/25 05:31) Rhythm Strips Once Every Shift (04/11/25 05:31) Oxygen By Nasal Cannula (04/11/25 05:31) Vital Signs Date Time Temp Pulse Resp B/P (MAP) Pulse Ox O2 Delivery O2 Flow Rate FiO2 04/11/25 04:46 69 20 98 Room Air* 0 21 04/11/25 04:43 98.3 69 20 107/68 (81) 98 98.3 04/11/25 00:47 61 Laboratory Tests Test 04/10/25 21:07 White Blood Count 8.7 10^3/uL (4.4-10.8) Assessment/Plan Assessment/Plan Intractable headache Headache, unspecified Plan 1. Admit to telemetry unit 2. Breathing treatment 3. Pain control management 4. Management of fluids and electrolytes 5. Consultation for hospitalist 6. Diagnostic tests head CT 7. DVT prophylaxis-on SCDs 8. Repeat labs CBC, CMP in a.m. 9. Continue with current medical management 10. Treatment plan discussed with patient and RN. Patient verbalized understanding. Plan discussed with: Patient, Other (RN) My Orders Orders - ANGELIQUE BLAND DNP Procedure Category Date Status Time Allergies YOLI 04/11/25 In Process 03:22 Code Status CODE 04/11/25 Transmitted 03:22 Sodium Chloride 0.9% PHA 04/11/25 In Process 03:30 Oxygen Per Hour RT 04/11/25 Transmitted 03:22 Hydrocodone-Acet PHA 04/11/25 In Process 5/325mg Tab ([place] 03:30 Docusate Sodium PHA 04/11/25 In Process Capsule (Colace 03:30 Complete Blood Count LAB 04/12/25 Verified 04:00 Comprehensive LAB 04/12/25 Verified Metabolic Panel 04:00 Cardiac DIET 04/11/25 Transmitted Diet-2gna,Lofat,Lochol Breakfast Condition: Serious YOLI 04/11/25 In Process 03:22 Acetaminophen Tablet PHA 04/11/25 In Process (Tylenol Tablet) 03:30 Bedrest With Bathroom YOLI 04/11/25 In Process Privileg 03:22 Sequential YOLI 04/11/25 In Process Compression Device Apixaban (Eliquis) PHA 04/11/25 In Process 10:00 Prochlorperazine Inj PHA 04/11/25 In Process (Compazine Inj) 03:45 Admit ADMIT 04/11/25 Verified 05:31 Nitroglycerin PHA 04/11/25 Verified Sublingual (Ntrostat 05:45 Stat Ekg For Chest [facility] 04/11/25 Verified Pain 05:31 Notify Of Changes [facility] 04/11/25 Verified From Base 05:31 Steamer Blocker For [facility] 04/11/25 Verified 24 Hours 05:31 Emergency Dysrhythmia [facility] 04/11/25 Verified Protocol 05:31 Rhythm Strips Once [facility] 04/11/25 Verified Every Shift 05:31 Oxygen By Nasal RT 04/11/25 Verified Cannula 05:31 Problem List: (1) Intractable headache (2) Headache, unspecified Date of Service: Apr 11, 2025 Billing Provider: ANGELIQUE BLAND DNP Common Visit Codes: [id number] INP/OBS CARE (HIGH) ANGELIQUE BLAND DNP Apr 11, 2025 05:33
[2025-04-11] MEDS ORDERED: NITROGLYCERIN 0.4 MG SL TAB SL PRN (05:45)
[2025-04-11 07:25] VITALS: PULSE 68; RESP 16; O2SAT 95
[2025-04-11] MEDS: APIXABAN 5 MG TAB PO SCH (09:56)
[2025-04-11] MEDS ORDERED: NORT-22 PO (13:34)
[2025-04-11] MEDS ORDERED: PROP60CA34 PO (13:34)
[2025-04-11] MEDS ORDERED: RIME75TA PO (13:34)
[2025-04-11] MEDS: ACETAMINOPHEN 325 MG TAB PO PRN (14:07)
--- NOTE | 2025-04-11 14:46 | DVH ---
EXAMINATION: MRI BRAIN HEAD WO CONTRAST INDICATION: Right sided headache COMPARISON: CT HEAD WITHOUT CONTRAST on DOS: 04/10/25 TECHNIQUE: Multiplanar, multisequence magnetic resonance imaging of the brain was performed without the use of i ntravenous contrast. FINDINGS: No evidence of acute infarct. No intracranial hemorrhage. No mass effect. There is a subcentimeter focus of periventricular/deep white matter T2/FLAIR hyperintensity in the le ft occipital lobe is nonspecific. The ventricles and sulci are normal in size for age. Clear basal cisterns. Flow voids in the major intracranial vessels are maintained. No abnormality of the orbits. Paranasal sinuses and mastoid air cells are clear. No abnormality of the visualized osseous structures and extracranial soft tissues. IMPRESSION: 1. No acute infarct, intracranial hemorrhage, mass effect, or hydrocephalus. 2. Subcentimeter focus of T2/FLAIR hyperintensity in the left periventricular white matter of the occ ipital lobe, nonspecific in appearance and may represent sequelae of chronic headaches. Other etiolo gies such as sequelae of microvascular ischemic changes or demyelinating disease not excluded.
[2025-04-11] MEDS ORDERED: ACET500T58 PO (15:25)
--- NOTE | 2025-04-11 15:28 | DVHDS2 ---
Discharge Summary Date of Admission Apr 11, 2025 at 05:31 Date of Discharge: Apr 11, 2025 Labs/Diagnostic Data: Laboratory Results Test 04/10/25 21:07 04/10/25 20:52 White Blood Count 8.7 10^3/uL (4.4-10.8) Red Blood Count 4.24 10^6/uL (4.0-5.20) Hemoglobin 10.9 g/dL (12.2-16.2) Hematocrit 33.8 % (36.0-46.0) Mean Corpuscular Volume 79.7 fL (80.0-100.0) Mean Corpuscular Hemoglobin 25.8 pg (28.0-32.0) Mean Corpuscular Hemoglobin Concent 32.3 g/dL (32.0-36.0) Red Cell Distribution Width 17.6 % (11.8-14.3) Platelet Count 382 10^3/uL (140-450) Mean Platelet Volume 6.9 fL (6.9-10.8) Neutrophils (%) (Auto) 67.3 % (37.0-80.0) Lymphocytes (%) (Auto) 24.5 % (10.0-50.0) Monocytes (%) (Auto) 6.0 % (0.0-12.0) Eosinophils (%) (Auto) 1.8 % (0.0-7.0) Basophils (%) (Auto) 0.4 % (0.0-2.0) Neutrophils # (Auto) 5.9 10 ^3/uL (1.6-8.6) Lymphocytes # (Auto) 2.1 10 ^3/uL (0.4-5.4) Monocytes # (Auto) 0.5 10 ^3/uL (0-1.3) Eosinophils # (Auto) 0.2 10 ^3/uL (0-0.8) Basophils # (Auto) 0 10 ^3/uL (0-0.2) Nucleated Red Blood Cells 0.0 % Sodium Level 137 mmol/L (136-145) Potassium Level 3.6 mmol/L (3.5-5.1) Chloride Level 103 mmol/L (98-107) Carbon Dioxide Level 28 mmol/L (20-31) Anion Gap 6 (5-15) Blood Urea Nitrogen 10 mg/dL (9-23) Creatinine 0.57 mg/dL (0.550-1.02) Glomerular Filtration Rate Calc 116 mL/min (>90) BUN/Creatinine Ratio 17.5 (10.0-20.0) Serum Glucose 98 mg/dL (74-106) Calcium Level 9.1 mg/dL (8.7-10.4) Urine Color Colorless (Yellow) Urine Clarity Clear (Clear) Urine pH 6.5 (5.0-9.0) Urine Specific [place] 1.005 (1.001-1.035) Urine Protein Negative (Negative) Urine Ketones Negative (Negative) Urine Blood Negative /uL (Negative) Urine Nitrite Negative (Negative) Urine Bilirubin Negative (Negative) Urine Urobilinogen Normal mg/dL (Negative) Urine Leukocyte Esterase Negative /uL (Negative) Urine RBC <1 /hpf (0 - 4) Urine Microscopic WBC < 1 /HPF (0-5) Urine Squamous Epithelial Cells Few /hpf (<5) Urine Bacteria Few /hpf (None Seen) Urine Glucose Normal mg/dL (Normal) Urine Test Negative (Negative) Other Laboratory Tests 04/10/25 21:07 Brief Hx & Hospital Course: 44 year old female with a Hx of Asthma, Occipital Neuralgia, POTS, TIA'S, prior Cholecystectomy and Superficial Thrombophlebitis presents to the ED for the c/c of a Headache w/ associated Posterior Neck pain that radiates to the Right parietal/temporal face and lower jaw area. Pt states that her symptoms started 3x days ago, after she received a nerve block for occipital neuralgia. Patient notes that the occipital pain radiating to the temporoparietal area is typical of her occipital neuralgia exacerbations, however pain radiating to the lower face and jaw has never occurred before. Pt notes that she did take Tylenol and Nurtec which alleviated the temporal/parietal pain, however the lower face and jaw pain persisted. Pt states Toradol has helped with her pain in the past. Pt reports taking 20mg of prescribed Propanolol. Pt denies any vomiting or dizziness. She does report transient visual disturbance characterized by slightly blurred peripheral vision, as well as transient bilateral lower extremity weakness. She denies any current visual disturbance or focal weakness. She is admitted and had MRI of the brain as well as head CT both are unremarkable. Patient received Tylenol in the hospital and her pain has relieved. Currently she is pain-free. Given her workup in the hospitalist normal and feeling better she is requesting to go home. Patient apparently has neurologist she follows at [place] for her nerve blocks with a she gets for her chronic occipital neuralgia. Patient is advised to continue with the Tylenol at home. Continue Eliquis and other home medications as she is taking. Given clinically stable she has been discharged home with instructions to follow up outpatient with a Neurology as mentioned. Patient verbalized understanding over hospital diagnosis, MRI and CT results, discharge medications and agree with the discharge follow-up plan of care as outlined. Condition at Discharge: Stable Final Diagnosis/Problems List Headache resolved, history of chronic occipital neuralgia Discharge Disposition: Home Discharge Instruct/Medications Diet: Consistent carbohydrate, Cardiac 2g Na,low cholest Activity: No Restrictions, As Tolerated Follow Up/Referral: Your neurologist in [place] for further management of your occipital neurologist/headaches Medications: Tylenol as prescribed and other home medications as you were taking. Scheduled Acetaminophen (Acetaminophen), 500 MG PO QIDPRN Apixaban Base (Eliquis), 10 MG PO BID Apixaban Base (Eliquis), 5 MG PO BID Ascorbic Acid (Vitamin C Tablet), 1 TAB PO BID Clindamycin Hcl (Clindamycin Hcl), 1 CAP PO QID Cyclobenzaprine Hcl (Cyclobenzaprine Hcl), 10 MG PO TIDBM Diclofenac Potassium (Diclofenac Potassium), 1 TAB PO TIDP Ferrous Sulfate (Iron Supplement), 220 MG PO BID Hydrocodone-Acetaminophen (Hydrocodone Bitartrate/AC 5-325 mg), 1 TAB PO QIDPRN Hydrocodone-Acetaminophen (Hydrocodone Bitartrate/AC 5-325 mg), 1 TAB PO BID Meclizine Hcl (Meclizine Hcl), 25 MG PO TID Metoprolol Tartrate (Lopressor Tablet), 0.5 TAB PO BID, (Reported) Naproxen (Naprosyn Tablet), 500 MG GT BID Nitrofurantoin Monohydrate Mac (Macrobid), 100 MG PO BID Nitrofurantoin Monohydrate Mac (Macrobid), 100 MG PO BID Nitrofurantoin Monohydrate Mac (Macrobid), 100 MG PO BID Nortriptyline HCl (Nortriptyline Hydrochlori), 20 MG PO HS, (Reported) Ondansetron Odt 4MG Tab (Zofran Po), 4 MG PO TID Potassium Chloride (Potassium Chloride ER), 10 MEQ PO DAILY Propranolol Hcl (Inderal La), 20 MG PO BID, (Reported) Rimegepant Sulfate (Nurtec), 75 MG PO PRN, (Reported) Scheduled PRN Acetaminophen W/ Codeine (Tylenol W/Cod #3), 1 TAB PO Q8HP PRN Acetaminophen W/ Codeine (Tylenol W/Cod #3), 1 TAB PO Q6HP PRN Gabapentin (Gabapentin), 1 CAP PO Q6HP PRN Ibuprofen (Ibuprofen), 1 TAB PO TID PRN Discharge Statement: "Patient was advised to return to the ER or call 911 if any headaches, dizziness, shortness of breath, chest pain, abdominal pain, bleeding, fevers, or worsening of medical condition. Patient was counseled about treatment plan, medications, possible side effects, patientverbalized understanding. All questions were answered to the best of my ability. This discharge took greater then 30 minutes in planning, reviewing documentation, counseling the patient, and discussing with other team members." ASSESSMENT ASSESSMENT Assessment Headache resolved, history of chronic occipital neuralgia Date of Service: Apr 11, 2025 Billing Provider: BERENICE ARAGON MD Common Visit Codes: [id number] DISCH DAY <30MIN BERENICE ARAGON MD Apr 11, 2025 15:28
[2025-04-11 16:15] VITALS: BP 110/56; PULSE 78; RESP 16; TEMP 98.1; O2SAT 97
--- NOTE | 2025-04-13 08:11 | ECG ---
[facility] Test Date: 2025-04-11 Test Time: 00:47:22 Pat Name: TIMA SPENCER Department: ER Room: [address] [place] [address] Gender: F Filter Helper: MAO : 1980 Requested By: SANJIV SAMAYOA Order Number: [id number] Reading MD: Sherwin Patterson Measurements Intervals Rindge Rate: 61 P: 3 NJ: 182 QRS: 8 QRSD: 98 T: 14 QT: 411 QTc: 414 Interpretive Statements Sinus rhythm Low voltage, precordial leads RSR' in V1 or V2, right VCD or RVH Borderline T abnormalities, anterior leads Electronically Signed On 04-13-2025 22:03:38 PDT by Sherwin Patterson Please click the below link to view image of tracing.
== END 2025-04-11 17:00 | disposition home or self-care (01) | DRG 347 ==
LOC: ER 20:26 → OVERFLOW 04-11 05:31
PROVIDERS: ADMIT Nurse Practitioner Family; ATTEND Nurse Practitioner Family
DX: M54.81 Occipital neuralgia (principal); G90.A Postural orthostatic tachycardia syndrome [POTS]; F41.9 Anxiety disorder, unspecified; J45.909 Unspecified asthma, uncomplicated; Z79.01 Long term (current) use of anticoagulants; Z86.72 Personal history of thrombophlebitis; Z86.73 Personal history of transient ischemic attack (TIA), and cerebral infarction without residual deficits; Z88.5 Allergy status to narcotic agent; Z90.49 Acquired absence of other specified parts of digestive tract
CPT/HCPCS: 36415; 70450; 70551; 80048; 81001; 81025; 85025; 93005; 96360; G0378

== ENCOUNTER 2025-04-13 22:36 | Emergency (ER) | payer MEDICAID ==
[~2025-04-13] VITALS: Ht 157.5 cm; Wt 84.0 kg
[~2025-04-13 22:36] MED LIST changes: -ACE3T PO; -ASCO500T11 PO; -CLIN1CAP70 PO; -DICL50TA2 PO; -HYDR-4902 PO; -IBUP-1456 PO; -NAP500T GT; -NITR-87 PO; +NORT-22 PO; +PROP60CA34 PO; +RIME75TA PO
--- NOTE | 2025-04-14 00:32 | DVH ---
Upper Extremity Venous Duplex Clinical History: Pain, swelling. Hx DVT Comparison: US LT LOWER DVT on DOS: 03/20/25, US RT UPPER DVT on DOS: 02/13/25, US LT LOWER DVT on DOS: 01/05/25, US RT UPPER DVT on DOS: 01/05/25, US RT UPPER DVT on DOS: 11/14/24 Technique: Duplex Doppler evaluation of the venous system of the RIGHT lower neck and upper extremity including color Doppler and spectral/pulsed waveform analysis was performed. Findings: The internal jugular vein demonstrates appropriate compressibility and waveform variability. The subclavian vein is patent on color Doppler evaluation without intraluminal thrombus and demonstra iftikhar waveform variability. The visualized portion of the brachiocephalic vein is patent on color Doppler evaluation without intr aluminal thrombus and demonstrates waveform variability. The axillary vein demonstrates appropriate compressibility and waveform variability. The brachial veins demonstrate appropriate compressibility and patency on Doppler evaluation. The basilic vein demonstrates appropriate compressibility and patency on Doppler evaluation. The cephalic vein demonstrates appropriate compressibility and patency on Doppler evaluation. Impression: 1. No venous thrombus identified in the RIGHT upper extremity vessels evaluated above. 2. If clinical concern/symptoms persist or worsen, short-interval follow-up study is suggested.
[2025-04-14] MEDS ORDERED: ASPI-316 PO (01:41)
--- NOTE | 2025-04-14 01:41 | ED.PDOC ---
Musculoskeletal HPI Comments Pt c/o right upper arm swelling since yesterday. Pt says she has hx of blood clot in arm August 2024. Pt denies any redness, warmth. Pt says she noticed the swelling and pain and says it is similar when she had clot. Rates current pain 5/10. Denies numbness, weakness, slurred speech, chest pain, shortness of breath, difficulty breathing. Chief Complaint: Upper Extremity Time Seen by MD: 22:44 Primary Care Provider: Dr. Randolph Reviewed Notes: Nurses Notes, Medications, Allergies Allergies: Coded Allergies: Morphine (Verified Allergy, Severe, 07/12/24) Ondansetron (Verified Allergy, Severe, 07/12/24) Metoclopramide (Verified Allergy, Unknown, 07/10/24) Home Meds Active Scripts Aspirin (Aspirin EC Adult Low Dose) 81 Mg Tab, 81 MG PO DAILY for 30 Days, #30 TAB Prov:DAVID ALEMAN 04/14/25 Acetaminophen (Acetaminophen) 500 Mg Tab, 500 MG PO QIDPRN, #20 TAB Prov:BERENICE ARAGON MD 04/11/25 Gabapentin (Gabapentin) 300 Mg Cap, 1 CAP PO Q6HP PRN, #30 CAP 0 Refills Prov:HARSHA OSHEA PAC 11/27/24 Ferrous Sulfate (Iron Supplement) 220 Mg/5 Ml Elx, 220 MG PO BID for 30 Days, #60 ELX Prov:GAYE ALVAREZ MD 07/12/24 Cyclobenzaprine Hcl (Cyclobenzaprine Hcl) 10 Mg Tab, 10 MG PO TIDBM for 5 Days, #15 TAB Prov:GAYE ALVAREZ MD 07/12/24 Ondansetron Odt 4MG Tab (ZOFRAN PO) 4 Mg Tb, 4 MG PO TID for 10 Days, #30 TAB ODT TAB-DISSOLVE IN MOUTH, THEN SWALLOW Prov:MAYNOR HOYT MD 06/12/24 Meclizine Hcl (Meclizine Hcl) 12.5 Mg Tab, 25 MG PO TID for 7 Days, #42 TAB Prov:MAYNOR HOYT MD 04/25/24 Potassium Chloride (Potassium Chloride ER) 10 Meq Tab, 10 MEQ PO DAILY for 7 Days, #7 TAB Prov:ANDREY BLOCK MD 01/18/24 Apixaban Base (ELIQUIS) 5 Mg Tab, 10 MG PO BID for 10 Days, #40 TAB 0 Refills Prov:TANIYA LUNA DO 10/06/23 Reported Medications Rimegepant Sulfate (Nurtec) 75 Mg Tab, 75 MG PO PRN, TAB 04/11/25 Propranolol Hcl (Inderal La) 60 Mg Cap, 20 MG PO BID, CAP 04/11/25 Nortriptyline HCl (Nortriptyline Hydrochlori) 25 Mg Cap, 20 MG PO HS, CAP 04/11/25 Metoprolol Tartrate (LOPRESSOR TABLET) 50 Mg Tb, 0.5 TAB PO BID 09/28/23 Mode of Arrival: Ambulatory Past Medical History PAST MEDICAL HISTORY: Anemia, Anxiety, Asthma, TIA Surgical History: Cholecystectomy, MANAGER COMMODITIES History: No Pertinent MANAGER COMMODITIES History Family History Family History: Reviewed,noncontributory to illness, Family hx of HTN Social History Smoker: Non-Smoker Alcohol: Denies ETOH Use Drugs: Denies Drug Use Lives In: Home All Other Systems: Reviewed and Negative (see hpi) Physical Exam General Appearance: No Apparent Distress, Normal HEENT: Pharynx Normal Neck: Full Range of Motion, Non-Tender Respiratory: Lungs Clear, No Respiratory Distress, Normal Breath Sounds Cardiovascular: No Edema, No JVD, No Murmur, No Gallop, Normal Peripheral Pulses, Regular Rate/Rhythm Breast Exam: Deferred Gastrointestinal: No Organomegaly, Non Tender, No Pulsatile Mass, Normal Bowel Sounds, Soft Genitalia: Deferred Pelvic: Deferred Rectal: Deferred Extremities: Normal capillary refill, Normal inspection, Normal range of motion, Non-tender, No pedal edema Musculoskeletal : Location: Right Extremity Location: Arm (Tenderness palpated over proximal right bicep trace edema no noted erythema or warmth strength sensory motion intact positive radial pulse) Apperance: Normal 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 Was a procedure done?: No Differential Diagnosis EXT Differential Diagnosis: Deep Vein Thrombosis, Sprain, Contusion X-Ray, Labs, Meds, VS Vital Signs Date Time Temp Pulse Resp B/P (MAP) Pulse Ox O2 Delivery O2 Flow Rate FiO2 8/5/25 02:16 69 14 100 Room Air 04/14/25 01:45 98.4 69 14 110/55 (73) 100 98.4 04/13/25 22:48 98.2 76 18 112/76 97 98.2 X-Ray, Labs, Meds, VS Comment Ultrasound negative for DVT or subcutaneous clot. Script trial of baby aspirin once daily advised take medication as prescribed side effects discussed. Patient states has not appointment with her PCP this week advised to follow up. ER return precautions given patient indicates understanding agrees with discharge plan of care. Time of 1ST Reevaluation: 22:58 Reevaluation 1ST: Unchanged Time of 2ND Reevaluation: 01:15 Reevaluation 2ND: Improved Patient Education/Counseling: Diagnosis, Treatment, Prognosis, Need For Follow Up Family Education/Counseling: No Family Present Departure 1 Departure Time of Disposition: 01:40 Impression: Primary Impression: Right arm pain Disposition: 01 HOME / SELF CARE / HOMELESS Condition: Stable e-Prescriptions Aspirin (Aspirin EC Adult Low Dose) 81 Mg Tab 81 MG PO DAILY for 30 Days, #30 TAB Prov: DAVID ALEMAN 04/14/25 Discharged With: Self Critical Care Note Critical Care Time?: No Stability Stability form required: DAVID Baird Apr 14, 2025 01:41
[2025-04-14 01:45] VITALS: BP 110/55; TEMP 98.4
[2025-04-14] MEDS: ASPirin-EC 81 mg tab PO ONE (01:58)
[2025-04-14 02:16] VITALS: PULSE 69; RESP 14; O2SAT 100
== END 2025-04-14 02:17 | disposition home or self-care (01) ==
LOC: ER 22:36
DX: M79.601 Pain in right arm (principal); J45.909 Unspecified asthma, uncomplicated; F41.9 Anxiety disorder, unspecified; Z86.73 Personal history of transient ischemic attack (TIA), and cerebral infarction without residual deficits; Z86.2 Personal history of diseases of the blood and blood-forming organs and certain disorders involving the immune mechanism; Z90.49 Acquired absence of other specified parts of digestive tract; Z88.5 Allergy status to narcotic agent; Z86.718 Personal history of other venous thrombosis and embolism; Z79.899 Other long term (current) drug therapy; Z79.1 Long term (current) use of non-steroidal anti-inflammatories (NSAID); Z79.01 Long term (current) use of anticoagulants
CPT/HCPCS: 93971